=== PATIENT | female | born 1950 | race Caucasian/White ===

== ENCOUNTER → 2017-03-30 | Outpatient (CLI) | payer MEDICARE, BC ==
--- NOTE | 2017-03-31 12:47 | MM ---
Reason for exam: screening (asymptomatic). Last mammogram was performed 1 year and 5 months ago. History: Patient is postmenopausal. Benign excisional biopsy of the right breast. Took estrogen for 25 years 1 month. Physical Findings: A clinical breast exam by your physician is recommended on an annual basis and results should be correlated with mammographic findings. MG 3D Screening Mammo W/Cad Bilateral CC and MLO view(s) were taken. Prior study comparison: October 20, 2015, bilateral MG 3d screening mammo w/cad. August 05, 2014, bilateral MG diagnostic mammo w CAD PATRICIA. There are scattered fibroglandular densities. Finding: There are typically benign vascular, round calcifications in both breasts. There is no discrete abnormality. ASSESSMENT: Benign, BI-RAD 2 RECOMMENDATION: Routine screening mammogram of both breasts in 1 year.
== END | disposition home or self-care (01) ==
LOC: RADMAMWWP 13:16
PROVIDERS: ATTEND Internal Medicine Hematology & Oncology
DX: Z12.31 Encounter for screening mammogram for malignant neoplasm of breast (principal)
CPT/HCPCS: 77063; G0202

== ENCOUNTER 2017-08-16 13:48 | Emergency (ER) | payer MEDICARE, BC ==
[2017-08-16 14:03] VITALS: PULSE 91
--- NOTE | 2017-08-16 14:13 | ED ---
Chest Pain HPI - General Chief Complaint: Chest Pain Stated Complaint: poss broken ribs Time Seen by Provider: 08/16/17 13:57 Source: patient, RN notes reviewed, old records reviewed Mode of arrival: ambulatory Limitations: no limitations - History of Present Illness Initial Comments: This patient is a 66-year-old female presents emergency Department chief complaint of one week of right-sided rib pain. Patient reports that she has a history of a sternum fracture and May 2017. She reports that she seemed to be healing somewhat well from this injury. 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 She reports that she's been having pain with deep breath since that time. She states is also worse with movement and coughing. Patient reports that she has followed up with industrial specialist about her previous sternum fracture she reports that they have told her just to rest and take it easy. She reports that she does Tretter member to take deep breaths to swell. She denies any other significant injury or pain. She also questions if she could possibly have a kidney stone. She denies any left-sided chest pain. Denies any headache or chest pressure. Patient reports she has no dysuria or hematuria. Patient denies any recent fever, chills, s back pain, abdominal pain , nausea vomiting, numbness or tingling, dysuria or hematuria, constipation or diarrhea, headaches or visual changes, or any other current symptoms - Related Data Home Medications Medication Instructions Recorded Confirmed Estrogens, Conjugated [Premarin] 0.3 mg PO DAILY 06/23/16 08/16/17 Fluticasone/Vilanterol [Breo 1 puff INHALATION RT-DAILY 06/23/16 08/16/17 Ellipta 200-25 Mcg INH] Lansoprazole [Prevacid] 30 mg PO DAILY 06/23/16 08/16/17 Levothyroxine Sodium [Synthroid] 75 mcg PO DAILY 06/23/16 08/16/17 Lisinopril [Zestril] 10 mg PO DAILY 06/23/16 08/16/17 Montelukast Sodium [Singulair] 10 mg PO HS 06/23/16 08/16/17 Potassium Chloride ER [K-Dur 20] 20 meq PO BID 06/23/16 08/16/17 Ezetimibe [Zetia] 10 mg PO DAILY 05/24/17 08/16/17 Hydrocodone/Acetaminophen [[place] 1 tab PO Q4HR PRN 05/24/17 08/16/17 5-325] Previous Rx's Medication Instructions Recorded Ibuprofen [Motrin] 600 mg PO Q6HR PRN #20 tab 05/24/17 Levofloxacin [Levaquin] 500 mg PO DAILY 7 Days tab 05/24/17 Allergies Allergy/AdvReac Type Severity Reaction Status Date / Time cefuroxime [From Ceftin] Allergy Unknown Verified 08/16/17 14:03 Penicillins Allergy Unknown Verified 08/16/17 14:03 Review of Systems ROS Statement: Those systems with pertinent positive or pertinent negative responses have been documented in the HPI. ROS Other: All systems not noted in ROS Statement are negative. Past Medical History Past Medical History: Asthma, Hypertension History of Any Multi-Drug Resistant Organisms: None Reported Past Surgical History: Adenoidectomy, Appendectomy, Breast Surgery, Hysterectomy , Joint Replacement, Orthopedic Surgery, Tonsillectomy Additional Past Surgical History / Comment(s): ear shoulder wrist. right rotator cuff repair. Past Psychological History: No Psychological Hx Reported Smoking Status: Never smoker Past Alcohol Use History: None Reported Past Drug Use History: None Reported General Exam - General Exam Comments Initial Comments: This patient is a 66-year-old female. Patient does not appear to be in any acute distress. Limitations: no limitations General appearance: alert, in no apparent distress Head exam: Present: atraumatic, normocephalic, normal inspection Eye exam: Present: normal appearance, PERRL, EOMI. Absent: scleral icterus, conjunctival injection, periorbital swelling ENT exam: Present: normal exam, mucous membranes moist Neck exam: Present: normal inspection. Absent: tenderness, meningismus, lymphadenopathy Respiratory exam: Present: normal lung sounds bilaterally, chest wall tenderness (Patient has chest wall tenderness over right lower ribs ). Absent: respiratory distress, wheezes, rales, rhonchi, stridor Cardiovascular Exam: Present: regular rate, normal rhythm, normal heart sounds. Absent: systolic murmur, diastolic murmur, rubs, gallop, clicks GI/Abdominal exam: Present: soft, normal bowel sounds. Absent: distended, tenderness, guarding, rebound, rigid Extremities exam: Present: normal inspection, full ROM, normal capillary refill. Absent: tenderness, pedal edema, joint swelling, calf tenderness Back exam: Present: normal inspection Neurological exam: Present: alert, oriented X3, CN II-XII intact Psychiatric exam: Present: normal affect, normal mood Skin exam: Present: warm Course Vital Signs 08/16/17 14:00 Temperature 98.7 F Pulse Rate 91 Respiratory 16 Rate Blood Pressure 161/83 O2 Sat by Pulse 96 Oximetry Chest Pain MDM - MDM 66-year-old female presents today chief complaint of one week of right-sided rib pain. She reports that she fell over a freezer chest one week ago. She also has a history of his sternum fracture in May. At this time patient is tender over the right lower ribs. Specifically ribs 9 and 10. No significant bruising is noted. Patient's pain is reproducible. She has no significant coughing and lung sounds are clear bilaterally. Patient's rib x- ray was reviewed and negative for any acute process. She was also concern for possible kidney stone. She has no abdominal tenderness and denies urinary symptoms. Patient's urinalysis shows no signs of infection or blood. KUB is normal. At this time patient will be discharged with follow-up with primary care provider. She'll take her at home pain medicine. Discussed the importance of taking deep breaths. Disposition Clinical Impression: Rib pain on right side Disposition: HOME SELF-CARE Condition: Good Instructions: Rib Contusion (ED) Additional Instructions: Patient advised to alternate Motrin and Tylenol as well as take at home pain medicine. Take deep breaths frequently to prevent pneumonia. Return to the emergency department if any alarming signs or symptoms occur. Referrals: Hung Monroe DO [Doctor of Osteopathic Medicine] - 1-2 days Time of Disposition: 15:04
[2017-08-16 14:30] LABS: Appearance,Urine Clear (Clear); Bilirubin,Urine Negative (Negative); Blood,Urine Negative (Negative); Color,Urine Yellow; Glucose,Urine (UA) Negative (Negative); Ketones,Urine Negative (Negative); Leukocyte Esterase,Urine Negative (Negative); Nitrite,Urine Negative (Negative); PH, Urine 7.5 (5.0-8.0); Protein,Urine Negative (Negative); Specific Gravity,Urine 1.009 (1.001-1.035); Urobilinogen,Urine <2.0 mg/dL (<2.0)
--- NOTE | 2017-08-16 14:36 | XR ---
EXAMINATION TYPE: XR ribs RT w pa chest x-ray DATE OF EXAM: 08/16/2017 CLINICAL HISTORY: Chest and right-sided rib pain after bending injury today. TECHNIQUE: Single frontal view of the chest is obtained. A frontal and oblique images of the right-si ded ribs are acquired. COMPARISON: Two-view chest x-ray May 24, 2017. FINDINGS: There is no focal air space opacity, pleural effusion, or pneumothorax seen. The cardiac silhouette size remains enlarged with ectatic descending aorta. Multilevel spurring in thoracic spine is present. Dedicated images of right-sided ribs show demineralization which is noted to lower radiographic sensi tivity. There is no acute displaced right-sided rib fractures seen. Overlying soft tissue is unremark able. IMPRESSION: 1. Cardiomegaly without acute pulmonary process. 2. No acute displaced right-sided rib fractures are seen.
--- NOTE | 2017-08-16 14:37 | XR ---
EXAMINATION TYPE: XR KUB DATE OF EXAM: 08/16/2017 2:30 PM CLINICAL HISTORY: Right-sided chest and abdominal pain. TECHNIQUE: Two Upright KUB images of the abdomen are obtained. COMPARISON: CT abdomen and pelvis March 28, 2016 FINDINGS: Scattered gas is seen in non-distended small bowel loops. Gas and fecal material is seen in non-distended colon. S-shaped scoliosis is redemonstrated. No pneumoperitoneum is identified. No suspicious calcifications are seen. IMPRESSION: Overall nonobstructive bowel gas pattern.
[2017-08-16 15:41] VITALS: BP 145/87; RESP 18; TEMP 98
== END 2017-08-16 15:25 | disposition home or self-care (01) ==
LOC: EC 13:48
DX: R07.81 Pleurodynia (principal); J45.909 Unspecified asthma, uncomplicated; I10 Essential (primary) hypertension; Z79.52 Long term (current) use of systemic steroids; Z79.899 Other long term (current) drug therapy; Z88.1 Allergy status to other antibiotic agents; Z88.0 Allergy status to penicillin; X50.9XXA Other and unspecified overexertion or strenuous movements or postures, initial encounter
CPT/HCPCS: 74018; 81003; 99284

== ENCOUNTER → 2017-09-01 | Outpatient (CLI) | payer MEDICARE, BC ==
--- NOTE | 2017-09-01 15:35 | BD ---
EXAMINATION TYPE: MG DEXA axial skeleton. DATE OF EXAM: 09/01/2017 COMPARISON: NONE CLINICAL HISTORY: Z78.0 POST MENOPAUSAL WITHOUT HRT Height: 5 FT 1 1/2 IN Weight: 189 FRAX RISK QUESTIONS: Alcohol (3 or more units per day): NO Family History (Parent hip fracture): YES Glucocorticoids (More than 3mos): YES (Ex: prednisone, prednisolone, methylprednisolone, dexamethasone, and hydrocortisone). History of Fracture in Adulthood: YES Secondary Osteoporosis: 1. Type 1 Diabetes: NO 2. Hyperthyroidism: NO 3. Menopause before 45: YES 4. Malnutrition: NO 5. Chronic liver disease: NO Rheumatoid Arthritis: NO Current Tobacco Use: NO RISK FACTORS HISTORY OF: History of Wrist Fracture: RT WRIST When: 15 YEARS AGO Surgery to Spine/Hip(right/left)/Wrist (right/left): RT WRIST When: 15 YEARS AGO Family History of Osteoporosis: YES Active: NO Postmenopausal woman: TOTAL HYST AGE 32 If Premenopausal, do you have irregular periods: Take estrogen and/or progesterone medications: YES How lon YEARS Lost more than 2 inches in height since high school: YES MEDICATIONS: Prednisone or other steroids: YES How Long: OVER 10 YEARS Thyroid Medications: YES Which medication: LEVOTHYROXINE How Lon-20 YEARS Additional Medications: POTASSIUM CLER,SINGULAIR, LISINOPRIL, PREVACID, LEVOTHYROXINE, PREMARIN, BREO INHALER, CRESTOR Additional History: EXAM MEASUREMENTS: Bone mineral densitometry was performed using the [employer]imib[employer] System. Bone mineral density as measured about the Lumbar spine is: ----- L1-L4(G/cm2): 1.134 T Score Values are as follows: ----- L2: 0.0 ----- L3: 0.0 ----- L4: -0.6 ----- L1-L4: -0.4 Bone mineral density has: INCREASED 6.7 % since study of: 2010 Bone mineral density about the R hip (g/cm2): 0.808 Bone mineral density about the L hip (g/cm2): 0.802 T Score values are as follows: -----R Neck: -1.7 -----L Neck: -1.7 -----R Total: -0.6 -----L Total: -0.5 Bone mineral density has: DECREASED -2.2 % since study of: 2010 IMPRESSION: No evidence for osteoporosis or osteopenia. NOTE: T-SCORE=SD OF THE YOUNG ADULT MEAN.
== END | disposition home or self-care (01) ==
LOC: RADBDWWP 14:45
PROVIDERS: ATTEND Internal Medicine Hematology & Oncology
DX: N95.1 Menopausal and female climacteric states (principal)
CPT/HCPCS: 77080

== ENCOUNTER → 2018-05-25 | Outpatient (CLI) | payer MEDICARE, BC ==
--- NOTE | 2018-05-29 10:03 | MM ---
Reason for exam: screening (asymptomatic). Last mammogram was performed 1 year and 2 months ago. History: Patient is postmenopausal. Benign excisional biopsy of the right breast. Took estrogen for 25 years 1 month. Physical Findings: A clinical breast exam by your physician is recommended on an annual basis and results should be correlated with mammographic findings. MG 3D Screening Mammo W/Cad Bilateral CC and MLO view(s) were taken. Prior study comparison: March 30, 2017, bilateral MG 3d screening mammo w/cad. October 20, 2015, bilateral MG 3d screening mammo w/cad. The breast tissue is heterogeneously dense. This may lower the sensitivity of mammography. No significant changes when compared with prior studies. ASSESSMENT: Benign, BI-RAD 2 RECOMMENDATION: Routine screening mammogram of both breasts in 1 year.
== END | disposition home or self-care (01) ==
LOC: RADMAMWWP 14:03
PROVIDERS: ATTEND Internal Medicine Hematology & Oncology
DX: Z12.31 Encounter for screening mammogram for malignant neoplasm of breast (principal)
CPT/HCPCS: 77063; 77067

== ENCOUNTER → 2019-08-27 | Outpatient (CLI) | payer MEDICARE, BC ==
--- NOTE | 2019-08-27 14:45 | NM ---
EXAMINATION TYPE: NM hepatobiliary w CCK DATE OF EXAM: 08/27/2019 COMPARISON: NONE HISTORY: Abdominal pain TECHNIQUE: After the intravenous administration of 4.7 mCi Tc 99m Mebrofenin hepatobiliary scintigrap hy is performed. Immediate images post injection. FINDINGS: There is satisfactory initial accumulation of tracer by the liver. The gallbladder is visualized wit hin 8 minutes. At one hour CCK was administered, patient was injected with 1.5 mcg of Kinevac, and g allbladder ejection fraction is calculated at 88 %, abnormally elevated. Therefore there is no scint igraphic evidence of cystic or common bile duct obstruction to suggest acute cholecystitis or gallbla dder dyskinesia. IMPRESSION: Biliary hyperkinesia with abnormally elevated ejection fraction of 88%. No scintigraphic evidence of acute or chronic cholecystitis.
== END ==
LOC: RADNMMAIN 12:14
PROVIDERS: ATTEND Surgery
DX: K83.8 Other specified diseases of biliary tract (principal)
CPT/HCPCS: 78227; A9537; J2805

== ENCOUNTER → 2019-09-06 | Outpatient (CLI) | payer MEDICARE, BC ==
--- NOTE | 2019-09-10 10:40 | MM ---
Reason for exam: screening (asymptomatic). Last mammogram was performed 1 year and 3 months ago. History: Patient is postmenopausal. Benign excisional biopsy of the right breast. Took estrogen for 25 years 1 month. Physical Findings: A clinical breast exam by your physician is recommended on an annual basis and results should be correlated with mammographic findings. MG 3D Screening Mammo W/Cad Bilateral CC, MLO, and XCCL view(s) were taken. Prior study comparison: May 25, 2018, bilateral MG 3d screening mammo w/cad. March 30, 2017, bilateral MG 3d screening mammo w/cad. There are scattered fibroglandular densities. No significant changes when compared with prior studies. ASSESSMENT: Benign, BI-RAD 2 RECOMMENDATION: Routine screening mammogram of both breasts in 1 year.
== END | disposition home or self-care (01) ==
LOC: RADMAMWWP 14:40
PROVIDERS: ATTEND Obstetrics & Gynecology
DX: Z12.31 Encounter for screening mammogram for malignant neoplasm of breast (principal)
CPT/HCPCS: 77063; 77067

== ENCOUNTER 2020-11-24 16:45 | Emergency (ER) | payer MEDICARE, BC ==
[2020-11-24 16:51] VITALS: BP 125/80; PULSE 95; RESP 18; TEMP 97.9
--- NOTE | 2020-11-24 17:46 | US ---
EXAMINATION TYPE: US venous doppler duplex LE LT DATE OF EXAM: 11/24/2020 5:38 PM COMPARISON: NONE CLINICAL HISTORY: Left lower extremity pain and tenderness. Left lower extremity pain and tenderness. No hx of DVT. Patient does not take a blood thinner. SIDE PERFORMED: Left TECHNIQUE: The lower extremity deep venous system is examined utilizing real time linear array sonog carlos with graded compression, doppler sonography and color-flow sonography. VESSELS IMAGED: Common Femoral Vein Deep Femoral Vein Greater Saphenous Vein * Femoral Vein Popliteal Vein Small Saphenous Vein * Proximal Calf Veins (* superficial vessels) Left Leg: No evidence of DVT in veins imaged at this time. Hypoechoic-anechoic area seen left medial popliteal area measuring 2.2 x 2.4 x 1.1 cm. IMPRESSION: Small popliteal cyst. No evidence of deep vein thrombosis in the left leg.
--- NOTE | 2020-11-24 17:53 | ED ---
Extremity Problem HPI - General Chief complaint: Extremity Problem,Nontraumatic Stated complaint: Possible Blood Clot Time Seen by Provider: 11/24/20 16:52 Source: patient, RN notes reviewed Mode of arrival: ambulatory Limitations: no limitations - History of Present Illness Initial comments: Patient is a 69-year-old female presented emergency department with left calf pain. She notes she was at physical therapy when they were pressing on her left calf and noted that it felt tight and that she should get evaluated for possible DVT. She notes that she recently got a knee injection for some [id number] arthritis. She notes that she got this last and has been painful since. She climbed any pain medication at this time due to not liking taking medication. She was in no apparent distress or pain while sitting in bed in exam interview. She denied any previous DVTs, chest pain short of breath headache nausea vomiting diarrhea constipation fever fatigue chills weakness numbness tingling in the left leg. - Related Data Home Medications Medication Instructions Recorded Confirmed Estrogens, Conjugated [Premarin] 0.3 mg PO DAILY 06/23/16 08/16/17 Fluticasone/Vilanterol [Breo 1 puff INHALATION RT-DAILY 06/23/16 08/16/17 Ellipta 200-25 Mcg INH] Lansoprazole [Prevacid] 30 mg PO DAILY 06/23/16 08/16/17 Levothyroxine Sodium [Synthroid] 75 mcg PO DAILY 06/23/16 08/16/17 Lisinopril [Zestril] 10 mg PO DAILY 06/23/16 08/16/17 Montelukast Sodium [Singulair] 10 mg PO HS 06/23/16 08/16/17 Potassium Chloride ER [K-Dur 20] 20 meq PO BID 06/23/16 08/16/17 Ezetimibe [Zetia] 10 mg PO DAILY 05/24/17 08/16/17 Hydrocodone/Acetaminophen [[place] 1 tab PO Q4HR PRN 05/24/17 08/16/17 5-325] Previous Rx's Medication Instructions Recorded Ibuprofen [Motrin] 600 mg PO Q6HR PRN #20 tab 05/24/17 Levofloxacin [Levaquin] 500 mg PO DAILY 7 Days tab 05/24/17 Allergies Allergy/AdvReac Type Severity Reaction Status Date / Time cefuroxime [From Ceftin] Allergy Unknown Verified 11/24/20 16:47 clindamycin Allergy Unknown Verified 11/24/20 16:48 Penicillins Allergy Unknown Verified 11/24/20 16:47 Review of Systems ROS Statement: Those systems with pertinent positive or pertinent negative responses have been documented in the HPI. ROS Other: All systems not noted in ROS Statement are negative. Past Medical History Past Medical History: Asthma, Hypertension History of Any Multi-Drug Resistant Organisms: None Reported Past Surgical History: Adenoidectomy, Appendectomy, Breast Surgery, Hysterectomy, Joint Replacement, Orthopedic Surgery, Tonsillectomy Additional Past Surgical History / Comment(s): ear shoulder wrist. right rotator cuff repair. Past Psychological History: No Psychological Hx Reported Smoking Status: Never smoker Past Alcohol Use History: None Reported Past Drug Use History: None Reported General Exam Limitations: no limitations General appearance: alert, in no apparent distress Head exam: Present: atraumatic, normocephalic, normal inspection Eye exam: Present: normal appearance, PERRL, EOMI. Absent: scleral icterus, conjunctival injection, periorbital swelling Neck exam: Present: normal inspection Respiratory exam: Present: normal lung sounds bilaterally. Absent: respiratory distress, wheezes, rales, rhonchi, stridor Cardiovascular Exam: Present: regular rate, normal rhythm, normal heart sounds. Absent: systolic murmur, diastolic murmur, rubs, gallop, clicks GI/Abdominal exam: Present: soft, normal bowel sounds. Absent: distended, tenderness, guarding, rebound, rigid Extremities exam: Present: normal inspection, full ROM, normal capillary refill, calf tenderness (Left). Absent: tenderness, pedal edema, joint swelling Neurological exam: Present: alert, oriented X3, CN II-XII intact Psychiatric exam: Present: normal affect, normal mood Skin exam: Present: warm, dry, intact, normal color. Absent: rash Course Vital Signs 11/24/20 16:48 Temperature 97.9 F Pulse Rate 95 Respiratory 18 Rate Blood Pressure 125/80 O2 Sat by Pulse 97 Oximetry Medical Decision Making - Medical Decision Making 69-year-old female sent by physical therapy to get evaluated for possible DVT of left calf. Ultrasound of the left lower extremity ordered. Ultrasound negative for any DVT and show a popliteal cyst. Case discussed with Dr. Almonte, patient can discharge home and follow-up with primary care. - Radiology Data Radiology results: report reviewed, image reviewed Ultrasound venous Doppler left lower extremity: No evidence of DVT and veins image at this time. Hypoechoic anechoic area seen left medial popliteal area measuring 2.22.41.1 cm. Disposition Clinical Impression: Pain of left calf, Popliteal cyst Disposition: HOME SELF-CARE Condition: Stable Instructions (If sedation given, give patient instructions): Leg Pain (ED) Additional Instructions: Please return to the Emergency Department if symptoms worsen or any other concerns. Follow-up with primary care in 3-5 days. Can take [id number] anti-inflammatories for pain control. Is patient prescribed a controlled substance at d/c from ED?: No Referrals: Nicholas Junior MD [Primary Care Provider] - 1-2 days Time of Disposition: 17:53
== END 2020-11-24 18:00 | disposition home or self-care (01) ==
LOC: EC 16:45
DX: M71.22 Synovial cyst of popliteal space [Baker], left knee (principal); M79.662 Pain in left lower leg; J45.909 Unspecified asthma, uncomplicated; I10 Essential (primary) hypertension; Z79.51 Long term (current) use of inhaled steroids; Z79.899 Other long term (current) drug therapy; Z88.0 Allergy status to penicillin
CPT/HCPCS: 99283

== ENCOUNTER → 2021-04-14 | Outpatient (CLI) | payer MEDICARE, BC ==
[2021-04-14 16:08] LABS: African American GFR (CKD) >90 (>60 ml/min/1.73 sqM); Blood Urea Nitrogen 21 mg/dL (7-17); Non-African American GFR(CKD) >90 (>60 ml/min/1.73 sqM)
--- NOTE | 2021-04-14 22:44 | CT ---
EXAMINATION TYPE: CT abdomen pelvis w con DATE OF EXAM: 04/14/2021 COMPARISON: 03/28/2016 INDICATION: RLQ pain DLP: 788.3 mGycm, Automated exposure control for dose reduction was used. CONTRAST: 100 mL of Isovue 300. Study performed with Oral Contrast TECHNIQUE: Axial images were obtained from above the diaphragm to the pubic rami in the axial plane a t 5 mm thick sections. Reconstructed images are reviewed on the computer in the coronal plane. FINDINGS: Limited CT sections are obtained the lung bases. The lung bases are clear. A small hiatal hernia ma y be present. CT ABDOMEN: Liver: Punctate hypodensity is within the right lobe liver could be a tiny cyst. This is too small to classify. Granuloma may be nearby within the lateral right lobe liver. Spleen: Normal Pancreas: Normal Adrenal glands: The adrenal glands are normal. Gallbladder: Gallstones are present. Kidneys: No masses are evident. No hydronephrosis is present. No cysts are present. Delayed images were obtained through the kidneys, which remain unremarkable. Aorta: Vascular calcification is within the aorta. Inferior vena cava: Normal. CT PELVIS: Loops of bowel within the abdomen and pelvis are normal. Few scattered diverticuli within the sigmoid colon There are loops of bowel which are incompletely distended or lack oral contrast limiting th eir evaluation. Appendix: Not identified. No dilated tubular structures or inflammatory changes are evident. Urinary bladder: Normal. Genitourinary structures: Uterus and ovaries not identified. Osseous structures: No suspicious lytic or sclerotic lesions. Facet degenerative changes within the l umbar spine. IMPRESSIONS: 1. Mild diverticulosis without acute diverticulitis. 2. Cholelithiasis.
== END | disposition home or self-care (01) ==
LOC: RADCTMAIN 15:23
PROVIDERS: ATTEND Internal Medicine Hematology & Oncology
DX: K80.20 Calculus of gallbladder without cholecystitis without obstruction (principal); K57.90 Diverticulosis of intestine, part unspecified, without perforation or abscess without bleeding
CPT/HCPCS: 82565; 84520; 74177; 36415; Q9967

== ENCOUNTER → 2021-04-17 | Outpatient (CLI) | payer MEDICARE, BC ==
--- NOTE | 2021-04-21 10:19 | MM ---
Reason for exam: screening (asymptomatic). Last mammogram was performed 1 year and 7 months ago. History: Patient is postmenopausal. Benign excisional biopsy of the right breast. Took hormonal contraceptives for 10 years. Took estrogen for 25 years 1 month. Physical Findings: A clinical breast exam by your physician is recommended on an annual basis and results should be correlated with mammographic findings. MG 3D Screening Mammo W/Cad Bilateral CC and MLO view(s) were taken. Prior study comparison: September 06, 2019, bilateral MG 3d screening mammo w/cad. May 25, 2018, bilateral MG 3d screening mammo w/cad. March 30, 2017, bilateral MG 3d screening mammo w/cad. October 20, 2015, bilateral MG 3d screening mammo w/cad. There are scattered fibroglandular densities. There is chronic nodularity in the left breast. Stable regional punctate calcifications on the right. No significant changes when compared with prior studies. ASSESSMENT: Benign, BI-RAD 2 RECOMMENDATION: Routine screening mammogram of both breasts in 1 year.
== END | disposition home or self-care (01) ==
LOC: RADMAMWWP 14:49
PROVIDERS: ATTEND Internal Medicine Hematology & Oncology
DX: Z12.31 Encounter for screening mammogram for malignant neoplasm of breast (principal)
CPT/HCPCS: 77063; 77067

== ENCOUNTER 2022-10-07 08:06 | Inpatient (IN) | payer MEDICARE, BC ==
--- NOTE | 2022-10-07 08:26 | ED ---
General Adult HPI - General Chief complaint: Chest Pain Stated complaint: Chest Pain Time Seen by Provider: 10/07/22 08:08 Source: patient, RN notes reviewed, old records reviewed Mode of arrival: wheelchair Limitations: no limitations - History of Present Illness Initial comments: 71-year-old female presenting for evaluation of chest pain and pressure. Symptoms began about 3 hours prior to arrival. They have been constant since that time. Associated with some diaphoresis. No vomiting. Patient also reports pain in the middle of her back. Denies injury. Denies fever. This was associated with some mild dyspnea. She has family history of aneurysm of the aorta. She is a nonsmoker. History of hypertension. No known history of coronary artery disease. - Related Data Home Medications Medication Instructions Recorded Confirmed Fluticasone/Vilanterol [Breo 1 puff INHALATION RT-DAILY 06/23/16 10/07/22 Ellipta 200-25 Mcg INH] Lansoprazole [Prevacid] 30 mg PO HS 06/23/16 10/07/22 Levothyroxine Sodium [Synthroid] 75 mcg PO DAILY 06/23/16 10/07/22 Montelukast Sodium [Singulair] 10 mg PO HS 06/23/16 10/07/22 Potassium Chloride ER [K-Dur 20] 20 meq PO BID 06/23/16 10/07/22 lisinopriL [Zestril] 10 mg PO HS 06/23/16 10/07/22 Celecoxib [CeleBREX] 200 mg PO HS 10/07/22 10/07/22 Rosuvastatin [Crestor] 20 mg PO HS 10/07/22 10/07/22 Allergies Allergy/AdvReac Type Severity Reaction Status Date / Time cefuroxime [From Ceftin] Allergy Unknown Verified 10/07/22 08:59 clindamycin Allergy swelling Verified 10/07/22 08:59 of mouth & eyes Fish Containing Products Allergy saltwater Verified 10/07/22 10:28 [Fish] fish only Milk Containing Products Allergy Unknown Verified 10/07/22 08:59 [Dairy] Penicillins Allergy Unknown Verified 10/07/22 08:59 shellfish derived [Shellfish] Allergy Unknown Verified 10/07/22 10:28 wheat Allergy Unknown Verified 10/07/22 08:59 Review of Systems ROS Statement: Those systems with pertinent positive or pertinent negative responses have been documented in the HPI. ROS Other: All systems not noted in ROS Statement are negative. Past Medical History Past Medical History: Asthma, Hypertension History of Any Multi-Drug Resistant Organisms: None Reported Past Surgical History: Adenoidectomy, Appendectomy, Breast Surgery, H ysterectomy, Joint Replacement, Orthopedic Surgery, Tonsillectomy Additional Past Surgical History / Comment(s): ear shoulder wrist. right rotator cuff repair. Past Psychological History: No Psychological Hx Reported Smoking Status: Never smoker Past Alcohol Use History: None Reported Past Drug Use History: None Reported General Exam Limitations: no limitations General appearance: alert, in no apparent distress Head exam: Present: atraumatic, normocephalic Eye exam: Present: normal appearance, PERRL Respiratory exam: Present: normal lung sounds bilaterally. Absent: respiratory distress Cardiovascular Exam: Present: regular rate, irregular rhythm GI/Abdominal exam: Present: soft. Absent: distended, tenderness, guarding, rebound Extremities exam: Present: normal inspection, normal capillary refill. Absent: pedal edema, calf tenderness Neurological exam: Present: alert, oriented X3, CN II-XII intact. Absent: motor sensory deficit Psychiatric exam: Present: anxious Skin exam: Present: normal color, diaphoretic Course Vital Signs 10/07/22 10/07/22 10/07/22 08:07 09:06 10:35 Temperature 98.4 F Pulse Rate 63 57 L 60 Respiratory 18 18 18 Rate Blood Pressure 130/85 120/57 132/64 O2 Sat by Pulse 99 94 L 98 Oximetry - Reevaluation(s) Reevaluation #1: 10/07/22 12:00 Patient reevaluated, resting comfortably, chest pain-free EKG Findings - EKG Comments: EKG Findings:: EKG: Sinus rhythm with frequent PVC low voltage T-wave inversion in lead 3 in the precordial leads. Compared to EKG from 2017 which showed T- wave inversion similar morphology. No ST segment elevation. Repeat EKG: Sinus bradycardia rate 58 persistent T-wave inversion no ST segment elevation UT interval 162, QRS duration 81, QTC 457 - EKG Results: EKG: interpreted by DAVE Medical Decision Making - Medical Decision Making Was pt. sent in by a medical professional or institution (, PA, ASSISTANT PROFESSOR OF ENGLISH, urgent care, hospital, or penitentiary...) When possible be specific @ -No Did you speak to anyone other than the patient for history (EMS, parent, family, police, friend...)? What history was obtained from this source @ -No Did you review nursing and triage notes (agree or disagree)? Why? @ -I reviewed and agree with nursing and triage notes Were old charts reviewed (outside hosp., previous admission, EMS record, old EKG, old radiological studies, urgent care reports/EKG's, penitentiary records)? Report findings @ -Reviewed previous EKGs Differential Diagnosis (chest pain, altered mental status, abdominal pain women, abdominal pain men, vaginal bleeding, weakness, fever, dyspnea, syncope, headache, dizziness, GI bleed, back pain, seizure, CVA, palpatations, mental health, musculoskeletal)? @ -Differential Chest Pain: Stable Angina, Unstable Angina, STEMI, NSTEMI Aortic Dissection, Pneumothorax, Musculoskeletal, Esophageal Spasm GERD, Cholecystitis, Pancreatitis, Zoster, this is not meant to be an all-inclusive list. EKG interpreted by me (3pts min.). @ -As above X-rays interpreted by me (1pt min.). @ -Chest x-ray negative for acute cardiopulmonary disease CT interpreted by me (1pt min.). @ -CT negative for aneurysm or dissection, shows cholelithiasis without acute findings. U/S interpreted by me (1pt. min.). @ -None done What testing was considered but not performed or refused? (CT, X-rays, U/S, labs)? Why? @ -None What meds were considered but not given or refused? Why? @ -None Did you discuss the management of the patient with other professionals (professionals i.e. , PA, ASSISTANT PROFESSOR OF ENGLISH, lab, RT, psych nurse, social media director, lawyers, teacher, commanding officer garage, lead case manager)? Give summary @ -No Was smoking cessation discussed for >3mins.? @ -No Was critical care preformed (if so, how long)? @ -No Were there social determinants of health that impacted care today? How? (Homelessness, low income, unemployed, alcoholism, drug addiction, trans portation, low edu. Level, literacy, decrease access to med. care, snf, rehab)? @ -No Was there de-escalation of care discussed even if they declined (Discuss DNR or withdrawal of care, Hospice)? DNR status @ -No What co-morbidities impacted this encounter? (DM, HTN, Smoking, COPD, CAD, Cancer, CVA, ARF, Chemo, Hep., AIDS, mental health diagnosis, sleep apnea, morbid obesity)? @ -None Was patient admitted / discharged? Hospital course, mention meds given and route, prescriptions, significant lab abnormalities, going to OR and other pertinent info. @ -71-year-old female presenting with chest pain radiating into her back. Family history of aneurysm. Workup is initiated for both MA and aortic pathology. EKG stable T-wave inversion compared to prior without ST segment elevation per chest x-ray clear. CT of the aorta performed which is negative for aneurysm or dissection. Laboratory testing is unremarkable. Given the onset of symptoms and the patient's risk factor she will be kept in observation for serial cardiac enzymes, telemetry and cardiology consultation. Undiagnosed new problem with uncertain prognosis? @ -No Drug Therapy requiring intensive monitoring for toxicity (Heparin, Nitro, Insulin, Cardizem)? @ -No Were any procedures done? @ -No Diagnosis/symptom? @ -Chest pain Acute, or Chronic, or Acute on Chronic? @ -Acute Uncomplicated (without systemic symptoms) or Complicated (systemic symptoms)? @ -Complicated Side effects of treatment? @ -No Exacerbation, Progression, or Severe Exacerbation? @ -No Poses a threat to life or bodily function? How? (Chest pain, USA, MA, pneumonia, PE, COPD, DKA, ARF, appy, cholecystitis, CVA, Diverticulitis, Homicidal, Suicidal, threat to staff... and all critical care pts) @ -yes - Lab Data Result diagrams: 10/07/22 08:43 10/07/22 08:43 Lab Results 10/07/22 10/07/22 10/07/22 Range/Units 08:43 08:43 08:43 WBC 11.3 H (3.8-10.6) k/uL RBC 4.52 (3.80-5.40) m/uL Hgb 14.1 (11.4-16.0) gm/dL Hct 41.5 (34.0-46.0) % MCV 92.0 (80.0-100.0) fL MCH 31.3 (25.0-35.0) pg MCHC 34.0 (31.0-37.0) g/dL RDW 13.0 (11.5-15.5) % Plt Count 242 (150-450) k/uL MPV 8.9 Neutrophils % 71 % Lymphocytes % 18 % Monocytes % 7 % Eosinophils % 1 % Basophils % 1 % Neutrophils # 8.0 H (1.3-7.7) k/uL Lymphocytes # 2.1 (1.0-4.8) k/uL Monocytes # 0.8 (0-1.0) k/uL Eosinophils # 0.1 (0-0.7) k/uL Basophils # 0.1 (0-0.2) k/uL PT 9.8 (9.0-12.0) sec INR 0.9 (<1.2) APTT 26.5 (22.0-30.0) sec Sodium 140 (137-145) mmol/L Potassium 4.0 (3.5-5.1) mmol/L Chloride 106 (98-107) mmol/L Carbon Dioxide 24 (22-30) mmol/L Anion Gap 10 mmol/L BUN 14 (7-17) mg/dL Creatinine 0.57 (0.52-1.04) mg/dL Est GFR (CKD-EPI)AfAm >90 (>60 ml/min/1.73 sqM) Est GFR (CKD-EPI)NonAf >90 (>60 ml/min/1.73 sqM) Glucose 152 H (74-99) mg/dL Calcium 9.2 (8.4-10.2) mg/dL Magnesium 1.7 (1.6-2.3) mg/dL Total Bilirubin 0.4 (0.2-1.3) mg/dL AST 32 (14-36) U/L ALT 22 (4-34) U/L Alkaline Phosphatase 123 (38-126) U/L Troponin I (0.000-0.034) ng/mL Total Protein 6.8 (6.3-8.2) g/dL Albumin 4.1 (3.5-5.0) g/dL Lipase 150 (23-300) U/L 10/07/22 Range/Units 08:43 WBC (3.8-10.6) k/uL RBC (3.80-5.40) m/uL Hgb (11.4-16.0) gm/dL Hct (34.0-46.0) % MCV (80.0-100.0) fL MCH (25.0-35.0) pg MCHC (31.0-37.0) g/dL RDW (11.5-15.5) % Plt Count (150-450) k/uL MPV Neutrophils % % Lymphocytes % % Monocytes % % Eosinophils % % Basophils % % Neutrophils # (1.3-7.7) k/uL Lymphocytes # (1.0-4.8) k/uL Monocytes # (0-1.0) k/uL Eosinophils # (0-0.7) k/uL Basophils # (0-0.2) k/uL PT (9.0-12.0) sec INR (<1.2) APTT (22.0-30.0) sec Sodium (137-145) mmol/L Potassium (3.5-5.1) mmol/L Chloride (98-107) mmol/L Carbon Dioxide (22-30) mmol/L Anion Gap mmol/L BUN (7-17) mg/dL Creatinine (0.52-1.04) mg/dL Est GFR (CKD-EPI)AfAm (>60 ml/min/1.73 sqM) Est GFR (CKD-EPI)NonAf (>60 ml/min/1.73 sqM) Glucose (74-99) mg/dL Calcium (8.4-10.2) mg/dL Magnesium (1.6-2.3) mg/dL Total Bilirubin (0.2-1.3) mg/dL AST (14-36) U/L ALT (4-34) U/L Alkaline Phosphatase (38-126) U/L Troponin I <0.012 (0.000-0.034) ng/mL Total Protein (6.3-8.2) g/dL Albumin (3.5-5.0) g/dL Lipase (23-300) U/L Disposition Clinical Impression: Chest pain Disposition: ADMITTED IP TO THIS HOSP Condition: Stable Is patient prescribed a controlled substance at d/c from ED?: No Referrals: Nicholas Junior MD [Primary Care Provider] - 1-2 days Time of Disposition: 12:00
[2022-10-07] MEDS ORDERED: ONDANSETRON 4 MG/2 ML VIAL IVP STA (09:02)
--- NOTE | 2022-10-07 09:08 | XR ---
EXAMINATION TYPE: XR chest 1V portable DATE OF EXAM: 10/07/2022 Comparison: 08/16/2017 Clinical History: 71-year-old female Pain Findings: Low lung volumes. This accentuates heart size which is likely borderline enlarged. Suspect some stran dy left basilar atelectasis. Otherwise, no consolidation or pleural effusion is seen. Impression: Hypoventilatory changes. Borderline heart size. Suspect some strandy left basilar atelectasis.
[2022-10-07 09:09] LABS: Basophils # (A) 0.1 k/uL (0-0.2); Basophils % (A) 1 %; Eosinophils # (A) 0.1 k/uL (0-0.7); Eosinophils % (A) 1 %; HCT 41.5 % (34.0-46.0); HGB 14.1 gm/dL (11.4-16.0); Lymphocytes # (A) 2.1 k/uL (1.0-4.8); Lymphocytes % (A) 18 %; MCH 31.3 pg (25.0-35.0); Mean Platelet Volume 8.9; Monocytes # (A) 0.8 k/uL (0-1.0); Monocytes % (A) 7 %; Neutrophils % (A) 71 %; Platelet Count 242 k/uL (150-450); RBC 4.52 m/uL (3.80-5.40); WBC 11.3 k/uL (3.8-10.6)
[2022-10-07 09:16] LABS: INR 0.9 (<1.2); Partial Thromboplastin Time 26.5 sec (22.0-30.0); Prothrombin Time 9.8 sec (9.0-12.0)
[2022-10-07 09:19] LABS: ALT 22 U/L (4-34); AST 32 U/L (14-36); African American GFR (CKD) >90 (>60 ml/min/1.73 sqM); Albumin 4.1 g/dL (3.5-5.0); Alkaline Phosphatase 123 U/L (38-126); Anion Gap 10 mmol/L; Blood Urea Nitrogen 14 mg/dL (7-17); Calcium 9.2 mg/dL (8.4-10.2); Carbon Dioxide 24 mmol/L (22-30); Chloride 106 mmol/L (98-107); Glucose 152 mg/dL (74-99); Lipase 150 U/L (23-300); Magnesium 1.7 mg/dL (1.6-2.3); Non-African American GFR(CKD) >90 (>60 ml/min/1.73 sqM); Sodium 140 mmol/L (137-145); Total Bilirubin 0.4 mg/dL (0.2-1.3); Total Protein 6.8 g/dL (6.3-8.2)
[2022-10-07] MEDS ORDERED: methylPREDNISolone SOD SUCCI 125 MG/2 ML VIAL IV STA (10:13)
[2022-10-07] MEDS ORDERED: diphenhydrAMINE 50 MG/ML 1 ML VIAL IVP STA (10:13)
[2022-10-07] MEDS ORDERED: SODIUM CHLORIDE 0.9% 500 ML 500 ML IV ONE (10:13)
[2022-10-07] MEDS ORDERED: FAMOTIDINE 20 MG/2 ML VIAL IV STA (10:13)
[2022-10-07] MEDS: SODIUM CHLORIDE 0.9% 1,000 ML IV SCH (10:35)
--- NOTE | 2022-10-07 11:43 | CT ---
EXAMINATION TYPE: CT angio thor/abd pel aorta CT DLP: 1742 mGycm, Automated exposure control for dose reduction was used. DATE OF EXAM: 10/07/2022 11:32 AM COMPARISON: CT abdomen pelvis 04/14/2021. CLINICAL INDICATION:Female, 71 years old with history of cp/back pain; PHH, Chest and Back pain since 0630 this am TECHNIQUE: Dissection protocol: Multiple axial CT images of the chest, abdomen, and pelvis were obtai torey prior and to the administration of IV contrast. 3-D reformats and maximum intensity projection fo rmat were performed on a separate workstation. Contrast used:100 ml mL of Isovue 370 without and with IV Contrast, Oral contrast used: without Oral Contrast FINDINGS: ARTERIAL VASCULATURE: The thoracic aorta is normal in course and caliber. There is no evidence of aor tic dissection, aneurysm or acute aortic injury. Great arch vessels patent and normal in course and c aliber. PULMONARY ARTERIAL VASCULATURE: Prominent measuring 3.2 cm in diameter which can be seen setting of p ulmonary arterial hypertension. No evidence of filling defect to suggest pulmonary embolus. VENOUS SYSTEM: Unremarkable. Lungs/pleura: No focal consolidation, pleural effusion, pneumothorax. Bibasilar subsegmental atelecta sis and groundglass changes likely related to atelectasis. Heart: Mild cardiomegaly. No pericardial effusion. Mediastinum: No gross evidence of adenopathy. Lower Neck: Macrocalcification within the left thyroid lobe. Hyperdense 9 mm nodule within the right thyroid lobe.. Abdomen: Liver: Punctate calcification within the lateral right hepatic lobe. Gallbladder and Bile ducts: Cholelithiasis without surrounding inflammatory changes.. Pancreas: Unremarkable. Spleen: Unremarkable. Adrenal glands: Unremarkable. Kidneys and Ureters: No hydronephrosis. Nonobstructive left mid kidney 6 mm calculus. Kidneys enhance symmetrically. Stomach and Bowel: Distal colonic diverticulosis without evidence for acute diverticulitis.. No evid ence of bowel obstruction. Peritoneum: No evidence of pneumoperitoneum, free fluid, or adenopathy. Bladder: Under distended but grossly unremarkable. Reproductive: Post hysterectomy. No suspicious adnexal mass. Abdominal wall/soft tissues: Small fat filled umbilical hernia.. Musculoskeletal: The osseous structures appear intact. Mild multilevel degenerative disc disease. IMPRESSION: 1. No evidence for thoracic aortic dissection. 2. Cholelithiasis. 3. Colonic diverticulosis without evidence for acute diverticulitis.
[2022-10-07] MEDS ORDERED: ASPIRIN 325 MG TAB PO STA (11:51)
[2022-10-07] MEDS ORDERED: MORPHINE SULFATE 4 MG/ML SYRINGE IV PRN (11:54)
[2022-10-07] MEDS ORDERED: ACETAMINOPHEN TAB 325 MG TAB PO PRN (11:54)
[2022-10-07] MEDS ORDERED: ONDANSETRON 4 MG/2 ML VIAL IVP PRN (11:54)
[2022-10-07] MEDS ORDERED: NALOXONE 0.4 MG/ML 1 ML VIAL IV PRN (11:54)
--- NOTE | 2022-10-07 13:33 | P.HPIM ---
History of Present Illness H&P Date: 10/07/22 History of Presenting Illness: Patient is a very pleasant 71-year-old female with a past medical history of hypertension, hyperlipidemia, hypothyroidism, and COPD. She presented to the emergency department secondary to a chief complaint of chest pressure. Patient reports shortly after awakening this morning she began feeling a pressure-like sensation in the midsternal chest that radiated directly into her back accompanied by nausea, diaphoresis, and shortness of breath. Patient states she became very concerned as she has a history of a renal cyst near her aorta as well as a family history of aortic aneurysm. Patient states she did use an home rescue inhaler which provided no relief. Patient denies having any fever, chills, headache, lightheadedness, dizziness, palpitations, nausea, vomiting, or experiencing any numbness/tingling/weakness/swelling in her extremities. Patient denies history of cardiac disease. Patient underwent full evaluation in the emergency department. Labs completed and reviewed. CBC revealing mild leukocytosis with WBC count of 11.3, coagulation profile unremarkable, and CMP also unremarkable. Troponin was negative at less than 0.012. EKG was completed showing sinus bradycardia at 58 bpm with T-wave inversion in leads 3, aVF, and V2 through V4 and slight ST elevation in aVL this is unchanged with the exception of right when compared to EKG completed 05/24/17 revealing normal sinus rhythm at 64 bpm with T-wave inversion in leads 3, aVF, and V2 through V4 as well as mild ST elevation in aVL upon personal review and interpretation. Chest x-ray completed in radiology report reviewed revealing low lung volumes and hypoventilatory changes with strandy left basilar atelectasis. CT angio aorta thoracic/abdomen/pelvis was completed. Radiology report reviewed showing no evidence for thoracic aortic dissection, cholelithiasis, nonobstructive 6 mm left mid kidney calculus, and colonic diverticulosis without evidence of acute diverticulitis. Discussed patient, laboratory results and imaging findings with the ED physician in detail. Patient being admitted to observation unit with telemetry for cardiac workup. Review of systems: Pertinent positives and negatives as discussed in HPI, a complete review of systems was performed and all other systems are negative. Physical exam: Vital signs reviewed and stable. General: Nontoxic, no distress and appears stated age. Derm: Skin warm and dry, normal coloration for ethnicity. Head: Atraumatic, normocephalic and symmetric. Eyes: EOMs intact, no lid lag, and anicteric sclera Mouth: no lip lesions, mucus membranes moist Cardiovascular: regular rate and rhythm with normal S1S2, no murmur, positive posterior tibial pulses bilaterally, and cap refill < 2 seconds. Lungs: Respirations even, regular, and unlabored on room air. Lungs CTA bilaterally, no rhonchi, no rales, no wheezing, and no accessory muscle usage. Abdominal: soft, nontender to palpation, no guarding, no appreciable organomegaly Ext: ROM intact. No gross muscle atrophy, no edema, no contractures Neuro: Speech clear, face symmetrical and CN II-XII grossly intact with no noted focal neuro deficits Psych: Alert and oriented to person, place, time, and situation. Appropriate and pleasant affect. Assessment and Plan of Care: Chest pain, rule out acute coronary event. Hypertension Hyperlipidemia COPD Hypothyroidism GERD -Labs completed and reviewed. CBC revealing mild leukocytosis with WBC count of 11.3, coagulation profile unremarkable, and CMP also unremarkable. Troponin was negative at less than 0.012. -EKG was completed showing sinus bradycardia at 58 bpm with T-wave inversion in leads 3, aVF, and V2 through V4 and slight ST elevation in aVL this is unchanged with the exception of right when compared to EKG completed 05/24/17 revealing normal sinus rhythm at 64 bpm with T-wave inversion in leads 3, aVF, and V2 through V4 as well as mild ST elevation in aVL upon personal review and interpretation. -Chest x-ray completed in radiology report reviewed revealing low lung volumes and hypoventilatory changes with strandy left basilar atelectasis. -CT angio aorta thoracic/abdomen/pelvis was completed. Radiology report reviewed showing no evidence for thoracic aortic dissection, cholelithiasis, nonobstructive 6 mm left mid kidney calculus, and colonic diverticulosis without evidence of acute diverticulitis. -Discussed patient, laboratory results and imaging findings with the ED physician in detail. Patient being admitted to observation unit with telemetry for cardiac workup. -Consult placed to cardiology. -Order placed to trend troponins every 3 hours 2. -Patient to remain on telemetry monitoring. -Order placed for echocardiogram. -Home medications reviewed. Patient to continue with Synthroid 75 g daily, lisinopril 10 mg nightly, Singulair 10 mg nightly, and rosuvastatin 20 mg nightly. The patient is admitted with an anticipated less than 2 midnight stay for evaluation of chest pain CODE STATUS: Full code DVT prophylaxis: Heparin Discussed with: Patient, patient's brother at bedside, RN, and ED physician Anticipated discharge date: 24-[address]: Home Patient was seen independently by Nurse Practitioner. This document was prepared using [employer] dictation software. Please allow for errors in fire prevention bureau captain while rare they do occur. Past Medical History Past Medical History: Asthma, Hypertension History of Any Multi-Drug Resistant Organisms: None Reported Past Surgical History: Adenoidectomy, Appendectomy, Breast Surgery, Hysterectomy, Joint Replacement, Orthopedic Surgery, Tonsillectomy Additional Past Surgical History / Comment(s): ear shoulder wrist. right rotator cuff repair. Past Psychological History: No Psychological Hx Reported Smoking Status: Never smoker Past Alcohol Use History: None Reported Past Drug Use History: None Reported Medications and Allergies Home Medications Medication Instructions Recorded Confirmed Type Fluticasone/Vilanterol [Breo 1 puff INHALATION RT-DAILY 06/23/16 10/07/22 History Ellipta 200-25 Mcg INH] Lansoprazole [Prevacid] 30 mg PO HS 06/23/16 10/07/22 History Levothyroxine Sodium [Synthroid] 75 mcg PO DAILY 06/23/16 10/07/22 History Montelukast Sodium [Singulair] 10 mg PO HS 06/23/16 10/07/22 History Potassium Chloride ER [K-Dur 20] 20 meq PO BID 06/23/16 10/07/22 History lisinopriL [Zestril] 10 mg PO HS 06/23/16 10/07/22 History Celecoxib [CeleBREX] 200 mg PO HS 10/07/22 10/07/22 History Rosuvastatin [Crestor] 20 mg PO HS 10/07/22 10/07/22 History Allergies Allergy/AdvReac Type Severity Reaction Status Date / Time cefuroxime [From Ceftin] Allergy Unknown Verified 10/07/22 08:59 clindamycin Allergy swelling Verified 10/07/22 08:59 of mouth & eyes Fish Containing Products Allergy saltwater Verified 10/07/22 10:28 [Fish] fish only Milk Containing Products Allergy Unknown Verified 10/07/22 08:59 [Dairy] Penicillins Allergy Unknown Verified 10/07/22 08:59 shellfish derived [Shellfish] Allergy Unknown Verified 10/07/22 10:28 wheat Allergy Unknown Verified 10/07/22 08:59 Physical Exam Vitals: Vital Signs Temp Pulse Resp BP Pulse Ox 10/07/22 11:00 66 18 132/64 98 10/07/22 10:35 60 18 132/64 98 10/07/22 09:06 57 L 18 120/57 94 L 10/07/22 08:07 98.4 F 63 18 130/85 99 Intake and Output 10/06/22 10/07/22 10/07/22 22:59 06:59 14:59 Other: Weight 80.286 kg Results CBC & Chem 7: 10/07/22 08:43 10/07/22 08:43 Labs: Abnormal Lab Results - Last 24 Hours (Table) 10/07/22 10/07/22 Range/Units 08:43 08:43 WBC 11.3 H (3.8-10.6) k/uL Neutrophils # 8.0 H (1.3-7.7) k/uL Glucose 152 H (74-99) mg/dL
[2022-10-07] MEDS: MONTELUKAST 10 MG TAB PO SCH (20:35)
[2022-10-07] MEDS: ATORVASTATIN 40 MG TAB PO SCH (20:35)
[2022-10-07] MEDS: PANTOPRAZOLE 40 MG TABLET PO SCH (20:35)
[2022-10-07] MEDS: lisinopriL 10 MG TAB PO SCH (20:35)
[2022-10-08] MEDS: SODIUM CHLORIDE 0.9% 1,000 ML IV SCH ×2 (03:24→15:07)
[2022-10-08] MEDS: LEVOTHYROXINE 75 MCG TAB PO SCH (05:52)
[2022-10-08] MEDS ORDERED: CAFFEINE CITRATE 60 MG/3 ML VIAL IV PRN (07:42)
[2022-10-08] MEDS ORDERED: AMINOPHYLLINE 500 MG/20 ML VIAL IV PRN (07:42)
[2022-10-08] MEDS ORDERED: REGADENOSON 0.4 MG/5 ML SYRINGE IV PRN (07:42)
--- NOTE | 2022-10-08 07:44 | P.CRDCN ---
History of Present Illness Consult date: 10/08/22 Chief complaint: chest pain History of present illness: The patient is a very pleasant 71-year-old female patient with a past medical history significant for hypertension and dyslipidemia as well as history of lower extremity is arthritis and family history of thoracic aortic aneurysm presented to the hospital complaining of chest discomfort which she was in her usual state of health yesterday when she woke up from sleep to go to the [facility] and started experiencing discomfort in the chest. The discomfort was a pressure on the chest was no radiation to the arms or neck or shoulders or back and no specific symptoms of shortness of breath or sweating or dizziness or lightheaded or any feeling of heart racing or fluttering or presyncope or syncope. He goes that she was concerned about the chest discomfort she decided to come to the hospital where she underwent further workup including EKG showing T-wave inversion inferiorly and anteriorly but finding appeared to be unchanged compared to prior EKG in 2017. Cardiac enzymes are unremarkable. Chest x-ray is unremarkable. CT of the chest showed no aneurysm noted and no acute abno rmalities noted as well. Currently the patient is chest pain-free. She does have hypertension and dyslipidemia as risk factors, she does not smoke and no family history of CAD but is AORTIC aneurysm. The examination is remarkable for margin the low blood pressure with regular rhythm with soft systolic murmur right upper sternal border was clear breathing sounds bilaterally and no lower extremities edema noted on examination. Assessment Chest discomfort which has resolved Multiple risk factors for CAD including hypertension and dyslipidemia Abnormal EKG with T-wave inversion inferiorly and laterally Plan Acute coronary syndrome was ruled out Obtain a stress test to rule out severe CAD including the risk factors and abnormal EKG Further recommendation to follow Past Medical History Past Medical History: Asthma, Hypertension History of Any Multi-Drug Resistant Organisms: None Reported Past Surgical History: Adenoidectomy, Appendectomy, Breast Surgery, Hysterectomy, Joint Replacement, Orthopedic Surgery, Tonsillectomy Additional Past Surgical History / Comment(s): ear shoulder wrist. right rotator cuff repair. Past Psychological History: No Psychological Hx Reported Smoking Status: Never smoker Past Alcohol Use History: None Reported Past Drug Use History: None Reported Medications and Allergies Home Medications Medication Instructions Recorded Confirmed Type Fluticasone/Vilanterol [Breo 1 puff INHALATION RT-DAILY 06/23/16 10/07/22 History Ellipta 200-25 Mcg INH] Lansoprazole [Prevacid] 30 mg PO HS 06/23/16 10/07/22 History Levothyroxine Sodium [Synthroid] 75 mcg PO DAILY 06/23/16 10/07/22 History Montelukast Sodium [Singulair] 10 mg PO HS 06/23/16 10/07/22 History Potassium Chloride ER [K-Dur 20] 20 meq PO BID 06/23/16 10/07/22 History lisinopriL [Zestril] 10 mg PO HS 06/23/16 10/07/22 History Celecoxib [CeleBREX] 200 mg PO HS 10/07/22 10/07/22 History Rosuvastatin [Crestor] 20 mg PO HS 10/07/22 10/07/22 History Allergies Allergy/AdvReac Type Severity Reaction Status Date / Time cefuroxime [From Ceftin] Allergy Unknown Verified 10/07/22 08:59 clindamycin Allergy swelling Verified 10/07/22 08:59 of mouth & eyes Fish Containing Products Allergy saltwater Verified 10/07/22 10:28 [Fish] fish only Milk Containing Products Allergy Unknown Verified 10/07/22 08:59 [Dairy] Penicillins Allergy Unknown Verified 10/07/22 08:59 shellfish derived [Shellfish] Allergy Unknown Verified 10/07/22 10:28 wheat Allergy Unknown Verified 10/07/22 08:59 Physical Exam Vitals: Vital Signs Temp Pulse Pulse Pulse Resp BP BP 10/08/22 03:12 98.2 F 88 17 97/48 10/08/22 01:16 86 76 18 10/07/22 20:35 76 18 10/07/22 19:45 98.0 F 86 17 110/66 10/07/22 16:01 72 18 131/89 10/07/22 15:00 98.1 F 76 18 134/84 10/07/22 14:43 68 18 120/72 10/07/22 13:32 74 18 134/75 10/07/22 11:00 66 18 132/64 10/07/22 10:35 60 18 132/64 10/07/22 09:06 57 L 18 120/57 10/07/22 08:07 98.4 F 63 18 130/85 Pulse Ox 10/08/22 03:12 94 L 10/08/22 01:16 10/07/22 20:35 10/07/22 19:45 94 L 10/07/22 16:01 96 10/07/22 15:00 98 10/07/22 14:43 95 10/07/22 13:32 94 L 10/07/22 11:00 98 10/07/22 10:35 98 10/07/22 09:06 94 L 10/07/22 08:07 99 Intake and Output 10/07/22 10/08/22 10/08/22 22:59 06:59 14:59 Intake Total 120 Balance 120 Intake: Oral 120 Other: # Voids 2 2 Weight 80.286 kg Results 10/07/22 08:43 10/07/22 08:43 Cardiac Enzymes 10/07/22 10/07/22 10/07/22 Range/Units 08:43 08:43 12:23 AST 32 (14-36) U/L Troponin I <0.012 <0.012 (0.000-0.034) ng/mL 10/07/22 Range/Units 15:08 AST (14-36) U/L Troponin I <0.012 (0.000-0.034) ng/mL Coagulation 10/07/22 Range/Units 08:43 PT 9.8 (9.0-12.0) sec APTT 26.5 (22.0-30.0) sec CBC 10/07/22 Range/Units 08:43 WBC 11.3 H (3.8-10.6) k/uL RBC 4.52 (3.80-5.40) m/uL Hgb 14.1 (11.4-16.0) gm/dL Hct 41.5 (34.0-46.0) % Plt Count 242 (150-450) k/uL Comprehensive Metabolic Panel 10/07/22 Range/Units 08:43 Sodium 140 (137-145) mmol/L Potassium 4.0 (3.5-5.1) mmol/L Chloride 106 (98-107) mmol/L Carbon Dioxide 24 (22-30) mmol/L BUN 14 (7-17) mg/dL Creatinine 0.57 (0.52-1.04) mg/dL Glucose 152 H (74-99) mg/dL Calcium 9.2 (8.4-10.2) mg/dL AST 32 (14-36) U/L ALT 22 (4-34) U/L Alkaline Phosphatase 123 (38-126) U/L Total Protein 6.8 (6.3-8.2) g/dL Albumin 4.1 (3.5-5.0) g/dL Current Medications Generic Name Dose Route Start Last Admin Trade Name Freq PRN Reason Stop Dose Admin Acetaminophen 650 mg 10/07/22 11:54 Acetaminophen Tab 325 Mg Tab PO Q6HR PRN Mild Pain or Fever > 100.5 Atorvastatin Calcium 40 mg 10/07/22 21:00 10/07/22 20:35 Atorvastatin 40 Mg Tab PO 40 mg HS CHELSEA Administration Budesonide/Formoterol Fumarate 2 puff 10/08/22 08:00 Symbicort 160-4.5 Mcg Inhaler INHALATION RT-BID CHELSEA Heparin Sodium (Porcine) 5,000 unit 10/08/22 00:00 10/08/22 00:00 Heparin Sodium,Porcine/Pf 5,000 Unit/0.5 Ml Syringe SQ 5,000 unit Q8HR CHELSEA Administration Sodium Chloride 1,000 mls @ 75 mls/hr 10/07/22 10:15 10/08/22 03:24 Saline 0.9% IV Not Given .[id number] CHELSEA Levothyroxine Sodium 75 mcg 10/08/22 06:30 10/08/22 05:52 Levothyroxine 75 Mcg Tab PO 75 mcg 0630 CHELSEA Administration Lisinopril 10 mg 10/07/22 21:00 10/07/22 20:35 Lisinopril 10 Mg Tab PO 10 mg HS CHELSEA Administration Montelukast Sodium 10 mg 10/07/22 21:00 10/07/22 20:35 Montelukast 10 Mg Tab PO 10 mg HS CHELSEA Administration Morphine Sulfate 4 mg 10/07/22 11:54 Morphine Sulfate 4 Mg/Ml Syringe IV Q4HR PRN Severe Pain (Scale 7 to 10) Naloxone HCl 0.2 mg 10/07/22 11:54 Naloxone 0.4 Mg/Ml 1 Ml Vial IV Q2M PRN Opioid Reversal Ondansetron HCl 4 mg 10/07/22 11:54 Ondansetron 4 Mg/2 Ml Vial IVP Q8HR PRN Nausea And Vomiting Pantoprazole Sodium 40 mg 10/07/22 21:00 10/07/22 20:35 Pantoprazole 40 Mg Tablet PO 40 mg HS CHELSEA Administration Intake and Output 10/07/22 10/08/22 10/08/22 22:59 06:59 14:59 Intake Total 120 Balance 120 Intake: Oral 120 Other: # Voids 2 2 Weight 80.286 kg 10/07/22 08:43 10/07/22 08:43
[2022-10-08] MEDS: HEPARIN SODIUM,PORCINE/PF 5,000 UNIT/0.5 ML SYRINGE SQ SCH ×3 (08:06→17:28)
[2022-10-08] MEDS: SYMBICORT 160-4.5 MCG INHALER INHALATION SCH ×2 (09:49→21:59)
--- NOTE | 2022-10-08 11:49 | CA ---
Transthoracic Echo Report Name: Dariana Hernandez Age: 71 Gender: F : 1950 Exam Date: 10/07/2022 14:08 Exam Location: [facility] Ht (in): 63 Wt (lb): 177 Ordering Physician: Greg Mayer Attending/Referring Phys: Data Analyst Report Writer Mercy Garcia RDCS Procedure CPT: Indications: Evaluate structure and function Cardiac Hx: Technical Quality: Fair Contrast 1: Total Dose (mL): Contrast 2: Total Dose (mL): MEASUREMENTS (Male / Female) Normal Values 2D ECHO LV Diastolic Diameter PLAX 5.0 cm 4.2 - 5.9 / 3.9 - 5.3 cm LV Systolic Diameter PLAX 3.3 cm IVS Diastolic Thickness 1.2 cm 0.6 - 1.0 / 0.6 - 0.9 cm LVPW Diastolic Thickness 1.1 cm 0.6 - 1.0 / 0.6 - 0.9 cm LV Relative Wall Thickness 0.5 RV Internal Dim ED PLAX 3.3 cm LA Volume 59.9 cm??? 18 - 58 / 22 - 52 cm??? Ascending Aorta Diameter 3.2 cm M-MODE Aortic Root Diameter MM 2.6 cm AV Cusp Separation MM 1.6 cm DOPPLER LVOT Peak Velocity 91.5 cm/s LVOT Peak Gradient 3.4 mmHg MV Area PHT 3.5 cm??? Mitral E Point Velocity 85.8 cm/s Mitral A Point Velocity 84.2 cm/s Mitral E to A Ratio 1.0 MV Deceleration Time 215.7 ms TR Peak Velocity 189.7 cm/s TR Peak Gradient 14.4 mmHg FINDINGS Left Ventricle Mildly increased septal wall thickness. Mildly increased posterior wall thickness. Left ventricular ejection fraction is estimated at 55-60 %. Right Ventricle Normal right ventricular size. Normal right ventricular global systolic function. Right ventricular systolic pressure within normal limits. Right Atrium Normal right atrial size. Left Atrium Mildly increased left atrial volume. Mitral Valve Trace mitral regurgitation. Aortic Valve Trileaflet aortic valve. No aortic regurgitation. No aortic stenosis. Tricuspid Valve Structurally normal tricuspid valve. Pulmonic Valve Structurally normal pulmonic valve. No pulmonic regurgitation. Pericardium No pericardial or pleural effusion. Aorta Normal size aortic root and proximal ascending aorta. CONCLUSIONS Normal LV systolic function. Mild concentric LVH Previewed by: Dr. Kieran Miller MD (Electronically Signed) Final Date: 08 October 2022 11:48
--- NOTE | 2022-10-08 12:44 | CA ---
Lexiscan Nuclear Stress Test Report Name: Dariana Hernandez Exam Date: 10/08/2022 09:41 Exam Location: [facility] Ht (in): 63 Wt (lb): 177 BSA: 1.84 Ordering Phys: Kieran Miller MD Referring Phys: SHANKAR,, Technologist: Pan Richards Age: 71 Gender: F : 1950 Procedure CPT: Indications: Reflex order-Stress test ICD-10 Codes: Patient History: Medications: SEE CHART Meds past 24 hrs: Pretest Chest Pain: STRESS TEST Lexiscan Protocol Exercise Duration (min:sec): 01:[address] Depressions (mm): Angina Score: Castillo Score: Resting HR (bpm): 69 Peak HR (bpm): 106 Resting BP (mmHg): 130 / 70 Peak BP (mmHg): 129 / 69 MPHR: 149 Target HR: 127 % MPHR: 71 METS: 1.0 Total Dose: Peak Dose: Atropine: Double Product: 65818 BP Response: Stress Termination: INFUSION COMPLETE Stress Symptoms: CHEST TIGHTNESS Stress Summary: ECG ANALYSIS Resting ECG: Stress ECG: CONCLUSIONS Nonspecific EKG changes in response to Lexiscan Dr. Kieran Miller MD (Electronically Signed) Final Date: 08 October 2022 12:43
--- NOTE | 2022-10-08 13:47 | NM ---
EXAMINATION TYPE: NM stress lexiscan cardiolite DATE OF EXAM: 10/08/2022 COMPARISON: NONE HISTORY: Chest Pain TECHNIQUE: After the intravenous administration of 9.73 mCi Tc 99m Sestamibi - Cardiolite resting SP ECT images acquired 45 minutes post injection. The patient received 0.4mg Lexiscan, 25.9 mCi Tc 99m Sestamibi - Stress images obtained [address] injection FINDINGS: Review of stress and rest SPECT images demonstrates small area of reversibility inferolateral wall. G ated analysis shows normal wall motion with an estimated left ventricular ejection fraction of 82 %. IMPRESSION: Suggestion of reversible ischemia with a small area of reversibility inferolateral wall.
--- NOTE | 2022-10-08 15:53 | P.PN ---
Subjective Progress Note Date: 10/08/22 Hospital course: Patient is a very pleasant 71-year-old female with a past medical history of hypertension, hyperlipidemia, hypothyroidism, and COPD. She presented to the emergency department secondary to a chief complaint of chest pressure. Patient reports shortly after awakening this morning she began feeling a pressure-like sensation in the midsternal chest that radiated directly into her back accompanied by nausea, diaphoresis, and shortness of breath. Patient states she became very concerned as she has a history of a renal cyst near her aorta as well as a family history of aortic aneurysm. Patient states she did use an home rescue inhaler which provided no relief. Patient denies having any fever, chills, headache, lightheadedness, dizziness, palpitations, nausea, vomiting, or experiencing any numbness/tingling/weakness/swelling in her extremities. Patient denies history of cardiac disease. Patient underwent full evaluation in the emergency department. Labs completed and reviewed. CBC revealing mild leukocytosis with WBC count of 11.3, coagulation profile unremarkable, and CMP also unremarkable. Troponin was negative at less than 0.012. EKG was completed showing sinus bradycardia at 58 bpm with T-wave inversion in leads 3, aVF, and V2 through V4 and slight ST elevation in aVL this is unchanged with the exception of rate when compared to EKG completed 05/24/17 revealing normal sinus rhythm at 64 bpm with T-wave inversion in leads 3, aVF, and V2 through V4 as well as mild ST elevation in aVL upon personal review and interpretation. Chest x-ray completed in radiology report reviewed revealing low lung volumes and hypoventilatory changes with strandy left basilar atelectasis. CT angio aorta thoracic/abdomen/pelvis was completed. Radiology report reviewed showing no evidence for thoracic aortic dissection, cholelithiasis, nonobstructive 6 mm left mid kidney calculus, and colonic diverticulosis without evidence of acute diverticulitis. Discussed patient, laboratory results and imaging findings with the ED physician in detail. Kady ient being admitted to observation unit with telemetry for cardiac workup. Troponins trended overnight all negative at less than 0.0123 draws. She was evaluated by cardiology and taken for a cardiac stress test. Stress test revealing nonspecific EKG changes in response to Lexiscan. Lexiscan stress test revealed suggestion of reversible ischemia with a small area of reversibility inferiolateral wall. Patient updated on these findings. Physical exam: Patient seen and fully evaluated at bedside after return from cardiac stress test. Patient and family member at bedside were updated on Lexiscan stress results. Patient currently free from any chest pain or discomfort, shortness of breath, or any other complaints at this current time. Vital signs stable. General: Nontoxic, no distress and appears stated age. Derm: Skin warm and dry, normal coloration for ethnicity. Head: Atraumatic, normocephalic and symmetric. Eyes: EOMs intact, no lid lag, and anicteric sclera Mouth: no lip lesions, mucus membranes moist Cardiovascular: regular rate and rhythm with normal S1S2, no murmur, positive posterior tibial pulses bilaterally, and cap refill < 2 seconds. Lungs: Respirations even, regular, and unlabored on room air. Lungs CTA bilaterally, no rhonchi, no rales, no wheezing, and no accessory muscle usage. Abdominal: soft, nontender to palpation, no guarding, no appreciable organomegaly Ext: ROM intact. No gross muscle atrophy, no edema, no contractures Neuro: Speech clear, face symmetrical and CN II-XII grossly intact with no noted focal neuro deficits Psych: Alert and oriented to person, place, time, and situation. Appropriate and pleasant affect. Assessment and Plan of Care: Chest pain, rule out acute coronary event. Hypertension Hyperlipidemia COPD Hypothyroidism GERD -Troponins trended overnight and results reviewed showing negative troponins at less than 0.0123 draws. -Stress test revealing nonspecific EKG changes in response to Lexiscan. -Lexiscan stress test revealed suggestion of reversible ischemia with a small area of reversibility inferiolateral wall. Patient updated on these findings. -Echocardiogram completed and report reviewed revealing preserved EF of 55-60% with mild concentric left ventricular hypertrophy. -Cardiology following, discussed plan of care and Lexiscan results with leather shaver, Dr. Miller. -Patient to remain on telemetry monitoring. -Plan for likely cardiac catheterization. -Patient to continue with Synthroid 75 g daily, lisinopril 10 mg nightly, Singulair 10 mg nightly, and rosuvastatin 20 mg nightly. The patient is admitted with an anticipated less than 2 midnight stay for evaluation of chest pain CODE STATUS: Full code DVT prophylaxis: Heparin Discussed with: Patient, patient's family at bedside, RN, and leather shaver. Anticipated discharge date: Pending clinical course. Anticipated discharge place: Home Patient was seen independently by Nurse Practitioner. This document was prepared using Verican dictation software. Please allow for errors in shear operator helper while rare they do occur. Objective - Vital Signs Vital signs: Vital Signs Temp 98.0 F 10/08/22 07:00 Pulse 73 10/08/22 07:00 Resp 18 10/08/22 07:00 BP 109/67 10/08/22 07:00 Pulse Ox 94 L 10/08/22 07:00 FiO2 Intake & Output 10/07/22 10/08/22 10/08/22 18:59 06:59 18:59 Intake Total 120 Balance 120 Weight 80.286 kg Intake: Oral 120 Other: # Voids 1 2 - Labs CBC & Chem 7: 10/07/22 08:43 10/07/22 08:43
[2022-10-08] MEDS ORDERED: NITROGLYCERIN SL TABS 0.4 MG TAB SUBLINGUAL PRN (18:35)
[2022-10-08] MEDS ORDERED: ALPRAZolam 0.5 MG TAB PO PRN (18:35)
[2022-10-08] MEDS ORDERED: ALPRAZolam 0.25 MG TAB PO PRN (18:35)
[2022-10-08] MEDS ORDERED: ATORVASTATIN 80 MG TAB PO STA (18:35)
[2022-10-08] MEDS ORDERED: ASPIRIN 325 MG TAB PO STA (18:35)
[2022-10-08 19:13] LABS: Basophils % (A) 0 %; Eosinophils # (A) 0.1 k/uL (0-0.7); Eosinophils % (A) 1 %; HCT 39.3 % (34.0-46.0); HGB 12.9 gm/dL (11.4-16.0); Lymphocytes # (A) 2.3 k/uL (1.0-4.8); Lymphocytes % (A) 18 %; MCH 30.4 pg (25.0-35.0); MCHC 32.8 g/dL (31.0-37.0); MCV 92.5 fL (80.0-100.0); Mean Platelet Volume 8.1; Monocytes # (A) 1.1 k/uL (0-1.0); Monocytes % (A) 9 %; Neutrophils # (A) 8.9 k/uL (1.3-7.7); Neutrophils % (A) 71 %; Platelet Count 255 k/uL (150-450); RBC 4.25 m/uL (3.80-5.40); RDW 12.9 % (11.5-15.5); WBC 12.6 k/uL (3.8-10.6)
[2022-10-08] MEDS ORDERED: MAG HYDROX/AL HYDROX/SIMETH 30 ML CUP PO STA (19:27)
[2022-10-08 19:36] LABS: Prothrombin Time 10.3 sec (9.0-12.0)
[2022-10-08] MEDS: ATORVASTATIN 40 MG TAB PO SCH (21:07)
[2022-10-08] MEDS: PANTOPRAZOLE 40 MG TABLET PO SCH (21:07)
[2022-10-08] MEDS: MONTELUKAST 10 MG TAB PO SCH (21:07)
[2022-10-08] MEDS: lisinopriL 10 MG TAB PO SCH (21:07)
[2022-10-09] MEDS ORDERED: SODIUM CHLORIDE 0.9% 1,000 ML in EMPTY BAG 1 BAG IV ONE
[2022-10-09] MEDS: HEPARIN SODIUM,PORCINE/PF 5,000 UNIT/0.5 ML SYRINGE SQ SCH (03:44)
[2022-10-09] MEDS: LEVOTHYROXINE 75 MCG TAB PO SCH (05:23)
[2022-10-09 05:29] LABS: Glucose,Whole Blood 101 mg/dL (70-110)
[2022-10-09] MEDS ORDERED: HEPARIN SODIUM,PORCINE 2,500 UNIT in SODIUM CHLORIDE 0.9% 250 ML IRRIGATION PRN (07:00)
[2022-10-09] MEDS ORDERED: HEPARIN SODIUM,PORCINE 10,000 UNIT in SODIUM CHLORIDE 0.9% 1,000 ML IRRIGATION PRN (07:00)
[2022-10-09] MEDS: SYMBICORT 160-4.5 MCG INHALER INHALATION SCH (07:36)
[2022-10-09 08:52] VITALS: RESP 18; TEMP 97.9
[2022-10-09 09:21] LABS: HCT 36.4 % (37.2-46.3); HGB 11.6 g/dL (12.0-15.0); MCHC 31.9 g/dL (32.0-37.0); MCV 94.1 fL (80.0-97.0); NRBC Per 100 WBC 0 /100 WBCS (0.0-0.0); Platelet Count 244 X 10*3/uL (140-440); RBC 3.87 X 10*6/uL (4.10-5.20); RDW 13.2 % (11.5-14.5); WBC 8.37 X 10*3/uL (4.50-10.00)
[2022-10-09 09:56] LABS: Anion Gap 7.2 mmol/L (10.00-18.00); Blood Urea Nitrogen 11.9 mg/dL (9.0-27.0); Carbon Dioxide 26.8 mmol/L (20.0-27.5); Non-African American GFR(CKD) 87.2 (60.0-200.0); Potassium 3.7 mmol/L (3.5-5.5)
--- NOTE | 2022-10-09 10:52 | P.PN ---
Subjective Progress Note Date: 10/09/22 Principal diagnosis: The patient is a very pleasant 71-year-old female patient with a past medical history significant for hypertension and dyslipidemia as well as history of lower extremity is arthritis and family history of thoracic aortic aneurysm presented to the hospital complaining of chest discomfort which she was in her usual state of health yesterday when she woke up from sleep to go to the bathroom and started experiencing discomfort in the chest. The discomfort was a pressure on the chest was no radiation to the arms or neck or shoulders or back and no specific symptoms of shortness of breath or sweating or dizziness or lightheaded or any feeling of heart racing or fluttering or presyncope or syncope. He goes that she was concerned about the chest discomfort she decided to come to the hospital where she underwent further workup including EKG showing T-wave inversion inferiorly and anteriorly but finding appeared to be unchanged compared to prior EKG in 2017. Cardiac enzymes are unremarkable. Chest x-ray is unremarkable. CT of the chest showed no aneurysm noted and no acute abnormalities noted as well. Currently the patient is chest pain-free. She does have hypertension and dyslipidemia as risk factors, she does not smoke and no family history of CAD but is AORTIC aneurysm. The examination is remarkable for margin the low blood pressure with regular rhythm with soft systolic murmur right upper sternal border was clear breathing sounds bilaterally and no lower extremities edema noted on examination. October [id number] The patient was seen this morning. She is chest pain-free. She underwent myocardial perfusion imaging stress test and that came in to be abnormal. She is in agreement in pursuing a heart catheterization. Assessment Chest discomfort which has resolved Multiple risk factors for CAD including hypertension and dyslipidemia Abnormal EKG with T-wave inversion inferiorly and laterally Abnormal stress test Plan Continue current medical regimen Proceed with coronary angiogram Objective - Vital Signs Vital signs: Vital Signs Temp 97.9 F 10/09/22 07:00 Pulse 63 10/09/22 07:00 Resp 18 10/09/22 07:00 BP 133/75 10/09/22 07:00 Pulse Ox 95 10/09/22 07:36 FiO2 Intake & Output 10/08/22 10/09/22 10/09/22 18:59 06:59 18:59 Intake Total 591 Balance 591 Intake: Oral 591 Other: Voiding Method Toilet # Voids 4 1 - Labs CBC & Chem 7: 03/25/23 05:23 10/09/22 05:23 Labs: Abnormal Lab Results - Last 24 Hours (Table) 10/08/22 10/09/22 10/09/22 Range/Units 18:54 05:23 05:23 WBC 12.6 H (3.8-10.6) k/uL RBC 3.87 L (4.10-5.20) X 10*6/uL Hgb 11.6 L (12.0-15.0) g/dL Hct 36.4 L (37.2-46.3) % MCHC 31.9 L (32.0-37.0) g/dL Neutrophils # 8.9 H (1.3-7.7) k/uL Monocytes # 1.1 H (0-1.0) k/uL Anion Gap 7.20 L (10.00-18.00) mmol/L
[2022-10-09] MEDS ORDERED: IV FLUID CONTINUATION 600 ML IV ONE (11:45)
[2022-10-09] MEDS ORDERED: HEPARIN SODIUM 1,000 UN/ML (10ML VL) ONE (11:50)
[2022-10-09] MEDS ORDERED: diphenhydrAMINE 50 MG/ML 1 ML VIAL IVP ONE (12:00)
[2022-10-09] MEDS ORDERED: diphenhydrAMINE 50 MG/ML 1 ML VIAL ONE (12:00)
[2022-10-09] MEDS ORDERED: LIDOCAINE 1% INJ 10MG/ML (5 ML VIAL-PF) SQ ONE (12:01)
[2022-10-09] MEDS ORDERED: VERAPAMIL SYRINGE (5 MG/10 ML) INTRAARTER ONE (12:02)
[2022-10-09] MEDS ORDERED: MIDAZOLAM 2 MG/2 ML VIAL IV ONE (12:04)
[2022-10-09] MEDS ORDERED: HEPARIN SODIUM 1,000 UN/ML (10ML VL) IV ONE (12:05)
[2022-10-09] MEDS ORDERED: IOPAMIDOL-370 125ML BTL INJ ONE (12:09)
[2022-10-09] MEDS ORDERED: SODIUM CHLORIDE 0.9% 1,000 ML IV SCH (12:15)
[2022-10-09] MEDS ORDERED: RX INFO: IV CONTRAST WAS GIVEN 1 EACH MISC MISCELLANE PRN (12:15)
--- NOTE | 2022-10-09 12:23 | P.PCN ---
Date of Procedure: 10/09/22 Operative Findings: CARDIAC CATHETERIZATION PERFORMING PHYSICIAN: Kieran Miller MD, RPVI PROCEDURE PERFORMED: 1. Selective right and left coronary angiogram INDICATION: Chest discomfort in this 71-year-old female patient was underwent myocardial perfusion imaging stress test came in to be abnormal COMPLICATION: None APPROACH: Right radial artery LEVEL OF SEDATION: Moderate with a sedation length of then minutes PROCEDURE DESCRIPTION: After obtaining an informed consent, the patient was brought to cardiac hospital laboratory technician. Local anesthesia was performed using lidocaine subcutaneously. The right radial artery was cannulated using Seldinger technique, the guidewire passed easily, following that we advanced a 5-Indonesian sheath dilator assembly, the wire and dilator were removed and sheath was flushed. Following that, 2 mg of verapamil along with 4000 unit heparin were given. Selective right and left coronary angiogram using a 6-Indonesian JR4 and JL 3.5 catheters. The procedure was completed there was no complication. SELECTIVE CORONARY ANGIOGRAM: The right coronary artery: Large-caliber vessel and a dominant vessel. It has mild disease only. Bifurcates into PDA and PLV branches both appeared to be angiographically normal Left main: Is angiographically normal. Bifurcates into the LCx and LAD The left circumflex: The LCx is large caliber vessel nondominant vessel. It has mild disease only. It gives rises into an OM branch which appeared to be angiographically normal The left anterior descending artery: The proximal LAD has a lesion appeared to be in the range of 40-50%. The mid and distal LAD appears to be angiographically normal. The LAD gives rises into the first diagonal branch which is small caliber vessel was ostial lesion about 50% and second diagonal branch which is a small caliber vessel appears to be angiographically normal. CONCLUSION: 1. The proximal LAD has a lesion appeared to be in the range of 40-50% 2. Normal left-sided filling pressure POSTPROCEDURE MANAGEMENT: Medical treatment and follow-up with the patient Consider FFR of the LAD if the patient remains symptomatic
--- NOTE | 2022-10-09 14:19 | P.DS ---
Providers Date of admission: 10/08/22 15:42 Expected date of discharge: 10/09/22 Attending physician: Gerri West DO Consults: 10/07/22 11:54 Consult Physician Routine Consulting Provider: Ivonne Najera Consult Reason/Comments: CP Do you want consulting provider notified?: Yes Primary care physician: [facility] Course: Discharge Diagnosis: Chest pain, acute coronary event ruled out. Patient found to have 40-50% stenosis of LAD. Installations Inspector recommending medical treatment at this time and follow-up and stated if patient symptoms recur they may consider FFR of the LAD. Hypertension Hyperlipidemia COPD Hypothyroidism GERD Hospital Course: Patient is a very pleasant 71-year-old female with a past medical history of hypertension, hyperlipidemia, hypothyroidism, and COPD. She presented to the emergency department secondary to a chief complaint of chest pressure. Patient reports shortly after awakening this morning she began feeling a pressure-like sensation in the midsternal chest that radiated directly into her back accompanied by nausea, diaphoresis, and shortness of breath. Patient states she became very concerned as she has a history of a renal cyst near her aorta as well as a family history of aortic aneurysm. Patient states she did use an exp ired home rescue inhaler which provided no relief. Patient denies having any fever, chills, headache, lightheadedness, dizziness, palpitations, nausea, vomiting, or experiencing any numbness/tingling/weakness/swelling in her extremities. Patient denies history of cardiac disease. Patient underwent full evaluation in the emergency department. Labs completed and reviewed. CBC revealing mild leukocytosis with WBC count of 11.3, coagulation profile unremarkable, and CMP also unremarkable. Troponin was negative at less than 0.012. EKG was completed showing sinus bradycardia at 58 bpm with T-wave inversion in leads 3, aVF, and V2 through V4 and slight ST elevation in aVL this is unchanged with the exception of rate when compared to EKG completed 05/24/17 revealing normal sinus rhythm at 64 bpm with T-wave inversion in leads 3, aVF, and V2 through V4 as well as mild ST elevation in aVL upon personal review and interpretation. Chest x-ray completed in radiology report reviewed revealing low lung volumes and hypoventilatory changes with strandy left basilar atelectasis. CT angio aorta thoracic/abdomen/pelvis was completed. Radiology report reviewed showing no evidence for thoracic aortic dissection, cholelithiasis, nonobstructive 6 mm left mid kidney calculus, and colonic diverticulosis without evidence of acute diverticulitis. Discussed patient, laboratory results and imaging findings with the ED physician in detail. Patient being admitted to observation unit with telemetry for cardiac workup. Troponins trended overnight all negative at less than 0.0123 draws. She was evaluated by cardiology and taken for a cardiac stress test. Stress test revealing nonspecific EKG changes in response to Lexiscan. Lexiscan stress test revealed suggestion of reversible ischemia with a small area of reversibility inferiolateral wall. Patient updated on these findings. Installations Inspector to patient for cardiac cath. Cardiac cath showing proximal LAD with a lesion which appeared to be in the range of 40-50% with normal left-sided filling pressures. Patient is currently free from any chest pain or discomfort and import coordination and production head recommending medical treatment and follow-up and may consider FFR of the LAD if patient's symptoms return. Medically, patient is stable at this time in stable for discharge home. Discussed discharge plans with patient and her daughter at bedside. All questions answered at this time. Patient remains free from chest pain or discomfort and is medically stable for discharge. Patient to follow-up with PCP in 1-2 days and cardiology in 1 week. Patient was instructed to return to the emergency department immediately if chest pain returns. Physical exam: General: Nontoxic, no distress and appears stated age. Derm: Skin warm and dry, normal coloration for ethnicity. Head: Atraumatic, normocephalic and symmetric. Eyes: EOMs intact, no lid lag, and anicteric sclera Mouth: no lip lesions, mucus membranes moist Cardiovascular: regular rate and rhythm with normal S1S2, no murmur, positive posterior tibial pulses bilaterally, and cap refill < 2 seconds. Lungs: Respirations even, regular, and unlabored on room air. Lungs CTA bilaterally, no rhonchi, no rales, no wheezing, and no accessory muscle usage. Abdominal: soft, nontender to palpation, no guarding, no appreciable organomegaly Ext: ROM intact. No gross muscle atrophy, no edema, no contractures Neuro: Speech clear, face symmetrical and CN II-XII grossly intact with no noted focal neuro deficits Psych: Alert and oriented to person, place, time, and situation. Appropriate and pleasant affect. A total of 32 minutes of time were spent preparing this complex discharge summary. Pt was discharged on 10/09/22 at 4:52 PM. Patient was seen independently by Nurse Practitioner. This document was prepared using Compuf[employer] dictation software. Please allow for errors in supervisor cartography while rare they do occur. I reviewed the documentation as provided by the JENNIFER above, who is the original author of this note. I agree with the documented assessment and plan, with the following changes: none Patient Condition at Discharge: Stable Plan - Discharge Summary Discharge Rx Participant: Yes New Discharge Prescriptions: Continue Montelukast Sodium [Singulair] 10 mg PO HS lisinopriL [Zestril] 10 mg PO HS Lansoprazole [Prevacid] 30 mg PO HS Levothyroxine Sodium [Synthroid] 75 mcg PO DAILY Fluticasone/Vilanterol [Breo Ellipta 200-25 Mcg Inhaler] 1 puff INHALATION RT-DAILY Potassium Chloride ER [K-Dur 20] 20 meq PO BID Celecoxib [CeleBREX] 200 mg PO HS Rosuvastatin [Crestor] 20 mg PO HS Discharge Medication List Fluticasone/Vilanterol [Breo Ellipta 200-25 Mcg Inhaler] 1 puff INHALATION RT- DAILY 06/23/16 [History] Lansoprazole [Prevacid] 30 mg PO HS 06/23/16 [History] Levothyroxine Sodium [Synthroid] 75 mcg PO DAILY 06/23/16 [History] Montelukast Sodium [Singulair] 10 mg PO HS 06/23/16 [History] Potassium Chloride ER [K-Dur 20] 20 meq PO BID 06/23/16 [History] lisinopriL [Zestril] 10 mg PO HS 06/23/16 [History] Celecoxib [CeleBREX] 200 mg PO HS 10/07/22 [History] Rosuvastatin [Crestor] 20 mg PO HS 10/07/22 [History] Follow up Appointment(s)/Referral(s): Kieran Miller MD [STAFF PHYSICIAN] - 1 Week (Call office Tuesday to schedule a follow up for a Site Check with Dr. Miller) Nicholas Junior MD [Primary Care Provider] - 1-2 days Patient Instructions/Handouts: Chest Pain (DC), After Radial Heart Catheterization (GEN) Activity/Diet/Wound Care/Special Instructions: Activity: As tolerated. Take breaks as needed. Diet: Heart healthy and carb consistent diet. Avoid salts, or foods with hidden salts such as canned or boxed foods and frozen dinners. Extra salt makes your heart work harder and traps the fluid in your body for longer. Special Instructions: Take all of your medications as directed and remember to keep all of your doctor's appointments and follow-up as needed. Thank you for allowing us to participate in your care, it was truly a pleasure having you for our patient!!! Discharge Disposition: HOME SELF-CARE
[2022-10-09 15:17] VITALS: BP 98/54; PULSE 83
== END 2022-10-09 17:40 | disposition home or self-care (01) | DRG 287 ==
LOC: EC 08:06 → 6NMEDSUR 11:56 → OBSVTOIN 10-08 15:42
PROVIDERS: ADMIT Internal Medicine; ATTEND Internal Medicine
PROC: B246ZZ4 Ultrasonography of Right and Left Heart, Transesophageal (ICD-10-PCS; 2022-10-07)
PROC: 4A02XM4 Measurement of Cardiac Total Activity, External Approach (ICD-10-PCS; 2022-10-08)
PROC: B246ZZ4 Ultrasonography of Right and Left Heart, Transesophageal (ICD-10-PCS; 2022-10-08)
PROC: B2111ZZ Fluoroscopy of Multiple Coronary Arteries using Low Osmolar Contrast (ICD-10-PCS; principal; 2022-10-09 10:17)
DX: R07.89 Other chest pain (principal); J98.11 Atelectasis; E03.9 Hypothyroidism, unspecified; K21.9 Gastro-esophageal reflux disease without esophagitis; R00.1 Bradycardia, unspecified; I08.1 Rheumatic disorders of both mitral and tricuspid valves; R01.1 Cardiac murmur, unspecified; I25.10 Atherosclerotic heart disease of native coronary artery without angina pectoris; J44.9 Chronic obstructive pulmonary disease, unspecified; Z79.890 Hormone replacement therapy; E78.5 Hyperlipidemia, unspecified; I10 Essential (primary) hypertension; Z79.899 Other long term (current) drug therapy; Z90.710 Acquired absence of both cervix and uterus; Z98.49 Cataract extraction status, unspecified eye
CPT/HCPCS: 36415; 71045; 71275; 74174; 78452; 80048; 80053; 83690; 83735; 84484; 85025; 85027; 85610; 85730; 93005; 93017; 93306; 93454; 94640; 94760; 96361; 96374; 96375; 99285

== ENCOUNTER → 2022-11-08 | Outpatient (CLI) | payer MEDICARE, BC ==
--- NOTE | 2022-11-09 17:46 | MM ---
Reason for Exam: Screening (asymptomatic). Last mammogram was performed 1 year(s) and 6 month(s) ago. Patient History: Menarche at age 10. First Full-Term at age 19. Left ovary removed at age 28. Right ovary removed at age 28. Hysterectomy at age 28. Postmenopausal. Estrogen for 25 years, 1 month. Patient used Hormonal Contraceptives for 10 years. Benign Excisional Biopsy on the right side. Risk Values: Justina 5 year model risk: 1.6%. NCI Lifetime model risk: 4.5%. Prior Study Comparison: 05/25/2018 Bilateral Screening Mammogram, [facility]. 09/06/2019 Bilateral Screening Mammogram, [facility]. 04/17/2021 Bilateral Screening Mammogram, [facility]. Tissue Density: There are scattered fibroglandular densities. Findings: Analyzed By CAD. There is no suspicious group of microcalcifications or new suspicious mass in either breast. Overall Assessment: Negative, BI-RAD 1 Management: Screening Mammogram of both breasts in 1 year. 1. Patient should continue monthly self breast exams. 2. A clinical breast exam by your physician is recommended on an annual basis. 3. This exam should not preclude additional follow-up of suspicious palpable abnormalities. Electronically signed and approved by: Mirza Cote M.D. Radiologist
== END | disposition home or self-care (01) ==
LOC: RADMAMWWP 13:20
PROVIDERS: ATTEND Internal Medicine Hematology & Oncology
DX: Z12.31 Encounter for screening mammogram for malignant neoplasm of breast (principal); Z78.0 Asymptomatic menopausal state
CPT/HCPCS: 77063; 77067

== ENCOUNTER → 2023-04-08 | Outpatient (CLI) | payer MEDICARE, BC ==
--- NOTE | 2023-04-08 15:30 | BD ---
EXAMINATION TYPE: Axial Bone Density DATE OF EXAM: 04/08/2023 CLINICAL HISTORY: 72 years old Female. ICD-10 CODE: Z78.0 ASYMPTOMATIC MENOPAUSAL STATE Height: 50.5 Weight: 171 FRAX RISK QUESTIONS: Family History (Parent hip fracture): yes, both History of Fracture in Adulthood: yes, femur, rt wrist Secondary Osteoporosis: no 3. Menopause before 45: yes, total hyst 32 Rheumatoid Arthritis: no RISK FACTORS HISTORY OF: History of Wrist Fracture: yes,rt When: 2002 Surgery to Wrist (right): yes When: 2002 Family History of Osteoporosis: yes, mother Active: yes Diet low in dairy products/other sources of calcium: no Postmenopausal woman: yes Lost more than 2 inches in height since high school: yes Frequent falls: no MEDICATIONS: Thyroid Medications: yes Which medication: Levothyroxine How Lon+ years Additional Medications: yes potassium, asthma, cholesterol, heart meds EXAM MEASUREMENTS: Bone mineral densitometry was performed using the geolad System. Bone mineral density as measured about the Lumbar spine is: ----- L1-L4(G/cm2): 1.075 T Score Values are as follows: ----- L1: -1.5 ----- L2: -0.8 ----- L3: -0.4 ----- L4: -0.9 ----- L1-L4: -0.9 Z Score Values are as follows: ----- L1: -0.2 ----- L2: 0.5 ----- L3: 0.9 ----- L4: 0.4 ----- L1-L4: 0.4 Bone mineral density has: Decreased -5.2% since study of: 09/01/2017 Bone mineral density about the R hip (g/cm2): 0.820 Bone mineral density about the L hip (g/cm2): 0.815 T Score values are as follows: -----R Neck: -3.1 -----L Neck: -3.0 -----R Total: -1.5 -----L Total: -1.5 Z Score values are as follows: -----R Neck: -1.6 -----L Neck: -1.5 -----R Total: -0.2 -----L Total: -0.2 Bone mineral density has: Decreased -12.7% since study of: 09/01/2017 FRAX%s: The graph provided illustrates a 29.4% chance for a major osteoporotic fx and a 10.4% chance for the hips probability for fx in 10 years time. IMPRESSION: Osteopenia (T Score between -2.5 and -1). There is slightly increased risk of fracture and the patient may be considered for treatment. Re-Screen 2-5 years. NOTE: T-SCORE=SD OF THE YOUNG ADULT MEAN.
== END | disposition home or self-care (01) ==
LOC: RADBDWWP 12:23
PROVIDERS: ATTEND Family Medicine
DX: M81.0 Age-related osteoporosis without current pathological fracture (principal); M85.89 Other specified disorders of bone density and structure, multiple sites; Z78.0 Asymptomatic menopausal state
CPT/HCPCS: 77080

== ENCOUNTER 2023-07-01 20:23 | Observation (INO) | payer MEDICARE, BC ==
[2023-07-01 21:18] LABS: Basophils % (A) 0 %; Eosinophils % (A) 0 %; HCT 41.7 % (34.0-46.0); HGB 13.7 gm/dL (11.4-16.0); Lymphocytes # (A) 0.5 k/uL (1.0-4.8); Lymphocytes % (A) 6 %; MCH 31.5 pg (25.0-35.0); MCHC 32.8 g/dL (31.0-37.0); MCV 95.9 fL (80.0-100.0); Mean Platelet Volume 9.6; Monocytes # (A) 0.2 k/uL (0-1.0); Monocytes % (A) 2 %; Neutrophils # (A) 8.6 k/uL (1.3-7.7); Neutrophils % (A) 92 %; Platelet Count 209 k/uL (150-450); RBC 4.35 m/uL (3.80-5.40); RDW 12.4 % (11.5-15.5); WBC 9.4 k/uL (3.8-10.6)
--- NOTE | 2023-07-01 21:18 | XR ---
EXAMINATION TYPE: XR chest 2V DATE OF EXAM: 07/01/2023 9:06 PM CLINICAL INDICATION:Female, 72 years old with history of Chest Pain; [facility] COMPARISON: 10/07/2022 TECHNIQUE: XR chest 2V Frontal and lateral views of the chest. FINDINGS: Lungs/Pleura: There is no evidence of pleural effusion, focal consolidation, or pneumothorax. Pulmonary vascularity: Unremarkable. Heart/mediastinum: Cardiomediastinal silhouette is unremarkable. Musculoskeletal: No acute osseous pathology. IMPRESSION: No acute cardiopulmonary disease/process.
[2023-07-01 21:28] LABS: ALT 24 U/L (4-34); AST 52 U/L (14-36); African American GFR (CKD) 80 (>60 ml/min/1.73 sqM); Albumin 4.1 g/dL (3.5-5.0); Alkaline Phosphatase 97 U/L (38-126); Anion Gap 12 mmol/L; Blood Urea Nitrogen 19 mg/dL (7-17); Calcium 9.6 mg/dL (8.4-10.2); Carbon Dioxide 23 mmol/L (22-30); Chloride 104 mmol/L (98-107); Glucose 273 mg/dL (74-99); Magnesium 1.9 mg/dL (1.6-2.3); Non-African American GFR(CKD) 69 (>60 ml/min/1.73 sqM); Potassium 3.9 mmol/L (3.5-5.1); Sodium 139 mmol/L (137-145); Total Bilirubin 0.7 mg/dL (0.2-1.3); Total Protein 6.9 g/dL (6.3-8.2)
[2023-07-01 21:30] LABS: Partial Thromboplastin Time 26.2 sec (22.0-30.0); Prothrombin Time 10.6 sec (10.0-12.5)
[2023-07-01 21:37] LABS: NT-Pro-B-Type Natriuretic Pept 137 pg/mL
--- NOTE | 2023-07-01 22:10 | ED ---
Chest Pain HPI - General Chief Complaint: Chest Pain Stated Complaint: Chest Pain Time Seen by Provider: 07/01/23 20:42 Source: EMS Mode of arrival: EMS - History of Present Illness Initial Comments: Dariana is a pleasant 72-year-old female who presents to the ER today via ambulance for evaluation of chest pain. Patient reports that she was at home she began to feel some nausea chest pain she got lightheaded and diaphoretic. She states this is similar to her previous heart attack. Patient thought maybe it was just indigestion she tried walking off by going outside getting some fresh air and checking the mail however her symptoms persisted she called her daughter and by she thought she was having a heart attack, daughter called a ambulance against the patient's wishes over once EMS arrived patient was agreeable. - Related Data Home Medications Medication Instructions Recorded Confirmed Fluticasone/Vilanterol [Breo 1 puff INHALATION RT-DAILY 06/23/16 07/01/23 Ellipta 200-25 Mcg Inhaler] Lansoprazole [Prevacid] 30 mg PO HS 06/23/16 07/01/23 Levothyroxine Sodium [Synthroid] 75 mcg PO DAILY 06/23/16 07/01/23 Montelukast Sodium [Singulair] 10 mg PO HS 06/23/16 07/01/23 Potassium Chloride ER [K-Dur 20] 20 meq PO BID 06/23/16 07/01/23 lisinopriL [Zestril] 10 mg PO HS 06/23/16 07/01/23 Rosuvastatin [Crestor] 20 mg PO HS 10/07/22 07/01/23 Aspirin EC [Ecotrin Low Dose] 81 mg PO ONCE PRN 07/01/23 07/01/23 Clopidogrel [Plavix] 75 mg PO DAILY 07/01/23 07/01/23 Allergies Allergy/AdvReac Type Severity Reaction Status Date / Time cefuroxime [From Ceftin] Allergy Unknown Verified 07/01/23 22:55 clindamycin Allergy swelling Verified 07/01/23 22:55 of mouth & eyes Fish Containing Products Allergy saltwater Verified 07/01/23 22:55 [Fish] fish only Milk Containing Products Allergy Unknown Verified 07/01/23 22:55 (Dairy) [Dairy] Penicillins Allergy Lips/Face Verified 07/01/23 22:55 Swelling shellfish derived [Shellfish] Allergy Unknown Verified 07/01/23 22:55 wheat Allergy Unknown Verified 07/01/23 22:55 Review of Systems ROS Statement: Those systems with pertinent positive or pertinent negative responses have been documented in the HPI. ROS Other: All systems not noted in ROS Statement are negative. EKG Findings - EKG Comments: EKG Findings:: EKG interpreted by me, EKG obtained due to chest pain EKG obtained at 2030 rate is 104, rhythm is sinus tach no acute ST elevations, Q waves are noted in the anterior leads. No evidence of acute ischemia or infarction. Past Medical History Past Medical History: Asthma, Hypertension History of Any Multi-Drug Resistant Organisms: None Reported Past Surgical History: Adenoidectomy, Appendectomy, Breast Surgery, Hysterectomy, Joint Replacement, Orthopedic Surgery, Tonsillectomy Additional Past Surgical History / Comment(s): ear shoulder wrist. right rotator cuff repair. Past Psychological History: No Psychological Hx Reported Smoking Status: Never smoker Past Alcohol Use History: None Reported Past Drug Use History: None Reported General Exam - General Exam Comments Initial Comments: Physical Exam GENERAL: Patient is well-developed and well-nourished. Patient is nontoxic and well- hydrated and is in no distress. HENT: Normocephalic, Atraumatic. EYES: PERRL, EOMI PULMONARY: Unlabored respirations. No audible rales rhonchi or wheezing was noted. CARDIOVASCULAR: There is a regular rate and rhythm without any murmurs gallops or rubs. ABDOMEN: Soft and nontender with normal bowel sounds. SKIN: Skin is clear with no lesions or rashes and otherwise unremarkable. : Deferred NEUROLOGIC: Patient is alert and oriented x3. Moving all extremities spontaneously MUSCULOSKELETAL: Normal extremities with adequate strength and full range of motion. No lower extremity swelling or edema. No calf tenderness. PSYCHIATRIC: Normal psychiatric evaluation. Course Vital Signs 07/01/23 07/01/23 07/01/23 20:24 21:29 22:29 Temperature 98.7 F Pulse Rate 99 80 84 Respiratory 18 18 18 Rate Blood Pressure 133/78 132/77 122/67 O2 Sat by Pulse 96 98 98 Oximetry Chest Pain MDM - MDM Was pt. sent in by a medical professional or institution (, PA, [employer], urgent care, hospital, or skilled nursing...) When possible be specific @ -No Did you speak to anyone other than the patient for history (EMS, parent, family, police, friend...)? What history was obtained from this source @ -, daughter Did you review nursing and triage notes (agree or disagree)? Why? @ -I reviewed and agree with nursing and triage notes Were old charts reviewed (outside hosp., previous admission, EMS record, old EK G, old radiological studies, urgent care reports/EKG's, skilled nursing records)? Report findings @ -Review of admission and cardiac workup were reviewed Differential Diagnosis (chest pain, altered mental status, abdominal pain women, abdominal pain men, vaginal bleeding, weakness, fever, dyspnea, syncope, headache, dizziness, GI bleed, back pain, seizure, CVA, palpatations, mental health)? @ -Differential Chest Pain: Stable Angina, Unstable Angina, STEMI, NSTEMI Aortic Dissection, Pneumothorax, Musculoskeletal, Esophageal Spasm GERD, Cholecystitis, Pancreatitis, Zoster, this is not meant to be an all-inclusive list. EKG interpreted by me (3pts min.). @ -As above X-rays interpreted by me (1pt min.). @ -No acute process CT interpreted by me (1pt min.). @ -None done U/S interpreted by me (1pt. min.). @ -None done What testing was considered but not performed or refused? (CT, X-rays, U/S, labs)? Why? @ -None What meds were considered but not given or refused? Why? @ -Heparin was considered but held his patient had epidural injections earlier in the day Did you discuss the management of the patient with other professionals (professionals i.e. , PA, [employer], lab, RT, psych nurse, protective services social worker, supervisor picking crew, teacher, executive officer, window caser)? Give summary @ -No Was smoking cessation discussed for >3mins.? @ -No Was critical care preformed (if so, how long)? @ -No Were there social determinants of health that impacted care today? How? (Homelessness, low income, unemployed, alcoholism, drug addiction, transportation, low edu. Level, literacy, decrease access to med. care, long term, rehab)? @ -No Was there de-escalation of care discussed even if they declined (Discuss DNR or withdrawal of care, Hospice)? DNR status @ -No What co-morbidities impacted this encounter? (DM, HTN, Smoking, COPD, CAD, Cancer, CVA, ARF, Chemo, Hep., AIDS, mental health diagnosis, sleep apnea, mo rbid obesity)? @ -CAD Was patient admitted / discharged? Hospital course, mention meds given and route, prescriptions, significant lab abnormalities, going to OR and other pertinent info. @ Admit The patient was seen and evaluated, history is obtained from the patient and review of medical record. She with a history of CAD presenting with chest pain diaphoresis lightheadedness and nausea. The patient received aspirin and nitro prior to arrival. Nitro helped the chest pain patient is asymptomatic upon arrival. Social EKG is nonischemic chest x-ray is unremarkable and labs are unremarkable however patient is very high risk for this being a cardiac event. Heparin was held due to the patient's recent epidural injections however patient will be admitted for further monitoring, trending troponins possible echo and evaluation by cardiology. Patient was agreeable with this plan. Undiagnosed new problem with uncertain prognosis? @ -No Drug Therapy requiring intensive monitoring for toxicity (Heparin, Nitro, Insulin, Cardizem)? @ -No Were any procedures done? @ -No Diagnosis/symptom? @ -Unstable angina Acute, or Chronic, or Acute on Chronic? @ -default Uncomplicated (without systemic symptoms) or Complicated (systemic symptoms)? @ -default Side effects of treatment? @ -No Exacerbation, Progression, or Severe Exacerbation? @ -No Poses a threat to life or bodily function? How? (Chest pain, [place], [place], pneumonia, PE, COPD, DKA, ARF, appy, cholecystitis, CVA, Diverticulitis, Homicidal, Suicidal, threat to staff... and all critical care pts) @ -[Yes, can result in [place], cardiac arrest Disposition Clinical Impression: Chest pain, Unstable angina Disposition: ADMITTED IP TO THIS HOSP Condition: Stable Is patient prescribed a controlled substance at d/c from ED?: No
[2023-07-01] MEDS ORDERED: NALOXONE 0.4 MG/ML 1 ML VIAL IVP PRN (22:24)
[2023-07-02] MEDS ORDERED: MONTELUKAST 10 MG TAB PO SCH (01:19)
[2023-07-02] MEDS ORDERED: ASPIRIN 81 MG PO PRN (01:19)
[2023-07-02] MEDS ORDERED: lisinopriL 10 MG TAB PO SCH (01:19)
[2023-07-02] MEDS ORDERED: ALPRAZolam 0.5 MG TAB PO PRN (01:20)
[2023-07-02] MEDS ORDERED: SODIUM CHLORIDE 0.9% 1,000 ML IV SCH (01:30)
--- NOTE | 2023-07-02 02:13 | P.HPIM ---
History of Present Illness H&P Date: 07/01/23 Chief Complaint: Chest pain 70-year-old female with coronary artery disease Patient had a doctor appointment today for epidural nerve block she's not sure what it was nerve block or steroid shot. She had her Plavix stopped for a few days. Patient coming in complaining of sudden onset chest pain started after lunch described as epigastric pain nonradiating initially was 3-4 out of 10 in severity she was able to go about her day #fluid drink distract herself but then suddenly became worse 10 out of 10 in severity associated with cold sweating and feeling nauseous and short of breath with palpitations still pain nonradiating more epigastric in nature for which she decided to come in for evaluation as the pain felt similar to what she experienced back in September when she had her first heart attack She denies any recent hospital stay denies any history of blood clots. She claims that she's been in good health overall denies any upper respiratory infection symptoms denies any history of peptic ulcer disease denies any GI bleeding. 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 All other systems were reviewed and are negative on exam Constitutional: No acute distress, conversant, pleasant Eyes: Anicteric sclerae, moist conjunctiva, Pupils equal round reactive to light ENMT: NC/AT Oropharynx clear, no erythema, or exudates Neck: Supple, no masses, or JVD No carotid bruits No thyromegaly Lungs: Clear to auscultation Clear to percussion Normal respiratory effort, no accessory muscle use Cardiovascular: Heart regular in rate and rhythm, No murmurs, gallops, or rubs No peripheral edema Abdominal: Soft Nontender, no guarding, rebound or rigidity Abdomen moving with respiration Normoactive bowel sounds No hepatomegaly, No splenomegaly No palpable mass No abdominal wall hernia noted Extremities: No digital cyanosis No clubbing Pedal pulses intact and symmetrical Radial pulses intact and symmetrical No calf tenderness Psychiatric: Alert and oriented to person, place and time Appropriate affect fair judgement Neuro Muscles Strength 5/5 in all 4 extremities Sensation to light touch grossly present throughout Cranial nerves II-XII grossly intact Lymphatics: no palpable cervical or supraclavicular lymph nodes Past Medical History Past Medical History: Asthma, Hypertension History of Any Multi-Drug Resistant Organisms: None Reported Past Surgical History: Adenoidectomy, Appendectomy, Breast Surgery, Hysterectomy, Joint Replacement, Orthopedic Surgery, Tonsillectomy Additional Past Surgical History / Comment(s): ear shoulder wrist. right rotator cuff repair. Past Anesthesia/Blood Transfusion Reactions: No Reported Reaction Past Psychological History: No Psychological Hx Reported Smoking Status: Never smoker Past Alcohol Use History: None Reported Past Drug Use History: None Reported Medications and Allergies Home Medications Medication Instructions Recorded Confirmed Type Fluticasone/Vilanterol [Breo 1 puff INHALATION RT-DAILY 06/23/16 07/01/23 History Ellipta 200-25 Mcg Inhaler] Lansoprazole [Prevacid] 30 mg PO HS 06/23/16 07/01/23 History Levothyroxine Sodium [Synthroid] 75 mcg PO DAILY 06/23/16 07/01/23 History Montelukast Sodium [Singulair] 10 mg PO HS 06/23/16 07/01/23 History Potassium Chloride ER [K-Dur 20] 20 meq PO BID 06/23/16 07/01/23 History lisinopriL [Zestril] 10 mg PO HS 06/23/16 07/01/23 History Rosuvastatin [Crestor] 20 mg PO HS 10/07/22 07/01/23 History Aspirin EC [Ecotrin Low Dose] 81 mg PO ONCE PRN 07/01/23 07/01/23 History Clopidogrel [Plavix] 75 mg PO DAILY 07/01/23 07/01/23 History Allergies Allergy/AdvReac Type Severity Reaction Status Date / Time cefuroxime [From Ceftin] Allergy Unknown Verified 07/01/23 22:55 clindamycin Allergy swelling Verified 07/01/23 22:55 of mouth & eyes Fish Containing Products Allergy saltwater Verified 07/01/23 22:55 [Fish] fish only Milk Containing Products Allergy Unknown Verified 07/01/23 22:55 (Dairy) [Dairy] Penicillins Allergy Lips/Face Verified 07/01/23 22:55 Swelling shellfish derived [Shellfish] Allergy Unknown Verified 07/01/23 22:55 wheat Allergy Unknown Verified 07/01/23 22:55 Physical Exam Vitals: Vital Signs Temp Pulse Resp BP Pulse Ox 07/01/23 22:29 84 18 122/67 98 07/01/23 21:29 80 18 132/77 98 07/01/23 20:24 98.7 F 99 18 133/78 96 Intake and Output 07/01/23 07/01/23 07/02/23 14:59 22:59 06:59 Other: Weight 79.379 kg 79.379 kg Results CBC & Chem 7: 07/01/23 21:04 07/01/23 21:04 Labs: Abnormal Lab Results - Last 24 Hours (Table) 07/01/23 07/01/23 Range/Units 21:04 21:04 Neutrophils # 8.6 H (1.3-7.7) k/uL Lymphocytes # 0.5 L (1.0-4.8) k/uL BUN 19 H (7-17) mg/dL Glucose 273 H (74-99) mg/dL AST 52 H (14-36) U/L Thrombosis Risk Factor Assmnt - Choose All That Apply Any of the Below Risk Factors Present?: Yes Each Factor Represents 1 point: Acute [place], Obesity (BMI >25) Other Risk Factors: Yes Each Risk Factor Represents 2 Points: Age 61-74 years Other congenital or acquired thrombophilia - If yes, enter type in comment: No Thrombosis Risk Factor Assessment Total Risk Factor Score: 4 Thrombosis Risk Factor Assessment Level: Moderate Risk Assessment and Plan Assessment: 72-year-old female with CAD coming in complaining of sudden onset chest pain I discussed the case with ED doctor and I accepted accepted the admission for chest pain rule out with anticipated length of stay less than 2 midnights Chest pain Rule out acute coronary syndrome Troponins negative [address] changes Continue Aspirin, Plavix Continue Crestor 20 mg daily at bedtime Trend troponins 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
[2023-07-02] MEDS ORDERED: IPRATROPIUM-ALBUTEROL 3 ML NEB INHALATION PRN (02:29)
[2023-07-02] MEDS ORDERED: LEVOTHYROXINE 75 MCG TAB PO SCH (06:30)
[2023-07-02] MEDS ORDERED: HEPARIN SODIUM,PORCINE 5,000 UNIT/ML 1 ML VIAL SQ SCH (08:00)
[2023-07-02] MEDS ORDERED: SYMBICORT 160-4.5 MCG INHALER INHALATION SCH (08:00)
[2023-07-02 08:33] VITALS: BP 110/66; PULSE 65; RESP 16; TEMP 97.7
[2023-07-02] MEDS ORDERED: CLOPIDOGREL 75 MG TAB PO SCH (09:00)
[2023-07-02 09:39] LABS: Chol/HDL Ratio 2.38 Ratio
--- NOTE | 2023-07-02 11:47 | P.CRDCN ---
History of Present Illness Consult date: 07/02/23 Consult reason: chest pain History of present illness: History of Present Illness: Patient is a pleasant 72 year old female with significant past medical history of hypertension, asthma, back pain who presented to the ER with complaints of chest pain and feeling sick yesterday. She follows with Dr. Miller in the office. She reports that she did have a back injection yesterday morning, she felt okay came home and took a nap and then when she woke up she felt sick to her stomach. She tried to walk this off and her symptoms got worse and she had chest pain and broke out in a cold sweats. She was concerned that this felt similar to when she had chest pain back in September 2022. She did have one nitro with the EMS and this did help the pain some. She also does report that she gets sick with anesthesia. Prior to yesterday she had been doing okay other than dealing with her back pain. She had a prior heart catheterization 09/2022 which revealed LAD 4050%, she was started on aspirin and Plavix for 12 months. Echocardiogram 10/07/22 with EF 5560%, mild LVH. Labs revealed troponin negative 3, BNP 137, LDL 44. EKG was sinus tachycardia with PVCs. Chest x-ray with no acute findings. She did report that she held her Plavix for 8 days prior to her back injection. She does feel much better this morning with no further chest pain or shortness of breath. She does feel somewhat tired today. REVIEW OF SYSTEMS: No fever or chills. No cough or expectoration. No diaphoresis. Patient denies headache, dizziness, blurred vision, double vision. Patient denies any stomach discomfort. No nausea, vomiting. No hematochezia. No hematemesis. Denies any black stools or blood in stools. Denies dysuria or hematuria. No muscle weakness or numbness. No chest pain or pressure. PHYSICAL EXAMINATION: This is a 72-year-old female in no apparent distress at the time of my examination. HEENT: Head is atraumatic, normocephalic. Pupils are equal, round. Sclerae anicteric. Conjunctivae are clear. Mucous membranes of the mouth are moist. Neck is supple. There is no jugular venous distention. No carotid bruit is heard. CHEST EXAMINATION: Lungs are clear to auscultation. No chest wall tenderness is noted on palpation or with deep breathing. HEART EXAMINATION: Heart regular rate and rhythm. S1, S2 heard. No murmurs, gallops or rub. ABDOMEN: Soft, nontender. Bowel sounds are heard. No organomegaly noted. EXTREMITIES: 2+ peripheral pulses with no evidence of peripheral edema and no calf tenderness noted. NEUROLOGIC EXAMINATION: Patient is awake, alert and oriented x3. IMPRESSION AND PLAN: 1. Mild CAD, LAD 40-50% 2. Chest pain, ACS ruled out 3. Hypertension 4. Asthma PLAN: Symptoms were likely related to anesthesia reaction. Recommend continuing aspirin and Plavix. If she is ambulatory and continues to be chest pain free this afternoon okay to discharge home from cardiology standpoint. Follow-up in the office with Dr. Miller in 1-2 weeks. I am dictating on behalf of Dr. Juan Antonio Uriarte's history/physical and assessm ent/plan. Past Medical History Past Medical History: Asthma, Hypertension History of Any Multi-Drug Resistant Organisms: None Reported Past Surgical History: Adenoidectomy, Appendectomy, Breast Surgery, Hyster ectomy, Joint Replacement, Orthopedic Surgery, Tonsillectomy Additional Past Surgical History / Comment(s): ear shoulder wrist. right rotator cuff repair. Past Anesthesia/Blood Transfusion Reactions: No Reported Reaction Past Psychological History: No Psychological Hx Reported Smoking Status: Never smoker Past Alcohol Use History: None Reported Past Drug Use History: None Reported Medications and Allergies Home Medications Medication Instructions Recorded Confirmed Type Fluticasone/Vilanterol [Breo 1 puff INHALATION RT-DAILY 06/23/16 07/01/23 History Ellipta 200-25 Mcg Inhaler] Lansoprazole [Prevacid] 30 mg PO HS 06/23/16 07/01/23 History Levothyroxine Sodium [Synthroid] 75 mcg PO DAILY 06/23/16 07/01/23 History Montelukast Sodium [Singulair] 10 mg PO HS 06/23/16 07/01/23 History Potassium Chloride ER [K-Dur 20] 20 meq PO BID 06/23/16 07/01/23 History lisinopriL [Zestril] 10 mg PO HS 06/23/16 07/01/23 History Rosuvastatin [Crestor] 20 mg PO HS 10/07/22 07/01/23 History Aspirin EC [Ecotrin Low Dose] 81 mg PO ONCE PRN 07/01/23 07/01/23 History Clopidogrel [Plavix] 75 mg PO DAILY 07/01/23 07/01/23 History Allergies Allergy/AdvReac Type Severity Reaction Status Date / Time cefuroxime [From Ceftin] Allergy Unknown Verified 07/01/23 22:55 clindamycin Allergy swelling Verified 07/01/23 22:55 of mouth & eyes Fish Containing Products Allergy saltwater Verified 07/01/23 22:55 [Fish] fish only Milk Containing Products Allergy Unknown Verified 07/01/23 22:55 (Dairy) [Dairy] Penicillins Allergy Lips/Face Verified 07/01/23 22:55 Swelling shellfish derived [Shellfish] Allergy Unknown Verified 07/01/23 22:55 wheat Allergy Unknown Verified 07/01/23 22:55 Physical Exam Vitals: Vital Signs Temp Pulse Pulse Resp BP BP Pulse Ox 07/02/23 07:00 97.7 F 65 16 110/66 95 07/02/23 02:33 18 07/02/23 01:56 98.1 F 67 15 102/56 95 07/01/23 23:27 97.6 F 75 17 154/73 95 07/01/23 22:29 84 18 122/67 98 07/01/23 21:29 80 18 132/77 98 07/01/23 20:24 98.7 F 99 18 133/78 96 Intake and Output 07/01/23 07/02/23 07/02/23 22:59 06:59 14:59 Other: Voiding Method Toilet # Voids 2 Weight 79.379 kg 79.379 kg Results 07/01/23 21:04 07/01/23 21:04 Cardiac Enzymes 07/01/23 07/01/23 07/01/23 Range/Units 21:04 21:04 23:16 AST 52 H (14-36) U/L Troponin I <0.012 <0.012 (0.000-0.034) ng/mL 07/02/23 Range/Units 03:30 AST (14-36) U/L Troponin I <0.012 (0.000-0.034) ng/mL Coagulation 07/01/23 Range/Units 21:04 PT 10.6 (10.0-12.5) sec APTT 26.2 (22.0-30.0) sec CBC 07/01/23 Range/Units 21:04 WBC 9.4 (3.8-10.6) k/uL RBC 4.35 (3.80-5.40) m/uL Hgb 13.7 (11.4-16.0) gm/dL Hct 41.7 (34.0-46.0) % Plt Count 209 (150-450) k/uL Comprehensive Metabolic Panel 07/01/23 Range/Units 21:04 Sodium 139 (137-145) mmol/L Potassium 3.9 (3.5-5.1) mmol/L Chloride 104 (98-107) mmol/L Carbon Dioxide 23 (22-30) mmol/L BUN 19 H (7-17) mg/dL Creatinine 0.85 (0.52-1.04) mg/dL Glucose 273 H (74-99) mg/dL Calcium 9.6 (8.4-10.2) mg/dL AST 52 H (14-36) U/L ALT 24 (4-34) U/L Alkaline Phosphatase 97 (38-126) U/L Total Protein 6.9 (6.3-8.2) g/dL Albumin 4.1 (3.5-5.0) g/dL Current Medications Generic Name Dose Route Start Last Admin Trade Name Freq PRN Reason Stop Dose Admin Albuterol/Ipratropium 3 ml 07/02/23 02:29 Ipratropium-Albuterol 3 Ml Neb INHALATION RT-QID PRN Shortness Of Breath Or Wheezing Alprazolam 0.5 mg 07/02/23 01:20 Alprazolam 0.5 Mg Tab PO TID PRN Anxiety Aspirin 81 mg 07/02/23 01:19 Aspirin 81 Mg PO ONCE PRN CHEST PAIN Atorvastatin Calcium 40 mg 07/02/23 21:00 Atorvastatin 40 Mg Tab PO HS CHELSEA Budesonide/Formoterol Fumarate 2 puff 07/02/23 08:00 07/02/23 08:00 Symbicort 160-4.5 Mcg Inhaler INHALATION 2 puff RT-BID CHELSEA Administration Clopidogrel Bisulfate 75 mg 07/02/23 09:00 Clopidogrel 75 Mg Tab PO DAILY CHELSEA Heparin Sodium (Porcine) 5,000 unit 07/02/23 08:00 Heparin Sodium,Porcine 5,000 Unit/Ml 1 Ml Vial SQ Q8HR CHELSEA Sodium Chloride 1,000 mls @ 75 mls/hr 07/02/23 01:30 07/02/23 02:24 Saline 0.9% IV Not Given .[id number] CHELSEA Levothyroxine Sodium 75 mcg 07/02/23 06:30 07/02/23 05:36 Levothyroxine 75 Mcg Tab PO 75 mcg DAILY@0630 CHELSEA Administration Lisinopril 10 mg 07/02/23 01:19 07/02/23 02:22 Lisinopril 10 Mg Tab PO 10 mg HS CHELSEA Administration Montelukast Sodium 10 mg 07/02/23 01:19 07/02/23 02:22 Montelukast 10 Mg Tab PO 10 mg HS CHELSEA Administration Naloxone HCl 0.2 mg 07/01/23 22:24 Naloxone 0.4 Mg/Ml 1 Ml Vial IVP Q2M PRN Opioid Reversal Pantoprazole Sodium 40 mg 07/02/23 21:00 Pantoprazole 40 Mg Tablet PO HS CHELSEA Intake and Output 07/01/23 07/02/23 07/02/23 22:59 06:59 14:59 Other: Voiding Method Toilet # Voids 2 Weight 79.379 kg 79.379 kg 07/01/23 21:04 07/01/23 21:04
[2023-07-02 11:50] LABS: LDL Cholesterol,Calculated 52.4 mg/dL (0.0-131.0); VLDL Calculation 10.76 mg/dL (5.00-40.00)
--- NOTE | 2023-07-02 12:01 | P.DS ---
Providers Date of admission: 07/01/23 22:24 Expected date of discharge: 07/02/23 Attending physician: Lina Arias MD Consults: 07/01/23 22:24 Consult Physician Routine Consulting Provider: [facility] Consult Reason/Comments: Chest Pain Do you want consulting provider notified?: Yes, Notify in am Primary care physician: Issa Gibson MD Hospital Course: Discharge Diagnosis: CAD Hypertension Dyslipidemia Hospital Course: 72-year-old female with history of coronary artery disease, hypertension, dyslipidemia presenting with chest pain after a nerve block procedure. Currently chest pain-free. Vital signs within normal limits. Troponin negative 3. ACS ruled out. Cardiology was consulted. Patient to continue aspirin, Plavix, statin, follow-up with cardiology outpatient. Patient seen and examined at bedside. Vital signs reviewed and stable. General: nontoxic, no distress, appears at stated age Derm: warm, dry Head: atraumatic, normocephalic, symmetric Eyes: EOMI, no lid lag, anicteric sclera Mouth: no lip lesion, mucus membranes moist Cardiovascular: S1S2 reg, no murmur Lungs: CTA bilateral, no rhonchi, no rales , no accessory muscle use Abdominal: soft, nontender to palpation, no guarding, no appreciable organomegaly Ext: no gross muscle atrophy, no edema, no contractures Neuro: CN II-XI grossly intact, no focal neuro deficits Psych: Alert, oriented, appropriate affect A total of 33 minutes of time were spent preparing this complex discharge summary. Patient was discharged on 07/02/23 at 1200. Patient Condition at Discharge: Stable Plan - Discharge Summary Discharge Rx Participant: No New Discharge Prescriptions: Continue Montelukast Sodium [Singulair] 10 mg PO HS lisinopriL [Zestril] 10 mg PO HS Lansoprazole [Prevacid] 30 mg PO HS Levothyroxine Sodium [Synthroid] 75 mcg PO DAILY Fluticasone/Vilanterol [Breo Ellipta 200-25 Mcg Inhaler] 1 puff INHALATION RT-DAILY Potassium Chloride ER [K-Dur 20] 20 meq PO BID Clopidogrel [Plavix] 75 mg PO DAILY Rosuvastatin [Crestor] 20 mg PO HS Aspirin EC [Ecotrin Low Dose] 81 mg PO ONCE PRN PRN Reason: Chest Pain Discharge Medication List Fluticasone/Vilanterol [Breo Ellipta 200-25 Mcg Inhaler] 1 puff INHALATION RT-DAILY 06/23/16 [History] Lansoprazole [Prevacid] 30 mg PO HS 06/23/16 [History] Levothyroxine Sodium [Synthroid] 75 mcg PO DAILY 06/23/16 [History] Montelukast Sodium [Singulair] 10 mg PO HS 06/23/16 [History] Potassium Chloride ER [K-Dur 20] 20 meq PO BID 06/23/16 [History] lisinopriL [Zestril] 10 mg PO HS 06/23/16 [History] Rosuvastatin [Crestor] 20 mg PO HS 10/07/22 [History] Aspirin EC [Ecotrin Low Dose] 81 mg PO ONCE PRN 07/01/23 [History] Clopidogrel [Plavix] 75 mg PO DAILY 07/01/23 [History] Follow up Appointment(s)/Referral(s): Issa Gibson MD [Primary Care Provider] - 1-2 days Kieran Miller MD [STAFF PHYSICIAN] - 1 Week Patient Instructions/Handouts: Noncardiac Chest Pain (DC) Activity/Diet/Wound Care/Special Instructions: Please see your PCP and radiologic technology instructor. Discharge Disposition: HOME SELF-CARE
[2023-07-02] MEDS ORDERED: PANTOPRAZOLE 40 MG TABLET PO SCH (21:00)
[2023-07-02] MEDS ORDERED: ATORVASTATIN 40 MG TAB PO SCH (21:00)
== END 2023-07-02 13:08 | disposition home or self-care (01) ==
LOC: EC 20:23 → 6NMEDSUR 22:24
PROVIDERS: ADMIT Internal Medicine; ATTEND Internal Medicine
DX: R07.89 Other chest pain (principal); I25.10 Atherosclerotic heart disease of native coronary artery without angina pectoris; J45.40 Moderate persistent asthma, uncomplicated; I10 Essential (primary) hypertension; I49.3 Ventricular premature depolarization; E03.9 Hypothyroidism, unspecified; R11.0 Nausea; R61 Generalized hyperhidrosis; R00.0 Tachycardia, unspecified; R00.2 Palpitations; R10.13 Epigastric pain; E66.9 Obesity, unspecified; Z68.29 Body mass index [BMI] 29.0-29.9, adult; M54.9 Dorsalgia, unspecified; I25.2 Old myocardial infarction; Z79.51 Long term (current) use of inhaled steroids; Z79.02 Long term (current) use of antithrombotics/antiplatelets; Z79.82 Long term (current) use of aspirin; Z79.890 Hormone replacement therapy; Z79.899 Other long term (current) drug therapy; Z88.1 Allergy status to other antibiotic agents; Z91.011 Allergy to milk products; Z88.0 Allergy status to penicillin; Z91.013 Allergy to seafood; Z91.018 Allergy to other foods; Z90.49 Acquired absence of other specified parts of digestive tract; Z90.710 Acquired absence of both cervix and uterus; Z96.60 Presence of unspecified orthopedic joint implant; Z98.890 Other specified postprocedural states
CPT/HCPCS: 96372; 99285; 36415; 94640; 93005; 83880; 80061; 80053; 83735; 84484 ×2; 85025; 85610; 85730; 87635; 71046; G0378 ×2; J1644

== ENCOUNTER 2023-12-27 02:30 | Inpatient (IN) | payer MEDICARE, BC ==
--- NOTE | 2023-12-27 02:50 | ED ---
Chest Pain HPI <Estevan Cheney - Last Filed: 12/27/23 08:56> - General Source: patient Mode of arrival: wheelchair Limitations: no limitations <Melanie Almonte - Last Filed: 01/02/24 14:06> - General Chief Complaint: Chest Pain Stated Complaint: Chest Pain Time Seen by Provider: 12/27/23 02:35 - History of Present Illness Initial Comments: 73-year-old female who presents emergency department reporting chest pain that radiates to her back and shoulders. States it started this morning however it got worse this evening. She has associated vomiting. Patient does have a history of coronary artery disease, hypertension and dyslipidemia. Was hospitalized back in June and evaluated by cardiology. Patient denies fevers, chills or cough. No other alleviating, precipitating modifying factors (Melanie Almonte) - Related Data Home Medications Medication Instructions Recorded Confirmed Fluticasone/Vilanterol [Breo 1 puff INHALATION RT-DAILY 06/23/16 12/27/23 Ellipta 200-25 Mcg Inhaler] Lansoprazole [Prevacid] 30 mg PO HS 06/23/16 12/27/23 Levothyroxine Sodium [Synthroid] 75 mcg PO DAILY 06/23/16 12/27/23 Montelukast Sodium [Singulair] 10 mg PO HS 06/23/16 12/27/23 Potassium Chloride ER [K-Dur 20] 20 meq PO BID 06/23/16 12/27/23 lisinopriL [Zestril] 10 mg PO HS 06/23/16 12/27/23 Rosuvastatin [Crestor] 20 mg PO HS 10/07/22 12/27/23 Clopidogrel [Plavix] 75 mg PO HS 07/01/23 12/27/23 Apixaban [Eliquis] 5 mg PO BID 12/27/23 12/27/23 Loratadine [Claritin] 10 mg PO HS 12/27/23 12/27/23 Previous Rx's Medication Instructions Recorded HYDROcodone/APAP 5-325MG [[place] 1 tab PO Q6HR PRN 3 Days #12 tab 12/30/23 5-325] Amoxic-Pot Clav 875-125Mg 1 tab PO BID 8 Days #16 tab 01/02/24 [Augmentin 875-125] Allergies Allergy/AdvReac Type Severity Reaction Status Date / Time cefuroxime [From Ceftin] Allergy Unknown Verified 12/27/23 08:52 clindamycin Allergy swelling Verified 12/27/23 08:52 of mouth & eyes Fish Containing Products Allergy saltwater Verified 12/27/23 08:52 [Fish] fish only Milk Containing Products Allergy Unknown Verified 12/27/23 08:52 (Dairy) [Dairy] Penicillins Allergy Lips/Face Verified 12/27/23 08:52 Swelling shellfish derived [Shellfish] Allergy Unknown Verified 12/27/23 08:52 wheat Allergy Unknown Verified 12/27/23 08:52 Review of Systems ROS Other: All systems not noted in ROS Statement are negative. <Estevan Cheney - Last Filed: 12/27/23 08:56> ROS Other: All systems not noted in ROS Statement are negative. <Melanie Almonte - Last Filed: 01/02/24 14:06> ROS Statement: Those systems with pertinent positive or pertinent negative responses have been documented in the HPI. Past Medical History Past Medical History: Asthma, Hypertension History of Any Multi-Drug Resistant Organisms: None Reported Past Surgical History: Adenoidectomy, Appendectomy, Breast Surgery, Hysterectomy, Joint Replacement, Orthopedic Surgery, Tonsillectomy Additional Past Surgical History / Comment(s): ear shoulder wrist. right rotator cuff repair. Past Anesthesia/Blood Transfusion Reactions: No Reported Reaction Past Psychological History: No Psychological Hx Reported Smoking Status: Never smoker Past Alcohol Use History: None Reported Past Drug Use History: None Reported <Melanie Almonte - Last Filed: 01/02/24 14:06> General Exam Limitations: no limitations General appearance: alert, in no apparent distress Head exam: Present: atraumatic, normocephalic, normal inspection Eye exam: Present: normal appearance, PERRL, EOMI. Absent: scleral icterus, conjunctival injection, periorbital swelling ENT exam: Present: normal exam, mucous membranes moist Neck exam: Present: normal inspection. Absent: tenderness, meningismus, lymphadenopathy Respiratory exam: Present: normal lung sounds bilaterally. Absent: respiratory distress, wheezes, rales, rhonchi, stridor Cardiovascular Exam: Present: regular rate, normal rhythm, normal heart sounds. Absent: systolic murmur, diastolic murmur, rubs, gallop, clicks GI/Abdominal exam: Present: soft, normal bowel sounds. Absent: distended, tenderness, guarding, rebound, rigid Extremities exam: Present: normal inspection, full ROM, normal capillary refill. Absent: tenderness, pedal edema, joint swelling, calf tenderness Back exam: Present: normal inspection Neurological exam: Present: alert, oriented X3, CN II-XII intact Psychiatric exam: Present: normal affect, normal mood Skin exam: Present: warm, dry, intact, normal color. Absent: rash <Melanie Almonte - Last Filed: 01/02/24 14:06> Course Vital Signs 12/27/23 12/27/23 12/27/23 02:32 04:00 04:40 Temperature 98.3 F Pulse Rate 80 68 81 Respiratory 18 18 18 Rate Blood Pressure 139/77 141/80 144/78 O2 Sat by Pulse 98 97 95 Oximetry 12/27/23 12/27/23 12/27/23 09:00 11:00 14:00 Temperature Pulse Rate 82 87 93 Respiratory 17 17 18 Rate Blood Pressure 114/72 110/69 93/50 O2 Sat by Pulse 95 95 97 Oximetry 12/27/23 12/27/23 12/27/23 14:38 17:22 20:05 Temperature Pulse Rate 86 66 Respiratory 18 18 Rate Blood Pressure 99/53 80/36 102/51 O2 Sat by Pulse 93 L 95 Oximetry 12/27/23 12/27/23 21:10 22:43 Temperature Pulse Rate 88 64 Respiratory 18 18 Rate Blood Pressure 88/60 107/54 O2 Sat by Pulse 96 97 Oximetry Chest Pain [facility] <Estevan Cheney - Last Filed: 12/27/23 08:56> <Melanie Almonte - Last Filed: 01/02/24 14:06> - [facility] CT scan of abdomen pelvis shows gallstones, interpreted by myself Chest x-ray interpreted by myself shows borderline cardiomegaly. Ultrasound interpreted by myself shows gallstones with borderline wall thickening. Case discussed with Dr. Richardson, who will admit covering Dr. Velazquez. Patient reevaluated by myself. Patient is feeling better. Patient does have some mild tenderness right upper quadrant and epigastric on exam. Patient and family are updated on results and plan. Patient does present with chest discomfort however etiology appears to be more likely gallbladder related. Patient will be admitted to medicine with surgical consult. Cardiac enzymes will be rechecked. Admission orders written. There is concern for cholecystitis diagnosed at 8:50 AM. Blood culture and lactic acid and IV antibiotics have been ordered. (Estevan Cheney) Was pt. sent in by a medical professional or institution (PATRIA Mclean, COLLECTIONS ATTORNEY, urgent care, hospital, or half-way...) When possible be specific @ -No Did you speak to anyone other than the patient for history (EMS, parent, family, police, friend...)? What history was obtained from this source @ -No Did you review nursing and triage notes (agree or disagree)? Why? @ -I reviewed and agree with nursing and triage notes Were old charts reviewed (outside hosp., previous admission, EMS record, old EKG, old radiological studies, urgent care reports/EKG's, half-way records)? Report findings @ -I reviewed the discharge summary from June 2023 Differential Diagnosis (chest pain, altered mental status, abdominal pain women, abdominal pain men, vaginal bleeding, weakness, fever, dyspnea, syncope, headache, dizziness, GI bleed, back pain, seizure, CVA, palpatations, mental health, musculoskeletal)? @ -Differential Chest Pain: Stable Angina, Unstable Angina, STEMI, NSTEMI Aortic Dissection, Pneumothorax, Musculoskeletal, Esophageal Spasm GERD, Cholecystitis, Pancreatitis, Zoster, this is not meant to be an all-inclusive list. EKG interpreted by me (3pts min.). @ -Yes and demonstrates sinus rhythm with a rate of 66. KS interval 164. QRS 91. QTc of 426. No acute ST segment elevations. Inverted T wave lead III, V1V2. This was seen on previous EKG X-rays interpreted by me (1pt min.). @ -Yes and demonstrates no acute process CT interpreted by me (1pt min.). @ -Yes and demonstrates gallstones U/S interpreted by me (1pt. min.). @ -None done What testing was considered but not performed or refused? (CT, X-rays, U/S, labs)? Why? @ -None What meds were considered but not given or refused? Why? @ -None Did you discuss the management of the patient with other professionals (professionals i.e. PATRIA Mclean, COLLECTIONS ATTORNEY, lab, RT, psych nurse, social services manager, manufacturers representative, teacher, security control room officer, showcase trimmer)? Give summary @ -With Dr. Cheney will take over care of the patient Was smoking cessation discussed for >3mins.? @ -No Was critical care preformed (if so, how long)? @ -No Were there social determinants of health that impacted care today? How? (Homelessness, low income, unemployed, alcoholism, drug addiction, transportation, low edu. Level, literacy, decrease access to med. care, group home, rehab)? @ -No Was there de-escalation of care discussed even if they declined (Discuss DNR or withdrawal of care, Hospice)? DNR status @ -No What co-morbidities impacted this encounter? (DM, HTN, Smoking, COPD, CAD, Cancer, CVA, ARF, Chemo, Hep., AIDS, mental health diagnosis, sleep apnea, morbid obesity)? @ -Coronary artery disease Was patient admitted / discharged? Hospital course, mention meds given and route, prescriptions, significant lab abnormalities, going to OR and other pertinent info. @ -Arrival patient seen and evaluated in room 6. Thorough history and physical exam was performed. IV access was established. Nausea medications were provided. Laboratory studies are conducted. CT was performed. Results are discussed with the patient. Gallbladder ultrasound is pending at this time. Case signed out to Dr. Cheney Undiagnosed new problem with uncertain prognosis? @ -yes Drug Therapy requiring intensive monitoring for toxicity (Heparin, Nitro, Insulin, Cardizem)? @ -No Were any procedures done? @ -No Diagnosis/symptom? @ -Chest pain, transaminitis Acute, or Chronic, or Acute on Chronic? @ -Acute Uncomplicated (without systemic symptoms) or Complicated (systemic symptoms)? @ -complicated Side effects of treatment? @ -No Exacerbation, Progression, or Severe Exacerbation? @ -No Poses a threat to life or bodily function? How? (Chest pain, [place], [place], pneumonia, PE, COPD, DKA, ARF, appy, cholecystitis, CVA, Diverticulitis, Homicidal, Suicidal, threat to staff... and all critical care pts) @ -No (Melanie Almonte) Disposition Is patient prescribed a controlled substance at d/c from ED?: No Time of Disposition: 08:52 <Estevan Cheney - Last Filed: 12/27/23 08:56> <Melanie Almonte - Last Filed: 01/02/24 14:06> Clinical Impression: Chest pain, Cholelithiasis Disposition: ADMITTED IP TO THIS HOSP Condition: Stable
[2023-12-27] MEDS: ONDANSETRON 4 MG/2 ML VIAL IVP STA (03:03)
[2023-12-27] MEDS: FAMOTIDINE 20 MG/2 ML VIAL IV STA (03:05)
[2023-12-27 03:31] LABS: ALT 140 U/L (4-34); AST 397 U/L (14-36); African American GFR (CKD) >90 (>60 ml/min/1.73 sqM); Albumin 4.5 g/dL (3.5-5.0); Alkaline Phosphatase 129 U/L (38-126); Anion Gap 8 mmol/L; Blood Urea Nitrogen 14 mg/dL (7-17); Calcium 9.5 mg/dL (8.4-10.2); Carbon Dioxide 26 mmol/L (22-30); Chloride 105 mmol/L (98-107); Glucose 145 mg/dL (74-99); Lipase 134 U/L (23-300); Magnesium 1.8 mg/dL (1.6-2.3); Non-African American GFR(CKD) >90 (>60 ml/min/1.73 sqM); Potassium 3.6 mmol/L (3.5-5.1); Sodium 139 mmol/L (137-145); Total Bilirubin 1.2 mg/dL (0.2-1.3); Total Protein 7.2 g/dL (6.3-8.2)
[2023-12-27 03:41] LABS: Basophils # (A) 0.1 k/uL (0-0.2); Basophils % (A) 1 %; Eosinophils % (A) 0 %; HCT 43.1 % (34.0-46.0); HGB 13.5 gm/dL (11.4-16.0); Lymphocytes # (A) 0.8 k/uL (1.0-4.8); Lymphocytes % (A) 8 %; MCH 30.1 pg (25.0-35.0); MCHC 31.2 g/dL (31.0-37.0); MCV 96.3 fL (80.0-100.0); Mean Platelet Volume 8.1; Monocytes # (A) 0.6 k/uL (0-1.0); Monocytes % (A) 6 %; Neutrophils # (A) 8.9 k/uL (1.3-7.7); Neutrophils % (A) 85 %; Platelet Count 231 k/uL (150-450); RBC 4.48 m/uL (3.80-5.40); RDW 12.7 % (11.5-15.5); WBC 10.6 k/uL (3.8-10.6)
[2023-12-27 03:49] LABS: Partial Thromboplastin Time 30.9 sec (22.0-30.0); Prothrombin Time 10.8 sec (10.0-12.5)
--- NOTE | 2023-12-27 03:52 | XR ---
EXAM: XR Chest, 2 Views CLINICAL HISTORY: ITS.REASON XR Reason: Chest Pain TECHNIQUE: Frontal and lateral views of the chest. COMPARISON: No relevant prior studies available. FINDINGS: Lungs: Unremarkable. No consolidation. Pleural space: Unremarkable. No pneumothorax. Heart: Cardiomegaly. Mediastinum: Unremarkable. Normal mediastinal contour. Bones/joints: Unremarkable. No acute fracture. IMPRESSION: No acute findings in the chest.
[2023-12-27] MEDS: METOCLOPRAMIDE 5 MG/ML 2 ML VIAL IVP STA (04:43)
[2023-12-27] MEDS: diphenhydrAMINE 50 MG/ML 1 ML VIAL IVP STA (04:46)
[2023-12-27] MEDS: MORPHINE SULFATE 4 MG/ML SYRINGE IVP STA (04:48)
--- NOTE | 2023-12-27 04:52 | CT ---
EXAMINATION TYPE: CT abdomen pelvis wo con DATE OF EXAM: 12/27/2023 HISTORY: Patient comes in with chest pain that radiates to her back and shoulders. Started earlier to day but worsen this morning. epigastric pain, elevated LFTs CT DLP: 613.6 mGycm. Automated Exposure Control for Dose Reduction was Utilized. TECHNIQUE: CT scan of the abdomen and pelvis is performed without oral or IV contrast. COMPARISON: Prior CTA October 07, 2022 FINDINGS: Within the limitations of a non-contrast study, the following observations are made. LUNG BASES: No significant abnormality is appreciated. LIVER/GB: Dependent calcified gallstones redemonstrated. Gallbladder has distended margins. Gallbladd er has no surrounding inflammatory change to suggest acute cholecystitis. No new biliary dilatation. PANCREAS: No significant abnormality is seen. SPLEEN: No significant abnormality is seen. ADRENALS: No significant abnormality is seen. KIDNEYS: Stable 6 mm obstructing calculus left kidney axial image 71. No right-sided renal calculi. N o hydronephrosis seen bilaterally. BOWEL: Small-size hiatal hernia on the current study. There are diverticula in the left and sigmoid c olon. No CT evidence for acute diverticulitis. GENITAL ORGANS: Uterus is surgically absent. LYMPH NODES: No greater than 1cm abdominal or pelvic lymph nodes are appreciated. OSSEOUS STRUCTURES: Scoliosis is redemonstrated. Multilevel spurring in the thoracolumbar spine is re demonstrated. Grade 1 retrolisthesis of L1 on L2. OTHER: Mild to moderate calcified plaque of the infrarenal abdominal aorta. IMPRESSION: Gallstones without CT evidence for acute cholecystitis redemonstrated. No suspicious new or acute finding present to account for patient's symptoms
--- NOTE | 2023-12-27 08:07 | US ---
EXAMINATION TYPE: US gallbladder DATE OF EXAM: 12/27/2023 COMPARISON: CT 2023, US 2014 CLINICAL INDICATION: Female, 73 years old with history of ruq pain, elevated liver enzymes; TECHNIQUE: Multiple sonographic images of the right upper quadrant are obtained. FINDINGS: EXAM MEASUREMENTS: Liver Length: 16.4 cm Gallbladder Wall: 0.3 cm CBD: 0.5 cm Right Kidney: 8.1 x 4.4 x 4.6 cm Pancreas: obscured by overlying midline bowel gas Liver: scanned intercostally, limited visualization Gallbladder: mildly hydropic, non mobile stones in neck, wall measures in upper limits of normal Evidence for sonographic Rendon's sign: no CBD: visualized portions wnl, limited by overlying bowel gas Right Kidney: measures small in size IMPRESSION: Nonmobile gallstone within the neck of the gallbladder with the borderline gallbladder hydrops and wa ll thickening. Correlate for acute cholecystitis.
[2023-12-27] MEDS ORDERED: NALOXONE 0.4 MG/ML 1 ML VIAL IV PRN (08:56)
[2023-12-27] MEDS: PANTOPRAZOLE 40 MG/10 ML VIAL IV SCH (09:39)
[2023-12-27] MEDS: SODIUM CHLORIDE 0.9% 1,000 ML IV SCH (09:39)
[2023-12-27] MEDS: HYDROmorphone 0.5 MG/0.5 ML SYRINGE IVP PRN (09:39)
[2023-12-27] MEDS: LEVOTHYROXINE 75 MCG TAB PO SCH (10:00)
--- NOTE | 2023-12-27 10:07 | P.HPIM ---
History of Present Illness H&P Date: 12/27/23 Chief Complaint: epigastric pain 73-year-old woman with medical history of DVT following femur fracture currently on Eliquis, hypertension, hyperlipidemia, GERD, CAD presented for evaluation of epigastric pain. Patient says that her pain presented as a burning type pain in the middle of her chest. She said that this pain got slightly worse with eating and sometimes was also related to exertion. Patient does not note any positional relationship. She does report some nausea and loss of appetite, but denies diaphoresis, fevers, chills, diarrhea. In the emergency room, patient was afebrile, 139/77, heart rate 80, 98% on room air. CBC is unremarkable. Basic metabolic panel is unremarkable. Liver function test show elevation of AST at 397, ALT to 140, alkaline phosphatase of 129. Troponin was less than 0.012. Lipase was 134. Coags show elevation of PTT to 30.9. 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 Chest x-ray shows no acute findings, does show cardiomegaly. Abdomen/pelvis CT shows gallstones without CT evidence for acute cholecystitis. Gallbladder ultrasound shows a nonmobile gallstone within the neck of the gallbladder with borderline wall thickening. Case was discussed with the emergency provider and decision was made admit the patient to the hospital for further management. All Systems reviewed and pertinent positives and negatives noted in HPI, all other symptoms are negative Gen: in no apparent distress, resting comfortably in bed Eyes: PERRL, no scleral injection or icterus HENT: normocephalic, atraumatic, good hearing acuity, moist mucous membranes Neck: no tracheal deviation, full range of motion Resp: good air exchange, breathing comfortably with no accessory muscle use, no tactile fremitus, clear to auscultation bilaterally CVS: good distal perfusion x 4, no pitting edema, regular rate and rhythm without murmurs GI: soft, tenderness to palpation in the epigastrium and right upper quadrant, worse with inspiration, ND, no hepatosplenomegaly : no suprapubic tenderness, no CVAT, maguire catheter not present MSK: no clubbing, no cyanosis, no noted contractures of extremities Skin: no noted rashes, petechiae; temperature of skin is appropriate Neuro: moving all extremities without signs of weakness, CN II-XII intact Psych: cooperative, euthymic mood, insight and judgment intact Labs and imaging as above Assessment/plan: Epigastric pain Elevated liver enzymes Cholelithiasis -Admit to inpatient -General surgery consult for likely cholecystitis, which is the most strongly suspected diagnosis -Discontinue Eliquis, transition to heparin drip low intensity, follow PTT -N.p.o. -IVF: NS 130cc/hr -Abx: flagyl, levofloxacin -Pain and nausea control: Morphine as needed, Zofran as needed -Trend troponins -Echocardiogram DVT Recent femur fracture status post ORIF -Blood thinner strategy as above Hypertension Hyperlipidemia GERD without esophagitis -Home medications reviewed and reconciled Patient is full code Past Medical History Past Medical History: Asthma, Hypertension History of Any Multi-Drug Resistant Organisms: None Reported Past Surgical History: Adenoidectomy, Appendectomy, Breast Surgery, Hysterectomy, Joint Replacement, Orthopedic Surgery, Tonsillectomy Additional Past Surgical History / Comment(s): ear shoulder wrist. right rotator cuff repair. Past Anesthesia/Blood Transfusion Reactions: No Reported Reaction Past Psychological History: No Psychological Hx Reported Smoking Status: Never smoker Past Alcohol Use History: None Reported Past Drug Use History: None Reported Medications and Allergies Home Medications Medication Instructions Recorded Confirmed Type Fluticasone/Vilanterol [Breo 1 puff INHALATION RT-DAILY 06/23/16 12/27/23 Histor y Ellipta 200-25 Mcg Inhaler] Lansoprazole [Prevacid] 30 mg PO HS 06/23/16 12/27/23 History Levothyroxine Sodium [Synthroid] 75 mcg PO DAILY 06/23/16 12/27/23 History Montelukast Sodium [Singulair] 10 mg PO HS 06/23/16 12/27/23 History Potassium Chloride ER [K-Dur 20] 20 meq PO BID 06/23/16 12/27/23 History lisinopriL [Zestril] 10 mg PO HS 06/23/16 12/27/23 History Rosuvastatin [Crestor] 20 mg PO HS 10/07/22 12/27/23 History Clopidogrel [Plavix] 75 mg PO HS 07/01/23 12/27/23 History Apixaban [Eliquis] 5 mg PO BID 12/27/23 12/27/23 History Loratadine [Claritin] 10 mg PO HS 12/27/23 12/27/23 History Allergies Allergy/AdvReac Type Severity Reaction Status Date / Time cefuroxime [From Ceftin] Allergy Unknown Verified 12/27/23 08:52 clindamycin Allergy swelling Verified 12/27/23 08:52 of mouth & eyes Fish Containing Products Allergy saltwater Verified 12/27/23 08:52 [Fish] fish only Milk Containing Products Allergy Unknown Verified 12/27/23 08:52 (Dairy) [Dairy] Penicillins Allergy Lips/Face Verified 12/27/23 08:52 Swelling shellfish derived [Shellfish] Allergy Unknown Verified 12/27/23 08:52 wheat Allergy Unknown Verified 12/27/23 08:52 Physical Exam Osteopathic Statement: *. No significant issues noted on an osteopathic structural exam other than those noted in the History and Physical/Consult. Vitals: Vital Signs Temp Pulse Resp BP Pulse Ox 12/27/23 04:40 81 18 144/78 95 12/27/23 04:00 68 18 141/80 97 12/27/23 02:32 98.3 F 80 18 139/77 98 Intake and Output 12/26/23 12/27/23 12/27/23 22:59 06:59 14:59 Other: Weight 74.843 kg Results CBC & Chem 7: 12/27/23 02:59 12/27/23 02:59 Labs: Abnormal Lab Results - Last 24 Hours (Table) 12/27/23 12/27/23 12/27/23 Range/Units 02:59 02:59 02:59 Neutrophils # 8.9 H (1.3-7.7) k/uL Lymphocytes # 0.8 L (1.0-4.8) k/uL APTT 30.9 H (22.0-30.0) sec Creatinine 0.51 L (0.52-1.04) mg/dL Glucose 145 H (74-99) mg/dL AST 397 H (14-36) U/L ALT 140 H (4-34) U/L Alkaline Phosphatase 129 H (38-126) U/L
--- NOTE | 2023-12-27 11:16 | P.GSCN ---
History of Present Illness Consult date: 12/27/23 History of present illness: CHIEF COMPLAINT: Chest pain Surgical consult for cholelithiasis HISTORY OF PRESENT ILLNESS: This is a 73-year-old female who presented the hospital with complaints of upper abdominal pain and chest pain that radiates to the back and shoulders. She also has been having nausea vomiting and significant heartburn. Patient reports symptoms started about 2 days ago. She does report they felt similar to when she was having her heart attack that she had 2 years ago. Patient denies any cardiac stents. She is on Eliquis for left leg DVT diagnosed this past August. Patient had a CT scan abdomen and pelvis that had related to gallstones. Gallbladder ultrasound had shown gallstone in the neck of the gallbladder with borderline hydrops gallbladder wall thickening and did correlate for acute cholecystitis. She did have elevated LFTs. Total bilirubin normal at 1.2. Past abdominal surgical history includes appendectomy and hysterectomy. PAST MEDICAL HISTORY: Asthma, hypertension, leg DVT PAST SURGICAL HISTORY: Adenoidectomy, Appendectomy, Breast Surgery, Hysterectomy, Joint Replacement, Orthopedic Surgery, Tonsillectomy MEDICATIONS: See below ALLERGIES: See below SOCIAL HISTORY: No illicit drug use. REVIEW OF SYSTEMS: CONSTITUTIONAL: Denies fever or chills. HEENT: Denies blurred vision, vision changes, or eye pain. Denies hemoptysis CARDIOVASCULAR: Denies chest pain or pressure. RESPIRATORY: No shortness of breath. GASTROINTESTINAL: See HPI for pertinent findings HEMATOLOGIC: Denies bleeding disorders. GENITOURINARY: Denies any blood in urine or increased urinary frequency. SKIN: Denies pruitis. Denies rash. PHYSICAL EXAM: VITAL SIGNS: Reviewed GENERAL: Well-developed in no acute distress. HEENT: No sclera icterus. Extraocular movements grossly intact. Moist buccal mucosa. Head is atraumatic, normocephalic. No nasal drainage. ABDOMEN: Soft. Nondistended. Tenderness with palpation right upper quadrant NEUROLOGIC: Alert and oriented. Cranial nerves II through XII grossly intact. LABORATORY DATA: WBC 10.6 Hgb 13.5 platelets 231 INR 1.0 Sodium is 139 potassium 3.6 creatinine 0.51 Total bilirubin 1.2 AST 397 ALT 140 alk phos 129 Troponin negative lipase 134 IMAGING: CT scan abdomen pelvis gallstones without CT evidence of acute cholecystitis Gallbladder ultrasound reported nonmobile gallstone within the neck of the gallbladder with the borderline gallbladder hydrops and wall thickening. Correlate for acute cholecystitis ASSESSMENT: 1. Acute cholecystitis with gallbladder ultrasound reporting a nonmobile gallstone within the neck of the gallbladder and borderline gallbladder hydrops with gallbladder wall thickening 2. Elevated LFTs 3. History of lower extremity DVT on Eliquis at home PLAN: -Patient scheduled for laparoscopic cholecystectomy tomorrow with Dr. Lomeli -Okay for low-fat diet today and then n.p.o. after midnight -Hold Eliquis -Continue antibiotics -Continue IV fluids -continue antiemetics -Continue pain management -Repeat CMP in a.m. Physician Commercial Driver note has been reviewed by physician. Signing provider agrees with the documented findings, assessment, and plan of care. Past Medical History Past Medical History: Asthma, Hypertension History of Any Multi-Drug Resistant Organisms: None Reported Past Surgical History: Adenoidectomy, Appendectomy, Breast Surgery, Hysterectomy, Joint Replacement, Orthopedic Surgery, Tonsillectomy Additional Past Surgical History / Comment(s): ear shoulder wrist. right rotator cuff repair. Past Anesthesia/Blood Transfusion Reactions: No Reported Reaction Past Psychological History: No Psychological Hx Reported Smoking Status: Never smoker Past Alcohol Use History: None Reported Past Drug Use History: None Reported Medications and Allergies Home Medications Medication Instructions Recorded Confirmed Type Fluticasone/Vilanterol [Breo 1 puff INHALATION RT-DAILY 06/23/16 12/27/23 History Ellipta 200-25 Mcg Inhaler] Lansoprazole [Prevacid] 30 mg PO HS 06/23/16 12/27/23 History Levothyroxine Sodium [Synthroid] 75 mcg PO DAILY 06/23/16 12/27/23 History Montelukast Sodium [Singulair] 10 mg PO HS 06/23/16 12/27/23 History Potassium Chloride ER [K-Dur 20] 20 meq PO BID 06/23/16 12/27/23 History lisinopriL [Zestril] 10 mg PO HS 06/23/16 12/27/23 History Rosuvastatin [Crestor] 20 mg PO HS 10/07/22 12/27/23 History Clopidogrel [Plavix] 75 mg PO HS 07/01/23 12/27/23 History Apixaban [Eliquis] 5 mg PO BID 12/27/23 12/27/23 History Loratadine [Claritin] 10 mg PO HS 12/27/23 12/27/23 History Allergies Allergy/AdvReac Type Severity Reaction Status Date / Time cefuroxime [From Ceftin] Allergy Unknown Verified 12/27/23 08:52 clindamycin Allergy swelling Verified 12/27/23 08:52 of mouth & eyes Fish Containing Products Allergy saltwater Verified 12/27/23 08:52 [Fish] fish only Milk Containing Products Allergy Unknown Verified 12/27/23 08:52 (Dairy) [Dairy] Penicillins Allergy Lips/Face Verified 12/27/23 08:52 Swelling shellfish derived [Shellfish] Allergy Unknown Verified 12/27/23 08:52 wheat Allergy Unknown Verified 12/27/23 08:52 Surgical - Exam Vital Signs Temp Pulse Resp BP Pulse Ox 98.3 F 80 18 139/77 98 12/27/23 02:32 12/27/23 02:32 12/27/23 02:32 12/27/23 02:32 12/27/23 02:32 Results - Labs 12/27/23 02:59 12/27/23 02:59 Abnormal Lab Results - Last 24 Hours (Table) 12/27/23 12/27/23 12/27/23 Range/Units 02:59 02:59 02:59 Neutrophils # 8.9 H (1.3-7.7) k/uL Lymphocytes # 0.8 L (1.0-4.8) k/uL APTT 30.9 H (22.0-30.0) sec Creatinine 0.51 L (0.52-1.04) mg/dL Glucose 145 H (74-99) mg/dL AST 397 H (14-36) U/L ALT 140 H (4-34) U/L Alkaline Phosphatase 129 H (38-126) U/L Diabetes panel 12/27/23 Range/Units 02:59 Sodium 139 (137-145) mmol/L Potassium 3.6 (3.5-5.1) mmol/L Chloride 105 (98-107) mmol/L Carbon Dioxide 26 (22-30) mmol/L BUN 14 (7-17) mg/dL Creatinine 0.51 L (0.52-1.04) mg/dL Glucose 145 H (74-99) mg/dL Calcium 9.5 (8.4-10.2) mg/dL AST 397 H (14-36) U/L ALT 140 H (4-34) U/L Alkaline Phosphatase 129 H (38-126) U/L Total Protein 7.2 (6.3-8.2) g/dL Albumin 4.5 (3.5-5.0) g/dL Calcium panel 12/27/23 Range/Units 02:59 Calcium 9.5 (8.4-10.2) mg/dL Albumin 4.5 (3.5-5.0) g/dL Pituitary panel 12/27/23 Range/Units 02:59 Sodium 139 (137-145) mmol/L Potassium 3.6 (3.5-5.1) mmol/L Chloride 105 (98-107) mmol/L Carbon Dioxide 26 (22-30) mmol/L BUN 14 (7-17) mg/dL Creatinine 0.51 L (0.52-1.04) mg/dL Glucose 145 H (74-99) mg/dL Calcium 9.5 (8.4-10.2) mg/dL Adrenal panel 12/27/23 Range/Units 02:59 Sodium 139 (137-145) mmol/L Potassium 3.6 (3.5-5.1) mmol/L Chloride 105 (98-107) mmol/L Carbon Dioxide 26 (22-30) mmol/L BUN 14 (7-17) mg/dL Creatinine 0.51 L (0.52-1.04) mg/dL Glucose 145 H (74-99) mg/dL Calcium 9.5 (8.4-10.2) mg/dL Total Bilirubin 1.2 (0.2-1.3) mg/dL AST 397 H (14-36) U/L ALT 140 H (4-34) U/L Alkaline Phosphatase 129 H (38-126) U/L Total Protein 7.2 (6.3-8.2) g/dL Albumin 4.5 (3.5-5.0) g/dL
[2023-12-27] MEDS: metroNIDAZOLE-NS PMX 500 MG in SALINE 1 100ML.BAG IVPB SCH (11:22)
[2023-12-27] MEDS: SYMBICORT 160-4.5 MCG INHALER INHALATION SCH (11:22)
[2023-12-27] MEDS: LEVOFLOXACIN 500MG-D5W PMX 500 MG in DEXTROSE/WATER 1 100ML.BAG IVPB SCH (11:22)
[2023-12-27] MEDS ORDERED: HEPARIN SODIUM 1,000 UN/ML (10ML VL) IV PRN (13:33)
[2023-12-27] MEDS: HEPARIN SOD,PORK IN 0.45% NACL 25,000 UNIT in 0.45% NACL 1 250ML.BAG IV SCH (14:35)
[2023-12-27 14:56] LABS: Basophils % (A) 0 %; Eosinophils # (A) 0.1 k/uL (0-0.7); Eosinophils % (A) 1 %; HCT 39.1 % (34.0-46.0); HGB 12.3 gm/dL (11.4-16.0); Lymphocytes # (A) 0.7 k/uL (1.0-4.8); Lymphocytes % (A) 7 %; MCH 30.2 pg (25.0-35.0); MCHC 31.5 g/dL (31.0-37.0); MCV 95.8 fL (80.0-100.0); Mean Platelet Volume 8.2; Monocytes # (A) 0.7 k/uL (0-1.0); Monocytes % (A) 8 %; Neutrophils # (A) 7.8 k/uL (1.3-7.7); Neutrophils % (A) 83 %; Platelet Count 189 k/uL (150-450); RBC 4.09 m/uL (3.80-5.40); RDW 12.8 % (11.5-15.5); WBC 9.4 k/uL (3.8-10.6)
[2023-12-27 15:11] LABS: INR 1.1 (<1.2); Partial Thromboplastin Time 28.4 sec (22.0-30.0); Prothrombin Time 11.7 sec (10.0-12.5)
[2023-12-27] MEDS: lisinopriL 10 MG TAB PO SCH (21:01)
[2023-12-28] MEDS: LEVOFLOXACIN 750MG-D5W PMX 750 MG in DEXTROSE/WATER 1 150ML.BAG IVPB SCH (06:09)
[2023-12-28 06:24] LABS: Basophils % (A) 0 %; Eosinophils % (A) 1 %; HCT 36.2 % (34.0-46.0); HGB 11.7 gm/dL (11.4-16.0); Lymphocytes # (A) 1.1 k/uL (1.0-4.8); Lymphocytes % (A) 14 %; MCH 30.5 pg (25.0-35.0); MCHC 32.5 g/dL (31.0-37.0); Mean Platelet Volume 8.4; Monocytes # (A) 1.1 k/uL (0-1.0); Monocytes % (A) 14 %; Neutrophils # (A) 5.3 k/uL (1.3-7.7); Neutrophils % (A) 70 %; Platelet Count 188 k/uL (150-450); RBC 3.85 m/uL (3.80-5.40); RDW 13.2 % (11.5-15.5); WBC 7.6 k/uL (3.8-10.6)
[2023-12-28 06:29] LABS: INR 1.4 (<1.2); Prothrombin Time 14.2 sec (10.0-12.5)
[2023-12-28 06:39] LABS: ALT 315 U/L (4-34); AST 282 U/L (14-36); African American GFR (CKD) >90 (>60 ml/min/1.73 sqM); Albumin 3.1 g/dL (3.5-5.0); Albumin/Globulin Ratio 1.3; Alkaline Phosphatase 117 U/L (38-126); Anion Gap 4 mmol/L; Blood Urea Nitrogen 10 mg/dL (7-17); Calcium 8.5 mg/dL (8.4-10.2); Carbon Dioxide 25 mmol/L (22-30); Chloride 107 mmol/L (98-107); Globulin 2.3 g/dL; Glucose 95 mg/dL (74-99); Non-African American GFR(CKD) >90 (>60 ml/min/1.73 sqM); Potassium 3.6 mmol/L (3.5-5.1); Sodium 136 mmol/L (137-145); Total Bilirubin 2.8 mg/dL (0.2-1.3); Total Protein 5.4 g/dL (6.3-8.2)
[2023-12-28] MEDS: IV FLUID CONTINUATION 1,000 ML IV ONE (09:50)
[2023-12-28] MEDS: LIDOCAINE 1%-EPI 1:100,000 20 ML VIAL SQ ONE ×2 (10:47→11:06)
[2023-12-28] MEDS ORDERED: fentaNYL (PF) 50 MCG/ML 2 ML AMP ONE (10:48)
[2023-12-28] MEDS ORDERED: GLYCOPYRROLATE 0.2 MG/ML 2 ML VIAL ONE (10:48)
[2023-12-28] MEDS ORDERED: PROTAMINE SULFATE 10 MG/ML 5 ML VIAL ONE (10:48)
[2023-12-28] MEDS ORDERED: SUCCINYLCHOLINE CHLORIDE 200 MG/10 ML VIAL IV ONE (10:48)
[2023-12-28] MEDS ORDERED: PROPOFOL 10 MG/ML 20 ML VIAL IV ONE (10:48)
[2023-12-28] MEDS ORDERED: HYDROmorphone (PF) 1 MG/ML ONE (10:48)
[2023-12-28] MEDS ORDERED: ROCURONIUM 10 MG/ML (5 ML VIAL) IV ONE (10:48)
[2023-12-28] MEDS ORDERED: NEOSTIGMINE 1 MG/ML 10 ML VIAL ONE (10:48)
[2023-12-28] MEDS ORDERED: MIDAZOLAM 2 MG/2 ML VIAL ONE (10:48)
--- NOTE | 2023-12-28 11:10 | P.PN ---
Subjective Progress Note Date: 12/28/23 Pts blood cx returning positive for klebsiella. Plan is for cholecystectomy today. Gen: in no apparent distress, resting comfortably in bed Eyes: PERRL, no scleral injection or icterus HENT: normocephalic, atraumatic, good hearing acuity, moist mucous membranes Neck: no tracheal deviation, full range of motion Resp: good air exchange, breathing comfortably with no accessory muscle use, no tactile fremitus, clear to auscultation bilaterally CVS: good distal perfusion x 4, no pitting edema, regular rate and rhythm without murmurs GI: soft, tenderness to palpation in the epigastrium and right upper quadrant, worse with inspiration, ND, no hepatosplenomegaly : no suprapubic tenderness, no CVAT, maguire catheter not present MSK: no clubbing, no cyanosis, no noted contractures of extremities Skin: no noted rashes, petechiae; temperature of skin is appropriate Neuro: moving all extremities without signs of weakness, CN II-XII intact Psych: cooperative, euthymic mood, insight and judgment intact Hospital Course: 73-year-old woman with medical history of DVT following femur fracture currently on Eliquis, hypertension, hyperlipidemia, GERD, CAD presented for evaluation of epigastric pain. In the emergency room, patient was afebrile, 139/77, heart rate 80, 98% on room air. CBC is unremarkable. Basic metabolic panel is unremarkable. Liver function test show elevation of AST at 397, ALT to 140, alkaline phosphatase of 129. Troponin was less than 0.012. Lipase was 134. Coags show elevation of PTT to 30.9. 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 Chest x-ray shows no acute findings, does show cardiomegaly. Abdomen/pelvis CT shows gallstones without CT evidence for acute cholecystitis. Gallbladder ultrasound shows a nonmobile gallstone within the neck of the gallbladder with borderline wall thickening. Case was discussed with the emergency provider and decision was made admit the patient to the hospital for further management. Assessment/plan: Ascending Cholangitis Klebsiella (Gram Negative) Bacteremia -Admit to inpatient -General surgery consult appreciated -Resume Eliquis following surgery -NPO with plan to proceed to surgery today -IVF: NS 130cc/hr -Abx: flagyl, levofloxacin (increased to 750mg) -Pain and nausea control: Morphine as needed, Zofran as needed -Trend troponins DVT Recent femur fracture status post ORIF -Blood thinner strategy as above Hypertension Hyperlipidemia GERD without esophagitis -Home medications reviewed and reconciled Patient is full code Objective - Vital Signs Vital signs: Vital Signs Temp 99.3 F 12/28/23 09:51 Pulse 70 12/28/23 09:51 Resp 16 12/28/23 09:51 BP 123/60 12/28/23 09:51 Pulse Ox 94 L 12/28/23 09:51 FiO2 Intake & Output 12/27/23 12/28/23 12/28/23 18:59 06:59 18:59 Intake Total 123.339 100 Balance 123.339 100 Weight 74.843 kg Intake: IV 100 Intake, IV Titration 123.339 Amount Heparin Sod,Pork in 0.45% 123.339 NaCl 25,000 unit In 0.45 % NaCl 1 250ml.bag @ 12 UNITS/KG/HR 8.981 mls/hr IV .Q24H [facility] Rx#: [id number] Other: Voiding Method Toilet # Voids 1 - Labs CBC & Chem 7: 12/28/23 05:36 12/28/23 05:36 Labs: Abnormal Lab Results - Last 24 Hours (Table) 12/27/23 12/27/23 12/27/23 Range/Units 08:54 14:34 19:42 Neutrophils # 7.8 H (1.3-7.7) k/uL Lymphocytes # 0.7 L (1.0-4.8) k/uL Monocytes # (0-1.0) k/uL PT (10.0-12.5) sec INR (<1.2) APTT 51.3 H (22.0-30.0) sec Sodium (137-145) mmol/L Plasma Lactic Acid Darrell 2.1 H* (0.7-2.0) mmol/L Total Bilirubin (0.2-1.3) mg/dL AST (14-36) U/L ALT (4-34) U/L Total Protein (6.3-8.2) g/dL Albumin (3.5-5.0) g/dL 0612/28/23 12/28/23 Range/Units 05:36 05:36 05:36 Neutrophils # (1.3-7.7) k/uL Lymphocytes # (1.0-4.8) k/uL Monocytes # 1.1 H (0-1.0) k/uL PT 14.2 H (10.0-12.5) sec INR 1.4 H (<1.2) APTT (22.0-30.0) sec Sodium 136 L (137-145) mmol/L Plasma Lactic Acid Darrell (0.7-2.0) mmol/L Total Bilirubin 2.8 H (0.2-1.3) mg/dL AST 282 H (14-36) U/L ALT 315 H (4-34) U/L Total Protein 5.4 L (6.3-8.2) g/dL Albumin 3.1 L (3.5-5.0) g/dL Microbiology - Last 24 Hours (Table) 12/27/23 09:09 Blood Culture Gram Stain - Preliminary Blood Blood Culture - Preliminary Gram Neg Bacilli 12/27/23 08:54 Blood Culture Gram Stain - Preliminary Blood Blood Culture - Preliminary Gram Neg Bacilli Molecular ID
[2023-12-28] MEDS: LACTATED RINGERS 1,000 ML IV ONE (11:30)
--- NOTE | 2023-12-28 12:02 | P.OP ---
Date of Procedure: 12/28/23 Preoperative Diagnosis: cholecystitis Postoperative Diagnosis: cholecystitis Procedure(s) Performed: laparoscopic cholecystectomy Anesthesia: CORAZON Surgeon: Joby Lomeli Estimated Blood Loss (ml): 50 Pathology: other (gallbladder) Condition: stable Disposition: PACU Description of Procedure: The patient was placed on the operating table. The patient received a general endotracheal tube anesthesia. The patients abdomen was prepped and draped in the usual sterile fashion. Through an infraumbilical stab incision, the fascia of the anterior abdominal wall was grasped with a pair of Kochers and then the Veress needle was placed in the peritoneal cavity. Position of the Veress needle was confirmed with positive drop test. The abdomen was then insufflated. After adequate insufflation, the 10 mm trocar was placed in the peritoneal cavity. Following this the laparoscope was placed in the peritoneal cavity. The patient was placed in the head-up, right side up position and then a 5 mm trocar was placed in the right lateral and right subcostal position under direct visualization. A 8 mm trocar was placed in the epigastric position. The gallbladder was grasped in the fundus and infundibulum. Traction on the gallbladder was placed in the lateral and the cephalad positions. The triangle of Calot was visualized.. The cystic duct was bluntly dissected until the union of the cystic duct and common bile duct was seen. A critical view of safety was achieved. The cystic duct was then divided and sealed with the Harmonic scissors. A PDS Endoloop was then placed throughout the cystic duct stump. The cystic artery divided and sealed with the Harmonic scissors. The gallbladder was then removed from the liver bed using Harmonic scissors. The gallbladder was then extracted through the epigastric port site. the patient had been on blood thinners prior to surgery. The liver bed was quite oozy. Liver bed was coagulated with left cautery. Surgicel was placed on the liver bed. A drain was placed in the liver bed and brought out through the right lateral trocar site. . The abdomen was irrigated. The trocars were removed. The skin was closed using interrupted 3-0 Vicryl suture. Dermabond dressing were applied. The patient tolerated the procedure well.
[2023-12-28] MEDS: HYDROmorphone 0.5 MG/0.5 ML SYRINGE IVP STA (13:16)
[2023-12-28] MEDS: HYDROmorphone 1 MG/ML 1 ML SYRINGE IVP PRN (14:44)
[2023-12-29] MEDS: ONDANSETRON 4 MG/2 ML VIAL IVP PRN (01:13)
[2023-12-29 08:41] LABS: HCT 34.8 % (37.2-46.3); HGB 10.9 g/dL (12.0-15.0); MCH 30.8 pg (27.0-32.0); MCHC 31.3 g/dL (32.0-37.0); MCV 98.3 FL (80.0-97.0); Mean Platelet Volume 11.2 FL (9.5-12.2); NRBC Per 100 WBC 0 X 10*3/uL (0.00-0.01); Platelet Count 184 X 10*3/uL (140-440); RBC 3.54 X 10*6/uL (4.10-5.20); RDW 13.5 % (11.5-14.5); WBC 10.31 X 10*3/uL (4.50-10.00)
[2023-12-29 09:05] LABS: ALT 185 U/L (8-44); AST 81 U/L (13-35); Albumin 3.2 g/dL (3.8-4.9); Albumin/Globulin Ratio 1.68 Ratio (1.60-3.17); Alkaline Phosphatase 110 U/L (41-126); Blood Urea Nitrogen 9.6 mg/dL (9.0-27.0); Calcium 8.2 mg/dL (8.7-10.3); Carbon Dioxide 22.8 mmol/L (21.6-31.8); Chloride 106 mmol/L (96-109); Globulin 1.9 g/dL (1.6-3.3); Glucose 105 mg/dL (70-110); Potassium 3.8 mmol/L (3.5-5.5); Sodium 139 mmol/L (135-145); Total Bilirubin 1.2 mg/dL (0.3-1.2); Total Protein 5.1 g/dL (6.2-8.2)
[2023-12-29] MEDS: HYDROcodone/APAP 5-325MG 1 EACH TAB PO PRN (12:52)
--- NOTE | 2023-12-29 13:17 | P.PN ---
Subjective Progress Note Date: 12/29/23 CHIEF COMPLAINT: Cholecystitis HISTORY OF PRESENT ILLNESS: Postop day 1 status post laparoscopic cholecys tectomy. Patient complaining of pain. She did pass small amount of flatus. Denies any bowel movement. Denies any nausea or vomiting. Reports decreased appetite does report her urine is dark. Afebrile. BP 85/54 WBC 10.31 Hgb 11.7 to 10.9 platelets 184 total bilirubin is down from 2.8-1.2 LFTs have trended down. PHYSICAL EXAM: VITAL SIGNS: Reviewed. GENERAL: Well-developed in no acute distress. HEENT: No sclera icterus. Extraocular movements grossly intact. Moist buccal mucosa. Head is atraumatic, normocephalic. ABDOMEN: Soft. Nondistended. Tender at incision sites. Incision sites clean dry and intact. MATHEUS drain 40 mL sanguinous output NEUROLOGIC: Alert and oriented. Cranial nerves II through XII grossly intact. ASSESSMENT: 1. Acute cholecystitis with cholelithiasis 2. Elevated LFTs trending downwards. Total bilirubin normalized. PLAN: -Continue regular diet -Continue pain management -continue antibiotics -Continue IV fluids until oral intake increases. Nurse is repeating BP. -Continue to hold Eliquis and Plavix -Consult physical therapy to ambulate patient -Incentive spirometer ordered -DVT prophylaxis SCDs and GI prophylaxis Protonix Physician Senior Sales Associate note has been reviewed by physician. Signing provider agrees with the documented findings, assessment, and plan of care. Objective - Vital Signs Vital signs: Vital Signs Temp 98.6 F 12/29/23 07:00 Pulse 64 12/29/23 07:00 Resp 15 12/29/23 01:16 BP 85/54 12/29/23 07:00 Pulse Ox 98 12/29/23 01:16 FiO2 Intake & Output 12/28/23 12/29/23 12/29/23 18:59 06:59 18:59 Intake Total 1800 240 Output Total 120 40 Balance 1680 -40 240 Weight 74.843 kg Intake: IV 1800 Oral 240 Output: Drainage 20 40 Right Lower Abdomen 20 40 Estimated Blood Loss 100 Other: Voiding Method Toilet # Voids 1 4 1 - Labs CBC & Chem 7: 12/29/23 05:44 12/29/23 05:44 Labs: Abnormal Lab Results - Last 24 Hours (Table) 12/29/23 12/29/23 Range/Units 05:44 05:44 WBC 10.31 H (4.50-10.00) X 10*3/uL RBC 3.54 L (4.10-5.20) X 10*6/uL Hgb 10.9 L (12.0-15.0) g/dL Hct 34.8 L (37.2-46.3) % MCV 98.3 H (80.0-97.0) FL MCHC 31.3 L (32.0-37.0) g/dL Calcium 8.2 L (8.7-10.3) mg/dL AST 81 H (13-35) U/L ALT 185 H (8-44) U/L Total Protein 5.1 L (6.2-8.2) g/dL Albumin 3.2 L (3.8-4.9) g/dL Microbiology - Last 24 Hours (Table) 12/27/23 09:09 Blood Culture Gram Stain - Final Blood Blood Culture - Final Klebsiella pneumoniae 12/27/23 08:54 Blood Culture Gram Stain - Final Blood Blood Culture - Final Klebsiella pneumoniae Molecular ID
--- NOTE | 2023-12-29 13:20 | P.PN ---
Subjective Progress Note Date: 12/29/23 Pts blood cx returning positive for klebsiella. Ongoing abd pain. S/p cholecystectomy Gen: in no apparent distress, resting comfortably in bed Eyes: PERRL, no scleral injection or icterus HENT: normocephalic, atraumatic, good hearing acuity, moist mucous membranes Neck: no tracheal deviation, full range of motion Resp: good air exchange, breathing comfortably with no accessory muscle use, no tactile fremitus, clear to auscultation bilaterally CVS: good distal perfusion x 4, no pitting edema, regular rate and rhythm without murmurs GI: soft, tenderness to palpation in the epigastrium and right upper quadrant, worse with inspiration, ND, no hepatosplenomegaly : no suprapubic tenderness, no CVAT, maguire catheter not present MSK: no clubbing, no cyanosis, no noted contractures of extremities Skin: no noted rashes, petechiae; temperature of skin is appropriate Neuro: moving all extremities without signs of weakness, CN II-XII intact Psych: cooperative, euthymic mood, insight and judgment intact Hospital Course: 73-year-old woman with medical history of DVT following femur fracture currently on Eliquis, hypertension, hyperlipidemia, GERD, CAD presented for evaluation of epigastric pain. In the emergency room, patient was afebrile, 139/77, heart rate 80, 98% on room air. CBC is unremarkable. Basic metabolic panel is unremarkable. Liver function test show elevation of AST at 397, ALT to 140, alkaline phosphatase of 129. Troponin was less than 0.012. Lipase was 134. Coags show elevation of PTT to 30.9. 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 Chest x-ray shows no acute findings, does show cardiomegaly. Abdomen/pelvis CT shows gallstones without CT evidence for acute cholecystitis. Gallbladder ultrasound shows a nonmobile gallstone within the neck of the gallbladder with borderline wall thickening. Case was discussed with the emergency provider and decision was made admit the patient to the hospital for further management. Assessment/plan: Ascending Cholangitis Klebsiella (Gram Negative) Bacteremia -Admit to inpatient -General surgery consult appreciated -Resume Eliquis following surgery once approved by surgery, discussed with them today, not yet ready to resume -IVF: NS 130cc/hr -Abx: flagyl, levofloxacin (increased to 750mg) -Pain and nausea control: Morphine as needed, Zofran as needed DVT Recent femur fracture status post ORIF -Blood thinner strategy as above Hypertension Hyperlipidemia GERD without esophagitis -Home medications reviewed and reconciled Patient is full code Objective - Vital Signs Vital signs: Vital Signs Temp 98.6 F 12/29/23 07:00 Pulse 64 12/29/23 07:00 Resp 15 12/29/23 01:16 BP 85/54 12/29/23 07:00 Pulse Ox 98 12/29/23 01:16 FiO2 Intake & Output 12/28/23 12/29/23 12/29/23 18:59 06:59 18:59 Intake Total 1800 240 Output Total 120 40 Balance 1680 -40 240 Weight 74.843 kg Intake: IV 1800 Oral 240 Output: Drainage 20 40 Right Lower Abdomen 20 40 Estimated Blood Loss 100 Other: Voiding Method Toilet # Voids 1 4 1 - Labs CBC & Chem 7: 12/29/23 05:44 12/29/23 05:44 Labs: Abnormal Lab Results - Last 24 Hours (Table) 12/29/23 12/29/23 Range/Units 05:44 05:44 WBC 10.31 H (4.50-10.00) X 10*3/uL RBC 3.54 L (4.10-5.20) X 10*6/uL Hgb 10.9 L (12.0-15.0) g/dL Hct 34.8 L (37.2-46.3) % MCV 98.3 H (80.0-97.0) FL MCHC 31.3 L (32.0-37.0) g/dL Calcium 8.2 L (8.7-10.3) mg/dL AST 81 H (13-35) U/L ALT 185 H (8-44) U/L Total Protein 5.1 L (6.2-8.2) g/dL Albumin 3.2 L (3.8-4.9) g/dL Microbiology - Last 24 Hours (Table) 12/27/23 09:09 Blood Culture Gram Stain - Final Blood Blood Culture - Final Klebsiella pneumoniae 12/27/23 08:54 Blood Culture Gram Stain - Final Blood Blood Culture - Final Klebsiella pneumoniae Molecular ID
[2023-12-30 08:39] LABS: Basophils # (A) 0.04 X 10*3/uL (0.00-0.10); Basophils % (A) 0.5 %; Eosinophils # (A) 0.13 X 10*3/uL (0.04-0.35); Eosinophils % (A) 1.6 %; HCT 29.8 % (37.2-46.3); HGB 9.2 g/dL (12.0-15.0); Lymphocytes # (A) 0.94 X 10*3/uL (0.90-5.00); Lymphocytes % (A) 11.4 %; MCH 29.9 pg (27.0-32.0); MCHC 30.9 g/dL (32.0-37.0); MCV 96.8 FL (80.0-97.0); Monocytes # (A) 1.21 X 10*3/uL (0.20-1.00); Monocytes % (A) 14.6 %; NRBC Per 100 WBC 0 X 10*3/uL (0.00-0.01); Neutrophils # (A) 5.92 X 10*3/uL (1.80-7.70); Neutrophils % (A) 71.7 %; Platelet Count 154 X 10*3/uL (140-440); RBC 3.08 X 10*6/uL (4.10-5.20); RDW 13.3 % (11.5-14.5); WBC 8.26 X 10*3/uL (4.50-10.00)
[2023-12-30 09:28] LABS: ALT 114 U/L (8-44); AST 31 U/L (13-35); Albumin 2.8 g/dL (3.8-4.9); Albumin/Globulin Ratio 1.56 Ratio (1.60-3.17); Alkaline Phosphatase 119 U/L (41-126); Blood Urea Nitrogen 6.7 mg/dL (9.0-27.0); Carbon Dioxide 22.6 mmol/L (21.6-31.8); Chloride 108 mmol/L (96-109); Globulin 1.8 g/dL (1.6-3.3); Glucose 94 mg/dL (70-110); Potassium 3.4 mmol/L (3.5-5.5); Sodium 140 mmol/L (135-145); Total Bilirubin 0.7 mg/dL (0.3-1.2); Total Protein 4.6 g/dL (6.2-8.2)
--- NOTE | 2023-12-30 10:41 | P.PN ---
Subjective Progress Note Date: 12/30/23 CHIEF COMPLAINT: Cholecystitis HISTORY OF PRESENT ILLNESS: Postop day #2 status post laparoscopic cholecy stectomy. Patient complaining of pain. She is having flatus. Denies any nausea or vomiting. Afebrile. WBC normal at 8.26 Hgb down from 10.9 to 9.2 platelets 154 sodium is 140 potassium 3.4 creatinine 0.5 total bilirubin 0.7 AST normal at 31 ALT trending down at 114 alk phos 119 MATHEUS drain 60 mL sanguinous output Patient seen and examined with Dr. Lomeli PHYSICAL EXAM: VITAL SIGNS: Reviewed. GENERAL: Well-developed in no acute distress. HEENT: No sclera icterus. Extraocular movements grossly intact. Moist buccal mucosa. Head is atraumatic, normocephalic. ABDOMEN: Soft. Nondistended. Tender at incision sites. Incision sites clean dry and intact. MATHEUS drain sanguinous output NEUROLOGIC: Alert and oriented. Cranial nerves II through XII grossly intact. ASSESSMENT: 1. Acute cholecystitis with cholelithiasis 2. Elevated LFTs trending downwards. Total bilirubin normalized. 3. Bacteremia PLAN: -Remove MATHEUS drain tomorrow -Okay to resume the Plavix and Eliquis on 01/01/2024 -Continue regular diet -Continue pain management -Antibiotics per medicine service -Increase activity level -Continue to use incentive spirometer -DVT prophylaxis SCDs and GI prophylaxis Protonix Physician Rod Puller And Coiler note has been reviewed by physician. Signing provider agrees with the documented findings, assessment, and plan of care. Objective - Vital Signs Vital signs: Vital Signs Temp 98.6 F 12/30/23 07:00 Pulse 91 12/30/23 07:00 Resp 15 12/30/23 02:00 BP 109/71 12/30/23 07:00 Pulse Ox 94 L 12/30/23 07:00 FiO2 Intake & Output 12/29/23 12/30/23 12/30/23 18:59 06:59 18:59 Intake Total 480 Output Total 30 80 Balance 450 -80 Intake: Oral 480 Output: Drainage 30 80 Right Lower Abdomen 30 80 Other: # Voids 1 2 - Labs CBC & Chem 7: 12/30/23 06:02 12/30/23 06:02 Labs: Abnormal Lab Results - Last 24 Hours (Table) 12/30/23 12/30/23 Range/Units 06:02 06:02 RBC 3.08 L (4.10-5.20) X 10*6/uL Hgb 9.2 L (12.0-15.0) g/dL Hct 29.8 L (37.2-46.3) % MCHC 30.9 L (32.0-37.0) g/dL Monocytes # 1.21 H (0.20-1.00) X 10*3/uL Potassium 3.4 L (3.5-5.5) mmol/L BUN 6.7 L (9.0-27.0) mg/dL Creatinine 0.5 L (0.6-1.5) mg/dL Calcium 8.0 L (8.7-10.3) mg/dL ALT 114 H (8-44) U/L Total Protein 4.6 L (6.2-8.2) g/dL Albumin 2.8 L (3.8-4.9) g/dL Albumin/Globulin Ratio 1.56 L (1.60-3.17) Ratio Microbiology - Last 24 Hours (Table) 12/27/23 09:09 Blood Culture Gram Stain - Final Blood Blood Culture - Final Klebsiella pneumoniae 12/27/23 08:54 Blood Culture Gram Stain - Final Blood Blood Culture - Final Klebsiella pneumoniae Molecular ID
--- NOTE | 2023-12-30 11:16 | P.PN ---
Subjective Progress Note Date: 12/30/23 Ongoing abd pain, but overall improved. LFTs improving. S/p cholecystectomy Gen: in no apparent distress, resting comfortably in bed Eyes: PERRL, no scleral injection or icterus HENT: normocephalic, atraumatic, good hearing acuity, moist mucous membranes Neck: no tracheal deviation, full range of motion Resp: good air exchange, breathing comfortably with no accessory muscle use, no tactile fremitus, clear to auscultation bilaterally CVS: good distal perfusion x 4, no pitting edema, regular rate and rhythm without murmurs GI: soft, tenderness to palpation in the epigastrium and right upper quadrant, worse with inspiration, ND, no hepatosplenomegaly : no suprapubic tenderness, no CVAT, maguire catheter not present MSK: no clubbing, no cyanosis, no noted contractures of extremities Skin: no noted rashes, petechiae; temperature of skin is appropriate Neuro: moving all extremities without signs of weakness, CN II-XII intact Psych: cooperative, euthymic mood, insight and judgment intact Hospital Course: 73-year-old woman with medical history of DVT following femur fracture currently on Eliquis, hypertension, hyperlipidemia, GERD, CAD presented for evaluation of epigastric pain. In the emergency room, patient was afebrile, 139/77, heart rate 80, 98% on room air. CBC is unremarkable. Basic metabolic panel is unremarkable. Liver function test show elevation of AST at 397, ALT to 140, alkaline phosphatase of 129. Troponin was less than 0.012. Lipase was 134. Coags show elevation of PTT to 30.9. 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 Chest x-ray shows no acute findings, does show cardiomegaly. Abdomen/pelvis CT shows gallstones without CT evidence for acute cholecystitis. Gallbladder ultrasound shows a nonmobile gallstone within the neck of the gallbladder with borderline wall thickening. Case was discussed with the emergency provider and decision was made admit the patient to the hospital for further management. Assessment/plan: Ascending Cholangitis Klebsiella (Gram Negative) Bacteremia -Admit to inpatient -General surgery consult appreciated -Resume Eliquis following surgery once approved by surgery, discussed with them today, not yet ready to resume -IVF: NS 130cc/hr -Abx: flagyl, levofloxacin (increased to 750mg) -Pain and nausea control: Morphine as needed, Zofran as needed DVT Recent femur fracture status post ORIF -Blood thinner strategy as above Hypertension Hyperlipidemia GERD without esophagitis -Home medications reviewed and reconciled Patient is full code Objective - Vital Signs Vital signs: Vital Signs Temp 98.6 F 12/30/23 07:00 Pulse 91 12/30/23 07:00 Resp 15 12/30/23 02:00 BP 109/71 12/30/23 07:00 Pulse Ox 94 L 12/30/23 07:00 FiO2 Intake & Output 12/29/23 12/30/23 12/30/23 18:59 06:59 18:59 Intake Total 480 Output Total 30 80 Balance 450 -80 Intake: Oral 480 Output: Drainage 30 80 Right Lower Abdomen 30 80 Other: Voiding Method Toilet # Voids 1 2 - Labs CBC & Chem 7: 12/30/23 06:02 12/30/23 06:02 Labs: Abnormal Lab Results - Last 24 Hours (Table) 12/30/23 12/30/23 Range/Units 06:02 06:02 RBC 3.08 L (4.10-5.20) X 10*6/uL Hgb 9.2 L (12.0-15.0) g/dL Hct 29.8 L (37.2-46.3) % MCHC 30.9 L (32.0-37.0) g/dL Monocytes # 1.21 H (0.20-1.00) X 10*3/uL Potassium 3.4 L (3.5-5.5) mmol/L BUN 6.7 L (9.0-27.0) mg/dL Creatinine 0.5 L (0.6-1.5) mg/dL Calcium 8.0 L (8.7-10.3) mg/dL ALT 114 H (8-44) U/L Total Protein 4.6 L (6.2-8.2) g/dL Albumin 2.8 L (3.8-4.9) g/dL Albumin/Globulin Ratio 1.56 L (1.60-3.17) Ratio Microbiology - Last 24 Hours (Table) 12/27/23 09:09 Blood Culture Gram Stain - Final Blood Blood Culture - Final Klebsiella pneumoniae 12/27/23 08:54 Blood Culture Gram Stain - Final Blood Blood Culture - Final Klebsiella pneumoniae Molecular ID
[2023-12-30] MEDS: POTASSIUM CHLORIDE ER 20 MEQ TAB.ER PO STA (11:42)
[2023-12-30] MEDS: MORPHINE SULFATE 4 MG/ML SYRINGE IVP PRN (11:57)
--- NOTE | 2023-12-30 15:39 | CDI ---
Documentation Clarification Form Date: 12/30/2023 03:02:16 PM From: Candice Dunn RN CCDS Phone: [phone] Admit Date: 12/28/2023 09:33:00 AM Patient Name: Dariana Hernandez Visit Number: [id number] Discharge Date: ATTENTION: The Clinical Documentation Specialists (CDI) and [facility] Coding Staff appreciate your assistance in clarifying documentation. Please respond to the clarification below the line at the bottom and electronically sign. The CDI & [facility] Coding staff will review the response and follow-up if needed. Please note: Queries are made part of the Legal Health Record. If you have any questions, please contact the author of this message via ITS. Dr. Matheus Mercer There is documentation of bacteremia Klebsiella (Gram Negative) Bacteremia, 12/27, Medicine note. Bacteremia is considered a lab finding. Additional clarification regarding bacteremia is requested. Patient history/risk factors: 73-year old female presents to the ED with burning type pain in the middle of her chest, the pain increased with eating and sometimes exertion. Medical History: DVT, femur fracture, HTN, HLD, GERD and CAD. 12/26, HP. Clinical Indicators: VVS, 12/27: B/P 107/65; HR 64; Temp 98.1F Oral; RR 15; SpO2 98% 2L nasal cannula WBC, 12/27: 7.6 Neutrophils, 12/27: 5.92 Blood Culture, 12/26: Klebsiella pneumoniae molecular ID Gallbladder US, 12/26: Nonmobile gallstone within the neck of the gallbladder with the borderline gallbladder hydrops and wall thickening. Correlate for acute cholecystitis. Medicine note, 12/27: Patients blood culture returning positive for klebsiella. Plan is for cholecystectomy today. Treatment: 12/26 0.09 NS IV 130cc/hr; 12/27 Laparoscopic cholecystectomy Antibiotics: 12/26 12/27 Levofloxacin 500mg IVPB Q24H; 12/27 Levofloxacin 750mg IVPB Q24H Please provide additional clarification regarding the etiology/cause and/or clinical significance of the bacteremia: See existing documentation. (Template Last Revised: September 2020) MTDD
--- NOTE | 2023-12-31 06:55 | P.PN ---
Progress Note - Text Progress Note Date: 12/31/23 CHIEF COMPLAINT: Cholecystitis HISTORY OF PRESENT ILLNESS: Postop day #3 status post laparoscopic cholecystectomy. Patient complaining of pain. She is having flatus. Denies any nausea or vomiting. Afebrile. PHYSICAL EXAM: VITAL SIGNS: Reviewed. GENERAL: Well-developed in no acute distress. HEENT: No sclera icterus. Extraocular movements grossly intact. Moist buccal mucosa. Head is atraumatic, normocephalic. ABDOMEN: Soft. Nondistended. Tender at incision sites. Incision sites clean dry and intact. MATHEUS drain sanguinous output NEUROLOGIC: Alert and oriented. Cranial nerves II through XII grossly intact. ASSESSMENT: 1. Acute cholecystitis with cholelithiasis 2. Elevated LFTs trending downwards. Total bilirubin normalized. 3. Bacteremia PLAN: -Follow up H/H - pending today -Okay to resume the Plavix and Eliquis on 01/01/2024 -Continue regular diet -Continue pain management -Antibiotics per medicine service -Increase activity level -Continue to use incentive spirometer -DVT prophylaxis SCDs and GI prophylaxis Protonix
[2023-12-31 07:52] LABS: ALT 88 U/L (4-34); AST 22 U/L (14-36); African American GFR (CKD) >90 (>60 ml/min/1.73 sqM); Albumin 2.7 g/dL (3.5-5.0); Albumin/Globulin Ratio 1.2; Alkaline Phosphatase 205 U/L (38-126); Anion Gap 6 mmol/L; Blood Urea Nitrogen 5 mg/dL (7-17); Calcium 8.3 mg/dL (8.4-10.2); Carbon Dioxide 24 mmol/L (22-30); Chloride 109 mmol/L (98-107); Globulin 2.3 g/dL; Glucose 88 mg/dL (74-99); Non-African American GFR(CKD) >90 (>60 ml/min/1.73 sqM); Potassium 3.2 mmol/L (3.5-5.1); Sodium 139 mmol/L (137-145); Total Bilirubin 0.7 mg/dL (0.2-1.3)
[2023-12-31 09:46] LABS: HCT 32.4 % (37.2-46.3); HGB 9.9 g/dL (12.0-15.0); MCH 29.9 pg (27.0-32.0); MCHC 30.6 g/dL (32.0-37.0); MCV 97.9 FL (80.0-97.0); NRBC Per 100 WBC 0 X 10*3/uL (0.00-0.01); Platelet Count 189 X 10*3/uL (140-440); RBC 3.31 X 10*6/uL (4.10-5.20); RDW 13.2 % (11.5-14.5); WBC 8.02 X 10*3/uL (4.50-10.00)
--- NOTE | 2023-12-31 11:47 | P.PN ---
Subjective Progress Note Date: 12/31/23 Ongoing abd pain, but overall improved. LFTs improving. S/p cholecystectomy Gen: in no apparent distress, resting comfortably in bed Eyes: PERRL, no scleral injection or icterus HENT: normocephalic, atraumatic, good hearing acuity, moist mucous membranes Neck: no tracheal deviation, full range of motion Resp: good air exchange, breathing comfortably with no accessory muscle use, no tactile fremitus, clear to auscultation bilaterally CVS: good distal perfusion x 4, no pitting edema, regular rate and rhythm without murmurs GI: soft, tenderness to palpation in the epigastrium and right upper quadrant, worse with inspiration, ND, no hepatosplenomegaly : no suprapubic tenderness, no CVAT, maguire catheter not present MSK: no clubbing, no cyanosis, no noted contractures of extremities Skin: no noted rashes, petechiae; temperature of skin is appropriate Neuro: moving all extremities without signs of weakness, CN II-XII intact Psych: cooperative, euthymic mood, insight and judgment intact Hospital Course: 73-year-old woman with medical history of DVT following femur fracture currently on Eliquis, hypertension, hyperlipidemia, GERD, CAD presented for evaluation of epigastric pain. In the emergency room, patient was afebrile, 139/77, heart rate 80, 98% on room air. CBC is unremarkable. Basic metabolic panel is unremarkable. Liver function test show elevation of AST at 397, ALT to 140, alkaline phosphatase of 129. Troponin was less than 0.012. Lipase was 134. Coags show elevation of PTT to 30.9. 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 Chest x-ray shows no acute findings, does show cardiomegaly. Abdomen/pelvis CT shows gallstones without CT evidence for acute cholecystitis. Gallbladder ultrasound shows a nonmobile gallstone within the neck of the gallbladder with borderline wall thickening. Case was discussed with the emergency provider and decision was made admit the patient to the hospital for further management. Assessment/plan: Ascending Cholangitis Klebsiella (Gram Negative) Bacteremia -Admit to inpatient -General surgery consult appreciated -Resume Eliquis following surgery once approved by surgery, discussed with them today, not yet ready to resume -IVF: NS 130cc/hr -Abx: flagyl, levofloxacin (increased to 750mg) -Pain and nausea control: Morphine as needed, Zofran as needed DVT Recent femur fracture status post ORIF -Blood thinner strategy as above Hypertension Hyperlipidemia GERD without esophagitis -Home medications reviewed and reconciled Patient is full code Objective - Vital Signs Vital signs: Vital Signs Temp 98.3 F 12/31/23 07:19 Pulse 80 12/31/23 07:19 Resp 18 12/31/23 08:57 BP 117/78 12/31/23 07:19 Pulse Ox 98 12/31/23 07:19 FiO2 Intake & Output 12/30/23 12/31/23 12/31/23 18:59 06:59 18:59 Intake Total 0 Output Total 60 200 Balance -60 -200 Intake: Oral 0 Output: Drainage 60 Right Lower Abdomen 60 Emesis 200 Other: Voiding Method Toilet Toilet Toilet # Voids 1 1 - Labs CBC & Chem 7: 12/31/23 06:12 12/31/23 06:12 Labs: Abnormal Lab Results - Last 24 Hours (Table) 12/31/23 12/31/23 Range/Units 06:12 06:12 RBC 3.31 L (4.10-5.20) X 10*6/uL Hgb 9.9 L (12.0-15.0) g/dL Hct 32.4 L (37.2-46.3) % MCV 97.9 H (80.0-97.0) FL MCHC 30.6 L (32.0-37.0) g/dL Potassium 3.2 L (3.5-5.1) mmol/L Chloride 109 H (98-107) mmol/L BUN 5 L (7-17) mg/dL Creatinine 0.47 L (0.52-1.04) mg/dL Calcium 8.3 L (8.4-10.2) mg/dL ALT 88 H (4-34) U/L Alkaline Phosphatase 205 H (38-126) U/L Total Protein 5.0 L (6.3-8.2) g/dL Albumin 2.7 L (3.5-5.0) g/dL
[2023-12-31] MEDS: POTASSIUM CHLORIDE ER 20 MEQ TAB.ER PO STA (13:47)
--- NOTE | 2024-01-01 11:39 | P.PN ---
Subjective Progress Note Date: 01/01/24 Abd pain has improved. Pt has tolerated a diet, passing flatus. No BM yet, however, pt has been belching a lot. Gen: in no apparent distress, resting comfortably in bed Eyes: PERRL, no scleral injection or icterus HENT: normocephalic, atraumatic, good hearing acuity, moist mucous membranes Neck: no tracheal deviation, full range of motion Resp: good air exchange, breathing comfortably with no accessory muscle use, no tactile fremitus, clear to auscultation bilaterally CVS: good distal perfusion x 4, no pitting edema, regular rate and rhythm without murmurs GI: soft, tenderness to palpation in the epigastrium and right upper quadrant, worse with inspiration, ND, no hepatosplenomegaly : no suprapubic tenderness, no CVAT, maguire catheter not present MSK: no clubbing, no cyanosis, no noted contractures of extremities Skin: no noted rashes, petechiae; temperature of skin is appropriate Neuro: moving all extremities without signs of weakness, CN II-XII intact Psych: cooperative, euthymic mood, insight and judgment intact Hospital Course: 73-year-old woman with medical history of DVT following femur fracture currently on Eliquis, hypertension, hyperlipidemia, GERD, CAD presented for evaluation of epigastric pain. In the emergency room, patient was afebrile, 139/77, heart rate 80, 98% on room air. CBC is unremarkable. Basic metabolic panel is unremarkable. Liver function test show elevation of AST at 397, ALT to 140, alkaline phosphatase of 129. Troponin was less than 0.012. Lipase was 134. Coags show elevation of PTT to 30.9. 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 Chest x-ray shows no acute findings, does show cardiomegaly. Abdomen/pelvis CT shows gallstones without CT evidence for acute cholecystitis. Gallbladder ultrasound shows a nonmobile gallstone within the neck of the gallbladder with borderline wall thickening. Case was discussed with the emergency provider and decision was made admit the patient to the hospital for further management. Assessment/plan: Acute Cholecystitis Klebsiella (Gram Negative) Bacteremia -Admit to inpatient -General surgery consult appreciated -Resume Eliquis today -IVF: NS 130cc/hr, decreased to 50cc/hr -Abx: flagyl discontinued levofloxacin (increased to 750mg) -Pain and nausea control: Morphine as needed, Zofran as needed DVT Recent femur fracture status post ORIF -Blood thinner strategy as above -PT/OT Hypertension Hyperlipidemia GERD without esophagitis -Home medications reviewed and reconciled Patient is full code Objective - Vital Signs Vital signs: Vital Signs Temp 98 F 01/01/24 07:05 Pulse 81 01/01/24 07:05 Resp 17 01/01/24 08:02 BP 129/78 01/01/24 07:05 Pulse Ox 98 01/01/24 07:05 FiO2 Intake & Output 12/31/23 01/01/24 01/01/24 18:59 06:59 18:59 Intake Total 0 Output Total 250 70 Balance -250 -70 Intake: Oral 0 Output: Drainage 50 70 Right Lower Abdomen 50 70 Emesis 200 Other: Voiding Method Toilet Toilet Toilet # Voids 1 2 - Labs CBC & Chem 7: 12/31/23 06:12 12/31/23 06:12
--- NOTE | 2024-01-01 16:01 | P.PN ---
Subjective Progress Note Date: 01/01/24 CHIEF COMPLAINT: Acute cholecystitis HISTORY OF PRESENT ILLNESS: The patient is a 73-year-old female status post cholecystectomy for acute cholecystitis. Family at bedside including and daughter. She tolerated diet. She is on blood thinners. ROS: No reports of nausea and vomiting. No fevers or chills. No new chest pain. PHYSICAL EXAM: VITAL SIGNS: Reviewed CONSTITUTIONAL: Well developed and in no acute distress. EYES: Conjuctivae without sclera icterus. Extraocular movements grossly intact. Wears glasses. HEAD, EARS, NOSE, THROAT: Moist buccal mucosa. Head is atraumatic, n ormocephalic. Hears conversational speech. No nasal drainage. RESPIRATORY: Non-labored respirations and equal bilateral excursions. CARDIOVASCULAR: Palpable 2+ radial pulses. ABDOMEN: MATHEUS drain serosanguineous. Incision intact. MUSCULOSKELETAL: No gross deformity of the lower extremities noted. No clubbing. No cyanosis. SKIN: Good skin turgor. Well perfused. NEUROLOGIC: Cranial nerves II through XII grossly intact. No focal or lateralizing signs. PSYCH: Appropriate affect. Alert and oriented to person, place and time. CLINICAL LABS: Reviewed. WBC normal. LFTs trending downward. Potassium low less than 4.0, hypokalemia. ASSESSMENT: 1. Acute cholecystitis 2. Hypokalemia 3. Chronic anticoagulation. PLAN: 1. Monitor hemoglobin once blood thinners are resumed. 2. MATHEUS drain to be discontinued after start of anticoagulation with stable hemoglobin 3. Low-fat diet in the interim. 4. Antibiotics are being continued. Objective - Vital Signs Vital signs: Vital Signs Temp 98.3 F 01/01/24 14:00 Pulse 92 01/01/24 14:00 Resp 17 01/01/24 14:00 BP 96/61 01/01/24 14:00 Pulse Ox 94 L 01/01/24 14:00 FiO2 Intake & Output 12/31/23 01/01/24 01/01/24 18:59 06:59 18:59 Intake Total 0 Output Total 250 70 Balance -250 -70 Intake: Oral 0 Output: Drainage 50 70 Right Lower Abdomen 50 70 Emesis 200 Other: Voiding Method Toilet Toilet Toilet # Voids 1 2 1 - Labs CBC & Chem 7: 12/31/23 06:12 12/31/23 06:12
[2024-01-01 20:08] VITALS: RESP 16
[2024-01-01] MEDS: APIXABAN 5 MG TAB PO SCH (20:20)
[2024-01-02 10:16] LABS: Basophils # (A) 0.06 X 10*3/uL (0.00-0.10); Basophils % (A) 0.9 %; Eosinophils # (A) 0.09 X 10*3/uL (0.04-0.35); Eosinophils % (A) 1.3 %; HCT 30.1 % (37.2-46.3); HGB 9.5 g/dL (12.0-15.0); Lymphocytes # (A) 1.17 X 10*3/uL (0.90-5.00); Lymphocytes % (A) 17.4 %; MCH 30.4 pg (27.0-32.0); MCHC 31.6 g/dL (32.0-37.0); MCV 96.2 FL (80.0-97.0); Mean Platelet Volume 10.8 FL (9.5-12.2); Monocytes # (A) 0.78 X 10*3/uL (0.20-1.00); Monocytes % (A) 11.6 %; NRBC Per 100 WBC 0 X 10*3/uL (0.00-0.01); Neutrophils # (A) 4.61 X 10*3/uL (1.80-7.70); Neutrophils % (A) 68.4 %; Platelet Count 229 X 10*3/uL (140-440); RBC 3.13 X 10*6/uL (4.10-5.20); RDW 13.4 % (11.5-14.5); WBC 6.74 X 10*3/uL (4.50-10.00)
[2024-01-02 10:32] LABS: BUN/Creat Ratio <8.75 Ratio (12.00-20.00); Blood Urea Nitrogen <3.5 mg/dL (9.0-27.0); Calcium 8.3 mg/dL (8.7-10.3); Carbon Dioxide 26.5 mmol/L (21.6-31.8); Chloride 106 mmol/L (96-109); Glucose 109 mg/dL (70-110); Magnesium 1.5 mg/dL (1.5-2.4); Potassium 3.3 mmol/L (3.5-5.5); Sodium 142 mmol/L (135-145)
--- NOTE | 2024-01-02 12:58 | P.PN ---
Subjective Progress Note Date: 01/02/24 CHIEF COMPLAINT: Cholecystitis HISTORY OF PRESENT ILLNESS: Postop day #4 status post laparoscopic cholecy stectomy. Patient reports her pain is controlled. Denies any nausea or vomiting. She is having flatus. She has been able to get up to sit in her wheelchair. She denies any difficulty urinating. Afebrile. Hemoglobin stable at 9.5 potassium 3.3 and being replaced. MATHEUS drain 60 mL serosanguineous output. PHYSICAL EXAM: VITAL SIGNS: Reviewed. GENERAL: Well-developed in no acute distress. ABDOMEN: Soft. Nondistended. Tender at incision sites. Incision sites clean dry and intact. NEUROLOGIC: Alert and oriented. Cranial nerves II through XII grossly intact. ASSESSMENT: 1. Acute cholecystitis with cholelithiasis 2. Elevated LFTs trending downwards. Total bilirubin normalized. 3. Bacteremia PLAN: -Patient can be discharge from surgical standpoint when medically cleared -Discontinue MATHEUS drain -Discharge antibiotics per medicine service -Increase activity level -Continue to use incentive spirometer -DVT prophylaxis SCDs and GI prophylaxis Protonix Physician Automation Test Developer note has been reviewed by physician. Signing provider agrees with the documented findings, assessment, and plan of care. Objective - Vital Signs Vital signs: Vital Signs Temp 98.3 F 01/02/24 07:21 Pulse 63 01/02/24 07:21 Resp 16 01/02/24 07:21 BP 123/73 01/02/24 07:21 Pulse Ox 93 L 01/02/24 07:21 FiO2 Intake & Output 01/01/24 01/02/24 01/02/24 18:59 06:59 18:59 Output Total 60 Balance -60 Output: Drainage 60 Right Lower Abdomen 60 Other: Voiding Method Toilet Toilet # Voids 2 2 - Labs CBC & Chem 7: 01/02/24 05:44 01/02/24 05:44 Labs: Abnormal Lab Results - Last 24 Hours (Table) 01/02/24 01/02/24 Range/Units 05:44 05:44 RBC 3.13 L (4.10-5.20) X 10*6/uL Hgb 9.5 L (12.0-15.0) g/dL Hct 30.1 L (37.2-46.3) % MCHC 31.6 L (32.0-37.0) g/dL Potassium 3.3 L (3.5-5.5) mmol/L BUN <3.5 L (9.0-27.0) mg/dL Creatinine 0.4 L (0.6-1.5) mg/dL BUN/Creatinine Ratio <8.75 L (12.00-20.00) Ratio Calcium 8.3 L (8.7-10.3) mg/dL
--- NOTE | 2024-01-02 13:11 | P.DS ---
Providers Date of admission: 12/28/23 09:33 Expected date of discharge: 01/02/24 Attending physician: Matheus Mercer MD Consults: 12/27/23 08:56 Consult Physician Urgent Consulting Provider: Joby Lomeli Consult Reason/Comments: Cholelithiasis Do you want consulting provider notified?: Yes Primary care physician: Issa Gibson MD Hospital Course: 73-year-old woman with medical history of DVT following femur fracture currently on Eliquis, hypertension, hyperlipidemia, GERD, CAD presented for evaluation of epigastric pain. In the emergency room, patient was afebrile, 139/77, heart rate 80, 98% on room air. CBC is unremarkable. Basic metabolic panel is unremarkable. Liver function test show elevation of AST at 397, ALT to 140, alkaline phosphatase of 129. Troponin was less than 0.012. Lipase was 134. Coags show elevation of PTT to 30.9. 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 Chest x- ray shows no acute findings, does show cardiomegaly. Abdomen/pelvis CT shows gallstones without CT evidence for acute cholecystitis. Gallbladder ultrasound shows a nonmobile gallstone within the neck of the gallbladder with borderline wall thickening. Case was discussed with the emergency provider and decision was made admit the patient to the hospital for further management. BCx came back positive for Klebsiella, started on Levaquin. She underwent cholecystectomy on 12/27. 01/01 Patient was seen and examined. Feeling well. No complaints. She has been on Levaquin for 6 days. Continue Augmentin for 8 days to complete a total of 14 days. [place] prescribed for pain management. Surgery cleared the patient for discharge. Follow up with Dr. Lomeli within 1 week of discharge. General: non toxic, no distress, appears at stated age Derm: warm, dry Head: atraumatic, normocephalic, symmetric Eyes: EOMI, no lid lag, anicteric sclera Mouth: no lip lesion, mucus membranes moist Cardiovascular: Good distal perfusion in all 4 extremities Lungs: Breathing comfortably , no accessory muscle use Ext: no gross muscle atrophy, no edema, no contractures Neuro: no focal neuro deficits Psych: Alert, oriented, appropriate affect Discharge Diagnosis: Acute Cholecystitis Klebsiella (Gram Negative) Bacteremia Hypokalemia DVT Recent femur fracture status post ORIF Hypertension Hyperlipidemia GERD without esophagitis Patient Condition at Discharge: Stable Plan - Discharge Summary Discharge Rx Participant: No New Discharge Prescriptions: New Amoxic-Pot Clav 875-125Mg [Augmentin 875-125] 1 tab PO BID 8 Days #16 tab HYDROcodone/APAP 5-325MG [[place] 5-325] 1 tab PO Q6HR PRN 3 Days #12 tab PRN Reason: Pain Continue Montelukast Sodium [Singulair] 10 mg PO HS lisinopriL [Zestril] 10 mg PO HS Lansoprazole [Prevacid] 30 mg PO HS Levothyroxine Sodium [Synthroid] 75 mcg PO DAILY Fluticasone/Vilanterol [Breo Ellipta 200-25 Mcg Inhaler] 1 puff INHALATION RT-DAILY Potassium Chloride ER [K-Dur 20] 20 meq PO BID Clopidogrel [Plavix] 75 mg PO HS Rosuvastatin [Crestor] 20 mg PO HS Apixaban [Eliquis] 5 mg PO BID Loratadine [Claritin] 10 mg PO HS Discharge Medication List Fluticasone/Vilanterol [Breo Ellipta 200-25 Mcg Inhaler] 1 puff INHALATION RT- DAILY 06/23/16 [History] Lansoprazole [Prevacid] 30 mg PO HS 06/23/16 [History] Levothyroxine Sodium [Synthroid] 75 mcg PO DAILY 06/23/16 [History] Montelukast Sodium [Singulair] 10 mg PO HS 06/23/16 [History] Potassium Chloride ER [K-Dur 20] 20 meq PO BID 06/23/16 [History] lisinopriL [Zestril] 10 mg PO HS 06/23/16 [History] Rosuvastatin [Crestor] 20 mg PO HS 10/07/22 [History] Clopidogrel [Plavix] 75 mg PO HS 07/01/23 [History] Apixaban [Eliquis] 5 mg PO BID 12/27/23 [History] Loratadine [Claritin] 10 mg PO HS 12/27/23 [History] HYDROcodone/APAP 5-325MG [[place] 5-325] 1 tab PO Q6HR PRN 3 Days #12 tab 12/30/23 [Rx] Amoxic-Pot Clav 875-125Mg [Augmentin 875-125] 1 tab PO BID 8 Days #16 tab 01/02/24 [Rx] Follow up Appointment(s)/Referral(s): Issa Gibson MD [Primary Care Provider] - 1-2 days Joby Lomeli MD [STAFF PHYSICIAN] - 01/10/24 1:10 pm Discharge Disposition: HOME SELF-CARE
[2024-01-02] MEDS: POTASSIUM CHLORIDE ER 20 MEQ TAB.ER PO STA (13:17)
[2024-01-02 14:51] VITALS: BP 110/72; PULSE 79; TEMP 98.4
--- NOTE | 2024-01-03 13:42 | CDI ---
Documentation Clarification Form Date: 01/03/2024 13:37 From: Candice Dunn Phone: [phone] Admit Date: 12/28/2023 09:33:00 AM Patient Name: Dariana Hernandez Visit Number: [id number] Discharge Date: 01/02/2024 04:13:00 PM ATTENTION: The Clinical Documentation Specialists (CDI) and [facility] Coding Staff appreciate your assistance in clarifying documentation. Please respond to the clarification below the line at the bottom and electronically sign. The CDI & [facility] Coding staff will review the response and follow-up if needed. Please note: Queries are made part of the Legal Health Record. If you have any questions, please contact the author of this message via ITS. Dr. John Colvin There is documentation of bacteremia Klebsiella (Gram Negative) Bacteremia, 12/27, Medicine note. Bacteremia is considered a lab finding. Additional clarification regarding bacteremia is requested. Patient history/risk factors: 73-year old female presents to the ED with burning type pain in the middle of her chest, the pain increased with eating and sometimes exertion. Medical History: DVT, femur fracture, HTN, HLD, GERD and CAD. 12/26, HP. Clinical Indicators: VVS, 12/27: B/P 107/65; HR 64; Temp 98.1F Oral; RR 15; SpO2 98% 2L nasal cannula WBC, 12/27: 7.6 Neutrophils, 12/27: 5.92 Blood Culture, 12/26: Klebsiella pneumoniae molecular ID Gallbladder US, 12/26: Nonmobile gallstone within the neck of the gallbladder with the borderline gallbladder hydrops and wall thickening. Correlate for acute cholecystitis. Medicine note, 12/27: Patients blood culture returning positive for klebsiella. Plan is for cholecystectomy today. Treatment: 12/26 0.09 NS IV 130cc/hr; 12/27 Laparoscopic cholecystectomy Antibiotics: 12/26 12/27 Levofloxacin 500mg IVPB Q24H; 12/27 Levofloxacin 750mg IVPB Q24H Please provide additional clarification regarding the etiology/cause and/or clinical significance of the bacteremia: [ ] Bacteremia due to Cholecystitis [ x ] Bacteremia due to other infectious process, please specify: __uti___ [ ] Other, please specify [ ] Unable to determine (Template Last Revised: September 2020) MTDD
== END 2024-01-02 16:13 | disposition home or self-care (01) | DRG 418 ==
LOC: EC 02:30 → 6NMEDSUR 08:57 → OBSVTOIN 12-28 09:33 → 6NMEDSUR 01-02 00:16
PROVIDERS: ADMIT Internal Medicine; ATTEND Internal Medicine
PROC: 0FT44ZZ Resection of Gallbladder, Percutaneous Endoscopic Approach (ICD-10-PCS; principal; 2023-12-28 10:20)
DX: K80.00 Calculus of gallbladder with acute cholecystitis without obstruction (principal); K82.1 Hydrops of gallbladder; K83.09 Other cholangitis; R78.81 Bacteremia; N39.0 Urinary tract infection, site not specified; I10 Essential (primary) hypertension; E78.5 Hyperlipidemia, unspecified; K21.9 Gastro-esophageal reflux disease without esophagitis; E87.6 Hypokalemia; Z88.1 Allergy status to other antibiotic agents; Z91.013 Allergy to seafood; I25.10 Atherosclerotic heart disease of native coronary artery without angina pectoris; I25.2 Old myocardial infarction; Z79.01 Long term (current) use of anticoagulants; Z79.899 Other long term (current) drug therapy; Z86.718 Personal history of other venous thrombosis and embolism; Z90.710 Acquired absence of both cervix and uterus; Z79.890 Hormone replacement therapy; Z88.8 Allergy status to other drugs, medicaments and biological substances; Z91.011 Allergy to milk products; Z88.0 Allergy status to penicillin; Z91.018 Allergy to other foods
CPT/HCPCS: 36415; 71046; 74176; 76705; 80048; 80053; 83605; 83690; 83735; 84484; 85025; 85027; 85610; 85730; 87040; 87077; 87186; 88304; 93005; 94640; 96361; 96365; 96366; 96368; 96375; 99285

== ENCOUNTER → 2024-05-09 | Outpatient (CLI) | payer MEDICARE, BC ==
[2024-05-09 21:43] LABS: ALT 15 U/L (8-44); AST 20 U/L (13-35); LDL Cholesterol,Calculated 65.9 mg/dL (0.0-131.0)
== END | disposition home or self-care (01) ==
LOC: LABWHC1 14:30
PROVIDERS: ATTEND Family Medicine
CPT/HCPCS: 36415; 80061; 83036; 84439; 84443; 84450; 84460

== ENCOUNTER → 2024-05-30 | Outpatient (CLI) | payer MEDICARE, BC ==
--- NOTE | 2024-06-02 22:14 | MM ---
Reason for Exam: Screening (asymptomatic). Last mammogram was performed 1 year(s) and 7 month(s) ago. Patient History: Menarche at age 10. First Full-Term at age 19. Left ovary removed at age 28. Right ovary removed at age 28. Hysterectomy at age 28. Postmenopausal. Estrogen for 25 years, 1 month. Patient used Hormonal Contraceptives for 10 years. Benign Excisional Biopsy on the right side. Risk Values: Justina 5 year model risk: 1.7%. NCI Lifetime model risk: 4.1%. Prior Study Comparison: 09/06/2019 Bilateral Screening Mammogram, [facility]. 04/17/2021 Bilateral Screening Mammogram, [facility]. 11/08/2022 Bilateral MG 3D screening mammo w/cad, [facility]. Tissue Density: There are scattered areas of fibroglandular density. Findings: Analyzed By CAD. The pattern is symmetrical. Scattered benign and vascular calcifications are present bilaterally. Nodularity within the left breast. No suspicious groups of microcalcifications, spiculated or lobular masses, architectural distortion or other secondary signs of malignancy are mammographically apparent. Overall Assessment: Benign, BI-RAD 2 Management: Screening Mammogram of both breasts in 1 year. A negative mammogram report should not preclude additional follow up of suspicious palpable abnormalities. Patient should continue monthly self breast exam. A clinical breast exam by your physician is recommended on an annual basis and results should be correlated with mammographic findings. Note on Justina scores and lifetime risk: 1. A Justina score greater than 3% is considered moderate risk. If this is the case, consider specialist referral to assess eligibility for a risk reducing agent. 2. If overall lifetime risk for the development of breast cancer is 20% or higher, the patient may qualify for future screening with alternating mammogram and breast MRI. [facility], , 06/02/2024 10:11 PM. Electronically signed and approved by: Flaco Grace D.O. Radiologis
== END | disposition home or self-care (01) ==
LOC: RADMAMWWP 13:26
PROVIDERS: ATTEND Family Medicine
DX: Z12.31 Encounter for screening mammogram for malignant neoplasm of breast (principal); R92.323 Mammographic fibroglandular density, bilateral breasts; Z78.0 Asymptomatic menopausal state; Z80.3 Family history of malignant neoplasm of breast
CPT/HCPCS: 77063; 77067

== ENCOUNTER → 2024-06-25 | Outpatient (CLI) | payer MEDICARE, BC | END | disposition home or self-care (01) | LOC: LABWHC1 12:06 | PROVIDERS: ATTEND Family Medicine | DX: R73.01 Impaired fasting glucose (principal) | CPT/HCPCS: 36415; 84439; 84443 ==

== ENCOUNTER → 2024-08-08 | Outpatient (CLI) | payer MEDICARE, BC | END | disposition home or self-care (01) | LOC: LABWHC1 13:08 | PROVIDERS: ATTEND Family Medicine | DX: E03.9 Hypothyroidism, unspecified (principal) | CPT/HCPCS: 36415; 84439; 84443 ==

== ENCOUNTER → 2024-09-18 | Outpatient (CLI) | payer MEDICARE, BC | END | disposition home or self-care (01) | LOC: LABWHC1 13:06 | PROVIDERS: ATTEND Family Medicine | DX: E03.9 Hypothyroidism, unspecified (principal) | CPT/HCPCS: 36415; 84443 ==

== ENCOUNTER → 2024-12-25 | Outpatient (CLI) | payer MEDICARE, BC ==
[2024-12-25 14:32] LABS: Partial Thromboplastin Time 28.8 sec (22.0-30.0)
[2024-12-25 19:33] LABS: Blood Urea Nitrogen 12.3 mg/dL (9.0-27.0); Glucose 100 mg/dL (70-110)
[2024-12-25 19:34] LABS: ALT 16 U/L (8-44); AST 19 U/L (13-35); Albumin 4.1 g/dL (3.8-4.9); Albumin/Globulin Ratio 1.78 Ratio (1.60-3.17); Alkaline Phosphatase 94 U/L (41-126); Calcium 9.4 mg/dL (8.7-10.3); Carbon Dioxide 25.8 mmol/L (21.6-31.8); Chloride 107 mmol/L (96-109); Globulin 2.3 g/dL (1.6-3.3); Potassium 4.3 mmol/L (3.5-5.5); Sodium 142 mmol/L (135-145); Total Bilirubin 0.5 mg/dL (0.3-1.2); Total Protein 6.4 g/dL (6.2-8.2)
[2024-12-25 20:11] LABS: HCT 40.3 % (37.2-46.3); HGB 12.5 g/dL (12.0-15.0); MCH 30.1 pg (27.0-32.0); MCV 97.1 FL (80.0-97.0); Mean Platelet Volume 11.5 FL (9.5-12.2); NRBC Per 100 WBC 0 X 10*3/uL (0.00-0.01); Platelet Count 236 X 10*3/uL (140-440); RBC 4.15 X 10*6/uL (4.10-5.20); RDW 12.9 % (11.5-14.5); WBC 6.46 X 10*3/uL (4.50-10.00)
== END | disposition home or self-care (01) ==
LOC: LABPAT 12:54
PROVIDERS: ATTEND Orthopaedic Surgery
DX: Z01.818 Encounter for other preprocedural examination (principal); I49.3 Ventricular premature depolarization; I51.89 Other ill-defined heart diseases; M17.12 Unilateral primary osteoarthritis, left knee; R94.31 Abnormal electrocardiogram [ECG] [EKG]; Z22.322 Carrier or suspected carrier of Methicillin resistant Staphylococcus aureus
CPT/HCPCS: 80053; 85027; 85610; 85730; 93005

== ENCOUNTER 2025-01-08 07:00 | Inpatient (IN) | payer MEDICARE, BC ==
[2025-01-08 09:36] VITALS: BMI 29.9
[2025-01-14] MEDS ORDERED: TRANEXAMIC 1,000 MG/100ML-NACL 1,000 MG in SALINE 1 100ML.BAG IVPB PRN (05:00)
[2025-01-14] MEDS ORDERED: LIDOCAINE 1% (10MG/ML) FOR IV START INTRADERMA PRN (06:39)
[2025-01-14] MEDS: ACETAMINOPHEN TAB 500 MG TAB PO PRN (08:25)
[2025-01-14] MEDS: GABAPENTIN 300 MG CAP PO PRN (08:25)
[2025-01-14] MEDS: MELOXICAM 7.5 MG TAB PO PRN (08:25)
[2025-01-14] MEDS: LACTATED RINGERS 1,000 ML IV SCH (08:26)
[2025-01-14] MEDS: ONDANSETRON 4 MG/2 ML VIAL IVP ONE (08:35)
[2025-01-14] MEDS: DEXAMETHASONE SOD PHOSPHATE 4 MG/ML 1 ML VIAL IVP STA (08:36)
[2025-01-14] MEDS: IV FLUID CONTINUATION 1,000 ML IV ONE ×2 (08:47→12:38)
[2025-01-14] MEDS ORDERED: HYDROmorphone 0.5 MG/0.5 ML SYRINGE IVP PRN ×2 (08:53)
[2025-01-14] MEDS ORDERED: MAGNESIUM HYDROXIDE 2,400 MG/30 ML CUP PO PRN (08:53)
[2025-01-14] MEDS ORDERED: NALOXONE 0.4 MG/ML 1 ML VIAL IV PRN (08:53)
[2025-01-14] MEDS ORDERED: NA PHOS,M-B/NA PHOS,DI-BA 133 ML ENEMA RECTAL PRN (08:53)
[2025-01-14] MEDS: MIDAZOLAM 2 MG/2 ML VIAL IV ONE (09:07)
[2025-01-14 09:08] LABS: INR 1.0 (<1.2); Prothrombin Time 11.0 sec (10.0-12.5)
[2025-01-14] MEDS ORDERED: PROPOFOL 10 MG/ML 20 ML VIAL IV ONE (09:20)
[2025-01-14] MEDS ORDERED: DEXAMETHASONE SOD PHOSPHATE 4 MG/ML 1 ML VIAL ONE (09:20)
[2025-01-14] MEDS ORDERED: MIDAZOLAM 2 MG/2 ML VIAL ONE (09:20)
[2025-01-14] MEDS ORDERED: KETAMINE HCL IN 0.9 % NACL 50 MG/5 ML SYRINGE ONE (09:20)
[2025-01-14] MEDS ORDERED: fentaNYL (PF) 50 MCG/ML 2 ML AMP ONE (09:20)
[2025-01-14] MEDS ORDERED: GLYCOPYRROLATE 0.2 MG/ML 2 ML VIAL ONE (09:20)
[2025-01-14] MEDS ORDERED: TRANEXAMIC 1,000 MG/100ML-NACL PREMIX BAG ONE (09:20)
[2025-01-14] MEDS ORDERED: PHENYLEPHRINE-0.9% NACL SYG 1,000 MCG/10 ML SYRINGE ONE (09:20)
[2025-01-14] MEDS ORDERED: ROPIVACAINE 5 MG/ML 30 ML VIAL ONE (09:20)
[2025-01-14] MEDS: ceFAZolin 1,000 MG in SODIUM CHLORIDE 0.9% 1,000 ML IRRIGATION ONE (09:23)
--- NOTE | 2025-01-14 11:14 | P.OP ---
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 Diagnosis: Failed right total knee arthroplasty Procedure(s) Performed: Revision right total knee arthroplasty Implants: Simons and Nephew Legion Oxinium constrained femoral component size 4, right Simons [employer] Nephew Legion press-fit stem, straight 15 mm x 160 mm Simons & Nephew legion revision tibial baseplate size 3, right Simons and Nephew femoral L wedge 10 mm distal by 5 mm posterior x 2 Simons [employer] Nephew Legion press-fit stem, straight 14 mm x 160 mm Simons & Nephew Deidra II constrained articular insert size 3-4, 15 mm All components were cemented usingAntibiotic Simplex P bone cement x 2 The articulation is Oxinium on polyethylene. Anesthesia: spinal Surgeon: Jd [employer] Stewardess #1: Xiomara Grajeda Estimated Blood Loss (ml): 50 Pathology: none sent Condition: stable Disposition: PACU Indications for Procedure: This is a 74-year-old female that had a right total knee arthroplasty performed in [facility] in 1995. She had a fall in 2023 and sustained a fracture of her distal femur in the periprosthetic region of the right total knee. She is treated conservatively, but continues to have pain and instability of her right knee. The operation of revision knee replacement has been discussed at length in the office, as well as potential risks and complications. These are inclusive of, but not limited to: Infection, bleeding, scarring, discomfort, stiffness, blood vessel and nerve damage, need for further surgery, failure to relieve symptoms, persistence, recurrence, or worsening of problems, loosening, dislocation, wear, blood clot, pulmonary embolism, , gait dysfunction, stiffness, and other risks as discussed in the office. Patient elects to proceed and the consent form has been signed. Operative Findings: The operative findings are consistent with significant polyethylene wear and ligamentous instability of the right total knee Description of Procedure: Patient was seen in the preoperative area consent was reviewed and operative site was marked with a skin marker. An adductor canal pain catheter was placed by anesthesia in the preoperative area. Patient was then brought to the operating room and given preoperative antibiotics intravenously. A spinal anesthetic was administered by the anesthesia department. A tourniquet was placed on the upper thigh and the lower extremity was prepped and draped in usual sterile fashion. A gram of transexamic acid was given. A universal timeout was then performed which confirmed the patient's name, surgical site, ALLERGIES, and consent. The lower extremity was then exsanguinated and tourniquet was inflated to 250 mmHg. A standard and anterior midline approach to the knee was performed. The skin and subcutaneous tissue was dissected down to the patellar tendon, with the prior scar being excised. A medial parapatellar arthrotomy was then performed. A moderate amount of clear fluid was encountered. The knee was then extended, the patellar was everted, and the knee was again flexed. The components were then inspected and grossly were found to be well fixed. The tibial poly-was then removed without incident. The polyethylene was inspected and found to have significant wear mainly on the medial side. Attention was directed to the femur. Using a small oscillating saw, the implant cement interface was disrupted, and the femoral component was easily removed with an osteotome and a mallet. There was minimal bone loss encountered. Attention was then directed to the tibia. Again using a small oscillating saw, the implant bone interface was disrupted. The tibial component had significant bone loss. The main bone loss was in the medullary canal secondary to the large amount of cement that was used in order to fixate the prior tibial component. Attention was redirected to the femur. Sequential reaming of the femoral canal was performed until good cortical fit at 12 mm. The distal cutting guide was then placed over the reamer the distal femur cut was performed. Next the 4-in-1 cutting block was placed over the reamer and the appropriate cuts were performed. The cutting block and reamer were then removed and the femoral trial was placed. The bone was then removed for the box. Femoral trial was then removed. Attention was then redirected to the tibia. Sequential reaming of the tibial canal was performed until good cortical fit at 11 mm. The intramedullary proximal tibial cutting guide was then placed over the reamer, the proximal tibia was cut. The tibia was sized and it was determined that an offset stem should be used. Proximal tibia was then prepared for the offset stem next the patella was then prepared as well. Trials were then placed with a 9 mm constrained liner. The knee was able to fully extend and flex to 115 and was stable throughout all range of motion. Trials were then removed. The cut surfaces of bone were then irrigated with pulsatile lavage. The knee was also irrigated with Irrisept solution. The components were then opened, the cement was mixed, and the components were then cemented in place. The cement was allowed to harden with the knee in full extension. After the cemented hardened. The tourniquet was released, and hemostasis was obtained. A second gram of transexamic acid was given. The knee was again irrigated. The knee was again taken through range of motion and found to be stable throughout all range of motion of 0-110, and the patella tracked normally. The fascia was then closed with #2 strata fix suture. The subcutaneous tissue was closed with 3-0 Vicryl and 3-0 strata fix. Exofin glue was used for the skin and placed with the knee in flexion. The patient was placed in a sterile silver dressing. Patient was then transferred to recovery room in stable condition. The assistant auto center manager PATRIA Robles was required due the complexity surgery and the need for a skilled cardiovascular surgical tech. She assisted in positioning, draping, retraction, and closure of the wound.
[2025-01-14] MEDS: ROPIVACAINE 1,100 MG, SODIUM CHLORIDE 0.9% 500 ML 330 ML, EMPTY PAIN BALL 1 EACH MISCELLANE PRN (12:23)
--- NOTE | 2025-01-14 12:34 | XR ---
EXAMINATION TYPE: XR knee limited RT DATE OF EXAM: 01/14/2025 CLINICAL HISTORY: Postoperative evaluation Two views of the right knee are submitted. Identified are changes of total knee arthroplasty with femoral and tibial components appearing well seated. Postsurgical soft tissue changes are noted. Alignment is anatomic. [facility], , 01/14/2025 12:32 PM
--- NOTE | 2025-01-14 12:46 | P.ANPRN ---
Procedure Note - Anesthesia - Nerve Block Performed Right Adductor Canal Infusion Time Out Performed: Yes Date of Procedure: 01/14/25 Procedure Start Time: 08:49 Procedure Stop Time: 08:58 Location of Patient: PreOp Indication: Acute Post-Operative Pain, Requested by Surgeon Sedation Type: Sedate with meaningful contact maintained Preparation: Sterile Prep, Sterile Dressing Position: Supine Catheter: Indwelling Needle Types: Pajunk Needle Gauge: 21 Ultrasound used to visualize needle placement: Yes Ultrasound used to observe medication spread: Yes Blood Aspirated: No Pain Paresthesia on Injection Noted: No Resistance on Injection: Normal Image Stored and Saved: Yes Events: Uneventful and Well Tolerated (Ropivacaine 0.5% 20 cc was dexamethasone 4 mg)
--- NOTE | 2025-01-14 12:47 | P.ANPRN ---
Procedure Note - Anesthesia - Nerve Block Performed Right iPack Single Time Out Performed: Yes Date of Procedure: 01/14/25 Procedure Start Time: 09:00 Procedure Stop Time: :01 Location of Patient: PreOp Indication: Acute Post-Operative Pain Sedation Type: Sedate with meaningful contact maintained Preparation: Sterile Prep Position: Left Lateral Needle Types: Pajunk Needle Gauge: 21 Ultrasound used to visualize needle placement: Yes Ultrasound used to observe medication spread: Yes Blood Aspirated: No Pain Paresthesia on Injection Noted: No Resistance on Injection: Normal Image Stored and Saved: Yes Events: Uneventful and Well Tolerated (Ropivacaine 0.5% 20 cc was dexamethasone 4 mg)
[2025-01-14] MEDS: HYDROmorphone 0.5 MG/0.5 ML SYRINGE IVP PRN ×2 (12:55→15:54)
[2025-01-14] MEDS: SODIUM CHLORIDE 0.9% 1,000 ML IV SCH (15:54)
[2025-01-14] MEDS ORDERED: ALBUTEROL NEBULIZED 2.5 MG/3 ML INHALATION PRN (17:15)
--- NOTE | 2025-01-14 17:44 | P.CONS ---
History of Present Illness - Reason for Consult Consult date: 01/14/25 - History of Present Illness Patient is a 74-year-old female with past medical history of DVT following femur fracture maintained on Eliquis, HTN, HLD, GERD, CAD, who presented to the ER for elective revision of the right total knee arthroplasty that was performed on 01/14/2025, EBL 50%, patient tolerated procedure well. Sound physicians consulted for medical management. Patient was seen and examined at bedside after surgery, complains of postop discomfort, no other complaints at this time. Reviewed vital signs, patient heart rate in 60s, blood pressure soft 102/58, SpO2 96% on 2 L. Preop blood work from 12/25/2024 reviewed and showed normal CBC, unremarkable CMP. Pertinent positives and negatives as discussed in HPI, a complete review of systems was performed and all other systems are negative. Patient seen and examined at bedside. Vital signs reviewed General: nontoxic, no distress, appears at stated age Derm: warm, dry Head: atraumatic, normocephalic, symmetric Eyes: EOMI, no lid lag, anicteric sclera, pupils equal round reactive to light ENT: Nose and ears atraumatic Neck: No thyromegaly, supple Mouth: no lip lesion, mucus membranes moist Cardiovascular: S1S2 reg, no murmur, no edema Lungs: clear to auscultation bilateral, no rhonchi, no rales, no wheeze, no accessory muscle use Abdominal: soft, nontender to palpation, no guarding, no appreciable organomegaly Ext: no gross muscle atrophy, muscle strength muscle strength 5 out of 5 in all 4 extremities, no contractures, postop dressing clean and dry Neuro: CN II-XII grossly intact Psych: Alert, oriented, appropriate affect Assessment/Plan: History of DVT: Continued on 5 mg of Eliquis twice daily by orthopedic surgery CAD, currently not on antiplatelets, recommend to follow-up with primary care physician Hyperlipidemia: Continue Crestor 20 mg nightly Hypothyroidism: Continue home levothyroxine 75 mcg Hypertension: Continue home lisinopril 10 mg nightly starting tomorrow with holding parameters Asthma not in acute exacerbation: Continue Ventolin as needed, fluticasone/vilanterol 200/25 mcg every morning, home montelukast 10 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 Hx ulcer due to taking Motrin. 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 Has kidney stone - no treatment required. Hx migraines - no longer gets them. Last Myocardial Infarction Date:: 2021 History of Any Multi-Drug Resistant Organisms: None Reported Past Surgical History: Adenoidectomy, Appendectomy, Breast Surgery, Hysterectomy, Joint Replacement, Orthopedic Surgery, Tonsillectomy Additional Past Surgical History / Comment(s): ear shoulder wrist. right rotator cuff repair. Past Anesthesia/Blood Transfusion Reactions: No Reported Reaction Additional Past Anesthesia/Blood Transfusion Reaction / Comm: Really cold after one procedure. States she's a shallow breather with Anesthesia. Smoking Status: Never smoker - Past Family History Mother Family Medical History: No Reported History Medications and Allergies Home Medications Medication Instructions Recorded Confirmed Type Fluticasone/Vilanterol [Breo 1 puff INHALATION QAM 06/23/16 01/08/25 History Ellipta 200-25 Mcg Inhaler] Lansoprazole [Prevacid] 30 mg PO HS 06/23/16 01/08/25 History Levothyroxine Sodium [Synthroid] 75 mcg PO QAM 06/23/16 01/08/25 History Montelukast Sodium [Singulair] 10 mg PO HS 06/23/16 01/08/25 History Potassium Chloride ER [K-Dur 20] 20 meq PO BID 06/23/16 01/08/25 History lisinopriL [Zestril] 10 mg PO HS 06/23/16 01/08/25 History Rosuvastatin [Crestor] 20 mg PO HS 10/07/22 01/08/25 History Apixaban [Eliquis] 5 mg PO BID 12/27/23 01/08/25 History Loratadine [Claritin] 10 mg PO HS 12/27/23 01/08/25 History Albuterol Sulfate [Ventolin HFA] 1 - 2 puff INHALATION Q6H PRN 01/08/25 01/08/25 History [facility] 1 tab PO DAILY 01/08/25 01/08/25 History Magnesium Glycinate 350 mg PO DAILY 01/08/25 01/08/25 History Multivit with Calcium,Iron,Min 1 each PO DAILY 01/08/25 01/08/25 History [Women's Multivitamin] Vitamin D3 + Vitamin K2 1 tab PO DAILY 01/08/25 01/08/25 History HYDROcodone/APAP 7.5-325MG [[place] 1 - 2 tab PO Q6H PRN #32 tab 01/14/25 Rx 7.5-325] Sennosides [Senokot] 2 tab PO DAILY PRN #60 tablet 01/14/25 Rx Allergies Allergy/AdvReac Type Severity Reaction Status Date / Time cefuroxime [From Ceftin] Allergy Unknown Verified 01/14/25 07:43 cinnamon Allergy Stuffed Up Verified 01/14/25 07:43 and Sleepy clindamycin Allergy swelling Verified 01/14/25 07:43 of mouth & eyes Fish Containing Products Allergy saltwater Verified 01/14/25 07:43 [Fish] fish only Milk Containing Products Allergy Unknown Verified 01/14/25 07:43 (Dairy) [Dairy] Penicillins Allergy Lips/Face Verified 01/14/25 07:43 Swelling shellfish derived [Shellfish] Allergy Unknown Verified 01/14/25 07:43 wheat Allergy Unknown Verified 01/14/25 07:43 bacitracin AdvReac Rash/Hives Verified 01/14/25 07:43 [From Neosporin ([id number])] polymyxin B AdvReac Rash/Hives Verified 01/14/25 07:43 [From Neosporin ([id number])] Metal Allergy Redness Uncoded 01/14/25 07:43 Physical Exam Vitals: Vital Signs Temp Pulse Pulse Resp BP Pulse Ox 01/14/25 14:40 65 14 102/58 96 01/14/25 14:10 67 14 101/54 95 01/14/25 13:55 58 L 14 98/57 96 01/14/25 13:40 61 14 101/55 94 L 01/14/25 13:26 63 13 100/53 93 L 01/14/25 13:11 69 13 105/54 94 L 01/14/25 12:56 71 16 105/60 93 L 01/14/25 12:39 68 16 111/53 94 L 01/14/25 12:24 64 16 88/48 92 L 01/14/25 12:09 73 16 95/58 92 L 01/14/25 11:54 96.8 F L 74 16 91 L 01/14/25 09:15 67 16 109/57 100 01/14/25 09:05 72 16 109/57 99 01/14/25 09:00 74 14 113/77 98 01/14/25 08:55 70 16 116/56 98 01/14/25 08:50 70 16 130/70 98 01/14/25 07:59 97.3 F L 97 18 114/80 97 Intake and Output 01/14/25 01/14/25 01/14/25 06:59 14:59 22:59 Intake Total 1801 Output Total 50 Balance 1751 Intake: IV 1801 Output: Estimated Blood Loss 50 Other: # Voids 1 Weight 77.6 kg 77.6 kg
[2025-01-14] MEDS: MONTELUKAST 10 MG TAB PO SCH (21:35)
[2025-01-14] MEDS: LORATADINE 10 MG TAB PO SCH (21:35)
[2025-01-14] MEDS: SENNOSIDES-DOCUSATE SODIUM 1 EACH TAB PO SCH (21:35)
[2025-01-14] MEDS: ATORVASTATIN 40 MG TAB PO SCH (21:35)
[2025-01-14] MEDS: HYDROcodone/APAP 7.5-325MG 1 EACH TAB PO PRN (21:35)
[2025-01-15] MEDS: HYDROcodone/APAP 7.5-325MG 1 EACH TAB PO PRN (00:59)
[2025-01-15] MEDS: LEVOTHYROXINE 75 MCG TAB PO SCH (06:41)
[2025-01-15 07:18] LABS: HCT 34.2 % (37.2-46.3); HGB 10.9 g/dL (12.0-15.0); MCH 30.9 pg (27.0-32.0); MCHC 31.9 g/dL (32.0-37.0); MCV 96.9 FL (80.0-97.0); NRBC Per 100 WBC 0 X 10*3/uL (0.00-0.01); Platelet Count 213 X 10*3/uL (140-440); RBC 3.53 X 10*6/uL (4.10-5.20); RDW 12.6 % (11.5-14.5); WBC 12.01 X 10*3/uL (4.50-10.00)
[2025-01-15] MEDS: ONDANSETRON 4 MG/2 ML VIAL IVP PRN (07:45)
[2025-01-15] MEDS: APIXABAN 5 MG TAB PO SCH (07:46)
[2025-01-15 08:09] LABS: Basophils # (A) 0.01 X 10*3/uL (0.00-0.10); Basophils % (A) 0.1 %; Eosinophils # (A) 0 X 10*3/uL (0.04-0.35); Eosinophils % (A) 0 %; Immature Grans, Automated 0.30 %; Lymphocytes # (A) 1.23 X 10*3/uL (0.90-5.00); Lymphocytes % (A) 10.2 %; Monocytes # (A) 1.71 X 10*3/uL (0.20-1.00); Monocytes % (A) 14.2 %; Neutrophils # (A) 9.02 X 10*3/uL (1.80-7.70); Neutrophils % (A) 75.2 %
[2025-01-15] MEDS: SYMBICORT 160-4.5 MCG INHALER INHALATION SCH (08:46)
--- NOTE | 2025-01-15 09:15 | P.PN ---
Subjective Progress Note Date: 01/15/25 This is a 74-year-old female who is status post revision right total knee arthroplasty. This is postoperative day #1 and patient is seen and evaluated at bedside today. Patient states that her pain is well-controlled, but she has been nauseous this morning. Patient denies any fever/chills, chest pain, shortness breath, abdominal pain, numbness, weakness or tingling. Objective - Vital Signs Vital signs: Vital Signs Temp 97.6 F 01/15/25 07:17 Pulse 75 01/15/25 07:17 Resp 16 01/15/25 07:17 BP 105/65 01/15/25 07:17 Pulse Ox 96 01/15/25 07:17 FiO2 Intake & Output 01/14/25 01/15/25 01/15/25 18:59 06:59 18:59 Intake Total 1801 Output Total 50 Balance 1751 Weight 77.6 kg Intake: IV 1801 Output: Estimated Blood Loss 50 Other: Voiding Method Toilet # Voids 1 3 - Exam Vital signs are stable. Patient is in no acute distress and is alert and oriented 3. Calf is soft and nontender to palpation. There is a moderate amount of bloody drainage on the dressing. Incision is clean, dry and intact. No active drainage this morning. Patient has full foot and ankle motion without pain or difficulty. Sensation intact. Neurovascular status and circulatory status are intact. - Labs CBC & Chem 7: 01/15/25 03:12 Labs: Abnormal Lab Results - Last 24 Hours (Table) 01/15/25 Range/Units 03:12 WBC 12.01 H (4.50-10.00) X 10*3/uL RBC 3.53 L (4.10-5.20) X 10*6/uL Hgb 10.9 L (12.0-15.0) g/dL Hct 34.2 L (37.2-46.3) % MCHC 31.9 L (32.0-37.0) g/dL Neutrophils # 9.02 H (1.80-7.70) X 10*3/uL Monocytes # 1.71 H (0.20-1.00) X 10*3/uL Eosinophils # 0 L (0.04-0.35) X 10*3/uL Assessment and Plan (1) Status post revision of total replacement of right knee Current Visit: Yes Status: Acute Code(s): Z96.651 - PRESENCE OF RIGHT ARTIFICIAL KNEE JOINT SNOMED Code(s): 593959794100278 Plan: #1 Continue with routine postoperative care and pain control. New optifoam dressing applied today. Leave dressing in place for 7 days. Reinforce if saturated. Compressive VESNA wrap applied today. #2 Anticoagulation with Eliquis. #3 Physical therapy today. #4 Appreciate input from internal medicine. #5 Anticipate discharge home with home care in the next 24-48 hours.
[2025-01-15] MEDS: PROCHLORPERAZINE INJ 10 MG/2 ML VIAL IVP PRN (10:36)
--- NOTE | 2025-01-15 15:40 | P.PN ---
Subjective Progress Note Date: 01/15/25 Hospital course: Patient is a very pleasant 74-year-old female with a past medical history of hypertension, hyperlipidemia, hypothyroidism, previous DVT on anticoagulation with Eliquis, and asthma. She is currently admitted under orthopedic surgery team status post right total knee arthroplasty revision. We were consulted for medical management throughout hospitalization. Physical exam: Patient seen and fully evaluated at bedside this morning. She reports moderate postoperative pain currently rated 9 out of 10 at this time. Patient reports she attempted to work with physical therapy this morning but did have moderate discomfort following. Patient reports she was able to ambulate in her room with help of physical therapist and use of walker. In addition to postoperative pain, patient also reports experiencing postoperative nausea. She denies having any headache, lightheadedness, dizziness, chest pain, palpitations, or shortness of breath. Patient reports she is urinating without any difficulties and is tolerating oral intake. Vital signs reviewed and stable. General: Nontoxic, no distress and appears stated age. Derm: Skin warm and dry, normal coloration for ethnicity. Head: Atraumatic, normocephalic and symmetric. Eyes: EOM's intact, no lid lag, and anicteric sclera Mouth: no lip lesions, mucus membranes moist Cardiovascular: regular rate and rhythm with normal S1S2, no murmur, positive posterior tibial pulses bilaterally, and cap refill < 2 seconds. Lungs: Respirations even, regular, and unlabored on room air. Lungs CTA bilaterally, no rhonchi, no rales, no wheezing, and no accessory muscle usage. Abdominal: soft, nontender to palpation, no guarding, no appreciable organomegaly Ext: ROM intact. No gross muscle atrophy, no edema, no contractures Neuro: Speech clear, face symmetrical and CN II-XII grossly intact with no noted focal neuro deficits Psych: Alert and oriented to person, place, time, and situation. Appropriate and pleasant affect. Assessment and Plan of Care: Status post right total knee arthroplasty revision Management per primary admitting orthopedic surgery team including DVT prophylaxis, wound/dressing management, pain management, weightbearing, and PT/OT. Currently DVT prophylaxis with 5 mg twice daily. Acute postoperative blood loss anemia Preoperative hemoglobin 12.5 with postoperative hemoglobin of 10.9. This is stable and expected finding. No active bleeding noted, no need for transfusion or further intervention at this time. Hypertension Monitor vital signs and continue daily medication regimen with lisinopril 10 mg nightly. Hypothyroidism Continue levothyroxine 75 mcg daily. Hyperlipidemia Continue rosuvastatin 20 mg nightly. History of DVT Continue Eliquis 5 mg twice daily. Data and imaging reviewed: Postoperative labs reviewed showing acute postoperative blood loss anemia with hemoglobin of 10.9 and preoperative hemoglobin of 12.5 along with mild leukocytosis with WBC count of 12.01. Coagulation profile normal findings. Vital signs reviewed. Blood pressure 105/65, heart rate 75, respiratory rate 16, temp 97.6 F, and SpO2 of 96% on 2 L. Thank you for allowing us to participate in the care of this pleasant patient. Do not hesitate to contact us with questions. Someone can be reached from the [facility] hospitalist group all hours of the day at [phone] or via [employer]. Patient was seen independently by Nurse Pracitioner. This document was prepared using [employer] dictation software. Please allow for errors in field talent qualification specialist, while rare they do occur. Greg Mayer NP rendered care for this patient independently, reviewed the findings and plan as documented in the note above and agree with plan. I did not physically speak with or examine the patient on this date. Objective - Vital Signs Vital signs: Vital Signs Temp 97.6 F 01/15/25 07:17 Pulse 75 01/15/25 07:17 Resp 16 01/15/25 07:17 BP 105/65 01/15/25 07:17 Pulse Ox 96 01/15/25 07:17 FiO2 Intake & Output 01/14/25 01/15/25 01/15/25 18:59 06:59 18:59 Intake Total 1801 Output Total 50 Balance 1751 Weight 77.6 kg Intake: IV 1801 Output: Estimated Blood Loss 50 Other: Voiding Method Toilet # Voids 1 3 - Labs CBC & Chem 7: 01/15/25 03:12 Labs: Abnormal Lab Results - Last 24 Hours (Table) 01/15/25 Range/Units 03:12 WBC 12.01 H (4.50-10.00) X 10*3/uL RBC 3.53 L (4.10-5.20) X 10*6/uL Hgb 10.9 L (12.0-15.0) g/dL Hct 34.2 L (37.2-46.3) % MCHC 31.9 L (32.0-37.0) g/dL Neutrophils # 9.02 H (1.80-7.70) X 10*3/uL Monocytes # 1.71 H (0.20-1.00) X 10*3/uL Eosinophils # 0 L (0.04-0.35) X 10*3/uL
[2025-01-15] MEDS: POTASSIUM CHLORIDE ER 20 MEQ TAB.ER PO SCH (20:47)
[2025-01-16 08:25] LABS: HCT 29.1 % (37.2-46.3); HGB 9.2 g/dL (12.0-15.0); MCH 30.9 pg (27.0-32.0); MCHC 31.6 g/dL (32.0-37.0); MCV 97.7 FL (80.0-97.0); NRBC Per 100 WBC 0 X 10*3/uL (0.00-0.01); Platelet Count 168 X 10*3/uL (140-440); RBC 2.98 X 10*6/uL (4.10-5.20); RDW 12.8 % (11.5-14.5); WBC 9.12 X 10*3/uL (4.50-10.00)
[2025-01-16 08:34] LABS: Anion Gap 7.00 mmol/L (4.00-12.00); BUN/Creat Ratio 18.40 Ratio (12.00-20.00); Blood Urea Nitrogen 9.2 mg/dL (9.0-27.0); Calcium 8.5 mg/dL (8.7-10.3); Carbon Dioxide 26.0 mmol/L (21.6-31.8); Chloride 105 mmol/L (96-109); Glucose 126 mg/dL (70-110); Magnesium 1.7 mg/dL (1.5-2.4); Potassium 4.3 mmol/L (3.5-5.5); Sodium 138 mmol/L (135-145)
--- NOTE | 2025-01-16 08:47 | P.PN ---
Subjective Progress Note Date: 01/16/25 This is a 74-year-old female who is status post revision right total knee arthroplasty. This is postoperative day #2 and patient is seen and evaluated at bedside today. Patient denies any new complaints today. Patient denies any fever/chills, chest pain, shortness breath, abdominal pain, numbness, weakness or tingling. Objective - Vital Signs Vital signs: Vital Signs Temp 98.3 F 01/16/25 07:47 Pulse 88 01/16/25 07:47 Resp 18 01/16/25 07:47 BP 124/79 01/16/25 07:47 Pulse Ox 90 L 01/16/25 07:47 FiO2 Intake & Output 01/15/25 01/16/25 01/16/25 18:59 06:59 18:59 Output Total 3 Balance -3 Output: Urine 3 Other: Voiding Method Toilet # Voids 1 - Exam Vital signs are stable. Patient is in no acute distress and is alert and oriented 3. Calf is soft and nontender to palpation. There is a mild amount o f bloody drainage on the dressing. Patient has full foot and ankle motion without pain or difficulty. Sensation intact. Neurovascular status and circulatory status are intact. - Labs CBC & Chem 7: 01/16/25 04:02 01/16/25 04:02 Labs: Abnormal Lab Results - Last 24 Hours (Table) 01/16/25 01/16/25 Range/Units 04:02 04:02 RBC 2.98 L (4.10-5.20) X 10*6/uL Hgb 9.2 L (12.0-15.0) g/dL Hct 29.1 L (37.2-46.3) % MCV 97.7 H (80.0-97.0) FL MCHC 31.6 L (32.0-37.0) g/dL Creatinine 0.5 L (0.6-1.5) mg/dL Glucose 126 H (70-110) mg/dL Calcium 8.5 L (8.7-10.3) mg/dL Assessment and Plan (1) Status post revision of total replacement of right knee Current Visit: Yes Status: Acute Code(s): Z96.651 - PRESENCE OF RIGHT ARTIFICIAL KNEE JOINT SNOMED Code(s): 479864307152425 Plan: #1 Continue with routine postoperative care and pain control. #2 Anticoagulation with Eliquis. #3 Physical therapy today. #4 Appreciate input from internal medicine. #5 Anticipate discharge home with home care or to ECF in the next 24-48 hours.
--- NOTE | 2025-01-16 15:10 | P.PN ---
Subjective Progress Note Date: 01/16/25 Hospital course: Patient is a very pleasant 74-year-old female with a past medical history of hypertension, hyperlipidemia, hypothyroidism, previous DVT on anticoagulation with Eliquis, and asthma. She is currently admitted under orthopedic surgery team status post right total knee arthroplasty revision. We were consulted for medical management throughout hospitalization. Physical exam: Patient seen and fully evaluated at bedside this morning. She is postoperative day 2. She reports still having a difficult time getting around. Patient has moderate postoperative swelling and bruising to right knee extending downward into her ankle. Discussed with patient and encouraged elevation and ice and placed to ice pack send patient's leg at this time. She denies having any nausea or vomiting, dizziness, lightheadedness, chest pain, palpitations, or shortness of breath. She reports having decent oral intake. She reports urinating without any difficulties and passing flatus. She denies bowel movement as of yet since completion of surgical procedure. Vital signs reviewed and stable. General: Nontoxic, no distress and appears stated age. Derm: Skin warm and dry, normal coloration for ethnicity. Head: Atraumatic, normocephalic and symmetric. Eyes: EOM's intact, no lid lag, and anicteric sclera Mouth: no lip lesions, mucus membranes moist Cardiovascular: regular rate and rhythm with normal S1S2, no murmur, positive posterior tibial pulses bilaterally, and cap refill < 2 seconds. Lungs: Respirations even, regular, and unlabored on room air. Lungs CTA bilaterally, no rhonchi, no rales, no wheezing, and no accessory muscle usage. Abdominal: soft, nontender to palpation, no guarding, no appreciable organomegaly Ext: ROM intact. No gross muscle atrophy, no edema, no contractures Neuro: Speech clear, face symmetrical and CN II-XII grossly intact with no noted focal neuro deficits Psych: Alert and oriented to person, place, time, and situation. Appropriate and pleasant affect. Assessment and Plan of Care: Status post right total knee arthroplasty revision Management per primary admitting orthopedic surgery team including DVT prophylaxis, wound/dressing management, pain management, weightbearing, and PT/OT. Currently DVT prophylaxis with 5 mg twice daily. Acute postoperative blood loss anemia Preoperative hemoglobin 12.5 with postoperative hemoglobin currently 9.2. This is stable and expected finding. No active bleeding noted, no need for transfusion or further intervention at this time. Hypomagnesemia Magnesium 1.7. Orders placed for Mag-Ox 400 mg p.o. x 1 dose. Hypertension Monitor vital signs and continue daily medication regimen with lisinopril 10 mg nightly. Hypothyroidism Continue levothyroxine 75 mcg daily. Hyperlipidemia Continue rosuvastatin 20 mg nightly. History of DVT Continue Eliquis 5 mg twice daily. Data and imaging reviewed: Postoperative labs reviewed showing acute postoperative blood loss anemia with hemoglobin of 9.2 and preoperative hemoglobin of 12.5. Leukocytosis resolved with WBC count of 9.12. BMP unremarkable. Blood glucose 126. Magnesium was slightly low at 1.7. Vital signs reviewed. Blood pressure 124/79, heart rate 88, respiratory rate 18, temp 98.3 F, and SpO2 of 90% on room air. Thank you for allowing us to participate in the care of this pleasant patient. Do not hesitate to contact us with questions. Someone can be reached from [facility] all hours of the day at [phone] or via [employer]. Patient was seen independently by Nurse Pracitioner. This document was prepared using [employer] dictation software. Please allow for errors in cream dumper, while rare they do occur. Greg Mayer NP rendered care for this patient independently, reviewed the findings and plan as documented in the note above and agree with plan. I did not physically speak with or examine the patient on this date. Objective - Vital Signs Vital signs: Vital Signs Temp 98.3 F 01/16/25 07:47 Pulse 88 01/16/25 07:47 Resp 18 01/16/25 07:47 BP 124/79 01/16/25 07:47 Pulse Ox 90 L 01/16/25 07:47 FiO2 Intake & Output 01/15/25 01/16/25 01/16/25 18:59 06:59 18:59 Output Total 3 Balance -3 Output: Urine 3 Other: Voiding Method Toilet # Voids 1 - Labs CBC & Chem 7: 01/16/25 04:02 01/16/25 04:02
[2025-01-16] MEDS: MAGNESIUM OXIDE 400 MG TAB PO STA (16:18)
[2025-01-16] MEDS: CALCIUM CARBONATE 500 MG CHEWABLE PO PRN (21:41)
[2025-01-17 07:49] LABS: Basophils # (A) 0.05 X 10*3/uL (0.00-0.10); Basophils % (A) 0.7 %; Eosinophils # (A) 0.12 X 10*3/uL (0.04-0.35); Eosinophils % (A) 1.6 %; HCT 29.3 % (37.2-46.3); HGB 9.1 g/dL (12.0-15.0); Immature Grans, Automated 0.30 %; Lymphocytes # (A) 1.60 X 10*3/uL (0.90-5.00); Lymphocytes % (A) 21.1 %; MCH 30.3 pg (27.0-32.0); MCHC 31.1 g/dL (32.0-37.0); MCV 97.7 FL (80.0-97.0); Monocytes # (A) 1.42 X 10*3/uL (0.20-1.00); Monocytes % (A) 18.7 %; NRBC Per 100 WBC 0 X 10*3/uL (0.00-0.01); Neutrophils # (A) 4.37 X 10*3/uL (1.80-7.70); Neutrophils % (A) 57.6 %; Platelet Count 179 X 10*3/uL (140-440); RBC 3.00 X 10*6/uL (4.10-5.20); RDW 12.8 % (11.5-14.5); WBC 7.58 X 10*3/uL (4.50-10.00)
[2025-01-17 08:04] LABS: Anion Gap 8.40 mmol/L (4.00-12.00); BUN/Creat Ratio 16.60 Ratio (12.00-20.00); Blood Urea Nitrogen 8.3 mg/dL (9.0-27.0); Calcium 8.8 mg/dL (8.7-10.3); Carbon Dioxide 26.6 mmol/L (21.6-31.8); Chloride 103 mmol/L (96-109); Glucose 117 mg/dL (70-110); Magnesium 1.8 mg/dL (1.5-2.4); Potassium 4.3 mmol/L (3.5-5.5); Sodium 138 mmol/L (135-145)
[2025-01-17 08:41] VITALS: BP 114/74; PULSE 85; RESP 18; TEMP 98.4
--- NOTE | 2025-01-17 10:22 | P.DS ---
Providers Date of admission: 01/14/25 07:21 Expected date of discharge: 01/17/25 Attending physician: Jd Modi Consults: 01/14/25 08:53 Consult Physician Routine Consulting Provider: Matheus Mercer Consult Reason/Comments: medical management Do you want consulting provider notified?: Yes Primary care physician: Issa Gibson MD - Discharge Diagnosis(es) (1) Status post revision of total replacement of right knee Current Visit: Yes Status: Acute Hospital Course: This is a 74-year-old female who underwent a previous right total knee arthroplasty at an outside facility in 1995. Patient also sustained a periprosthetic right distal femur fracture in 2023. The patient presented for evaluation as an outpatient due to pain and instability of the right knee. After discussion and consideration patient elects to proceed with revision right total knee arthroplasty. The patient is seen preoperatively by Dr. Modi and medically cleared for surgery by their primary care physician. Patient is admitted to [facility] on 01/14/2025 for total knee arthroplasty. The procedure is performed without complication or sequelae. The patient is doing well postoperatively. Labs and vital signs are stable on day of discharge. On day of discharge patient's knee incision is healing well. There is minimal erythema. There is no drainage noted at this time. There is minimal soft tissue swelling to the knee. Patient has full foot and ankle motion without difficulty or pain. Calf is soft and nontender to palpation. Neurovascular status to the right lower extremity is intact. Patient is discharged home in good condition. Please see med rec for accurate list of home medications. Plan - Discharge Summary Discharge Rx Participant: Yes New Discharge Prescriptions: New HYDROcodone/APAP 7.5-325MG [[place] 7.5-325] 1 - 2 tab PO Q6H PRN #32 tab PRN Reason: Pain Sennosides [Senokot] 2 tab PO DAILY PRN #60 tablet PRN Reason: Constipation Ondansetron Odt [Zofran Odt] 1 tab PO Q8HR PRN #10 tab PRN Reason: Nausea Continue Montelukast Sodium [Singulair] 10 mg PO HS lisinopriL [Zestril] 10 mg PO HS Lansoprazole [Prevacid] 30 mg PO HS Levothyroxine Sodium [Synthroid] 75 mcg PO QAM Fluticasone/Vilanterol [Breo Ellipta 200-25 Mcg Inhaler] 1 puff INHALATION QAM Potassium Chloride ER [K-Dur 20] 20 meq PO BID Multivit with Calcium,Iron,Min [Women's Multivitamin] 1 each PO DAILY Vitamin D3 + Vitamin K2 1 tab PO DAILY Rosuvastatin [Crestor] 20 mg PO HS Apixaban [Eliquis] 5 mg PO BID Loratadine [Claritin] 10 mg PO HS Albuterol Sulfate [Ventolin HFA] 1 - 2 puff INHALATION Q6H PRN PRN Reason: Shortness Of Breath Magnesium Glycinate 350 mg PO DAILY [facility] 1 tab PO DAILY Discharge Medication List Fluticasone/Vilanterol [Breo Ellipta 200-25 Mcg Inhaler] 1 puff INHALATION QAM 06/23/16 [History] Lansoprazole [Prevacid] 30 mg PO HS 06/23/16 [History] Levothyroxine Sodium [Synthroid] 75 mcg PO QAM 06/23/16 [History] Montelukast Sodium [Singulair] 10 mg PO HS 06/23/16 [History] Potassium Chloride ER [K-Dur 20] 20 meq PO BID 06/23/16 [History] lisinopriL [Zestril] 10 mg PO HS 06/23/16 [History] Rosuvastatin [Crestor] 20 mg PO HS 10/07/22 [History] Apixaban [Eliquis] 5 mg PO BID 12/27/23 [History] Loratadine [Claritin] 10 mg PO HS 12/27/23 [History] Albuterol Sulfate [Ventolin HFA] 1 - 2 puff INHALATION Q6H PRN 01/08/25 [History] [facility] 1 tab PO DAILY 01/08/25 [History] Magnesium Glycinate 350 mg PO DAILY 01/08/25 [History] Multivit with Calcium,Iron,Min [Women's Multivitamin] 1 each PO DAILY 01/08/25 [History] Vitamin D3 + Vitamin K2 1 tab PO DAILY 01/08/25 [History] HYDROcodone/APAP 7.5-325MG [[place] 7.5-325] 1 - 2 tab PO Q6H PRN #32 tab 01/14/25 [Rx] Sennosides [Senokot] 2 tab PO DAILY PRN #60 tablet 01/14/25 [Rx] Ondansetron Odt [Zofran Odt] 1 tab PO Q8HR PRN #10 tab 01/17/25 [Rx] Follow up Appointment(s)/Referral(s): Jd Modi DO [Doctor of Osteopathic Medicine] - 01/23/25 1:45 pm (With Xiomara) Activity/Diet/Wound Care/Special Instructions: Weightbearing as tolerated with a walker. Leave dressing intact. Dressing may be removed by home care nurse or by patient in 7 days. Then change dressing twice daily until follow up. May shower with initial dressing intact and after removal. If dressing become saturated, please remove. Recommend use of compression stockings daily until follow up to help prevent swelling and blood clots. May remove at night before sleeping. Please resume Eliquis. Please follow up with [facility] and call with any questions or concerns, . Discharge Disposition: HOME WITH HOME HEALTH SERVICES
--- NOTE | 2025-01-17 14:06 | P.PN ---
Subjective Progress Note Date: 01/17/25 Hospital course: Patient is a very pleasant 74-year-old female with a past medical history of hypertension, hyperlipidemia, hypothyroidism, previous DVT on anticoagulation with Eliquis, and asthma. She is currently admitted under orthopedic surgery team status post right total knee arthroplasty revision. We were consulted for medical management throughout hospitalization. Physical exam: Patient seen and fully evaluated at bedside this morning. She is postoperative day 2. She reports still having a difficult time getting around. Patient has moderate postoperative swelling and bruising to right knee extending downward into her ankle. Discussed with patient and encouraged elevation and ice and placed to ice pack send patient's leg at this time. She denies having any nausea or vomiting, dizziness, lightheadedness, chest pain, palpitations, or shortness of breath. She reports having decent oral intake. She reports urinating without any difficulties and passing flatus. She denies bowel movement as of yet since completion of surgical procedure. Vital signs reviewed and stable. General: Nontoxic, no distress and appears stated age. Derm: Skin warm and dry, normal coloration for ethnicity. Head: Atraumatic, normocephalic and symmetric. Eyes: EOM's intact, no lid lag, and anicteric sclera Mouth: no lip lesions, mucus membranes moist Cardiovascular: regular rate and rhythm with normal S1S2, no murmur, positive posterior tibial pulses bilaterally, and cap refill < 2 seconds. Lungs: Respirations even, regular, and unlabored on room air. Lungs CTA bilaterally, no rhonchi, no rales, no wheezing, and no accessory muscle usage. Abdominal: soft, nontender to palpation, no guarding, no appreciable organomegaly Ext: ROM intact. No gross muscle atrophy, no edema, no contractures Neuro: Speech clear, face symmetrical and CN II-XII grossly intact with no noted focal neuro deficits Psych: Alert and oriented to person, place, time, and situation. Appropriate and pleasant affect. Assessment and Plan of Care: Status post right total knee arthroplasty revision Management per primary admitting orthopedic surgery team including DVT prophylaxis, wound/dressing management, pain management, weightbearing, and PT/OT. Currently DVT prophylaxis with Eliquis 5 mg twice daily. Acute postoperative blood loss anemia Preoperative hemoglobin 12.5 with postoperative hemoglobin currently 9.2. This is stable and expected finding. No active bleeding noted, no need for transfusion or further intervention at this time. Hypomagnesemia Resolved. Repeat morning magnesium 1.8. Hypertension Monitor vital signs and continue daily medication regimen with lisinopril 10 mg nightly. Hypothyroidism Continue levothyroxine 75 mcg daily. Hyperlipidemia Continue rosuvastatin 20 mg nightly. History of DVT Continue Eliquis 5 mg twice daily. Data and imaging reviewed: Morning labs reviewed. CBC showing stable hemoglobin of 9.1. BMP unremarkable. Blood glucose 117. Magnesium 1.8. Vital signs reviewed. Blood pressure 114/74, heart rate 85, respiratory rate 18, temp 98.4 F, and SpO2 of 90% on room air. Thank you for allowing us to participate in the care of this pleasant patient. Do not hesitate to contact us with questions. Someone can be reached from the [facility] hospitalist group all hours of the day at [phone] or via [employer]. Patient was seen independently by Nurse Pracitioner. This document was prepared using [employer] dictation software. Please allow for errors in cray fishing hand, while rare they do occur. Greg Mayer NP rendered care for this patient independently, reviewed the findings and plan as documented in the note above and agree with plan. I did not physically speak with or examine the patient on this date. Objective - Vital Signs Vital signs: Vital Signs Temp 98.4 F 01/17/25 07:15 Pulse 85 01/17/25 07:15 Resp 18 01/17/25 07:15 BP 114/74 01/17/25 07:15 Pulse Ox 90 L 01/17/25 07:15 FiO2 Intake & Output 01/16/25 01/17/25 01/17/25 18:59 06:59 18:59 Intake Total 1620 Balance 1620 Intake: Oral 1620 Other: # Voids 2 3 # Bowel Movements 0 - Labs CBC & Chem 7: 01/17/25 02:55 01/17/25 02:55 Labs: Abnormal Lab Results - Last 24 Hours (Table) 01/17/25 01/17/25 Range/Units 02:55 02:55 RBC 3.00 L (4.10-5.20) X 10*6/uL Hgb 9.1 L (12.0-15.0) g/dL Hct 29.3 L (37.2-46.3) % MCV 97.7 H (80.0-97.0) FL MCHC 31.1 L (32.0-37.0) g/dL Monocytes # 1.42 H (0.20-1.00) X 10*3/uL BUN 8.3 L (9.0-27.0) mg/dL Creatinine 0.5 L (0.6-1.5) mg/dL Glucose 117 H (70-110) mg/dL
== END 2025-01-17 16:17 | disposition home health service (06) | DRG 467 ==
LOC: 2ORMAIN 01-14 07:21 → 4SSUR 01-14 14:39
PROVIDERS: ADMIT Orthopaedic Surgery; ATTEND Orthopaedic Surgery
PROC: 0SPC0JZ Removal of Synthetic Substitute from Right Knee Joint, Open Approach (ICD-10-PCS; principal; 2025-01-14 09:10)
PROC: 0SRC069 Replacement of Right Knee Joint with Oxidized Zirconium on Polyethylene Synthetic Substitute, Cemented, Open Approach (ICD-10-PCS; principal; 2025-01-14 09:10)
DX: T84.092A Other mechanical complication of internal right knee prosthesis, initial encounter (principal); D62 Acute posthemorrhagic anemia; E03.9 Hypothyroidism, unspecified; I10 Essential (primary) hypertension; J45.909 Unspecified asthma, uncomplicated; E66.9 Obesity, unspecified; T84.062A Wear of articular bearing surface of internal prosthetic right knee joint, initial encounter; E78.5 Hyperlipidemia, unspecified; K21.9 Gastro-esophageal reflux disease without esophagitis; G43.909 Migraine, unspecified, not intractable, without status migrainosus; I25.10 Atherosclerotic heart disease of native coronary artery without angina pectoris; H91.91 Unspecified hearing loss, right ear; G89.29 Other chronic pain; I25.2 Old myocardial infarction; K57.30 Diverticulosis of large intestine without perforation or abscess without bleeding; M25.361 Other instability, right knee; Y79.2 Prosthetic and other implants, materials and accessory orthopedic devices associated with adverse incidents; Z68.31 Body mass index [BMI] 31.0-31.9, adult; Z91.81 History of falling; Z79.01 Long term (current) use of anticoagulants; Z79.890 Hormone replacement therapy; Z79.899 Other long term (current) drug therapy; Z86.718 Personal history of other venous thrombosis and embolism; Z87.442 Personal history of urinary calculi; Z87.81 Personal history of (healed) traumatic fracture; Z60.2 Problems related to living alone; Z79.3 Long term (current) use of hormonal contraceptives; Z88.0 Allergy status to penicillin; Z88.8 Allergy status to other drugs, medicaments and biological substances; Z88.1 Allergy status to other antibiotic agents; Z91.011 Allergy to milk products; Z96.651 Presence of right artificial knee joint
CPT/HCPCS: 64448; 64473; 80048; 83735; 85025; 85027; 85610; 94640

== ENCOUNTER → 2025-01-09 | Outpatient (CLI) | payer MEDICARE, BC | END | disposition home or self-care (01) | LOC: LABWHC1 16:05 | PROVIDERS: ATTEND Orthopaedic Surgery | DX: Z01.812 Encounter for preprocedural laboratory examination (principal); Z22.322 Carrier or suspected carrier of Methicillin resistant Staphylococcus aureus | CPT/HCPCS: 87070 ==

== ENCOUNTER 2025-01-19 00:42 | Emergency (ER) | payer MEDICARE, BC ==
[2025-01-19 01:37] LABS: Basophils # (A) 0.05 10*3/uL (0.00-0.10); Basophils % (A) 0.7 %; Eosinophils # (A) 0.17 10*3/uL (0.04-0.35); Eosinophils % (A) 2.4 %; HCT 32.7 % (37.2-46.3); HGB 10.7 g/dL (12.0-15.0); Lymphocytes # (A) 1.12 10*3/uL (0.90-5.00); Lymphocytes % (A) 15.8 %; MCH 31.1 pg (27.0-32.0); MCHC 32.7 g/dL (32.0-37.0); MCV 95.1 fL (80.0-97.0); Monocytes # (A) 1.13 10*3/uL (0.20-1.00); Monocytes % (A) 15.9 %; Neutrophils # (A) 4.61 10*3/uL (1.80-7.70); Neutrophils % (A) 65.1 %; Platelet Count 248 10*3/uL (140-440); RBC 3.44 10*6/uL (4.10-5.20); RDW 12.4 % (11.5-14.5); WBC 7.09 10*3/uL (4.50-10.00)
[2025-01-19 02:30] LABS: ALT 16 U/L (4-34); AST 22 U/L (14-36); African American GFR (CKD) >90 (>60 ml/min/1.73 sqM); Albumin 3.7 g/dL (3.5-5.0); Alkaline Phosphatase 95 U/L (38-126); Anion Gap 8 mmol/L; Blood Urea Nitrogen 13 mg/dL (7-17); Calcium 9.7 mg/dL (8.4-10.2); Carbon Dioxide 29 mmol/L (22-30); Chloride 100 mmol/L (98-107); Glucose 124 mg/dL (74-99); Non-African American GFR(CKD) 89 (>60 ml/min/1.73 sqM); Potassium 4.3 mmol/L (3.5-5.1); Sodium 137 mmol/L (137-145); Total Protein 6.4 g/dL (6.3-8.2)
--- NOTE | 2025-01-19 03:08 | ED ---
Extremity Problem HPI - General Source: patient, RN notes reviewed Mode of arrival: wheelchair Limitations: no limitations <Aurelia Mckeon - Last Filed: 01/19/25 03:47> <Terence Curry - Last Filed: 01/19/25 05:31> - General Chief complaint: Extremity Problem,Nontraumatic Stated complaint: right ankle swelling;post op Time Seen by Provider: 01/19/25 03:04 - History of Present Illness Initial comments: 74-year-old female presenting for right lower leg swelling/pain x 1 day. States she underwent knee replacement with Dr. Modi 5 days ago and was discharged yesterday. States over the course of the day she has had increasing in pain and swelling in the right lower leg. Denies purulence or drainage from incision site. Denies fevers, nausea, vomiting. She is on Eliquis as she had a blood clot status post surgery last year. (Aurelia Mckeon) - Related Data Home Medications Medication Instructions Recorded Confirmed Fluticasone/Vilanterol [Breo 1 puff INHALATION QAM 06/23/16 01/08/25 Ellipta 200-25 Mcg Inhaler] Lansoprazole [Prevacid] 30 mg PO HS 06/23/16 01/08/25 Levothyroxine Sodium [Synthroid] 75 mcg PO QAM 06/23/16 01/08/25 Montelukast Sodium [Singulair] 10 mg PO HS 06/23/16 01/08/25 Potassium Chloride ER [K-Dur 20] 20 meq PO BID 06/23/16 01/08/25 lisinopriL [Zestril] 10 mg PO HS 06/23/16 01/08/25 Rosuvastatin [Crestor] 20 mg PO HS 10/07/22 01/08/25 Apixaban [Eliquis] 5 mg PO BID 12/27/23 01/08/25 Loratadine [Claritin] 10 mg PO HS 12/27/23 01/08/25 Albuterol Sulfate [Ventolin HFA] 1 - 2 puff INHALATION Q6H PRN 01/08/25 01/08/25 [facility] 1 tab PO DAILY 01/08/25 01/08/25 Magnesium Glycinate 350 mg PO DAILY 01/08/25 01/08/25 Multivit with Calcium,Iron,Min 1 each PO DAILY 01/08/25 01/08/25 [Women's Multivitamin] Vitamin D3 + Vitamin K2 1 tab PO DAILY 01/08/25 01/08/25 Previous Rx's Medication Instructions Recorded HYDROcodone/APAP 7.5-325MG [[place] 1 - 2 tab PO Q6H PRN #32 tab 01/14/25 7.5-325] Sennosides [Senokot] 2 tab PO DAILY PRN #60 tablet 01/14/25 Ondansetron Odt [Zofran Odt] 1 tab PO Q8HR PRN #10 tab 01/17/25 Allergies Allergy/AdvReac Type Severity Reaction Status Date / Time cefuroxime [From Ceftin] Allergy Unknown Verified 01/19/25 00:46 cinnamon Allergy Stuffed Up Verified 01/19/25 00:46 and Sleepy clindamycin Allergy swelling Verified 01/19/25 00:46 of mouth & eyes Fish Containing Products Allergy saltwater Verified 01/19/25 00:46 [Fish] fish only Milk Containing Products Allergy Unknown Verified 01/19/25 00:46 (Dairy) [Dairy] Penicillins Allergy Lips/Face Verified 01/19/25 00:46 Swelling shellfish derived [Shellfish] Allergy Unknown Verified 01/19/25 00:46 wheat Allergy Unknown Verified 01/19/25 00:46 bacitracin AdvReac Rash/Hives Verified 01/19/25 00:46 [From Neosporin ([id number])] polymyxin B AdvReac Rash/Hives Verified 01/19/25 00:46 [From Neosporin ([id number])] Metal Allergy Redness Uncoded 01/19/25 00:46 Review of Systems ROS Other: All systems not noted in ROS Statement are negative. <Aurelia Mckeon - Last Filed: 01/19/25 03:47> ROS Other: All systems not noted in ROS Statement are negative. <Terence Curry - Last Filed: 01/19/25 05:31> ROS Statement: Those systems with pertinent positive or pertinent negative responses have been documented in the HPI. Past Medical History Past Medical History: Asthma, Hypertension Additional Past Medical History / Comment(s): Hx fall Jul 2023 - fractured right femur, resulted in right DVT. Hx ulcer due to taking Motrin. 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 Has kidney stone - no treatment required. Hx migraines - no longer gets them. Last Myocardial Infarction Date:: 2021 History of Any Multi-Drug Resistant Organisms: None Reported Past Surgical History: Adenoidectomy, Appendectomy, Breast Surgery, Hysterectomy, Joint Replacement, Orthopedic Surgery, Tonsillectomy Additional Past Surgical History / Comment(s): ear shoulder wrist. right rotator cuff repair. Past Anesthesia/Blood Transfusion Reactions: No Reported Reaction Additional Past Anesthesia/Blood Transfusion Reaction / Comment(s): Really cold after one procedure. States she's a shallow breather with Anesthesia. Past Psychological History: No Psychological Hx Reported Smoking Status: Never smoker Past Alcohol Use History: None Reported Past Drug Use History: None Reported - Past Family History Mother Family Medical History: No Reported History <Aurelia Mckeon - Last Filed: 01/19/25 03:47> General Exam Limitations: no limitations General appearance: alert, in no apparent distress Head exam: Present: atraumatic, normocephalic, normal inspection Right Upper Leg exam: Present: normal inspection, full ROM. Absent: tenderness, s welling Knee exam: Present: full ROM, tenderness, swelling. Absent: normal inspection (There is a well-healing vertical incision present on anterior knee with no surrounding erythema or drainage) Lower Leg exam: Present: full ROM, tenderness, swelling, erythema. Absent: normal inspection (Diffuse edema, contusions, and tenderness throughout right lower leg) Ankle exam: Present: full ROM, swelling. Absent: normal inspection, tenderness Foot/Toe exam: Present: full ROM, swelling. Absent: normal inspection, tenderness Neurovascular tendon exam: Present: no vascular compromise. Absent: pulse deficit, abnormal cap refill, sensory deficit Neurological exam: Present: alert, oriented X3 Psychiatric exam: Present: normal affect, normal mood Skin exam: Present: warm, dry, intact, normal color. Absent: rash <Aurelia Mckeon - Last Filed: 01/19/25 03:47> Course Vital Signs 01/19/25 00:43 Temperature 98.1 F Pulse Rate 93 Respiratory 18 Rate Blood Pressure 137/84 O2 Sat by Pulse 96 Oximetry Medical Decision Making - Lab Data Result diagrams: 01/19/25 01:34 01/19/25 01:34 <Aurelia Mckeon - Last Filed: 01/19/25 03:47> - Lab Data Result diagrams: 01/19/25 01:34 01/19/25 01:34 <Terence Curry - Last Filed: 01/19/25 05:31> - Medical Decision Making Was pt. sent in by a medical professional or institution (, PA, MACHINE PACKAGE SEALER, urgent care, hospital, or alf...) When possible be specific @ -No Did you speak to anyone other than the patient for history (EMS, parent, family, police, friend...)? What history was obtained from this source @ -No Did you review nursing and triage notes (agree or disagree)? Why? @ -I reviewed and agree with nursing and triage notes Were old charts reviewed (outside hosp., previous admission, EMS record, old EKG, old radiological studies, urgent care reports/EKG's, alf records)? Report findings @ -No old charts were reviewed Differential Diagnosis (chest pain, altered mental status, abdominal pain women, abdominal pain men, vaginal bleeding, weakness, fever, dyspnea, syncope, headache, dizziness, GI bleed, back pain, seizure, CVA, palpatations, mental health, musculoskeletal)? @ -Differential Musculoskeletal Muscular strain, contusion, ligament sprain, fracture, arthritis, septic arthritis, bursitis, cellulitis, muscle spasm, nerve compression, DVT, arterial occlusion, herpes zoster, electrolyte abnormality, tumor.... This is not meant to be in all inclusive list EKG interpreted by me (3pts min.). @ -None X-rays interpreted by me (1pt min.). @ -None done CT interpreted by me (1pt min.). @ -None done U/S interpreted by me (1pt. min.). @ -Ultrasound right lower extremity pending What testing was considered but not performed or refused? (CT, X-rays, U/S, labs)? Why? @ -None What meds were considered but not given or refused? Why? @ -None Did you discuss the management of the patient with other professionals (professionals i.e. , PATRIA, MACHINE PACKAGE SEALER, lab, RT, psych nurse, social media assistant, master data analyst, teacher, correctional officer chief, case finishing machine adjuster)? Give summary @ -No Was smoking cessation discussed for >3mins.? @ -No Was critical care preformed (if so, how long)? @ -No Were there social determinants of health that impacted care today? How? (Homelessness, low income, unemployed, alcoholism, drug addiction, transportation, low edu. Level, literacy, decrease access to med. care, prison, rehab)? @ -No Was there de-escalation of care discussed even if they declined (Discuss DNR or withdrawal of care, Hospice)? DNR status @ -No What co-morbidities impacted this encounter? (DM, HTN, Smoking, COPD, CAD, Cancer, CVA, ARF, Chemo, Hep., AIDS, mental health diagnosis, sleep apnea, morbid obesity)? @ -None Was patient admitted / discharged? Hospital course, mention meds given and route, prescriptions, significant lab abnormalities, going to OR and other perti nent info. @ -74-year-old female presenting for right lower leg pain/swelling status post knee replacement surgery 5 days ago. Patient is on Eliquis. Neurovascularly intact. Incision is clean dry and intact. Provided with appropriate analgesics. Lab work unremarkable. Case signed out to my ED attending Dr. Curry pending ultrasound results and disposition (Aurelia Mckeon) - Lab Data Lab Results 01/19/25 01/19/25 Range/Units 01:34 01:34 WBC 7.09 (4.50-10.00) 10*3/uL RBC 3.44 L (4.10-5.20) 10*6/uL Hgb 10.7 L (12.0-15.0) g/dL Hct 32.7 L (37.2-46.3) % MCV 95.1 (80.0-97.0) fL MCH 31.1 (27.0-32.0) pg MCHC 32.7 (32.0-37.0) g/dL Plt Count 248 (140-440) 10*3/uL MPV 10.0 (9.5-12.2) fL Immature Gran % (Auto) 0.1 % Neutrophils % 65.1 % Lymphocytes % 15.8 % Monocytes % 15.9 % Eosinophils % 2.4 % Basophils % 0.7 % Immature Gran # 0.01 (0.00-0.04) 10*3/uL Neutrophils # 4.61 (1.80-7.70) 10*3/uL Lymphocytes # 1.12 (0.90-5.00) 10*3/uL Monocytes # 1.13 H (0.20-1.00) 10*3/uL Eosinophils # 0.17 (0.04-0.35) 10*3/uL Basophils # 0.05 (0.00-0.10) 10*3/uL Sodium 137 (137-145) mmol/L Potassium 4.3 (3.5-5.1) mmol/L Chloride 100 (98-107) mmol/L Carbon Dioxide 29 (22-30) mmol/L Anion Gap 8 mmol/L BUN 13 (7-17) mg/dL Creatinine 0.63 (0.52-1.04) mg/dL Est GFR (CKD-EPI)AfAm >90 (>60 ml/min/1.73 sqM) Est GFR (CKD-EPI)NonAf 89 (>60 ml/min/1.73 sqM) Glucose 124 H (74-99) mg/dL Calcium 9.7 (8.4-10.2) mg/dL Total Bilirubin 1.1 (0.2-1.3) mg/dL AST 22 (14-36) U/L ALT 16 (4-34) U/L Alkaline Phosphatase 95 (38-126) U/L Total Protein 6.4 (6.3-8.2) g/dL Albumin 3.7 (3.5-5.0) g/dL Disposition <Aurelia Mckeon - Last Filed: 01/19/25 03:47> Is patient prescribed a controlled substance at d/c from ED?: No <Terence Curry - Last Filed: 01/19/25 05:31> Clinical Impression: Leg edema Disposition: HOME SELF-CARE Condition: Good Instructions (If sedation given, give patient instructions): Leg Edema (ED) Referrals: Vlad Gibson MD [Primary Care Provider] - 1-2 days
[2025-01-19] MEDS: MORPHINE SULFATE 4 MG/ML SYRINGE IVP STA (03:09)
--- NOTE | 2025-01-19 04:19 | US ---
EXAM: US Duplex Right Lower Extremity Veins CLINICAL HISTORY: Pain TECHNIQUE: Real-time duplex ultrasound scan of the right lower extremity veins integrating B-mode two-dimensional vascular structure, Doppler spectral analysis, color flow Doppler imaging and compression. COMPARISON: 09/13/2023. FINDINGS: Deep veins: Unremarkable. No DVT in the visualized common femoral, femoral, proximal deep femoral or popliteal veins. The veins demonstrate normal color flow, are normally compressible, with normal phasic flow and/or augmentation response. Previously demonstrated thrombus in the posterior tibial vein is not identified. Superficial veins: Unremarkable. No thrombus in the visualized great saphenous vein. Soft tissues: No acute abnormality. No popliteal cyst. IMPRESSION: No evidence of deep venous thrombosis. Previously demonstrated thrombus in the posterior tibial vein is not identified.
[2025-01-19] MEDS: HYDROmorphone 0.5 MG/0.5 ML SYRINGE IVP STA (05:43)
[2025-01-19 10:14] VITALS: BP 128/75; PULSE 92; RESP 16; TEMP 98.3
== END 2025-01-19 05:51 | disposition home or self-care (01) ==
LOC: EC 00:42
DX: R60.0 Localized edema (principal); Z88.1 Allergy status to other antibiotic agents; Z88.0 Allergy status to penicillin; Z91.018 Allergy to other foods; Z91.013 Allergy to seafood; Z91.011 Allergy to milk products; Z88.8 Allergy status to other drugs, medicaments and biological substances
CPT/HCPCS: 36415; 80053; 85025; 93971; 99284; 96374; 96375; J2270; J1171

== ENCOUNTER 2025-01-20 17:46 | Inpatient (IN) | payer MEDICARE, BC ==
[2025-01-20] MEDS ORDERED: VANCOMYCIN IV PER PHARMACY 1 EACH MISC MISCELLANE PRN (18:22)
[2025-01-20] MEDS ORDERED: IPRATROPIUM-ALBUTEROL 3 ML NEB INHALATION PRN (18:25)
--- NOTE | 2025-01-20 18:25 | ED ---
Extremity Problem HPI - General Chief complaint: Skin/Abscess/Foreign Body Stated complaint: Post op right leg swelling/infection Time Seen by Provider: 01/20/25 18:00 Source: patient, RN notes reviewed, old records reviewed Mode of arrival: ambulatory Limitations: no limitations - History of Present Illness Initial comments: This is a 74-year-old female to the ER for evaluation of significant right leg pain, recent knee replacement right knee here at this hospital. Ultrasound 2 days ago for DVT negative patient is on Eliquis. Pain is severe with severe not redness of the right lower extremity MD Complaint: extremity pain, extremity swelling -: days(s) Location: right, lower extremity -: Yes myalgia, Yes arthralgia Radiation: proximal, distal Severity scale (1-10): 10 Quality: aching, constant Consistency: constant Improves with: nothing Worsens with: nothing Associated Symptoms: denies other symptoms - Related Data Home Medications Medication Instructions Recorded Confirmed Fluticasone/Vilanterol [Breo 1 puff INHALATION RT-DAILY 06/23/16 01/20/25 Ellipta 200-25 Mcg Inhaler] Lansoprazole [Prevacid] 30 mg PO HS 06/23/16 01/20/25 Levothyroxine Sodium [Synthroid] 75 mcg PO DAILY 06/23/16 01/20/25 Montelukast Sodium [Singulair] 10 mg PO HS 06/23/16 01/20/25 Potassium Chloride ER [K-Dur 20] 20 meq PO BID 06/23/16 01/20/25 lisinopriL [Zestril] 10 mg PO HS 06/23/16 01/20/25 Rosuvastatin [Crestor] 20 mg PO HS 10/07/22 01/20/25 Apixaban [Eliquis] 5 mg PO BID 12/27/23 01/20/25 Loratadine [Claritin] 10 mg PO HS 12/27/23 01/20/25 Albuterol Sulfate [Ventolin HFA] 2 puff INHALATION RT-Q6H PRN 01/08/25 01/20/25 [facility] 1 tab PO HS 01/08/25 01/20/25 Multivit with Calcium,Iron,Min 1 tab PO HS 01/08/25 01/20/25 [Women's Multivitamin] Magnesium Oxide [Mag-Ox] 400 mg PO DAILY 01/20/25 01/20/25 Previous Rx's Medication Instructions Recorded HYDROcodone/APAP 7.5-325MG [[place] 1 - 2 tab PO Q6H PRN #32 tab 01/14/25 7.5-325] Sennosides [Senokot] 2 tab PO DAILY PRN #60 tablet 01/14/25 Ondansetron Odt [Zofran ODT] 1 tab PO Q8HR PRN #10 tab 01/17/25 Linezolid [Zyvox] 600 mg PO Q12HR 10 Days #20 tab 01/27/25 Allergies Allergy/AdvReac Type Severity Reaction Status Date / Time cefuroxime [From Ceftin] Allergy Unknown Verified 01/20/25 19:46 cinnamon Allergy Stuffed Up Verified 01/20/25 19:46 and Sleepy clindamycin Allergy swelling Verified 01/20/25 19:46 of mouth & eyes Fish Containing Products Allergy saltwater Verified 01/20/25 19:46 [Fish] fish only Milk Containing Products Allergy Unknown Verified 01/20/25 19:46 (Dairy) [Dairy] Penicillins Allergy Lips/Face Verified 01/20/25 19:46 Swelling shellfish derived [Shellfish] Allergy Unknown Verified 01/20/25 19:46 wheat Allergy Unknown Verified 01/20/25 19:46 bacitracin AdvReac Rash/Hives Verified 01/20/25 19:46 [From Neosporin ([id number])] polymyxin B AdvReac Rash/Hives Verified 01/20/25 19:46 [From Neosporin ([id number])] Metal Allergy Redness Uncoded 01/20/25 17:55 Review of Systems ROS Statement: Those systems with pertinent positive or pertinent negative responses have been documented in the HPI. ROS Other: All systems not noted in ROS Statement are negative. Past Medical History Past Medical History: Asthma, Hypertension Additional Past Medical History / Comment(s): Hx fall Jul 2023 - fractured right femur, resulted in right DVT. Hx ulcer due to taking Motrin. 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 Has kidney stone - no treatment required. Hx migraines - no longer gets them. Last Myocardial Infarction Date:: 2021 History of Any Multi-Drug Resistant Organisms: None Reported Past Surgical History: Adenoidectomy, Appendectomy, Breast Surgery, Hysterectomy, Joint Replacement, Orthopedic Surgery, Tonsillectomy Additional Past Surgical History / Comment(s): ear shoulder wrist. right rotator cuff repair. Past Anesthesia/Blood Transfusion Reactions: No Reported Reaction Additional Past Anesthesia/Blood Transfusion Reaction / Comment(s): Really cold after one procedure. States she's a shallow breather with Anesthesia. Past Psychological History: No Psychological Hx Reported Smoking Status: Never smoker Past Alcohol Use History: None Reported Past Drug Use History: None Reported - Past Family History Mother Family Medical History: No Reported History General Exam Limitations: no limitations General appearance: alert, in no apparent distress Head exam: Present: atraumatic, normocephalic, normal inspection Eye exam: Present: normal appearance, PERRL, EOMI. Absent: scleral icterus, co njunctival injection, periorbital swelling ENT exam: Present: normal exam, mucous membranes moist Neck exam: Present: normal inspection. Absent: tenderness, meningismus, lymphadenopathy Respiratory exam: Present: normal lung sounds bilaterally. Absent: respiratory distress, wheezes, rales, rhonchi, stridor Cardiovascular Exam: Present: regular rate, normal rhythm, normal heart sounds. Absent: systolic murmur, diastolic murmur, rubs, gallop, clicks GI/Abdominal exam: Present: soft, normal bowel sounds. Absent: distended, tenderness, guarding, rebound, rigid Extremities exam: Present: normal inspection, full ROM, normal capillary refill. Absent: tenderness, pedal edema, joint swelling, calf tenderness Back exam: Present: normal inspection Neurological exam: Present: alert, oriented X3, CN II-XII intact Psychiatric exam: Present: normal affect, normal mood Skin exam: Present: warm, dry, intact, normal color. Absent: rash Course Vital Signs 01/20/25 01/20/25 01/20/25 17:51 18:28 20:43 Temperature 98.2 F 98.2 F 99.1 F Pulse Rate 102 H 93 92 Respiratory 18 18 18 Rate Blood Pressure 111/72 121/63 112/62 O2 Sat by Pulse 91 L 94 L 92 L Oximetry - Reevaluation(s) Reevaluation #1: 01/20/25 18:24 Medical records reviewed Reevaluation #2: 01/20/25 18:44 Patient's symptoms are improved pain is improved Reevaluation #3: 01/20/25 18:44 Patient informed of results questions answered Reevaluation #4: Was pt. sent in by a medical professional or institution (PATRIA Mclean, RESTORATIVE AIDE, urgent care, hospital, or intermediate...) When possible be specific @ -no Did you speak to anyone other than the patient for history (EMS, parent, family, police, friend...)? What history was obtained from this source @ -no Did you review nursing and triage notes (agree or disagree)? Why? @ -agree Are old charts reviewed (outside hosp., previous admission, EMS record, old EKG, old radiological studies, urgent care reports/EKG's, intermediate records)? Report findings @ -yes Differential Diagnosis (chest pain, altered mental status, abdominal pain women, abdominal pain men, vaginal bleeding, weakness, fever, dyspnea, syncope, headache, dizziness, GI bleed, back pain, seizure, CVA, palpatations, mental health, musculoskeletal)? @ -prior EKG interpreted by me (3pts min.). @ -yes X-rays interpreted by me (1pt min.). @ -yes negative for acute disease CT interpreted by me (1pt min.). @ -no U/S interpreted by me (1pt. min.). @ -no What testing was considered but not performed or refused? (CT, X-rays, U/S, labs)? Why? @ -none What meds were considered but not given or refused? Why? @ -none Did you discuss the management of the patient with other professionals (professionals i.e. PATRIA Mclean, RESTORATIVE AIDE, lab, RT, psych nurse, social services specialist, fairground operator, teacher, security patrol officer, case specialist)? Give summary @ -no Was smoking cessation discussed for >3mins.? @ -no Was critical care preformed (if so, how long)? @ -no Were there social determinants of health that impacted care today? How? (Homelessness, low income, unemployed, alcoholism, drug addiction, trans portation, low edu. Level, literacy, decrease access to med. care, residential, rehab)? @ -none Was there de-escalation of care discussed even if they declined (Discuss DNR or withdrawal of care, Hospice)? DNR status @ -no What co-morbidities impacted this encounter? (DM, HTN, Smoking, COPD, CAD, Cancer, CVA, ARF, Chemo, Hep., AIDS, mental health diagnosis, sleep apnea, morbid obesity)? @ -none Was patient admitted / discharged? Hospital course, mention meds given and route, prescriptions, significant lab abnormalities, going to OR and other pertinent info. @ - 74 female to the ER for evaluation patient presents today for evaluation of lower extremity cellulitis right leg cellulitis severe status post knee replacement of the right leg severe cellulitis and pain of the right lower extremity recent ultrasound negative for DVT Admitted Undiagnosed new problem with uncertain prognosis? @ -no Drug Therapy requiring intensive monitoring for toxicity (Heparin, Nitro, Insulin, Cardizem)? @ -no Were any procedures done? @ -no Diagnosis/symptom? @ -Postoperative cellulitis Acute, or Chronic, or Acute on Chronic? @ -Acute Uncomplicated (without systemic symptoms) or Complicated (systemic symptoms)? @ -Complicated Side effects of treatment? @ -no Exacerbation, Progression, or Severe Exacerbation? @ -exacerbation Poses a threat to life or bodily function? How? (Chest pain, [place], [place], pneumonia, PE, COPD, DKA, ARF, appy, cholecystitis, CVA, Diverticulitis, Homicidal, Suicidal, threat to staff... and all critical care pts) @ -yes postoperative infection - Consultations Consultation #1: Spoke with sound who agrees to admit this patient Medical Decision Making - Medical Decision Making 74 female to the ER for evaluation patient presents today for evaluation of low er extremity cellulitis right leg cellulitis severe status post knee replacement of the right leg severe cellulitis and pain of the right lower extremity recent ultrasound negative for DVT - Lab Data Result diagrams: 01/25/25 05:47 01/27/25 02:57 - EKG Data -: EKG Interpreted by Me (EKG is sinus 87 WI 134 QRS 70 QTc 386) - Radiology Data Radiology results: report reviewed (Chest x-ray negative for acute disease x-ray tib-fib negative for acute disease), image reviewed Disposition Clinical Impression: Status post revision of total replacement of right knee, Leg edema, Cellulitis of right leg Disposition: ADMITTED IP TO THIS [facility] Condition: Fair Is patient prescribed a controlled substance at d/c from ED?: No Time of Disposition: 18:30
[2025-01-20] MEDS ORDERED: NALOXONE 0.4 MG/ML 1 ML VIAL IV PRN (18:34)
[2025-01-20] MEDS: LACTATED RINGERS 1,000 ML IV SCH (18:49)
[2025-01-20] MEDS: AMPICILLIN-SULBACTAM 3 GM in SODIUM CHLORIDE 0.9% 100 ML IVPB STA (19:02)
[2025-01-20 19:17] LABS: Basophils # (A) 0.06 10*3/uL (0.00-0.10); Basophils % (A) 0.7 %; Eosinophils # (A) 0.10 10*3/uL (0.04-0.35); Eosinophils % (A) 1.1 %; HCT 32.4 % (37.2-46.3); HGB 10.6 g/dL (12.0-15.0); Lymphocytes # (A) 1.38 10*3/uL (0.90-5.00); Lymphocytes % (A) 15.8 %; MCH 31.4 pg (27.0-32.0); MCHC 32.7 g/dL (32.0-37.0); MCV 95.9 fL (80.0-97.0); Monocytes # (A) 1.29 10*3/uL (0.20-1.00); Monocytes % (A) 14.8 %; Neutrophils # (A) 5.88 10*3/uL (1.80-7.70); Neutrophils % (A) 67.3 %; Platelet Count 297 10*3/uL (140-440); RBC 3.38 10*6/uL (4.10-5.20); RDW 12.5 % (11.5-14.5); WBC 8.74 10*3/uL (4.50-10.00)
[2025-01-20 19:30] LABS: INR 1.0 (<1.2); Partial Thromboplastin Time 31.3 sec (22.0-30.0); Prothrombin Time 11.2 sec (10.0-12.5)
[2025-01-20] MEDS ORDERED: VANCOMYCIN 1,500 MG in SODIUM CHLORIDE 0.9% 500 ML 500 ML IVPB ONE (19:30)
--- NOTE | 2025-01-20 19:33 | XR ---
EXAMINATION TYPE: XR chest 2V DATE OF EXAM: 01/20/2025 7:28 PM COMPARISON: 12/27/2023 CLINICAL INDICATION: Female, 74 years old with history of Weakness: Shortness of breath TECHNIQUE: XR chest 2V views of the chest are obtained. FINDINGS: Scattered senescent parenchymal changes noted. Hyperinflation compatible with COPD. No evidence for infiltrate. Discoid atelectasis right infrahilar region. Heart size is stable. Mediastinal structures are stable and grossly unremarkable. No evidence for hilar prominence. Degenerative changes dorsal spine. IMPRESSION: 1. No evidence for acute pulmonary disease. [facility], , 01/20/2025 7:31 PM
[2025-01-20 19:34] LABS: ALT 14 U/L (4-34); AST 21 U/L (14-36); African American GFR (CKD) >90 (>60 ml/min/1.73 sqM); Albumin 3.8 g/dL (3.5-5.0); Alkaline Phosphatase 99 U/L (38-126); Anion Gap 10 mmol/L; Blood Urea Nitrogen 15 mg/dL (7-17); Calcium 9.3 mg/dL (8.4-10.2); Carbon Dioxide 26 mmol/L (22-30); Chloride 102 mmol/L (98-107); Glucose 118 mg/dL (74-99); Magnesium 2.0 mg/dL (1.6-2.3); Non-African American GFR(CKD) >90 (>60 ml/min/1.73 sqM); Potassium 4.5 mmol/L (3.5-5.1); Sodium 138 mmol/L (137-145); Total Protein 6.5 g/dL (6.3-8.2)
--- NOTE | 2025-01-20 19:37 | XR ---
EXAMINATION TYPE: XR tibia fibula RT DATE OF EXAM: 01/20/2025 CLINICAL HISTORY: pain TECHNIQUE: AP and lateral images of the right tibia and fibula are obtained. COMPARISON: None. FINDINGS: There is no acute fracture/dislocation evident. No postoperative changes of total neoplast ic. The overlying soft tissue appears unremarkable. IMPRESSION: There is no acute fracture or dislocation seen. ICD 10 NO FRACTURE, INITIAL EVALUATION [facility], , 01/20/2025 7:35 PM
[2025-01-20 19:42] LABS: NT-Pro-B-Type Natriuretic Pept 152 pg/mL
[2025-01-20] MEDS: IPRATROPIUM-ALBUTEROL 3 ML NEB INHALATION STA (19:53)
[2025-01-20] MEDS: ONDANSETRON 4 MG/2 ML VIAL IVP PRN (20:36)
[2025-01-20] MEDS: HYDROmorphone 1 MG/ML 1 ML SYRINGE IVP PRN (20:38)
[2025-01-20] MEDS: LEVOFLOXACIN 750MG-D5W PMX 750 MG in DEXTROSE/WATER 1 150ML.BAG IVPB STA (20:41)
[2025-01-20 23:36] LABS: Bilirubin,Urine 1+ (Negative); Blood,Urine Negative (Negative); Color,Urine Dark Yellow; Glucose,Urine (UA) Negative (Negative); Ketones,Urine Trace (Negative); Leukocyte Esterase,Urine Negative (Negative); Nitrite,Urine Negative (Negative); PH, Urine 5.5 (5.0-8.0); Protein,Urine Trace (Negative); Specific Gravity,Urine 1.035 (1.001-1.035); Urobilinogen,Urine 12.0 mg/dL (<2.0)
[2025-01-21] MEDS ORDERED: ALBUTEROL NEBULIZED 2.5 MG/3 ML INHALATION PRN (03:17)
--- NOTE | 2025-01-21 03:21 | P.HPIM ---
History of Present Illness H&P Date: 01/20/25 Chief Complaint: Patient seeking help with medications due to losing insurance coverage 55-year-old male with a history of end-stage renal disease on dialysis, congestive heart failure, coronary artery disease, COPD, hypertension, diabetes mellitus, and lymphedema. Patient was recently discharged from a senior living facility but was sent home without medications due to loss of Medicaid coverage. Patient reports infected, swollen, and weepy legs. He denies feeling sick otherwise but is concerned about lack of access to medications. Patient has not had dialysis tuesday and reports poor nutrition, stating he has had little to eat in the past two days. Cardiac stent placement in 2016 following a massive heart attack Patient denies current smoking or use of street drugs. Living situation and level of independence not provided.. PMHx End-stage renal disease on dialysis Congestive heart failure Coronary artery disease with history of myocardial infarction in 2016 Chronic obstructive pulmonary disease (COPD) Hypertension Diabetes mellitus, insulin-dependent Lymphedema History of stroke Review of Systems review of systems Pertinent positives as noted in HPI. All other systems were reviewed and are negative Cardiovascular: Positive for history of congestive heart failure and coronary artery disease Respiratory: History of COPD, denies current shortness of breath Renal: End-stage renal disease on dialysis Endocrine: Diabetes mellitus Integumentary: Bilateral leg swelling, weeping ulcers Constitutional: Denies feeling sick, reports poor nutrition Neurological: History of stroke, denies seizures Past Medical History Past Medical History: Asthma, Hypertension Additional Past Medical History / Comment(s): Hx fall Jul 2023 - fractured right femur, resulted in right DVT. Hx ulcer due to taking Motrin. 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 Has kidney stone - no treatment required. Hx migraines - no longer gets them. Last Myocardial Infarction Date:: 2021 History of Any Multi-Drug Resistant Organisms: None Reported Past Surgical History: Adenoidectomy, Appendectomy, Breast Surgery, Hysterectomy, Joint Replacement, Orthopedic Surgery, Tonsillectomy Additional Past Surgical History / Comment(s): ear shoulder wrist. right rotator cuff repair. right knee replacement 01/14/25 Past Anesthesia/Blood Transfusion Reactions: No Reported Reaction Additional Past Anesthesia/Blood Transfusion Reaction / Comment(s): Really cold after one procedure. States she's a shallow breather with Anesthesia. Past Psychological History: No Psychological Hx Reported Smoking Status: Never smoker Past Alcohol Use History: None Reported Past Drug Use History: None Reported - Past Family History Mother Family Medical History: No Reported History Medications and Allergies Home Medications Medication Instructions Recorded Confirmed Type Fluticasone/Vilanterol [Breo 1 puff INHALATION RT-DAILY 06/23/16 01/20/25 History Ellipta 200-25 Mcg Inhaler] Lansoprazole [Prevacid] 30 mg PO HS 06/23/16 01/20/25 History Levothyroxine Sodium [Synthroid] 75 mcg PO DAILY 06/23/16 01/20/25 History Montelukast Sodium [Singulair] 10 mg PO HS 06/23/16 01/20/25 History Potassium Chloride ER [K-Dur 20] 20 meq PO BID 06/23/16 01/20/25 History lisinopriL [Zestril] 10 mg PO HS 06/23/16 01/20/25 History Rosuvastatin [Crestor] 20 mg PO HS 10/07/22 01/20/25 History Apixaban [Eliquis] 5 mg PO BID 12/27/23 01/20/25 History Loratadine [Claritin] 10 mg PO HS 12/27/23 01/20/25 History Albuterol Sulfate [Ventolin HFA] 2 puff INHALATION RT-Q6H PRN 01/08/25 01/20/25 History [facility] 1 tab PO HS 01/08/25 01/20/25 History Multivit with Calcium,Iron,Min 1 tab PO HS 01/08/25 01/20/25 History [Women's Multivitamin] HYDROcodone/APAP 7.5-325MG [[place] 1 - 2 tab PO Q6H PRN #32 tab 01/14/25 01/20/25 Rx 7.5-325] Sennosides [Senokot] 2 tab PO DAILY PRN #60 tablet 01/14/25 01/20/25 Rx Ondansetron Odt [Zofran Odt] 1 tab PO Q8HR PRN #10 tab 01/17/25 01/20/25 Rx Magnesium Oxide [Mag-Ox] 400 mg PO DAILY 01/20/25 01/20/25 History Allergies Allergy/AdvReac Type Severity Reaction Status Date / Time cefuroxime [From Ceftin] Allergy Unknown Verified 01/20/25 19:46 cinnamon Allergy Stuffed Up Verified 01/20/25 19:46 and Sleepy clindamycin Allergy swelling Verified 01/20/25 19:46 of mouth & eyes Fish Containing Products Allergy saltwater Verified 01/20/25 19:46 [Fish] fish only Milk Containing Products Allergy Unknown Verified 01/20/25 19:46 (Dairy) [Dairy] Penicillins Allergy Lips/Face Verified 01/20/25 19:46 Swelling shellfish derived [Shellfish] Allergy Unknown Verified 01/20/25 19:46 wheat Allergy Unknown Verified 01/20/25 19:46 bacitracin AdvReac Rash/Hives Verified 01/20/25 19:46 [From Neosporin ([id number])] polymyxin B AdvReac Rash/Hives Verified 01/20/25 19:46 [From Neosporin ([id number])] Metal Allergy Redness Uncoded 01/20/25 17:55 Physical Exam Vitals: Vital Signs Temp Pulse Pulse Resp BP BP Pulse Ox 01/21/25 01:31 98.0 F 85 17 103/67 98 01/20/25 21:07 98.3 F 95 18 139/73 94 L 01/20/25 20:43 99.1 F 92 18 112/62 92 L 01/20/25 18:28 98.2 F 93 18 121/63 94 L 01/20/25 17:51 98.2 F 102 H 18 111/72 91 L Intake and Output 01/20/25 01/20/25 01/21/25 14:59 22:59 06:59 Other: Voiding Method Toilet # Voids 1 Weight 78.018 kg Constitutional: No acute distress, conversant, pleasant Eyes: Anicteric sclerae, moist conjunctiva, Pupils equal round reactive to light ENMT: NC/AT Oropharynx clear, no erythema, or exudates Neck: Supple, no masses, or JVD No carotid bruits No thyromegaly Lungs: Clear to auscultation Clear to percussion Normal respiratory effort, no accessory muscle use Cardiovascular: Heart regular in rate and rhythm, No murmurs, gallops, or rubs No peripheral edema Abdominal: Soft Nontender, no guarding, rebound or rigidity Abdomen moving with respiration Normoactive bowel sounds Extremities - Bilateral legs and feet swollen - +3 edema in both legs, non-pitting - Chronic skin changes bilaterally with weeping ulcers - No pain or warmth to touch - No pain upon squeezing thighs - Right side more swollen than left - Bilateral dorsalis pedis arteries unable to assess - Capillary refill immediate Radial pulses intact and symmetrical No calf tenderness Psychiatric: Alert and oriented to person, place and time Appropriate affect Neuro Muscles Strength 5/5 in all 4 extremities Sensation to light touch grossly present throughout Cranial nerves II-XII grossly intact Results CBC & Chem 7: 01/20/25 19:06 01/20/25 19:06 Labs: Abnormal Lab Results - Last 24 Hours (Table) 01/20/25 01/20/25 01/20/25 Range/Units 19:06 19: 19:06 RBC 3.38 L (4.10-5.20) 10*6/uL Hgb 10.6 L (12.0-15.0) g/dL Hct 32.4 L (37.2-46.3) % Monocytes # 1.29 H (0.20-1.00) 10*3/uL APTT 31.3 H (22.0-30.0) sec Glucose 118 H (74-99) mg/dL Total Bilirubin 2.3 H (0.2-1.3) mg/dL Urine Protein (Negative) Urine Ketones (Negative) Urine Bilirubin (Negative) 01/20/25 Range/Units 23:20 RBC (4.10-5.20) 10*6/uL Hgb (12.0-15.0) g/dL Hct (37.2-46.3) % Monocytes # (0.20-1.00) 10*3/uL APTT (22.0-30.0) sec Glucose (74-99) mg/dL Total Bilirubin (0.2-1.3) mg/dL Urine Protein Trace H (Negative) Urine Ketones Trace H (Negative) Urine Bilirubin 1+ H (Negative) Thrombosis Risk Factor Assmnt - Choose All That Apply Any of the Below Risk Factors Present?: Yes Each Factor Represents 1 point: Obesity (BMI >25), Swollen legs (current) Other Risk Factors: Yes Each Risk Factor Represents 2 Points: Age 61-74 years Each Risk Factor Represents 3 Points: History of DVT/PE Other congenital or acquired thrombophilia - If yes, enter type in comment: No Thrombosis Risk Factor Assessment Total Risk Factor Score: 7 Thrombosis Risk Factor Assessment Level: High Risk Assessment and Plan Assessment: Assessment: 1. End-stage renal disease on dialysis with missed treatments 2. Chronic bilateral lower extremity lymphedema with superimposed infection 3. Congestive heart failure 4. Coronary artery disease, status post myocardial infarction with stent placement (2016) 5. Chronic obstructive pulmonary disease 6. Hypertension 7. Diabetes mellitus, insulin-dependent 8. Moderate hyponatremia 9. Malnutrition 10. Lack of access to medications due to insurance issues Plan: 1. Consult nephrology for urgent hemodialysis arrangement 2. Initiate broad-spectrum antibiotics for lower extremity infection 3. Consult wound care for management of bilateral leg ulcers 4. Consider brad wrapping of bilateral legs to help with wound healing 5. Continue home medications (to be clarified with patient and previous providers) 6. Monitor fluid status and electrolytes closely 7. Nutritional support and dietary consult 8. DVT prophylaxis with Lovenox dosed per body weight BID 9. Social work consult to address insurance and medication access issues 10. Arrange follow-up with primary care and specialists (cardiology, pulmonology, endocrinology) upon discharge 11. Patient education on medication adherence and importance of regular dialysis treatments 12. Consider home health services for wound care and medication management post- discharge Labs: - Sodium: 128 (moderate hyponatremia) - BUN: 35 - Creatinine: 2.69 - Potassium: 5.1 - White blood cell count: 11 - Hemoglobin: 11 Imaging: - Chest x-ray: No acute cardiopulmonary process - Bilateral leg x-rays: Negative for acute fractures EKG: Normal sinus rhythm, no acute ST changes Acute respiratory viral panel: Negative
[2025-01-21] MEDS: LEVOTHYROXINE 75 MCG TAB PO SCH (05:37)
[2025-01-21] MEDS ORDERED: VANCOMYCIN IV PER PHARMACY 1 EACH MISC MISCELLANE PRN (05:46)
--- NOTE | 2025-01-21 06:03 | P.HPIM ---
History of Present Illness H&P Date: 01/20/25 Patient is a 74-year-old female with a history of high blood pressure. h/o venous thrombo embolism a year ago Patient broke femur bone a year ago in July and is currently on blood thinners due to recent surgery. Patient previously saw Dr. lluvia joseph as primary care doctor and switched to Dr. mayers for more availability, but reports it hasn't worked out well. she is here as she had a revision surgery on her right knee last tuesday (1 week ago) then 3 days later came in for evaluation of swollen right leg distal to site of surgery , venous doppler US done and was negative for acute dvt . then she was discharged. however she is coming in today 2 days later due to increase swelling pain , and redness. concerning for infectious process. denies smoking or illicit drugs review of systems Pertinent positives as noted in HPI. All other systems were reviewed and are negative on exam Constitutional: No acute distress, conversant, pleasant Eyes: Anicteric sclerae, moist conjunctiva, Pupils equal round reactive to light ENMT: NC/AT Oropharynx clear, no erythema, or exudates Neck: Supple, no masses, or JVD No carotid bruits No thyromegaly Lungs: Clear to auscultation Clear to percussion Normal respiratory effort, no accessory muscle use Cardiovascular: Heart regular in rate and rhythm, No murmurs, gallops, or rubs No peripheral edema Abdominal: Soft Nontender, no guarding, rebound or rigidity Abdomen moving with respiration Normoactive bowel sounds No hepatomegaly, No splenomegaly No palpable mass No abdominal wall hernia noted Skin: erythem extending from below the right knee to the ankle . tender and warm to palpation no open wounds or weeping skin . surgical dressing in place and appear dry and intact Extremities: No digital cyanosis No clubbing Pedal pulses intact and symmetrical Radial pulses intact and symmetrical No calf tenderness Psychiatric: Alert and oriented to person, place and time Appropriate affect fair judgement Neuro Muscles Strength 5/5 in all 4 extremities Sensation to light touch grossly present throughout Cranial nerves II-XII grossly intact Past Medical History Past Medical History: Asthma, Hypertension Additional Past Medical History / Comment(s): Hx fall Jul 2023 - fractured right femur, resulted in right DVT. Hx ulcer due to taking Motrin. 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 Has kidney stone - no treatment required. Hx migraines - no longer gets them. Last Myocardial Infarction Date:: 2021 History of Any Multi-Drug Resistant Organisms: None Reported Past Surgical History: Adenoidectomy, Appendectomy, Breast Surgery, Hysterectomy, Joint Replacement, Orthopedic Surgery, Tonsillectomy Additional Past Surgical History / Comment(s): ear shoulder wrist. right rotator cuff repair. right knee replacement 01/14/25 Past Anesthesia/Blood Transfusion Reactions: No Reported Reaction Additional Past Anesthesia/Blood Transfusion Reaction / Comment(s): Really cold after one procedure. States she's a shallow breather with Anesthesia. Past Psychological History: No Psychological Hx Reported Smoking Status: Never smoker Past Alcohol Use History: None Reported Past Drug Use History: None Reported - Past Family History Mother Family Medical History: No Reported History Medications and Allergies Home Medications Medication Instructions Recorded Confirmed Type Fluticasone/Vilanterol [Breo 1 puff INHALATION RT-DAILY 06/23/16 01/20/25 History Ellipta 200-25 Mcg Inhaler] Lansoprazole [Prevacid] 30 mg PO HS 06/23/16 01/20/25 History Levothyroxine Sodium [Synthroid] 75 mcg PO DAILY 06/23/16 01/20/25 History Montelukast Sodium [Singulair] 10 mg PO HS 06/23/16 01/20/25 History Potassium Chloride ER [K-Dur 20] 20 meq PO BID 06/23/16 01/20/25 History lisinopriL [Zestril] 10 mg PO HS 06/23/16 01/20/25 History Rosuvastatin [Crestor] 20 mg PO HS 10/07/22 01/20/25 History Apixaban [Eliquis] 5 mg PO BID 12/27/23 01/20/25 History Loratadine [Claritin] 10 mg PO HS 12/27/23 01/20/25 History Albuterol Sulfate [Ventolin HFA] 2 puff INHALATION RT-Q6H PRN 01/08/25 01/20/25 History [facility] 1 tab PO HS 01/08/25 01/20/25 History Multivit with Calcium,Iron,Min 1 tab PO HS 01/08/25 01/20/25 History [Women's Multivitamin] HYDROcodone/APAP 7.5-325MG [[place] 1 - 2 tab PO Q6H PRN #32 tab 06/30/25 07/06/25 Rx 7.5-325] Sennosides [Senokot] 2 tab PO DAILY PRN #60 tablet 01/14/25 01/20/25 Rx Ondansetron Odt [Zofran Odt] 1 tab PO Q8HR PRN #10 tab 01/17/25 01/20/25 Rx Magnesium Oxide [Mag-Ox] 400 mg PO DAILY 01/20/25 01/20/25 History Allergies Allergy/AdvReac Type Severity Reaction Status Date / Time cefuroxime [From Ceftin] Allergy Unknown Verified 01/20/25 19:46 cinnamon Allergy Stuffed Up Verified 01/20/25 19:46 and Sleepy clindamycin Allergy swelling Verified 01/20/25 19:46 of mouth & eyes Fish Containing Products Allergy saltwater Verified 01/20/25 19:46 [Fish] fish only Milk Containing Products Allergy Unknown Verified 01/20/25 19:46 (Dairy) [Dairy] Penicillins Allergy Lips/Face Verified 01/20/25 19:46 Swelling shellfish derived [Shellfish] Allergy Unknown Verified 01/20/25 19:46 wheat Allergy Unknown Verified 01/20/25 19:46 bacitracin AdvReac Rash/Hives Verified 01/20/25 19:46 [From Neosporin ([id number])] polymyxin B AdvReac Rash/Hives Verified 01/20/25 19:46 [From Neosporin ([id number])] Metal Allergy Redness Uncoded 01/20/25 17:55 Physical Exam Vitals: Vital Signs Temp Pulse Pulse Resp BP BP Pulse Ox 01/21/25 01:31 98.0 F 85 17 103/67 98 01/20/25 21:07 98.3 F 95 18 139/73 94 L 01/20/25 20:43 99.1 F 92 18 112/62 92 L 01/20/25 18:28 98.2 F 93 18 121/63 94 L 01/20/25 17:51 98.2 F 102 H 18 111/72 91 L Intake and Output 01/20/25 01/20/25 01/21/25 14:59 22:59 06:59 Other: Voiding Method Toilet # Voids 1 Weight 78.018 kg Results CBC & Chem 7: 01/20/25 19:06 01/20/25 19:06 Labs: Abnormal Lab Results - Last 24 Hours (Table) 01/20/25 01/20/25 01/20/25 Range/Units 19:06 19:06 19:06 RBC 3.38 L (4.10-5.20) 10*6/uL Hgb 10.6 L (12.0-15.0) g/dL Hct 32.4 L (37.2-46.3) % Monocytes # 1.29 H (0.20-1.00) 10*3/uL APTT 31.3 H (22.0-30.0) sec Glucose 118 H (74-99) mg/dL Total Bilirubin 2.3 H (0.2-1.3) mg/dL Urine Protein (Negative) Urine Ketones (Negative) Urine Bilirubin (Negative) 01/20/25 Range/Units 23:20 RBC (4.10-5.20) 10*6/uL Hgb (12.0-15.0) g/dL Hct (37.2-46.3) % Monocytes # (0.20-1.00) 10*3/uL APTT (22.0-30.0) sec Glucose (74-99) mg/dL Total Bilirubin (0.2-1.3) mg/dL Urine Protein Trace H (Negative) Urine Ketones Trace H (Negative) Urine Bilirubin 1+ H (Negative) Thrombosis Risk Factor Assmnt - Choose All That Apply Any of the Below Risk Factors Present?: Yes Each Factor Represents 1 point: Obesity (BMI >25), Swollen legs (current) Other Risk Factors: Yes Each Risk Factor Represents 2 Points: Age 61-74 years Each Risk Factor Represents 3 Points: History of DVT/PE Other congenital or acquired thrombophilia - If yes, enter type in comment: No Thrombosis Risk Factor Assessment Total Risk Factor Score: 7 Thrombosis Risk Factor Assessment Level: High Risk Assessment and Plan Assessment: Cellulitis of the right lower extremity follow-up cultures Initiate vancomycin dosing by pharmacy Pain control with opiates Tylenol as needed for fever Chest x-ray performed no acute cardiopulmonary process X-ray of the right tibia-fibula no acute fractures Venous Doppler ultrasound of the right lower extremity done 2 days ago no acute DVT Blood work showing white count of 8 unremarkable Anemia hemoglobin 10.6 Denies any bleeding Total bilirubin slightly elevated at 2.3 otherwise liver enzymes unremarkable rule out hemolysis Renal function unremarkable with sodium 130 potassium 4.5 BUN 15 creatinine 0.5 Chronic condition history of venous thromboembolism continue with Eliquis COPD compensated resume inhalers Hypertension stable on lisinopril DVT prophylaxis on Eliquis for history of venous thromboembolism
[2025-01-21] MEDS: VANCOMYCIN 1,500 MG in SODIUM CHLORIDE 0.9% 500 ML 500 ML IVPB ONE (06:31)
[2025-01-21 08:20] LABS: Basophils # (A) 0.05 X 10*3/uL (0.00-0.10); Basophils % (A) 0.6 %; Eosinophils # (A) 0.07 X 10*3/uL (0.04-0.35); Eosinophils % (A) 0.9 %; HCT 31.1 % (37.2-46.3); HGB 9.6 g/dL (12.0-15.0); Immature Grans, Automated 0.40 %; Lymphocytes # (A) 1.44 X 10*3/uL (0.90-5.00); Lymphocytes % (A) 18.6 %; MCH 30.4 pg (27.0-32.0); MCHC 30.9 g/dL (32.0-37.0); MCV 98.4 FL (80.0-97.0); Monocytes # (A) 1.08 X 10*3/uL (0.20-1.00); Monocytes % (A) 14.0 %; NRBC Per 100 WBC 0 X 10*3/uL (0.00-0.01); Neutrophils # (A) 5.06 X 10*3/uL (1.80-7.70); Neutrophils % (A) 65.5 %; Platelet Count 298 X 10*3/uL (140-440); RBC 3.16 X 10*6/uL (4.10-5.20); RDW 12.7 % (11.5-14.5); WBC 7.73 X 10*3/uL (4.50-10.00)
[2025-01-21 08:32] LABS: Magnesium 1.9 mg/dL (1.5-2.4)
[2025-01-21 08:33] LABS: Anion Gap 10.70 mmol/L (4.00-12.00); BUN/Creat Ratio 22.67 Ratio (12.00-20.00); Blood Urea Nitrogen 13.6 mg/dL (9.0-27.0); Carbon Dioxide 25.3 mmol/L (21.6-31.8); Chloride 103 mmol/L (96-109); Glucose 112 mg/dL (70-110); Potassium 4.3 mmol/L (3.5-5.5); Sodium 139 mmol/L (135-145)
[2025-01-21 08:34] LABS: ALT 12 U/L (8-44); AST 14 U/L (13-35); Albumin 3.4 g/dL (3.8-4.9); Albumin/Globulin Ratio 1.55 Ratio (1.60-3.17); Alkaline Phosphatase 81 U/L (41-126); Calcium 8.9 mg/dL (8.7-10.3); Globulin 2.2 g/dL (1.6-3.3); Total Protein 5.6 g/dL (6.2-8.2)
--- NOTE | 2025-01-21 08:45 | P.CNOR ---
History of Present Illness - [facility] Consult date: 01/21/25 Requesting physician: Evans Luna Consult reason: other (Right lower extremity cellulitis) History of present illness: Patient is a very pleasant 74-year-old female who is status post right total knee arthroplasty performed by Dr. Jd Modi on 01/14/2025. She was discharged home on 01/17/2025. She was experiencing pain and swelling in her right lower extremity. She presented to [facility] for further evaluation. She states Doppler imaging was performed which was negative for DVT. She was discharged home. Her pain and swelling continued to worsen. She presented back to the emergency department for further evaluation. She was admitted yesterday for further treatment and evaluation. Multiple x-ray imagings were taken of the right lower extremity without significant findings following her total knee arthroplasty. Hardware is in good alignment position. She does have significant swelling, erythema, and warmth of her right lower ex tremity. She has right lower extremity cellulitis. She is currently on antibiotics with Unasyn and vancomycin. She feels her symptoms have already began to improve on antibiotic medication. Consultation has been placed with Dr. Mei and infectious disease. Patient was seen by Dr. Jd Modi this morning as well. Currently planning to continue conservative treatment with antibiotics. Currently no surgical intervention is planned at her right lower extremity. Past Medical History Past Medical History: Asthma, Hypertension Additional Past Medical History / Comment(s): Hx fall Jul 2023 - fractured right femur, resulted in right DVT. Hx ulcer due to taking Motrin. 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 Has kidney stone - no treatment required. Hx migraines - no longer gets them. Last Myocardial Infarction Date:: 2021 History of Any Multi-Drug Resistant Organisms: None Reported Past Surgical History: Adenoidectomy, Appendectomy, Breast Surgery, Hysterectomy, Joint Replacement, Orthopedic Surgery, Tonsillectomy Additional Past Surgical History / Comment(s): ear shoulder wrist. right rotator cuff repair. right knee replacement 01/14/25 Past Anesthesia/Blood Transfusion Reactions: No Reported Reaction Additional Past Anesthesia/Blood Transfusion Reaction / Comm: Really cold after one procedure. States she's a shallow breather with Anesthesia. Past Psychological History: No Psychological Hx Reported Smoking Status: Never smoker Past Alcohol Use History: None Reported Past Drug Use History: None Reported - Past Family History Mother Family Medical History: No Reported History Medications and Allergies Home Medications Medication Instructions Recorded Confirmed Type Fluticasone/Vilanterol [Breo 1 puff INHALATION RT-DAILY 06/23/16 01/20/25 History Ellipta 200-25 Mcg Inhaler] Lansoprazole [Prevacid] 30 mg PO HS 06/23/16 01/20/25 History Levothyroxine Sodium [Synthroid] 75 mcg PO DAILY 06/23/16 01/20/25 History Montelukast Sodium [Singulair] 10 mg PO HS 06/23/16 01/20/25 History Potassium Chloride ER [K-Dur 20] 20 meq PO BID 06/23/16 01/20/25 History lisinopriL [Zestril] 10 mg PO HS 06/23/16 01/20/25 History Rosuvastatin [Crestor] 20 mg PO HS 10/07/22 01/20/25 History Apixaban [Eliquis] 5 mg PO BID 12/27/23 01/20/25 History Loratadine [Claritin] 10 mg PO HS 12/27/23 01/20/25 History Albuterol Sulfate [Ventolin HFA] 2 puff INHALATION RT-Q6H PRN 01/08/25 01/20/25 History [facility] 1 tab PO HS 01/08/25 01/20/25 History Multivit with Calcium,Iron,Min 1 tab PO HS 01/08/25 01/20/25 History [Women's Multivitamin] HYDROcodone/APAP 7.5-325MG [Vian 1 - 2 tab PO Q6H PRN #32 tab 01/14/25 01/20/25 Rx 7.5-325] Sennosides [Senokot] 2 tab PO DAILY PRN #60 tablet 01/14/25 01/20/25 Rx Ondansetron Odt [Zofran Odt] 1 tab PO Q8HR PRN #10 tab 01/17/25 01/20/25 Rx Magnesium Oxide [Mag-Ox] 400 mg PO DAILY 01/20/25 01/20/25 History Allergies Allergy/AdvReac Type Severity Reaction Status Date / Time cefuroxime [From Ceftin] Allergy Unknown Verified 01/20/25 19:46 cinnamon Allergy Stuffed Up Verified 01/20/25 19:46 and Sleepy clindamycin Allergy swelling Verified 01/20/25 19:46 of mouth & eyes Fish Containing Products Allergy saltwater Verified 01/20/25 19:46 [Fish] fish only Milk Containing Products Allergy Unknown Verified 01/20/25 19:46 (Dairy) [Dairy] Penicillins Allergy Lips/Face Verified 01/20/25 19:46 Swelling shellfish derived [Shellfish] Allergy Unknown Verified 01/20/25 19:46 wheat Allergy Unknown Verified 01/20/25 19:46 bacitracin AdvReac Rash/Hives Verified 01/20/25 19:46 [From Neosporin ([id number])] polymyxin B AdvReac Rash/Hives Verified 01/20/25 19:46 [From Neosporin ([id number])] Metal Allergy Redness Uncoded 01/20/25 17:55 Physical Examination Physical Exam Total Knee Arthroplasty: Status post surgical day number 7 Patient is awake, alert, and oriented 3 Vital signs stable Good chest excursion with deep inspiration and expiration Significant swelling, erythema, and warmth of the right lower extremity from the knee extending through the foot 2+ pitting edema at the right foot Dressing at the right knee is clean, dry, and intact; no erythema, purulence, or signs of infection Patient has full foot and ankle motion without difficulty bilateral lower extremities Dorsiflexion, plantar flexion, and extensor hallucis longus positive sustained on the right Purple pen ju from the emergency department at the right lower extremity for indication lines of her cellulitis Results Pertinent studies: X-rays of the right lower extremity tibia/fibula x-rays taken on 01/20/2025: Evidence of total knee arthroplasty which appears to be in good alignment good position; no fracture or dislocation at the right knee or right ankle - Labs Labs: Abnormal Lab Results - Last 24 Hours (Table) 01/20/25 01/20/25 01/20/25 Range/Units 19:06 19: 19:06 RBC 3.38 L (4.10-5.20) 10*6/uL Hgb 10.6 L (12.0-15.0) g/dL Hct 32.4 L (37.2-46.3) % MCV (80.0-97.0) FL MCHC (32.0-37.0) g/dL Monocytes # 1.29 H (0.20-1.00) 10*3/uL APTT 31.3 H (22.0-30.0) sec BUN/Creatinine Ratio (12.00-20.00) Ratio Glucose 118 H (74-99) mg/dL Total Bilirubin 2.3 H (0.2-1.3) mg/dL Total Protein (6.2-8.2) g/dL Albumin (3.8-4.9) g/dL Albumin/Globulin Ratio (1.60-3.17) Ratio Urine Protein (Negative) Urine Ketones (Negative) Urine Bilirubin (Negative) 01/20/25 01/21/25 01/21/25 Range/Units 23:20 03:36 03:36 RBC 3.16 L (4.10-5.20) 10*6/uL Hgb 9.6 L (12.0-15.0) g/dL Hct 31.1 L (37.2-46.3) % MCV 98.4 H (80.0-97.0) FL MCHC 30.9 L (32.0-37.0) g/dL Monocytes # 1.08 H (0.20-1.00) 10*3/uL APTT (22.0-30.0) sec BUN/Creatinine Ratio 22.67 H (12.00-20.00) Ratio Glucose 112 H (74-99) mg/dL Total Bilirubin (0.2-1.3) mg/dL Total Protein 5.6 L (6.2-8.2) g/dL Albumin 3.4 L (3.8-4.9) g/dL Albumin/Globulin Ratio 1.55 L (1.60-3.17) Ratio Urine Protein Trace H (Negative) Urine Ketones Trace H (Negative) Urine Bilirubin 1+ H (Negative) H & H 01/20/25 01/21/25 Range/Units 19:06 03:36 Hgb 10.6 L 9.6 L (12.0-15.0) g/dL Hct 32.4 L 31.1 L (37.2-46.3) % Coagulation 01/20/25 Range/Units 19:06 INR 1.0 (<1.2) Result Diagrams: 01/21/25 03:36 01/21/25 03:36 Assessment and Plan Assessment: Assessment: Right knee pain Right lower extremity swelling and cellulitis History of right total knee arthroplasty 01/14/2025 Anticoagulation use with Eliquis Hypertension (1) Status post total right knee replacement Current Visit: Yes Status: Acute Code(s): Z96.651 - PRESENCE OF RIGHT ARTIFICIAL KNEE JOINT SNOMED Code(s): 2989678498215 (2) Right knee pain Current Visit: Yes Status: Acute Code(s): M25.561 - PAIN IN RIGHT KNEE SNOMED Code(s): 2580922251 (3) Hypertension Current Visit: Yes Status: Acute Code(s): I10 - ESSENTIAL (PRIMARY) HYPERTENSION SNOMED Code(s): 80532587 (4) Edema of right lower extremity Current Visit: Yes Status: Acute Code(s): R60.0 - LOCALIZED EDEMA SNOMED Code(s): 147261474 (5) Cellulitis of right leg Current Visit: Yes Status: Acute Code(s): L03.115 - CELLULITIS OF RIGHT LOWER LIMB SNOMED Code(s): 55378293725954890 Plan: Plan: 1. Patient is status post right total knee arthroplasty performed on 01/14/2025. Postoperatively she has developed pain and swelling with erythema in her right lower extremity. She presented to emergency department for further evaluation. Doppler imaging was negative for DVT. She was discharged home. Her symptoms continue to worsen. She presented back to the emergency department for further evaluation. She was admitted for right lower extremity cellulitis. She has been started on Unasyn. Currently, she feels her symptoms have been improving since starting antibiotic medication. Her hardware remains intact at her right knee. Her surgical incision site is clean, dry, and intact. Dressing is dry. We are not currently planning for further surgical intervention at this time in her right knee. Would recommend continued conservative treat with antibiotics with Unasyn and vancomycin per medicine. This may be adjusted by infectious disease. We we will continue to follow patient closely. 2. Patient will continue be seen exam by multiple medical providers including medicine and infectious disease Time with Patient: Greater than 30 (Including obtaining history, physical examination, reviewing of imaging, and dictation.)
[2025-01-21] MEDS: PANTOPRAZOLE 40 MG/10 ML VIAL IV SCH (09:20)
[2025-01-21] MEDS: SYMBICORT 160-4.5 MCG INHALER INHALATION SCH (09:20)
[2025-01-21] MEDS: APIXABAN 5 MG TAB PO SCH (09:21)
--- NOTE | 2025-01-21 14:39 | P.PN ---
Subjective Progress Note Date: 01/21/25 Hospital course: Patient is a very pleasant 74-year-old female with a past medical history of hypertension, hyperlipidemia, hypothyroidism, previous DVT on anticoagulation with Eliquis, and asthma. Patient is recently status post right total knee arthroplasty revision completed on 01/14/2025. She presented to the hospital on 01/20/2025 secondary to increased pain, swelling, and redness to her right lower extremity. Venous Doppler ultrasound was completed 01/19/2025 negative for DVT previously demonstrated thrombus in the posterior tibial vein no longer identified. Upon arrival to our facility, patient underwent evaluation in the emergency department. Vital signs upon arrival show blood pressure 111/72, heart rate 102, respiratory rate 18, temp 98.2 F, and SpO2 of 91% on room air. EKG completed showing normal sinus rhythm at 87 bpm with diffuse T wave inversion. X-ray right tib-fib negative for acute fracture or dislocation. Labs completed and reviewed. CBC showing normocytic anemia with hemoglobin of 10.6. Coagulation profile showing elevated PTT of 31.3. BMP unremarkable. Blood glucose 118. Lactic acid 1.2. Liver profile unremarkable. Troponin negative at less than 0.012. proBNP 152. On broad-spectrum antibiotics and admitted under our services with consultation to infectious disease and orthopedic surgery team. Physical exam: Patient seen and fully evaluated at bedside this morning. She was resting comfortably reports continued moderate pain in her right lower extremity but currently controlled with pain medication regimen. She denies having any other questions, needs, complaints, or concerns at this time. Vital signs reviewed and stable. General: Nontoxic, no distress and appears stated age. Derm: Skin warm and dry, normal coloration for ethnicity. Head: Atraumatic, normocephalic and symmetric. Eyes: EOM's intact, no lid lag, and anicteric sclera Mouth: no lip lesions, mucus membranes moist Cardiovascular: regular rate and rhythm with normal S1S2, no murmur, positive posterior tibial pulses bilaterally, and cap refill < 2 seconds. Lungs: Respirations even, regular, and unlabored on room air. Lungs CTA bilaterally, no rhonchi, no rales, no wheezing, and no accessory muscle usage. Abdominal: soft, nontender to palpation, no guarding, no appreciable organomegaly Ext: No gross muscle atrophy, no contractures in right lower extremity with moderate edema and erythema extending upwards from dorsal surface of right foot, into ankle and up to knee accompanied by moderate ecchymosis/bruising worse on posterior surface Neuro: Speech clear, face symmetrical and CN II-XII grossly intact with no noted focal neuro deficits Psych: Alert and oriented to person, place, time, and situation. Appropriate and pleasant affect. Assessment and Plan of Care: Cellulitis right lower extremity Status post right total knee arthroplasty revision on 01/14/2025 Continue IV antibiotics with vancomycin 1500 mg every 12 hours with close monitoring of renal function and vancomycin trough to watch for any signs of vancomycin associated renal toxicity. Consult placed to infectious disease. Consult placed to orthopedic surgery team. Symptomatic care and pain management with Tylenol 650 mg every 6 hours as needed for mild pain/fever, Paola 7.5/325 mg tablets every 6 hours as needed for moderate pain, and Dilaudid 1 mg IVP every 3 hours as needed for severe pain Macrocytic anemia Hemoglobin 9.6. No active bleeding noted. Will continue to monitor for improvement/resolution with repeat labs. Hypertension Monitor vital signs and continue daily medication regimen with lisinopril 10 mg nightly. Hypothyroidism Continue levothyroxine 75 mcg daily. Hyperlipidemia Continue rosuvastatin 20 mg nightly. History of DVT Continue Eliquis 5 mg twice daily. Data and imaging reviewed: Morning labs reviewed. CBC showing macrocytic anemia with hemoglobin of 9.6 and MCV of 98.4. BMP unremarkable. Blood glucose 112. Magnesium 1.9. Vital signs reviewed. Blood pressure 108/69, heart rate 79, respiratory rate 18, temp 97.9 F, and SpO2 of 95% on room air. CODE STATUS: Full code DVT prophylaxis: Eliquis Anticipated discharge date: Pending clinical course Anticipated discharge place: Pending clinical course Patient was seen independently by Nurse Pracitioner. This document was prepared using [employer] dictation software. Please allow for errors in technology specialist, while rare they do occur. Greg Mayer NP rendered care for this patient independently, reviewed the findings and plan as documented in the note above and agree with plan. I did not physically speak with or examine the patient on this date. Objective - Vital Signs Vital signs: Vital Signs Temp 97.9 F 01/21/25 07:08 Pulse 79 01/21/25 07:08 Resp 18 01/21/25 07:08 BP 108/69 01/21/25 07:08 Pulse Ox 95 07/07/25 07:08 FiO2 Intake & Output 01/20/25 01/21/25 01/21/25 18:59 06:59 18:59 Weight 78.018 kg 78.018 kg Other: Voiding Method Toilet # Voids 1 - Labs CBC & Chem 7: 01/21/25 03:36 01/21/25 03:36 Labs: Abnormal Lab Results - Last 24 Hours (Table) 01/20/25 01/20/25 01/20/25 Range/Units 19:06 19:06 19:06 RBC 3.38 L (4.10-5.20) 10*6/uL Hgb 10.6 L (12.0-15.0) g/dL Hct 32.4 L (37.2-46.3) % MCV (80.0-97.0) FL MCHC (32.0-37.0) g/dL Monocytes # 1.29 H (0.20-1.00) 10*3/uL APTT 31.3 H (22.0-30.0) sec BUN/Creatinine Ratio (12.00-20.00) Ratio Glucose 118 H (74-99) mg/dL Total Bilirubin 2.3 H (0.2-1.3) mg/dL Total Protein (6.2-8.2) g/dL Albumin (3.8-4.9) g/dL Albumin/Globulin Ratio (1.60-3.17) Ratio Urine Protein (Negative) Urine Ketones (Negative) Urine Bilirubin (Negative) 01/20/25 01/21/25 01/21/25 Range/Units 23:20 03:36 03:36 RBC 3.16 L (4.10-5.20) 10*6/uL Hgb 9.6 L (12.0-15.0) g/dL Hct 31.1 L (37.2-46.3) % MCV 98.4 H (80.0-97.0) FL MCHC 30.9 L (32.0-37.0) g/dL Monocytes # 1.08 H (0.20-1.00) 10*3/uL APTT (22.0-30.0) sec BUN/Creatinine Ratio 22.67 H (12.00-20.00) Ratio Glucose 112 H (74-99) mg/dL Total Bilirubin (0.2-1.3) mg/dL Total Protein 5.6 L (6.2-8.2) g/dL Albumin 3.4 L (3.8-4.9) g/dL Albumin/Globulin Ratio 1.55 L (1.60-3.17) Ratio Urine Protein Trace H (Negative) Urine Ketones Trace H (Negative) Urine Bilirubin 1+ H (Negative)
[2025-01-21] MEDS: HYDROcodone/APAP 7.5-325MG 1 EACH TAB PO PRN (16:52)
--- NOTE | 2025-01-21 17:43 | P.CONS ---
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 She states that she had a revision surgery on her right knee last 01/14/2025 1 week ago, and discharged on 01/17/25. She subsequently return to hospital 2 days later days later came in for evaluation of swollen right leg distal to site of surgery. Venous doppler US was completed and was negative for acute dvt, and she was discharged. Yesterday evening she presented for continuous pain and swelling in her lower extremity and concern for infection. She was given Unasyn and Levaquin in the ER and has since begun Vancomycin which she states have improved the erythema and pain. She denies fevers, shortness of breath nausea, vomiting, abdominal pain, or dysuria. Today she is afebrile, on room air. Her WBC 7.7, creatinine 0.6. Blood cultures obtained and pending. Review of Systems Positive point and negatives has been mentioned in the HPI, complete review of systems was performed and all other systems are negative Past Medical History Past Medical History: Asthma, Hypertension Additional Past Medical History / Comment(s): Hx fall Jul 2023 - fractured right femur, resulted in right DVT. Hx ulcer due to taking Motrin. 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 Has kidney stone - no treatment required. Hx migraines - no longer ge ts them. Last Myocardial Infarction Date:: 2021 History of Any Multi-Drug Resistant Organisms: None Reported Past Surgical History: Adenoidectomy, Appendectomy, Breast Surgery, Hysterectomy, Joint Replacement, Orthopedic Surgery, Tonsillectomy Additional Past Surgical History / Comment(s): ear shoulder wrist. right rotator cuff repair. right knee replacement 01/14/25 Past Anesthesia/Blood Transfusion Reactions: No Reported Reaction Additional Past Anesthesia/Blood Transfusion Reaction / Comm: Really cold after one procedure. States she's a shallow breather with Anesthesia. Past Psychological History: No Psychological Hx Reported Smoking Status: Never smoker Past Alcohol Use History: None Reported Past Drug Use History: None Reported - Past Family History Mother Family Medical History: No Reported History Medications and Allergies Home Medications Medication Instructions Recorded Confirmed Type Fluticasone/Vilanterol [Breo 1 puff INHALATION RT-DAILY 06/23/16 01/20/25 History Ellipta 200-25 Mcg Inhaler] Lansoprazole [Prevacid] 30 mg PO HS 06/23/16 01/20/25 History Levothyroxine Sodium [Synthroid] 75 mcg PO DAILY 06/23/16 01/20/25 History Montelukast Sodium [Singulair] 10 mg PO HS 06/23/16 01/20/25 History Potassium Chloride ER [K-Dur 20] 20 meq PO BID 06/23/16 01/20/25 History lisinopriL [Zestril] 10 mg PO HS 06/23/16 01/20/25 History Rosuvastatin [Crestor] 20 mg PO HS 10/07/22 01/20/25 History Apixaban [Eliquis] 5 mg PO BID 12/27/23 01/20/25 History Loratadine [Claritin] 10 mg PO HS 12/27/23 01/20/25 History Albuterol Sulfate [Ventolin HFA] 2 puff INHALATION RT-Q6H PRN 01/08/25 01/20/25 History [facility] 1 tab PO HS 01/08/25 01/20/25 History Multivit with Calcium,Iron,Min 1 tab PO HS 01/08/25 01/20/25 History [Women's Multivitamin] HYDROcodone/APAP 7.5-325MG [[place] 1 - 2 tab PO Q6H PRN #32 tab 01/14/25 01/20/25 Rx 7.5-325] Sennosides [Senokot] 2 tab PO DAILY PRN #60 tablet 01/14/25 01/20/25 Rx Ondansetron Odt [Zofran Odt] 1 tab PO Q8HR PRN #10 tab 01/17/25 01/20/25 Rx Magnesium Oxide [Mag-Ox] 400 mg PO DAILY 01/20/25 01/20/25 History Allergies Allergy/AdvReac Type Severity Reaction Status Date / Time cefuroxime [From Ceftin] Allergy Unknown Verified 01/20/25 19:46 cinnamon Allergy Stuffed Up Verified 01/20/25 19:46 and Sleepy clindamycin Allergy swelling Verified 01/20/25 19:46 of mouth & eyes Fish Containing Products Allergy saltwater Verified 01/20/25 19:46 [Fish] fish only Milk Containing Products Allergy Unknown Verified 01/20/25 19:46 (Dairy) [Dairy] Penicillins Allergy Lips/Face Verified 01/20/25 19:46 Swelling shellfish derived [Shellfish] Allergy Unknown Verified 01/20/25 19:46 wheat Allergy Unknown Verified 01/20/25 19:46 bacitracin AdvReac Rash/Hives Verified 01/20/25 19:46 [From Neosporin ([id number])] polymyxin B AdvReac Rash/Hives Verified 01/20/25 19:46 [From Neosporin ([id number])] Metal Allergy Redness Uncoded 01/20/25 17:55 Physical Exam Vitals: Vital Signs Temp Pulse Pulse Resp BP BP BP 01/21/25 07:08 97.9 F 79 18 108/69 01/21/25 01:31 98.0 F 85 17 103/67 01/20/25 21:07 98.3 F 95 18 139/73 01/20/25 20:43 99.1 F 92 18 112/62 01/20/25 18:28 98.2 F 93 18 121/63 01/20/25 17:51 98.2 F 102 H 18 111/72 Pulse Ox 01/21/25 07:08 95 01/21/25 01:31 98 01/20/25 21:07 94 L 01/20/25 20:43 92 L 01/20/25 18:28 94 L 01/20/25 17:51 91 L Intake and Output 01/20/25 01/21/25 01/21/25 22:59 06:59 14:59 Other: Voiding Method Toilet # Voids 1 Weight 78.018 kg GENERAL DESCRIPTION: Elderly female lying in bed, no distress. No tachypnea or accessory muscle of respiration use. HEENT: No Pallor , no scleral icterus. Oral mucous membrane is moist. No pharyngeal erythema or thrush NECK: Trachea central, no thyromegaly. LUNGS: Unlabored breathing. Clear to auscultation anteriorly. No wheeze, no crackling HEART: S1, S2, regular rate and rhythm. No loud murmur ABDOMEN: Soft, nondistended, nontender EXTREMITIES: Right leg edema of leg below knee SKIN: Right lower extremity tenderness, erythema, no drainage. NEUROLOGICAL: The patient is awake, alert, oriented x3, mood and affect normal. Results CBC & Chem 7: 01/21/25 03:36 01/21/25 03:36 Labs: Abnormal Lab Results - Last 24 Hours (Table) 01/20/25 01/20/25 01/20/25 Range/Units 19:06 19:06 19:06 RBC 3.38 L (4.10-5.20) 10*6/uL Hgb 10.6 L (12.0-15.0) g/dL Hct 32.4 L (37.2-46.3) % MCV (80.0-97.0) FL MCHC (32.0-37.0) g/dL Monocytes # 1.29 H (0.20-1.00) 10*3/uL APTT 31.3 H (22.0-30.0) sec BUN/Creatinine Ratio (12.00-20.00) Ratio Glucose 118 H (74-99) mg/dL Total Bilirubin 2.3 H (0.2-1.3) mg/dL Total Protein (6.2-8.2) g/dL Albumin (3.8-4.9) g/dL Albumin/Globulin Ratio (1.60-3.17) Ratio Urine Protein (Negative) Urine Ketones (Negative) Urine Bilirubin (Negative) 01/20/25 01/21/25 01/21/25 Range/Units 23:20 03:36 03:36 RBC 3.16 L (4.10-5.20) 10*6/uL Hgb 9.6 L (12.0-15.0) g/dL Hct 31.1 L (37.2-46.3) % MCV 98.4 H (80.0-97.0) FL MCHC 30.9 L (32.0-37.0) g/dL Monocytes # 1.08 H (0.20-1.00) 10*3/uL APTT (22.0-30.0) sec BUN/Creatinine Ratio 22.67 H (12.00-20.00) Ratio Glucose 112 H (74-99) mg/dL Total Bilirubin (0.2-1.3) mg/dL Total Protein 5.6 L (6.2-8.2) g/dL Albumin 3.4 L (3.8-4.9) g/dL Albumin/Globulin Ratio 1.55 L (1.60-3.17) Ratio Urine Protein Trace H (Negative) Urine Ketones Trace H (Negative) Urine Bilirubin 1+ H (Negative) Assessment and Plan (1) Cellulitis of right leg Current Visit: Yes Status: Acute Code(s): L03.115 - CELLULITIS OF RIGHT LOWER LIMB SNOMED Code(s): 09299872505051711 (2) Status post revision of total replacement of right knee Current Visit: Yes Status: Acute Code(s): Z96.651 - PRESENCE OF RIGHT ARTIFICIAL KNEE JOINT SNOMED Code(s): 575941575350718 (3) Edema of right lower extremity Current Visit: Yes Status: Acute Code(s): R60.0 - LOCALIZED EDEMA SNOMED Code(s): 664329544 Plan: 1. Patient presents status post right knee revision surgery 1 week ago. She was seen in the ER earlier this week with findings of no acute DVT. She presents for worsening tenderness and erythema at surgical site. She was given Unasyn and Levaquin in ER. She is afebrile, on room air, WBC 7.7, creatinine 0.6. Blood cultures are pending. 2. Findings most consistent with cellulitis, at postop surgical site. Patient has multiple drug allergies, continue vancomycin as dosed by pharmacy. Hung Anne MD Internal Medicine Resident, PGY2 Infectious disease service Patient has been personally seen and examined care has been discussed in detail with the resident physician documentation has been reviewed patient with right lower extremity cellulitis in this patient who recently did have a right knee arthroplasty with erythema extending to the knee area will need to cover for the gram-positive skin kendall to be the likely pathogen keeping in mind recent surgery we need to cover for more resistant gram positive such as MRSA patient also have multiple antibiotic allergies and related to number of antibiotic safety use we will treat the patient empirically with vancomycin and see c linical response. katrin lai MD Dictation was produced using [employer] dictation software. please excuse any grammatical, word or spelling errors. Time with Patient: Greater than 30
[2025-01-21] MEDS: VANCOMYCIN 1,500 MG in SODIUM CHLORIDE 0.9% 500 ML 500 ML IVPB SCH (18:14)
[2025-01-21] MEDS: MONTELUKAST 10 MG TAB PO SCH (20:56)
[2025-01-21] MEDS: LORATADINE 10 MG TAB PO SCH (20:56)
[2025-01-21] MEDS: MULTIVITAMINS, THERA 1 EACH TAB PO SCH (20:56)
[2025-01-21] MEDS: PANTOPRAZOLE 40 MG TABLET PO SCH (20:56)
[2025-01-21] MEDS: ATORVASTATIN 40 MG TAB PO SCH (20:56)
[2025-01-22 04:28] LABS: African American GFR (CKD) >90 (>60 ml/min/1.73 sqM); Non-African American GFR(CKD) >90 (>60 ml/min/1.73 sqM)
[2025-01-22] MEDS: MAGNESIUM OXIDE 400 MG TAB PO SCH (09:45)
[2025-01-22] MEDS: ACETAMINOPHEN TAB 325 MG TAB PO PRN (10:01)
--- NOTE | 2025-01-22 11:02 | P.PN ---
Subjective Progress Note Date: 01/22/25 This is a 74-year-old female who is admitted for right lower extremity cellulitis. Patient is status post right total knee arthroplasty on 01/14/[address] Jd Modi. Patient is seen and evaluated at bedside today and states that her pain and swelling continue to improve. Patient denies any new complaints today. Objective - Vital Signs Vital signs: Vital Signs Temp 97.7 F 01/22/25 01:35 Pulse 84 01/22/25 10:29 Resp 17 01/22/25 10:29 BP 108/69 01/22/25 01:35 Pulse Ox 96 01/22/25 07:55 FiO2 21 01/22/25 07:55 Intake & Output 01/21/25 01/22/25 01/22/25 18:59 06:59 18:59 Intake Total 500 Balance 500 Intake: Intake, IV Titration 500 Amount Vancomycin 1,500 mg In 500 Sodium Chloride 0.9% 500 ml 500 ml @ 167 mls/hr IVPB Q12H [facility] Rx#: [id number] Other: Voiding Method Toilet Toilet # Voids 1 4 - Exam Vital signs are stable. Patient is in no acute distress and is alert and oriented 3. Calf is soft and nontender to palpation. Dressing is clean, dry, and intact. Erythema to the right crawford with moderate lower leg swelling. Patient has full foot and ankle motion without pain or difficulty. Sensation intact. Neurovascular status and circulatory status are intact. - Labs CBC & Chem 7: 01/21/25 03:36 01/22/25 03:26 Labs: Abnormal Lab Results - Last 24 Hours (Table) 01/22/25 Range/Units 03:26 Creatinine 0.44 L (0.52-1.04) mg/dL Microbiology - Last 24 Hours (Table) 01/20/25 19:05 Blood Culture - Preliminary Blood Assessment and Plan (1) Cellulitis of right leg Current Visit: Yes Status: Acute Code(s): L03.115 - CELLULITIS OF RIGHT LOWER LIMB SNOMED Code(s): 16534356694085477 (2) Status post revision of total replacement of right knee Current Visit: Yes Status: Acute Code(s): Z96.651 - PRESENCE OF RIGHT ARTIFICIAL KNEE JOINT SNOMED Code(s): 450804215127386 Plan: 1. Continue routine postoperative care and pain control. Leave Optifoam dressing intact. 2. Continue IV antibiotics per internal medicine. 3. We will continue to follow closely.
--- NOTE | 2025-01-22 12:04 | P.PN ---
Subjective Progress Note Date: 01/22/25 Hospital course: Patient is a very pleasant 74-year-old female with a past medical history of hypertension, hyperlipidemia, hypothyroidism, previous DVT on anticoagulation with Eliquis, and asthma. Patient is recently status post right total knee arthroplasty revision completed on 01/14/2025. She presented to the hospital on 01/20/2025 secondary to increased pain, swelling, and redness to her right lower extremity. Venous Doppler ultrasound was completed 01/19/2025 negative for DVT previously demonstrated thrombus in the posterior tibial vein no longer identified. Upon arrival to our facility, patient underwent evaluation in the emergency department. Vital signs upon arrival show blood pressure 111/72, heart rate 102, respiratory rate 18, temp 98.2 F, and SpO2 of 91% on room air. EKG completed showing normal sinus rhythm at 87 bpm with diffuse T wave inversion. X-ray right tib-fib negative for acute fracture or dislocation. Labs completed and reviewed. CBC showing normocytic anemia with hemoglobin of 10.6. Coagulation profile showing elevated PTT of 31.3. BMP unremarkable. Blood glucose 118. Lactic acid 1.2. Liver profile unremarkable. Troponin negative at less than 0.012. proBNP 152. On broad-spectrum antibiotics and admitted under our services with consultation to infectious disease and orthopedic surgery team. Physical exam: Patient seen and fully evaluated at bedside this morning. She was resting comfortably reports improvement of pain, swelling, and redness in her right lower extremity. She reports constipation stating it has been 3 days since her last bowel movement. She reports passing flatus and denies nausea or vomiting and tolerating oral intake. Patient denies any other complaints at this time. Vital signs reviewed and stable. General: Nontoxic, no distress and appears stated age. Derm: Skin warm and dry, normal coloration for ethnicity. Head: Atraumatic, normocephalic and symmetric. Eyes: EOM's intact, no lid lag, and anicteric sclera Mouth: no lip lesions, mucus membranes moist Cardiovascular: regular rate and rhythm with normal S1S2, no murmur, positive posterior tibial pulses bilaterally, and cap refill < 2 seconds. Lungs: Respirations even, regular, and unlabored on room air. Lungs CTA bilaterally, no rhonchi, no rales, no wheezing, and no accessory muscle usage. Abdominal: soft, nontender to palpation, no guarding, no appreciable organomegaly Ext: No gross muscle atrophy, no contractures in right lower extremity with moderate edema and erythema extending upwards from dorsal surface of right foot, into ankle and up to knee accompanied by moderate ecchymosis/bruising worse on posterior surface Neuro: Speech clear, face symmetrical and CN II-XII grossly intact with no noted focal neuro deficits Psych: Alert and oriented to person, place, time, and situation. Appropriate and pleasant affect. Assessment and Plan of Care: Cellulitis right lower extremity Status post right total knee arthroplasty revision on 01/14/2025 Continue IV antibiotics with vancomycin 1500 mg every 12 hours with close monitoring of renal function and vancomycin trough to watch for any signs of vancomycin associated renal toxicity. Infectious disease following, discussed plan of care with Dr. Mei. Orthopedic surgery following, reviewed documentation in chart. Symptomatic care and pain management with Tylenol 650 mg every 6 hours as needed for mild pain/fever, [place] 7.5/325 mg tablets every 6 hours as needed for moderate pain, and Dilaudid 1 mg IVP every 3 hours as needed for severe pain Macrocytic anemia Hemoglobin 9.6. No active bleeding noted. Will continue to monitor for improvement/resolution with repeat labs. Hypertension Monitor vital signs and continue daily medication regimen with lisinopril 10 mg nightly. Hypothyroidism Continue levothyroxine 75 mcg daily. Hyperlipidemia Continue rosuvastatin 20 mg nightly. History of DVT Continue Eliquis 5 mg twice daily. Data and imaging reviewed: Labs reviewed. CBC showing macrocytic anemia with hemoglobin of 9.6 and MCV of 98.4. BMP unremarkable. Blood glucose 112. Magnesium 1.9. Vital signs reviewed. Blood pressure 108/69, heart rate 84, respiratory rate 17, temp 97.7 F, and SpO2 of 93% on room air. CODE STATUS: Full code DVT prophylaxis: Eliquis Anticipated discharge date: Pending clinical course Anticipated discharge place: Pending clinical course Patient was seen independently by Nurse Pracitioner. This document was prepared using [employer] dictation software. Please allow for errors in sql dba, while rare they do occur. Greg Mayer NP rendered care for this patient independently, reviewed the findings and plan as documented in the note above and agree with plan. I did not physically speak with or examine the patient on this date. Objective - Vital Signs Vital signs: Vital Signs Temp 97.7 F 01/22/25 01:35 Pulse 84 07/08/25 01:35 Resp 17 01/21/25 13:00 BP 108/69 01/22/25 01:35 Pulse Ox 96 01/22/25 07:55 FiO2 21 01/22/25 07:55 Intake & Output 01/21/25 01/22/25 01/22/25 18:59 06:59 18:59 Intake Total 500 Balance 500 Intake: Intake, IV Titration 500 Amount Vancomycin 1,500 mg In 500 Sodium Chloride 0.9% 500 ml 500 ml @ 167 mls/hr IVPB Q12H [facility] Rx#: [id number] Other: Voiding Method Toilet # Voids 1 4 - Labs CBC & Chem 7: 01/21/25 03:36 01/22/25 03:26 Labs: Abnormal Lab Results - Last 24 Hours (Table) 01/22/25 Range/Units 03:26 Creatinine 0.44 L (0.52-1.04) mg/dL Microbiology - Last 24 Hours (Table) 01/20/25 19:05 Blood Culture - Preliminary Blood
--- NOTE | 2025-01-22 15:11 | P.PN ---
Subjective Progress Note Date: 01/22/25 Patient is a 74-year-old female with high blood pressure and history of venous thrombo embolism a year ago who presented to hospital with swollen tender right leg. She states that she had a revision surgery on her right knee last 01/14/2025 1 week ago, and discharged on 01/17/25. She subsequently return to hospital 2 days later days later came in for evaluation of swollen right leg distal to site of surgery. Venous doppler US was completed and was negative for acute dvt, and she was discharged. Yesterday evening she presented for continuous pain and swelling in her lower extremity and concern for infection. She was given Unasyn and Levaquin in the ER and has since begun Vancomycin which she states have improved the erythema and pain. She denies fevers, shortness of breath nausea, vomiting, abdominal pain, or dysuria. Today she denies fevers, shortness of breath nausea, vomiting, abdominal pain, or dysuria. Her leg pain and errythema is improving. She is afebrile, on room air. Her creatinine is 0.44. Blood cultures pending. Objective - Vital Signs Vital signs: Vital Signs Temp 97.7 F 01/22/25 01:35 Pulse 84 01/22/25 01:35 Resp 17 01/21/25 13:00 BP 108/69 01/22/25 01:35 Pulse Ox 96 01/22/25 07:55 FiO2 21 01/22/25 07:55 Intake & Output 01/21/25 01/22/25 01/22/25 18:59 06:59 18:59 Intake Total 500 Balance 500 Intake: Intake, IV Titration 500 Amount Vancomycin 1,500 mg In 500 Sodium Chloride 0.9% 500 ml 500 ml @ 167 mls/hr IVPB Q12H [facility] Rx#: [id number] Other: Voiding Method Toilet # Voids 1 4 - Exam GENERAL DESCRIPTION: Elderly female lying in bed, no distress. No tachypnea or accessory muscle of respiration use. LUNGS: Unlabored breathing. Clear to auscultation anteriorly. No wheeze, no crackling HEART: S1, S2, regular rate and rhythm. No loud murmur ABDOMEN: Soft, nondistended, nontender EXTREMITIES: Right leg edema of leg below knee SKIN: Right lower extremity tenderness, erythema, no drainage. - Labs CBC & Chem 7: 01/21/25 03:36 01/22/25 03:26 Labs: Abnormal Lab Results - Last 24 Hours (Table) 01/22/25 Range/Units 03:26 Creatinine 0.44 L (0.52-1.04) mg/dL Microbiology - Last 24 Hours (Table) 01/20/25 19:05 Blood Culture - Preliminary Blood Assessment and Plan (1) Cellulitis of right leg Current Visit: Yes Status: Acute Code(s): L03.115 - CELLULITIS OF RIGHT LOWER LIMB SNOMED Code(s): 00924490482675300 (2) Status post revision of total replacement of right knee Current Visit: Yes Status: Acute Code(s): Z96.651 - PRESENCE OF RIGHT ARTIFICIAL KNEE JOINT SNOMED Code(s): 376850237154002 (3) Edema of right lower extremity Current Visit: Yes Status: Acute Code(s): R60.0 - LOCALIZED EDEMA SNOMED Code(s): 672259268 Plan: 1. Patient presents status post right knee revision surgery 1 week ago. She was seen in the ER earlier this week with findings of no acute DVT. She presents for worsening tenderness and erythema at surgical site. She was given Unasyn and Levaquin in ER. She is afebrile, on room air. Blood cultures are pending. 2. Right knee arthroplasty with erythema extending to the knee area will need to cover for the gram-positive skin kendall to be the likely pathogen keeping in mind recent surgery we need to cover for more resistant gram positive such as MRSA. Findings most consistent with cellulitis, at postop surgical site. Patient has multiple antibiotic allergies and related to number of antibiotic safety use, we will continue vancomycin as dosed by pharmacy, as she is having improved clinical response. Hung Anne MD Internal Medicine Resident, PGY2 Infectious disease service Patient was personally seen and examined, plan of care has been discussed in detail with the resident physician taking care of the patient discussed with the nursing staff to change her right knee surgical dressing and apply Gutierrez wrap to keep some of the swelling down we will go to the patient on vancomycin pharmacy to dose while waiting for the blood culture to finalize katrin lai MD Dictation was produced using [employer] dictation software. please excuse any grammatical, word or spelling errors. Time with Patient: Less than 30
[2025-01-22] MEDS: DOCUSATE 100 MG CAP PO SCH (23:37)
[2025-01-23 06:49] LABS: African American GFR (CKD) >90 (>60 ml/min/1.73 sqM); Anion Gap 4 mmol/L; Blood Urea Nitrogen 8 mg/dL (7-17); Calcium 8.4 mg/dL (8.4-10.2); Carbon Dioxide 27 mmol/L (22-30); Chloride 105 mmol/L (98-107); Glucose 109 mg/dL (74-99); Non-African American GFR(CKD) >90 (>60 ml/min/1.73 sqM); Potassium 3.7 mmol/L (3.5-5.1); Sodium 136 mmol/L (137-145)
[2025-01-23] MEDS: VANCOMYCIN TROUGH DUE 1 EACH MISC MISCELLANE ONE (06:53)
[2025-01-23 08:06] LABS: HCT 30.2 % (37.2-46.3); HGB 9.4 g/dL (12.0-15.0); MCH 30.6 pg (27.0-32.0); MCHC 31.1 g/dL (32.0-37.0); MCV 98.4 FL (80.0-97.0); NRBC Per 100 WBC 0 X 10*3/uL (0.00-0.01); Platelet Count 338 X 10*3/uL (140-440); RBC 3.07 X 10*6/uL (4.10-5.20); RDW 13.2 % (11.5-14.5); WBC 7.09 X 10*3/uL (4.50-10.00)
--- NOTE | 2025-01-23 11:00 | P.PN ---
Subjective Progress Note Date: 01/23/25 This is a 74-year-old female who is admitted for right lower extremity cellulitis. Patient is status post right total knee arthroplasty on 01/14/[address] Jd Modi. Patient is seen and evaluated at bedside today and states that her pain and swelling are improving. Patient denies any new complaints today. Objective - Vital Signs Vital signs: Vital Signs Temp 98.0 F 01/23/25 08:00 Pulse 79 01/23/25 08:00 Resp 16 01/23/25 10:28 BP 103/65 01/23/25 08:00 Pulse Ox 96 01/23/25 08:00 FiO2 21 01/22/25 07:55 Intake & Output 01/22/25 01/23/25 01/23/25 18:59 06:59 18:59 Intake Total 180 100 Balance 180 100 Intake: Oral 180 100 Other: Voiding Method Toilet Toilet # Voids 3 3 3 - Exam Vital signs are stable. Patient is in no acute distress and is alert and oriented 3. Calf is soft and nontender to palpation. Dressing is clean, dry, and intact. Erythema to the right crawford with moderate lower leg swelling. Patient has full foot and ankle motion without pain or difficulty. Sensation intact. Neurovascular status and circulatory status are intact. - Labs CBC & Chem 7: 01/23/25 06:03 01/23/25 06:03 Labs: Abnormal Lab Results - Last 24 Hours (Table) 01/23/25 01/23/25 Range/Units 06:03 06:03 RBC 3.07 L (4.10-5.20) X 10*6/uL Hgb 9.4 L (12.0-15.0) g/dL Hct 30.2 L (37.2-46.3) % MCV 98.4 H (80.0-97.0) FL MCHC 31.1 L (32.0-37.0) g/dL Sodium 136 L (137-145) mmol/L Glucose 109 H (74-99) mg/dL Microbiology - Last 24 Hours (Table) 01/20/25 19:05 Blood Culture - Preliminary Blood Assessment and Plan (1) Cellulitis of right leg Current Visit: Yes Status: Acute Code(s): L03.115 - CELLULITIS OF RIGHT LOWER LIMB SNOMED Code(s): 89444445892443722 (2) Status post revision of total replacement of right knee Current Visit: Yes Status: Acute Code(s): Z96.651 - PRESENCE OF RIGHT ARTIFICIAL KNEE JOINT SNOMED Code(s): 164478024275976 Plan: 1. Continue routine postoperative care and pain control. Leave Optifoam dressing intact. 2. Continue IV antibiotics per internal medicine. 3. We will continue to follow closely.
--- NOTE | 2025-01-23 13:24 | P.PN ---
Subjective Progress Note Date: 01/23/25 Hospital course: Patient is a very pleasant 74-year-old female with a past medical history of hypertension, hyperlipidemia, hypothyroidism, previous DVT on anticoagulation with Eliquis, and asthma. Patient is recently status post right total knee arthroplasty revision completed on 01/14/2025. She presented to the hospital on 01/20/2025 secondary to increased pain, swelling, and redness to her right lower extremity. Venous Doppler ultrasound was completed 01/19/2025 negative for DVT previously demonstrated thrombus in the posterior tibial vein no longer identified. Upon arrival to our facility, patient underwent evaluation in the emergency department. Vital signs upon arrival show blood pressure 111/72, heart rate 102, respiratory rate 18, temp 98.2 F, and SpO2 of 91% on room air. EKG completed showing normal sinus rhythm at 87 bpm with diffuse T wave inversion. X-ray right tib-fib negative for acute fracture or dislocation. Labs completed and reviewed. CBC showing normocytic anemia with hemoglobin of 10.6. Coagulation profile showing elevated PTT of 31.3. BMP unremarkable. Blood glucose 118. Lactic acid 1.2. Liver profile unremarkable. Troponin negative at less than 0.012. proBNP 152. On broad-spectrum antibiotics and admitted under our services with consultation to infectious disease and orthopedic surgery team. Physical exam: Patient seen and fully evaluated at bedside this morning. She reports swelling, redness, and pain continues to slightly improve each day and states pain today is more towards the medial portion of her lower crawford which also correlates with where the majority of the redness remains. She denies any nausea or vomiting, reports tolerating oral intake. Urinating without difficulties. She reports passing flatus but states no bowel movement in 3 days now. Patient did take stool softener in addition to scheduled MiraLAX this morning and was offered additional medications including suppository and/or mag citrate. Patient declined additional bowel stimulants at this time, stated she will wait until stool softener kicks in as she does not have any abdominal pain or cramping. Vital signs reviewed and stable. General: Nontoxic, no distress and appears stated age. Derm: Skin warm and dry, normal coloration for ethnicity. Head: Atraumatic, normocephalic and symmetric. Eyes: EOM's intact, no lid lag, and anicteric sclera Mouth: no lip lesions, mucus membranes moist Cardiovascular: regular rate and rhythm with normal S1S2, no murmur, positive posterior tibial pulses bilaterally, and cap refill < 2 seconds. Lungs: Respirations even, regular, and unlabored on room air. Lungs CTA bilaterally, no rhonchi, no rales, no wheezing, and no accessory muscle usage. Abdominal: soft, nontender to palpation, no guarding, no appreciable organomegaly Ext: No gross muscle atrophy, no contractures in right lower extremity with moderate edema and erythema extending upwards from dorsal surface of right foot, into ankle and up to knee accompanied by moderate ecchymosis/bruising worse on posterior surface Neuro: Speech clear, face symmetrical and CN II-XII grossly intact with no noted focal neuro deficits Psych: Alert and oriented to person, place, time, and situation. Appropriate and pleasant affect. Assessment and Plan of Care: Cellulitis right lower extremity Status post right total knee arthroplasty revision on 01/14/2025 Continue IV antibiotics with vancomycin 1500 mg every 12 hours with close monitoring of renal function and vancomycin trough to watch for any signs of vancomycin associated renal toxicity. Infectious disease following, discussed plan of care with Dr. Mei. Orthopedic surgery following, reviewed documentation in chart. Symptomatic care and pain management with Tylenol 650 mg every 6 hours as needed for mild pain/fever, [place] 7.5/325 mg tablets every 6 hours as needed for moderate pain, and Dilaudid 1 mg IVP every 3 hours as needed for severe pain Macrocytic anemia Hemoglobin 9.6. No active bleeding noted. Will continue to monitor for improvement/resolution with repeat labs. Hypertension Monitor vital signs and continue daily medication regimen with lisinopril 10 mg nightly. Hypothyroidism Continue levothyroxine 75 mcg daily. Hyperlipidemia Continue rosuvastatin 20 mg nightly. History of DVT Continue Eliquis 5 mg twice daily. Data and imaging reviewed: Labs reviewed. CBC showing macrocytic anemia with hemoglobin of 9.4 and MCV of 98.4. BMP unremarkable. Blood glucose 109. Calcium 8.4. Vancomycin trough therapeutic at 15.5. Vital signs reviewed. Blood pressure 103/65, heart rate 79, respiratory rate 16, temp 98.0 F, and SpO2 of 96% on room air CODE STATUS: Full code DVT prophylaxis: Eliquis Anticipated discharge date: Pending clinical course Anticipated discharge place: Pending clinical course Patient was seen independently by Nurse Pracitioner. This document was prepared using Dragon dictation software. Please allow for errors in rehab therapy manager, while rare they do occur. Greg Mayer GARBAGE COLLECTOR SUPERVISOR rendered care for this patient independently, reviewed the findings and plan as documented in the note above and agree with plan. I did not physically speak with or examine the patient on this date. Objective - Vital Signs Vital signs: Vital Signs Temp 97.4 F L 01/23/25 01:37 Pulse 73 01/23/25 01:37 Resp 16 01/23/25 01:37 BP 114/69 01/23/25 06:56 Pulse Ox 94 L 01/23/25 01:37 FiO2 21 01/22/25 07:55 Intake & Output 01/22/25 01/23/25 01/23/25 18:59 06:59 18:59 Intake Total 180 Balance 180 Intake: Oral 180 Other: Voiding Method Toilet # Voids 3 3 - Labs CBC & Chem 7: 01/23/25 06:03 01/23/25 06:03 Labs: Abnormal Lab Results - Last 24 Hours (Table) 01/23/25 01/23/25 Range/Units 06:03 06:03 RBC 3.07 L (4.10-5.20) X 10*6/uL Hgb 9.4 L (12.0-15.0) g/dL Hct 30.2 L (37.2-46.3) % MCV 98.4 H (80.0-97.0) FL MCHC 31.1 L (32.0-37.0) g/dL Sodium 136 L (137-145) mmol/L Glucose 109 H (74-99) mg/dL Microbiology - Last 24 Hours (Table) 01/20/25 19:05 Blood Culture - Preliminary Blood
--- NOTE | 2025-01-23 17:07 | P.PN ---
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 She states that she had a revision surgery on her right knee last 01/14/2025 1 week ago, and discharged on 01/17/25. She subsequently return to hospital 2 days later days later came in for evaluation of swollen right leg distal to site of surgery. Venous doppler US was completed and was negative for acute dvt, and she was discharged. Yesterday evening she presented for continuous pain and swelling in her lower extremity and concern for infection. She was given Unasyn and Levaquin in the ER and has since begun Vancomycin which she states have improved the erythema and pain. She denies fevers, shortness of breath nausea, vomiting, abdominal pain, or dysuria. Today 01/23/2025, she denies fevers, shortness of breath nausea, vomiting, abdom inal pain, or dysuria. Her leg pain and errythema is improving. She is afebrile, on room air. Her WBC 7.09, creatinine is 0.53. Blood cultures no growth thus far Objective - Vital Signs Vital signs: Vital Signs Temp 98.0 F 01/23/25 08:00 Pulse 79 01/23/25 08:00 Resp 16 01/23/25 08:00 BP 103/65 01/23/25 08:00 Pulse Ox 96 01/23/25 08:00 FiO2 21 01/22/25 07:55 Intake & Output 01/22/25 01/23/25 01/23/25 18:59 06:59 18:59 Intake Total 180 Balance 180 Intake: Oral 180 Other: Voiding Method Toilet # Voids 3 3 - Exam GENERAL DESCRIPTION: Elderly female lying in bed, no distress. No tachypnea or accessory muscle of respiration use. LUNGS: Unlabored breathing. Clear to auscultation anteriorly. No wheeze, no crackling HEART: S1, S2, regular rate and rhythm. No loud murmur ABDOMEN: Soft, nondistended, nontender EXTREMITIES: Right leg edema of leg below knee SKIN: Right lower extremity tenderness, erythema, no drainage. - Labs CBC & Chem 7: 01/23/25 06:03 01/23/25 06:03 Labs: Abnormal Lab Results - Last 24 Hours (Table) 01/23/25 01/23/25 Range/Units 06:03 06:03 RBC 3.07 L (4.10-5.20) X 10*6/uL Hgb 9.4 L (12.0-15.0) g/dL Hct 30.2 L (37.2-46.3) % MCV 98.4 H (80.0-97.0) FL MCHC 31.1 L (32.0-37.0) g/dL Sodium 136 L (137-145) mmol/L Glucose 109 H (74-99) mg/dL Microbiology - Last 24 Hours (Table) 01/20/25 19:05 Blood Culture - Preliminary Blood Assessment and Plan (1) Cellulitis of right leg Current Visit: Yes Status: Acute Code(s): L03.115 - CELLULITIS OF RIGHT LOWER LIMB SNOMED Code(s): 76610859141731194 (2) Status post revision of total replacement of right knee Current Visit: Yes Status: Acute Code(s): Z96.651 - PRESENCE OF RIGHT ARTIFICIAL KNEE JOINT SNOMED Code(s): 152245104246688 (3) Edema of right lower extremity Current Visit: Yes Status: Acute Code(s): R60.0 - LOCALIZED EDEMA SNOMED Code(s): 427614799 Plan: 1. Patient presents status post right knee revision surgery 1 week ago. She was seen in the ER earlier this week with findings of no acute DVT. She presents for worsening tenderness and erythema at surgical site. She was given Unasyn and Levaquin in ER. She is afebrile, on room air. Blood cultures no growth thus far, waiting to finalize. 2. Right knee arthroplasty with erythema extending to the knee area will need to cover for the gram-positive skin kendall to be the likely pathogen keeping in mind recent surgery we need to cover for more resistant gram positive such as MRSA. Findings most consistent with cellulitis, at postop surgical site. Patient has multiple antibiotic allergies and related to number of antibiotic safety use, we will continue vancomycin as dosed by pharmacy, as she is having improved clinical response. Recommending loose fitting Gutierrez wrap as tolerated by patient. Hung Anne MD Internal Medicine Resident, PGY2 Infectious disease service Patient was personally seen and examined care discussed in detail with the resident physician documentation reviewed and agree, discussed with the patient and the nursing staff to either apply Gutierrez wrap but not too tight versus job s tocking to get some of the swelling down and for now to continue the patient on IV vancomycin while waiting for the blood culture to finalize katrin lai MD Dictation was produced using [employer] dictation software. please excuse any grammatical, word or spelling errors. Time with Patient: Less than 30
[2025-01-24 08:12] LABS: HCT 32.0 % (37.2-46.3); HGB 9.7 g/dL (12.0-15.0); MCH 30.0 pg (27.0-32.0); MCHC 30.3 g/dL (32.0-37.0); MCV 99.1 FL (80.0-97.0); NRBC Per 100 WBC 0 X 10*3/uL (0.00-0.01); Platelet Count 399 X 10*3/uL (140-440); RBC 3.23 X 10*6/uL (4.10-5.20); RDW 13.4 % (11.5-14.5); WBC 9.51 X 10*3/uL (4.50-10.00)
[2025-01-24 08:18] LABS: Anion Gap 10.30 mmol/L (4.00-12.00); BUN/Creat Ratio 11.00 Ratio (12.00-20.00); Blood Urea Nitrogen 6.6 mg/dL (9.0-27.0); Calcium 8.4 mg/dL (8.7-10.3); Carbon Dioxide 25.7 mmol/L (21.6-31.8); Chloride 104 mmol/L (96-109); Glucose 100 mg/dL (70-110); Potassium 4.0 mmol/L (3.5-5.5); Sodium 140 mmol/L (135-145)
--- NOTE | 2025-01-24 12:28 | P.PN ---
Subjective Progress Note Date: 01/24/25 Hospital course: Patient is a very pleasant 74-year-old female with a past medical history of hypertension, hyperlipidemia, hypothyroidism, previous DVT on anticoagulation with Eliquis, and asthma. Patient is recently status post right total knee arthroplasty revision completed on 01/14/2025. She presented to the hospital on 01/20/2025 secondary to increased pain, swelling, and redness to her right lower extremity. Venous Doppler ultrasound was completed 01/19/2025 negative for DVT previously demonstrated thrombus in the posterior tibial vein no longer identified. Upon arrival to our facility, patient underwent evaluation in the emergency department. Vital signs upon arrival show blood pressure 111/72, heart rate 102, respiratory rate 18, temp 98.2 F, and SpO2 of 91% on room air. EKG completed showing normal sinus rhythm at 87 bpm with diffuse T wave inversion. X-ray right tib-fib negative for acute fracture or dislocation. Labs completed and reviewed. CBC showing normocytic anemia with hemoglobin of 10.6. Coagulation profile showing elevated PTT of 31.3. BMP unremarkable. Blood glucose 118. Lactic acid 1.2. Liver profile unremarkable. Troponin negative at less than 0.012. proBNP 152. On broad-spectrum antibiotics and admitted under our services with consultation to infectious disease and orthopedic surgery team. Subjective States that the erythema in her right lower extremity is improving. She states that orthopedic surgery had removed the bandage earlier in this admission and there was no drainage. Physical exam Vital signs reviewed and stable. General examination - Alert and Oriented 3 in NAD Heart - + S1S2 no murmurs Lungs - Clear to auscultation Abdomen soft NT ND +ve BS Extremities -right lower extremity swelling and erythema. Bandage on the right knee that is intact and dry STEAMFITTER APPRENTICE - Moving all 4 extremities spontaneously Psych - Calm and cooperative Assessment and Plan of Care: Cellulitis right lower extremity Status post right total knee arthroplasty revision on 01/14/2025 Continue IV antibiotics with vancomycin 1500 mg every 12 hours with close monitoring of renal function and vancomycin trough to watch for any signs of vancomycin associated renal toxicity. Infectious disease following Orthopedic surgery following Symptomatic care and pain management with Tylenol 650 mg every 6 hours as needed for mild pain/fever, [place] 7.5/325 mg tablets every 6 hours as needed for moderate pain, and Dilaudid 1 mg IVP every 3 hours as needed for severe pain -Patient reports cellulits is improivng. However to me still appears extremely erythematous with significant swelling - I reviewed LE US doppler done on 01/19/2025 that was negative for DVT. Macrocytic anemia Hemoglobin 9.6. No active bleeding noted. Will continue to monitor for improvement/resolution with repeat labs. Hypertension Monitor vital signs and continue daily medication regimen with lisinopril 10 mg nightly. Hypothyroidism Continue levothyroxine 75 mcg daily. Hyperlipidemia Continue rosuvastatin 20 mg nightly. History of DVT Continue Eliquis 5 mg twice daily. CODE STATUS: Full code DVT prophylaxis: Eliquis Anticipated discharge date: Pending clinical course Anticipated discharge place: Pending clinical course Objective - Vital Signs Vital signs: Vital Signs Temp 99.1 F 01/24/25 08:04 Pulse 85 01/24/25 08:04 Resp 18 01/24/25 08:04 BP 112/71 01/24/25 08:04 Pulse Ox 93 L 01/24/25 09:45 FiO2 21 01/22/25 07:55 Intake & Output 01/23/25 01/24/25 01/24/25 18:59 06:59 18:59 Intake Total 250 Balance 250 Intake: Oral 250 Other: Voiding Method Toilet Toilet Toilet # Voids 1 2 - Labs CBC & Chem 7: 01/24/25 03:57 01/24/25 03:57 Labs: Abnormal Lab Results - Last 24 Hours (Table) 01/24/25 01/24/25 Range/Units 03:57 03:57 RBC 3.23 L (4.10-5.20) X 10*6/uL Hgb 9.7 L (12.0-15.0) g/dL Hct 32.0 L (37.2-46.3) % MCV 99.1 H (80.0-97.0) FL MCHC 30.3 L (32.0-37.0) g/dL BUN 6.6 L (9.0-27.0) mg/dL BUN/Creatinine Ratio 11.00 L (12.00-20.00) Ratio Calcium 8.4 L (8.7-10.3) mg/dL Microbiology - Last 24 Hours (Table) 01/20/25 19:05 Blood Culture - Preliminary Blood
--- NOTE | 2025-01-24 13:10 | P.PN ---
Subjective Progress Note Date: 01/24/25 This is a 74-year-old female who is admitted for right lower extremity cellulitis. Patient is status post right total knee arthroplasty on 01/14/[address] Jd Modi. Patient is seen and evaluated at bedside today and states that her pain and swelling are improving. Patient states that she ambulates to the bathroom and back. Patient denies any new complaints today. Objective - Vital Signs Vital signs: Vital Signs Temp 99.1 F 01/24/25 08:04 Pulse 85 01/24/25 08:04 Resp 18 01/24/25 08:04 BP 112/71 01/24/25 08:04 Pulse Ox 93 L 01/24/25 09:45 FiO2 21 01/22/25 07:55 Intake & Output 01/23/25 01/24/25 01/24/25 18:59 06:59 18:59 Intake Total 250 Balance 250 Intake: Oral 250 Other: Voiding Method Toilet Toilet Toilet # Voids 1 2 - Exam Vital signs are stable. Patient is in no acute distress and is alert and oriented 3. Calf is soft and nontender to palpation. Dressing is clean, dry, and intact. Erythema to the right crawford with moderate lower leg swelling. Patient has full foot and ankle motion without pain or difficulty. Sensation intact. Neurovascular status and circulatory status are intact. - Labs CBC & Chem 7: 01/24/25 03:57 01/24/25 03:57 Labs: Abnormal Lab Results - Last 24 Hours (Table) 01/24/25 01/24/25 Range/Units 03:57 03:57 RBC 3.23 L (4.10-5.20) X 10*6/uL Hgb 9.7 L (12.0-15.0) g/dL Hct 32.0 L (37.2-46.3) % MCV 99.1 H (80.0-97.0) FL MCHC 30.3 L (32.0-37.0) g/dL BUN 6.6 L (9.0-27.0) mg/dL BUN/Creatinine Ratio 11.00 L (12.00-20.00) Ratio Calcium 8.4 L (8.7-10.3) mg/dL Microbiology - Last 24 Hours (Table) 01/20/25 19:05 Blood Culture - Preliminary Blood Assessment and Plan (1) Cellulitis of right leg Current Visit: Yes Status: Acute Code(s): L03.115 - CELLULITIS OF RIGHT LOWER LIMB SNOMED Code(s): 25429208090093266 (2) Status post revision of total replacement of right knee Current Visit: Yes Status: Acute Code(s): Z96.651 - PRESENCE OF RIGHT ARTIFICIAL KNEE JOINT SNOMED Code(s): 723727033985682 Plan: 1. Continue routine postoperative care and pain control. Leave Optifoam dressing intact. 2. Continue IV antibiotics per internal medicine. 3. We will continue to follow closely.
--- NOTE | 2025-01-24 18:08 | P.PN ---
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 She states that she had a revision surgery on her right knee last 01/14/2025 1 week ago, and discharged on 01/17/25. She subsequently return to hospital 2 days later days later came in for evaluation of swollen right leg distal to site of surgery. Venous doppler US was completed and was negative for acute dvt, and she was discharged. Yesterday evening she presented for continuous pain and swelling in her lower extremity and concern for infection. She was given Unasyn and Levaquin in the ER and has since begun Vancomycin which she states have improved the erythema and pain. She denies fevers, shortness of breath nausea, vomiting, abdominal pain, or dysuria. Today 01/24/2025, she denies fevers, shortness of breath nausea, vomiting, abdo rima pain, or dysuria. Her leg pain and errythema is gradually improving. She is afebrile, on room air. Her WBC 9.51, creatinine is 0.6. Blood cultures no growth thus far. Objective - Vital Signs Vital signs: Vital Signs Temp 99.1 F 01/24/25 08:04 Pulse 85 01/24/25 08:04 Resp 18 01/24/25 08:04 BP 112/71 01/24/25 08:04 Pulse Ox 93 L 01/24/25 09:45 FiO2 21 01/22/25 07:55 Intake & Output 01/23/25 01/24/25 01/24/25 18:59 06:59 18:59 Intake Total 250 Balance 250 Intake: Oral 250 Other: Voiding Method Toilet Toilet Toilet # Voids 1 2 - Exam GENERAL DESCRIPTION: Elderly female lying in bed, no distress. No tachypnea or accessory muscle of respiration use. LUNGS: Unlabored breathing. Clear to auscultation anteriorly. No wheeze, no crackling HEART: S1, S2, regular rate and rhythm. No loud murmur ABDOMEN: Soft, nondistended, nontender EXTREMITIES: Right leg edema of leg below knee SKIN: Right lower extremity tenderness, improving erythema, no drainage. - Labs CBC & Chem 7: 01/24/25 03:57 01/24/25 03:57 Labs: Abnormal Lab Results - Last 24 Hours (Table) 01/24/25 01/24/25 Range/Units 03:57 03:57 RBC 3.23 L (4.10-5.20) X 10*6/uL Hgb 9.7 L (12.0-15.0) g/dL Hct 32.0 L (37.2-46.3) % MCV 99.1 H (80.0-97.0) FL MCHC 30.3 L (32.0-37.0) g/dL BUN 6.6 L (9.0-27.0) mg/dL BUN/Creatinine Ratio 11.00 L (12.00-20.00) Ratio Calcium 8.4 L (8.7-10.3) mg/dL Microbiology - Last 24 Hours (Table) 01/20/25 19:05 Blood Culture - Preliminary Blood Assessment and Plan (1) Cellulitis of right leg Current Visit: Yes Status: Acute Code(s): L03.115 - CELLULITIS OF RIGHT LOWER LIMB SNOMED Code(s): 49135053340011210 (2) Status post revision of total replacement of right knee Current Visit: Yes Status: Acute Code(s): Z96.651 - PRESENCE OF RIGHT ARTIFICIAL KNEE JOINT SNOMED Code(s): 402404456849242 (3) Edema of right lower extremity Current Visit: Yes Status: Acute Code(s): R60.0 - LOCALIZED EDEMA SNOMED Code(s): 926506255 Plan: 1. Patient presents status post right knee revision surgery 1 week ago. She was seen in the ER earlier this week with findings of no acute DVT. She presents for worsening tenderness and erythema at surgical site. She was given Unasyn and Levaquin in ER. She is afebrile, on room air. Blood cultures no growth thus far, waiting to finalize. 2. Right knee arthroplasty with erythema extending to the knee area will need to cover for the gram-positive skin kendall to be the likely pathogen keeping in mind recent surgery we need to cover for more resistant gram positive such as MRSA. Findings most consistent with cellulitis, at postop surgical site. Patient has multiple antibiotic allergies and related to number of antibiotic safety use, we will continue vancomycin as dosed by pharmacy, as she is having improved clinical response. 3. Recommending loose fitting Gutierrez wrap or resume home lymphedema compression device as tolerated by patient. Hung Anne MD Internal Medicine Resident, PGY2 Infectious disease service Patient was personally seen and examined care discussed in detail with the resident physician documentation reviewed and agree, detailed discussion with the patient regarding importance of compression to get some of the swelling down she did agree to apply her home compression dressing I will continue patient on vancomycin while inpatient and if the culture remains to be negative will be tra nsition to oral antibiotic on discharge and close outpatient follow-up Dictation was produced using [employer] dictation software. please excuse any grammatical, word or spelling errors. Time with Patient: Less than 30
[2025-01-25 06:18] LABS: African American GFR (CKD) >90 (>60 ml/min/1.73 sqM); Anion Gap 6 mmol/L; Blood Urea Nitrogen 5 mg/dL (7-17); Calcium 9.0 mg/dL (8.4-10.2); Carbon Dioxide 26 mmol/L (22-30); Chloride 104 mmol/L (98-107); Glucose 101 mg/dL (74-99); Non-African American GFR(CKD) >90 (>60 ml/min/1.73 sqM); Potassium 3.9 mmol/L (3.5-5.1); Sodium 136 mmol/L (137-145)
[2025-01-25] MEDS: VANCOMYCIN TROUGH DUE 1 EACH MISC MISCELLANE ONE (06:58)
[2025-01-25 08:53] LABS: Basophils # (A) 0.08 X 10*3/uL (0.00-0.10); Basophils % (A) 1.0 %; Eosinophils # (A) 0.19 X 10*3/uL (0.04-0.35); Eosinophils % (A) 2.3 %; HCT 31.1 % (37.2-46.3); HGB 9.6 g/dL (12.0-15.0); Immature Grans, Automated 0.50 %; Lymphocytes # (A) 2.19 X 10*3/uL (0.90-5.00); Lymphocytes % (A) 26.0 %; MCH 29.6 pg (27.0-32.0); MCHC 30.9 g/dL (32.0-37.0); MCV 96.0 FL (80.0-97.0); Monocytes # (A) 1.00 X 10*3/uL (0.20-1.00); Monocytes % (A) 11.9 %; NRBC Per 100 WBC 0 X 10*3/uL (0.00-0.01); Neutrophils # (A) 4.92 X 10*3/uL (1.80-7.70); Neutrophils % (A) 58.3 %; Platelet Count 421 X 10*3/uL (140-440); RBC 3.24 X 10*6/uL (4.10-5.20); RDW 13.4 % (11.5-14.5); WBC 8.42 X 10*3/uL (4.50-10.00)
--- NOTE | 2025-01-25 10:32 | P.PN ---
Subjective Progress Note Date: 01/25/25 This is a 74-year-old female who is admitted for right lower extremity cellulitis. Patient is status post right total knee arthroplasty on 01/14/[address] Jd Modi. Patient is seen and evaluated at bedside today and states that her pain and swelling are improving since yesterday. Patient states that she ambulates to the bathroom and back and has been doing ankle pumps. Patient denies any new complaints today. Objective - Vital Signs Vital signs: Vital Signs Temp 98.0 F 01/25/25 07:21 Pulse 54 L 01/25/25 07:21 Resp 18 01/25/25 07:21 BP 127/66 01/25/25 07:21 Pulse Ox 96 01/25/25 08:26 FiO2 21 01/25/25 08:26 Intake & Output 01/24/25 01/25/25 01/25/25 18:59 06:59 18:59 Other: Voiding Method Toilet Toilet # Voids 2 3 - Exam Patient is in no acute distress and is alert and oriented 3. Dressing is clean, dry, and intact. Erythema to the right crawford with severe lower leg swelling. Quadriceps soft to compression. Hamstrings soft to compression. Calf is soft to compression. Calf is nontender to palpation. Patient has full foot and ankle motion without pain or difficulty. Negative Homans' sign. Sensation intact. Neurovascular status and circulatory status are intact. - Labs CBC & Chem 7: 01/25/25 05:47 01/25/25 05:47 Labs: Abnormal Lab Results - Last 24 Hours (Table) 01/25/25 01/25/25 Range/Units 05:47 05:47 RBC 3.24 L (4.10-5.20) X 10*6/uL Hgb 9.6 L (12.0-15.0) g/dL Hct 31.1 L (37.2-46.3) % MCHC 30.9 L (32.0-37.0) g/dL Sodium 136 L (137-145) mmol/L BUN 5 L (7-17) mg/dL Creatinine 0.44 L (0.52-1.04) mg/dL Glucose 101 H (74-99) mg/dL Assessment and Plan Assessment: Cellulitis of right leg Status post revision of total replacement of right knee Plan: 1. Continue routine postoperative care and pain control. Leave Optifoam dressing intact. 2. Continue IV antibiotics per internal medicine. 3. We will continue to follow closely.
--- NOTE | 2025-01-25 10:45 | P.PN ---
Subjective Progress Note Date: 01/25/25 Hospital course: Patient is a very pleasant 74-year-old female with a past medical history of hypertension, hyperlipidemia, hypothyroidism, previous DVT on anticoagulation with Eliquis, and asthma. Patient is recently status post right total knee arthroplasty revision completed on 01/14/2025. She presented to the hospital on 01/20/2025 secondary to increased pain, swelling, and redness to her right lower extremity. Venous Doppler ultrasound was completed 01/19/2025 negative for DVT previously demonstrated thrombus in the posterior tibial vein no longer identified. Upon arrival to our facility, patient underwent evaluation in the emergency department. Vital signs upon arrival show blood pressure 111/72, heart rate 102, respiratory rate 18, temp 98.2 F, and SpO2 of 91% on room air. EKG completed showing normal sinus rhythm at 87 bpm with diffuse T wave inversion. X-ray right tib-fib negative for acute fracture or dislocation. Labs completed and reviewed. CBC showing normocytic anemia with hemoglobin of 10.6. Coagulation profile showing elevated PTT of 31.3. BMP unremarkable. Blood glucose 118. Lactic acid 1.2. Liver profile unremarkable. Troponin negative at less than 0.012. proBNP 152. On broad-spectrum antibiotics and admitted under our services with consultation to infectious disease and orthopedic surgery team. Subjective This morning patient's cellulitis does appear to be improving. Swelling also appears to be coming down. Physical exam Vital signs reviewed and stable. General examination - Alert and Oriented 3 in NAD Heart - + S1S2 no murmurs Lungs - Clear to auscultation Abdomen soft NT ND +ve BS Extremities -right lower extremity swelling and erythema. 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 Infectious disease following Orthopedic surgery following Symptomatic care and pain management with Tylenol 650 mg every 6 hours as needed for mild pain/fever, [place] 7.5/325 mg tablets every 6 hours as needed for moderate pain, and Dilaudid 1 mg IVP every 3 hours as needed for severe pain -Patient reports cellulits is improivng. However still significantly swollen and erythematous. Macrocytic anemia Hemoglobin 9.6. No active bleeding noted. Will continue to monitor for improvement/resolution with repeat labs. Hypertension Monitor vital signs and continue daily medication regimen with lisinopril 10 mg nightly. Hypothyroidism Continue levothyroxine 75 mcg daily. Hyperlipidemia Continue rosuvastatin 20 mg nightly. History of DVT Continue Eliquis 5 mg twice daily. CODE STATUS: Full code DVT prophylaxis: Eliquis Anticipated discharge date: Pending clinical course Anticipated discharge place: Pending clinical course Objective - Vital Signs Vital signs: Vital Signs Temp 98.0 F 01/25/25 07:21 Pulse 54 L 01/25/25 07:21 Resp 18 01/25/25 07:21 BP 127/66 01/25/25 07:21 Pulse Ox 96 01/25/25 08:26 FiO2 21 01/25/25 08:26 Intake & Output 01/24/25 01/25/25 01/25/25 18:59 06:59 18:59 Other: Voiding Method Toilet Toilet Toilet # Voids 2 3 - Labs CBC & Chem 7: 01/25/25 05:47 01/25/25 05:47 Labs: Abnormal Lab Results - Last 24 Hours (Table) 01/25/25 01/25/25 Range/Units 05:47 05:47 RBC 3.24 L (4.10-5.20) X 10*6/uL Hgb 9.6 L (12.0-15.0) g/dL Hct 31.1 L (37.2-46.3) % MCHC 30.9 L (32.0-37.0) g/dL Sodium 136 L (137-145) mmol/L BUN 5 L (7-17) mg/dL Creatinine 0.44 L (0.52-1.04) mg/dL Glucose 101 H (74-99) mg/dL
[2025-01-25 12:07] VITALS: BMI 30.4
--- NOTE | 2025-01-25 15:56 | P.PN ---
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 She states that she had a revision surgery on her right knee last 01/14/2025 1 week ago, and discharged on 01/17/25. She subsequently return to hospital 2 days later days later came in for evaluation of swollen right leg distal to site of surgery. Venous doppler US was completed and was negative for acute dvt, and she was discharged. Yesterday evening she presented for continuous pain and swelling in her lower extremity and concern for infection. She was given Unasyn and Levaquin in the ER and has since begun Vancomycin which she states have improved the erythema and pain. She denies fevers, shortness of breath nausea, vomiting, abdominal pain, or dysuria. On today's evaluation that is 01/25/2025, the patient continues to be afebrile, the patient is on room air and breathing comfortably, the Pt denies having any chest pain or cough, the patient denies having any abdominal pain no vomiting or any diarrhea mention pain and swelling to the right knee has decreased in intensity. Patient white count is 8.4, creatinine 0.44 blood culture has been negative so far Objective - Vital Signs Vital signs: Vital Signs Temp 98.0 F 01/25/25 07:21 Pulse 54 L 01/25/25 07:21 Resp 18 01/25/25 07:21 BP 127/66 01/25/25 07:21 Pulse Ox 96 01/25/25 08:26 FiO2 21 01/25/25 08:26 Intake & Output 01/24/25 01/25/25 01/25/25 18:59 06:59 18:59 Other: Voiding Method Toilet Toilet Toilet # Voids 2 3 - Exam GENERAL DESCRIPTION: Elderly female lying in bed, no distress. No tachypnea or accessory muscle of respiration use. LUNGS: Unlabored breathing. Clear to auscultation anteriorly. No wheeze, no crackling HEART: S1, S2, regular rate and rhythm. No loud murmur ABDOMEN: Soft, nondistended, nontender EXTREMITIES: Right leg edema of leg below knee SKIN: Right lower extremity tenderness, improving erythema, no drainage. - Labs CBC & Chem 7: 01/25/25 05:47 01/25/25 05:47 Labs: Abnormal Lab Results - Last 24 Hours (Table) 01/25/25 01/25/25 Range/Units 05:47 05:47 RBC 3.24 L (4.10-5.20) X 10*6/uL Hgb 9.6 L (12.0-15.0) g/dL Hct 31.1 L (37.2-46.3) % MCHC 30.9 L (32.0-37.0) g/dL Sodium 136 L (137-145) mmol/L BUN 5 L (7-17) mg/dL Creatinine 0.44 L (0.52-1.04) mg/dL Glucose 101 H (74-99) mg/dL Assessment and Plan (1) Cellulitis of right leg Current Visit: Yes Status: Acute Code(s): L03.115 - CELLULITIS OF RIGHT LOWER LIMB SNOMED Code(s): 23584849959798738 (2) Status post revision of total replacement of right knee Current Visit: Yes Status: Acute Code(s): Z96.651 - PRESENCE OF RIGHT ARTIFICIAL KNEE JOINT SNOMED Code(s): 094068244606941 (3) Edema of right lower extremity Current Visit: Yes Status: Acute Code(s): R60.0 - LOCALIZED EDEMA SNOMED Code(s): 627195033 Plan: 1. Patient presents status post right knee revision surgery 1 week ago. She was seen in the ER earlier this week with findings of no acute DVT. She presents for worsening tenderness and erythema at surgical site. She was given Unasyn and Levaquin in ER. She is afebrile, on room air. Blood cultures no growth thus far, waiting to finalize. 2. Right knee arthroplasty with erythema extending to the knee area will need to cover for the gram-positive skin kendall to be the likely pathogen keeping in mind recent surgery we need to cover for more resistant gram positive such as MRSA. Findings most consistent with cellulitis, at postop surgical site. Patient has multiple antibiotic allergies and related to number of antibiotic safety use, we will continue vancomycin as dosed by pharmacy, as she is having improved clinical response. 3. Patient advised again for compression to keep the swelling down for now we will continue the patient on vancomycin while inpatient blood pressure has been negative plan is for oral Zyvox on discharge Dictation was produced using [employer] dictation software. please excuse any grammatical, word or spelling errors.
[2025-01-25] MEDS: VANCOMYCIN 1,250 MG in SODIUM CHLORIDE 0.9% 250 ML IVPB SCH (20:26)
[2025-01-26 08:55] LABS: Glucose 107 mg/dL (70-110)
[2025-01-26 08:56] LABS: Anion Gap 7.30 mmol/L (4.00-12.00); BUN/Creat Ratio 10.83 Ratio (12.00-20.00); Blood Urea Nitrogen 6.5 mg/dL (9.0-27.0); Calcium 8.2 mg/dL (8.7-10.3); Carbon Dioxide 23.7 mmol/L (21.6-31.8); Chloride 103 mmol/L (96-109); Potassium 3.6 mmol/L (3.5-5.5); Sodium 134 mmol/L (135-145)
--- NOTE | 2025-01-26 09:18 | P.PN ---
Subjective Progress Note Date: 01/26/25 This is a 74-year-old female who is admitted for right lower extremity cellulitis. Patient is status post right total knee arthroplasty on 01/14/[address] Jd Modi. Patient is seen and evaluated at bedside today and states that her pain and swelling are improving since yesterday. Patient states that she ambulates to the bathroom and back and has been doing ankle pumps. Patient denies any new complaints today. Objective - Vital Signs Vital signs: Vital Signs Temp 98.2 F 01/26/25 08:00 Pulse 76 01/26/25 08:00 Resp 18 01/26/25 08:00 BP 125/74 01/26/25 08:00 Pulse Ox 96 01/26/25 08:00 FiO2 21 01/25/25 08:26 Intake & Output 01/25/25 01/26/25 01/26/25 18:59 06:59 18:59 Intake Total 1620 Balance 1620 Weight 78.018 kg Intake: Oral 1620 Other: Voiding Method Toilet Toilet # Voids 3 2 - Exam Patient is in no acute distress and is alert and oriented 3. Dressing is clean, dry, and intact. Erythema to the right crawford with moderate lower leg swelling. At time of exam today patient had some of the right leg wrapped with Gutierrez bandage. Quadriceps soft to compression. Hamstrings soft to compression. Calf is soft to compression. Calf is nontender to palpation. Patient has full foot and ankle motion without pain or difficulty. Negative Homans' sign. Sensation intact. Neurovascular status and circulatory status are intact. - Labs CBC & Chem 7: 01/25/25 05:47 01/26/25 02:47 Labs: Abnormal Lab Results - Last 24 Hours (Table) 01/26/25 Range/Units 02:47 Sodium 134 L (135-145) mmol/L BUN 6.5 L (9.0-27.0) mg/dL BUN/Creatinine Ratio 10.83 L (12.00-20.00) Ratio Calcium 8.2 L (8.7-10.3) mg/dL Microbiology - Last 24 Hours (Table) 01/20/25 19:05 Blood Culture - Final Blood Assessment and Plan Assessment: Cellulitis of right leg Status post revision of total replacement of right knee Plan: 1. Continue routine postoperative care and pain control. Leave Optifoam dressing intact. 2. Continue IV antibiotics per internal medicine.
--- NOTE | 2025-01-26 11:42 | P.PN ---
Subjective Progress Note Date: 01/26/25 Hospital course: Patient is a very pleasant 74-year-old female with a past medical history of hypertension, hyperlipidemia, hypothyroidism, previous DVT on anticoagulation with Eliquis, and asthma. Patient is recently status post right total knee arthroplasty revision completed on 01/14/2025. She presented to the hospital on 01/20/2025 secondary to increased pain, swelling, and redness to her right lower extremity. Venous Doppler ultrasound was completed 01/19/2025 negative for DVT previously demonstrated thrombus in the posterior tibial vein no longer identified. Upon arrival to our facility, patient underwent evaluation in the emergency department. Vital signs upon arrival show blood pressure 111/72, heart rate 102, respiratory rate 18, temp 98.2 F, and SpO2 of 91% on room air. EKG completed showing normal sinus rhythm at 87 bpm with diffuse T wave inversion. X-ray right tib-fib negative for acute fracture or dislocation. Labs completed and reviewed. CBC showing normocytic anemia with hemoglobin of 10.6. Coagulation profile showing elevated PTT of 31.3. BMP unremarkable. Blood glucose 118. Lactic acid 1.2. Liver profile unremarkable. Troponin negative at less than 0.012. proBNP 152. On broad-spectrum antibiotics and admitted under our services with consultation to infectious disease and orthopedic surgery team. Subjectiv Patient seen this morning. She had bandages on her right lower extremity. She states that the bandages feel loose so believes that the swelling is coming down. Physical exam Vital signs reviewed and stable. General examination - Alert and Oriented 3 in NAD Heart - + S1S2 no murmurs Lungs - Clear to auscultation Abdomen soft NT ND +ve BS Extremities -right lower extremity swelling and erythema. 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 Infectious disease following Orthopedic surgery following Symptomatic care and pain management with Tylenol 650 mg every 6 hours as needed for mild pain/fever, [place] 7.5/325 mg tablets every 6 hours as needed for moderate pain, and Dilaudid 1 mg IVP every 3 hours as needed for severe pain -Blood cultures are negative -Infectious disease recommending Zyvox on discharge. - Improving Macrocytic anemia Stable Hypertension Monitor vital signs and continue daily medication regimen with lisinopril 10 mg nightly. Hypothyroidism Continue levothyroxine 75 mcg daily. Hyperlipidemia Continue rosuvastatin 20 mg nightly. History of DVT Continue Eliquis 5 mg twice daily. CODE STATUS: Full code DVT prophylaxis: Eliquis Anticipated discharge date: Anticipate patient be ready for discharge in the next [address]: Home Objective - Vital Signs Vital signs: Vital Signs Temp 98.2 F 01/26/25 08:00 Pulse 76 01/26/25 08:00 Resp 18 01/26/25 08:00 BP 125/74 01/26/25 08:00 Pulse Ox 96 01/26/25 08:00 FiO2 21 01/25/25 08:26 Intake & Output 01/25/25 01/26/25 01/26/25 18:59 06:59 18:59 Intake Total 1620 Balance 1620 Weight 78.018 kg Intake: Oral 1620 Other: Voiding Method Toilet Toilet # Voids 3 2 - Labs CBC & Chem 7: 01/25/25 05:47 01/26/25 02:47 Labs: Abnormal Lab Results - Last 24 Hours (Table) 01/26/25 Range/Units 02:47 Sodium 134 L (135-145) mmol/L BUN 6.5 L (9.0-27.0) mg/dL BUN/Creatinine Ratio 10.83 L (12.00-20.00) Ratio Calcium 8.2 L (8.7-10.3) mg/dL Microbiology - Last 24 Hours (Table) 01/20/25 19:05 Blood Culture - Final Blood
[2025-01-26] MEDS: HYDROmorphone 0.5 MG/0.5 ML SYRINGE IVP STA (14:58)
--- NOTE | 2025-01-26 16:17 | P.PN ---
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 She states that she had a revision surgery on her right knee last 01/14/2025 1 week ago, and discharged on 01/17/25. She subsequently return to hospital 2 days later days later came in for evaluation of swollen right leg distal to site of surgery. Venous doppler US was completed and was negative for acute dvt, and she was discharged. Yesterday evening she presented for continuous pain and swelling in her lower extremity and concern for infection. She was given Unasyn and Levaquin in the ER and has since begun Vancomycin which she states have improved the erythema and pain. She denies fevers, shortness of breath nausea, vomiting, abdominal pain, or dysuria. On today's evaluation that is 01/27/2024, patient did have a temperature of 98.5 F this afternoon and denies having any chills, patient is on room air and breathing comfortably no chest pain or cough, the patient did not have any nausea vomiting abdominal pain or any diarrhea right lower extremity swelling clinically decreased. Patient did have a creatinine 0.6 no CBC was done today blood culture has been negative Objective - Vital Signs Vital signs: Vital Signs Temp 98.5 F 01/26/25 14:00 Pulse 95 01/26/25 14:00 Resp 18 01/26/25 14:00 BP 129/73 01/26/25 14:00 Pulse Ox 95 01/26/25 14:00 FiO2 21 01/25/25 08:26 Intake & Output 01/25/25 01/26/25 01/26/25 18:59 06:59 18:59 Intake Total 1620 Balance 1620 Weight 78.018 kg Intake: Oral 1620 Other: Voiding Method Toilet Toilet # Voids 3 2 - Exam GENERAL DESCRIPTION: Elderly female lying in bed, no distress. No tachypnea or accessory muscle of respiration use. LUNGS: Unlabored breathing. Clear to auscultation anteriorly. No wheeze, no crackling HEART: S1, S2, regular rate and rhythm. No loud murmur ABDOMEN: Soft, nondistended, nontender EXTREMITIES: Right leg edema of leg below knee SKIN: Right lower extremity tenderness, improving erythema, no drainage. - Labs CBC & Chem 7: 01/25/25 05:47 01/26/25 02:47 Labs: Abnormal Lab Results - Last 24 Hours (Table) 01/26/25 Range/Units 02:47 Sodium 134 L (135-145) mmol/L BUN 6.5 L (9.0-27.0) mg/dL BUN/Creatinine Ratio 10.83 L (12.00-20.00) Ratio Calcium 8.2 L (8.7-10.3) mg/dL Microbiology - Last 24 Hours (Table) 01/20/25 19:05 Blood Culture - Final Blood Assessment and Plan (1) Cellulitis of right leg Current Visit: Yes Status: Acute Code(s): L03.115 - CELLULITIS OF RIGHT LOWER LIMB SNOMED Code(s): 90909995051418642 (2) Status post revision of total replacement of right knee Current Visit: Yes Status: Acute Code(s): Z96.651 - PRESENCE OF RIGHT ARTIFICIAL KNEE JOINT SNOMED Code(s): 998482950014387 (3) Edema of right lower extremity Current Visit: Yes Status: Acute Code(s): R60.0 - LOCALIZED EDEMA SNOMED Code(s): 536391637 Plan: 1. Patient presents status post right knee revision surgery 1 week ago. She was seen in the ER earlier this week with findings of no acute DVT. She presents for worsening tenderness and erythema at surgical site. She was given Unasyn and Levaquin in ER. She is afebrile, on room air. Blood cultures no growth thus far, waiting to finalize. 2. Right knee arthroplasty with erythema extending to the knee area will need to cover for the gram-positive skin kendall to be the likely pathogen keeping in mind recent surgery we need to cover for more resistant gram positive such as MRSA. Findings most consistent with cellulitis, at postop surgical site. Patient has multiple antibiotic allergies and related to number of antibiotic safety use,. 3patient did lost her IV antibiotic has been switched over to oral Zyvox and if continue to improve to continue with oral Zyvox for about 10 days on discharge this was discussed with the admitting physician Dictation was produced using [employer] dictation software. please excuse any grammatical, word or spelling errors. Time with Patient: Less than 30
[2025-01-26] MEDS: LINEZOLID 600 MG TAB PO SCH (20:41)
[2025-01-27] MEDS ORDERED: VANCOMYCIN TROUGH DUE 1 EACH MISC MISCELLANE ONE (08:00)
[2025-01-27 08:23] VITALS: RESP 18
--- NOTE | 2025-01-27 09:06 | P.PN ---
Subjective Progress Note Date: 01/27/25 This is a 74-year-old female who is admitted for right lower extremity cellulitis. Patient is status post right total knee arthroplasty on 01/14/[address] Jd Modi. Patient is seen and evaluated at bedside today and states that her pain and swelling are improving since yesterday. Patient states that she ambulates to the bathroom and back and has been doing ankle pumps. Patient denies any new complaints today. Objective - Vital Signs Vital signs: Vital Signs Temp 98.3 F 01/27/25 08:00 Pulse 92 01/27/25 08:00 Resp 18 01/27/25 08:00 BP 152/87 01/27/25 08:00 Pulse Ox 97 01/27/25 08:00 FiO2 21 01/25/25 08:26 Intake & Output 01/26/25 01/27/25 01/27/25 18:59 06:59 18:59 Intake Total 2190 Output Total 2 Balance -2 2190 Intake: Oral 2190 Output: Urine 2 Other: # Voids 4 # Bowel Movements 0 - Exam Patient is in no acute distress and is alert and oriented 3. Dressing is clean, dry, and intact. Erythema to the right crawford with moderate lower leg swelling, continues to appear improved. Quadriceps soft to compression. Hamstrings soft to compression. Calf is soft to compression. Calf is nontender to palpation. Patient has full foot and ankle motion without pain or difficulty. Negative Homans' sign. Sensation intact. Neurovascular status and circulatory status are intact. - Labs CBC & Chem 7: 01/25/25 05:47 01/26/25 02:47 Assessment and Plan Assessment: Cellulitis of right leg Status post revision of total replacement of right knee Plan: Continue routine postoperative care and pain control. Leave Optifoam dressing intact. Patient continues to improve. At this time she is cleared to discharge from orthopedic standpoint point and have close follow-up in our office. We appreciate internal medicine and infectious disease. Dictation was produced using [employer] dictation software, please excuse any grammatical, word or spelling errors.
[2025-01-27 10:36] LABS: Anion Gap 9.80 mmol/L (4.00-12.00); BUN/Creat Ratio 10.83 Ratio (12.00-20.00); Blood Urea Nitrogen 6.5 mg/dL (9.0-27.0); Calcium 8.3 mg/dL (8.7-10.3); Carbon Dioxide 24.2 mmol/L (21.6-31.8); Chloride 105 mmol/L (96-109); Glucose 111 mg/dL (70-110); Potassium 4.0 mmol/L (3.5-5.5); Sodium 139 mmol/L (135-145)
--- NOTE | 2025-01-27 10:41 | P.DS ---
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 Patient is recently status post right total knee arthroplasty revision completed on 01/14/2025. She presented to the hospital on 01/20/2025 secondary to increased pain, swelling, and redness to her right lower extremity. Venous Doppler ultrasound was completed 01/19/2025 negative for DVT previously demonstrated thrombus in the posterior tibial vein no longer identified. Upon arrival to our facility, patient underwent evaluation in the emergency department. Vital signs upon arrival show blood pressure 111/72, heart rate 102, respiratory rate 18, temp 98.2 F, and SpO2 of 91% on room air. EKG completed showing normal sinus rhythm at 87 bpm with diffuse T wave inversion. X-ray right tib-fib negative for acute fracture or dislocation. Labs completed and reviewed. CBC showing normocytic anemia with hemoglobin of 10.6. Coagulation profile showing elevated PTT of 31.3. BMP unremarkable. Blood glucose 118. Lactic acid 1.2. Liver profile unremarkable. Troponin negative at less than 0.012. proBNP 152. On broad-spectrum antibiotics and admitted under our services with consultation to infectious disease and orthopedic surgery team. Patient was started on IV vancomycin. Infectious disease was following the patient. Patient's blood cultures were negative. Patient showed gradual improvement of her cellulitis. At the time of significant improvement of her cellulitis. Infectious disease recommended 10 more days of Zyvox. Patient deemed stable for discharge. Patient seen and examined at bedside.[] Vital signs reviewed and stable. General examination - Alert and Oriented 3 in NAD Heart - + S1S2 no murmurs Lungs - Clear to auscultation Abdomen soft NT ND +ve BS Extremities -right lower extremity swelling and erythema. Bandage on the right knee that is intact and dry [employer] PILOT - Moving all 4 extremities spontaneously Psych - Calm and cooperative A total of [33] minutes of time were spent preparing this complex discharge summary . Patient discharged on [01/27/2025] Patient Condition at Discharge: Fair Plan - Discharge Summary Discharge Rx Participant: Yes New Discharge Prescriptions: New Linezolid [Zyvox] 600 mg PO Q12HR 10 Days #20 tab Continue Montelukast Sodium [Singulair] 10 mg PO HS lisinopriL [Zestril] 10 mg PO HS Lansoprazole [Prevacid] 30 mg PO HS Levothyroxine Sodium [Synthroid] 75 mcg PO DAILY Fluticasone/Vilanterol [Breo Ellipta 200-25 Mcg Inhaler] 1 puff INHALATION RT-DAILY Potassium Chloride ER [K-Dur 20] 20 meq PO BID Multivit with Calcium,Iron,Min [Women's Multivitamin] 1 tab PO HS HYDROcodone/APAP 7.5-325MG [[place] 7.5-325] 1 - 2 tab PO Q6H PRN #32 tab PRN Reason: Pain Sennosides [Senokot] 2 tab PO DAILY PRN #60 tablet PRN Reason: Constipation Ondansetron Odt [Zofran ODT] 1 tab PO Q8HR PRN #10 tab PRN Reason: Nausea Rosuvastatin [Crestor] 20 mg PO HS Apixaban [Eliquis] 5 mg PO BID Loratadine [Claritin] 10 mg PO HS Albuterol Sulfate [Ventolin HFA] 2 puff INHALATION RT-Q6H PRN PRN Reason: Shortness Of Breath [facility] 1 tab PO HS Magnesium Oxide [Mag-Ox] 400 mg PO DAILY Discharge Medication List Fluticasone/Vilanterol [Breo Ellipta 200-25 Mcg Inhaler] 1 puff INHALATION RT- DAILY 06/23/16 [History] Lansoprazole [Prevacid] 30 mg PO HS 06/23/16 [History] Levothyroxine Sodium [Synthroid] 75 mcg PO DAILY 06/23/16 [History] Montelukast Sodium [Singulair] 10 mg PO HS 06/23/16 [History] Potassium Chloride ER [K-Dur 20] 20 meq PO BID 06/23/16 [History] lisinopriL [Zestril] 10 mg PO HS 06/23/16 [History] Rosuvastatin [Crestor] 20 mg PO HS 10/07/22 [History] Apixaban [Eliquis] 5 mg PO BID 12/27/23 [History] Loratadine [Claritin] 10 mg PO HS 12/27/23 [History] Albuterol Sulfate [Ventolin HFA] 2 puff INHALATION RT-Q6H PRN 01/08/25 [History] [facility] 1 tab PO HS 01/08/25 [History] Multivit with Calcium,Iron,Min [Women's Multivitamin] 1 tab PO HS 01/08/25 [History] HYDROcodone/APAP 7.5-325MG [[place] 7.5-325] 1 - 2 tab PO Q6H PRN #32 tab 01/14/25 [Rx] Sennosides [Senokot] 2 tab PO DAILY PRN #60 tablet 01/14/25 [Rx] Ondansetron Odt [Zofran ODT] 1 tab PO Q8HR PRN #10 tab 01/17/25 [Rx] Magnesium Oxide [Mag-Ox] 400 mg PO DAILY 01/20/25 [History] Linezolid [Zyvox] 600 mg PO Q12HR 10 Days #20 tab 01/27/25 [Rx] Follow up Appointment(s)/Referral(s): Issa Gibson MD [STAFF PHYSICIAN] - 1-2 Days Jd Modi DO [Doctor of Osteopathic Medicine] - 3 Days Vik Mei MD [STAFF PHYSICIAN] - 1 Week Activity/Diet/Wound Care/Special Instructions: Weight-bear as tolerated on right lower extremity. Leave Optifoam dressing intact. Please contact our office [facility] with any questions concerning the dressing. Discharge Disposition: HOME WITH HOME HEALTH SERVICES
[2025-01-27 14:27] VITALS: BP 129/79; PULSE 70; TEMP 98.2
--- NOTE | 2025-01-27 15:38 | P.PN ---
Subjective Progress Note Date: 01/27/25 Principal diagnosis: Reason for follow-up is right lower extremity cellulitis Patient is a 74-year-old female with high blood pressure and history of venous thrombo embolism a year ago who presented to hospital with swollen tender right leg. She states that she had a revision surgery on her right knee last 01/14/2025 and discharged on 01/17/25. Patient subsequent with the hospital with right lower extremity cellulitis Doppler ultrasound was negative for DVT On today's evaluation that is 01/27/2025, Patient is afebrile patient is currently on room air and denies having any shortness of breath, the patient denies any chest pain or cough, the patient denies any nausea vomiting did not have any abdominal pain and no diarrhea pain and swelling to the right lower extremity has decreased in intensity. Patient did have a creatinine 0.6 no CBC was done today blood culture has been negative Objective - Vital Signs Vital signs: Vital Signs Temp 98.3 F 01/27/25 08:00 Pulse 92 01/27/25 08:00 Resp 18 01/27/25 08:00 BP 152/87 01/27/25 08:00 Pulse Ox 97 01/27/25 08:00 FiO2 21 01/25/25 08:26 Intake & Output 01/26/25 01/27/25 01/27/25 18:59 06:59 18:59 Intake Total 2190 Output Total 2 Balance -2 2190 Intake: Oral 2190 Output: Urine 2 Other: # Voids 4 # Bowel Movements 0 - Exam GENERAL DESCRIPTION: Elderly female lying in bed, no distress. No tachypnea or accessory muscle of respiration use. LUNGS: Unlabored breathing. Clear to auscultation anteriorly. No wheeze, no crackling HEART: S1, S2, regular rate and rhythm. No loud murmur ABDOMEN: Soft, nondistended, nontender EXTREMITIES: Right leg edema of leg below knee SKIN: Right lower extremity tenderness, improving erythema, no drainage. - Labs CBC & Chem 7: 01/25/25 05:47 01/27/25 02:57 Labs: Abnormal Lab Results - Last 24 Hours (Table) 01/27/25 Range/Units 02:57 BUN 6.5 L (9.0-27.0) mg/dL BUN/Creatinine Ratio 10.83 L (12.00-20.00) Ratio Glucose 111 H (70-110) mg/dL Calcium 8.3 L (8.7-10.3) mg/dL Assessment and Plan (1) Cellulitis of right leg Current Visit: Yes Status: Acute Code(s): L03.115 - CELLULITIS OF RIGHT LOWER LIMB SNOMED Code(s): 45135488412308403 (2) Status post revision of total replacement of right knee Current Visit: Yes Status: Acute Code(s): Z96.651 - PRESENCE OF RIGHT ARTIFICIAL KNEE JOINT SNOMED Code(s): 382868437943419 (3) Edema of right lower extremity Current Visit: Yes Status: Acute Code(s): R60.0 - LOCALIZED EDEMA SNOMED Code(s): 854767074 Plan: 1. Patient presents status post right knee revision surgery 1 week ago. She was seen in the ER earlier this week with findings of no acute DVT. She presents for worsening tenderness and erythema at surgical site. She was given Unasyn and Levaquin in ER. She is afebrile, on room air. Blood cultures no growth thus far, waiting to finalize. 2. Right knee arthroplasty with erythema extending to the knee area will need to cover for the gram-positive skin kendall to be the likely pathogen keeping in mind recent surgery we need to cover for more resistant gram positive such as MRSA. Findings most consistent with cellulitis, at postop surgical site. Patient has multiple antibiotic allergies and related to number of antibiotic safety use,. 3patient seem to be doing well with oral Zyvox while inpatient to continue for about 10 days on discharge along with compression and close outpatient follow-up discussion with the admitting physician working on discharge this morning Dictation was produced using [employer] dictation software. please excuse any grammatical, word or spelling errors.
== END 2025-01-27 17:18 | disposition home health service (06) | DRG 863 ==
LOC: EC 17:46 → 4SSUR 18:36
PROVIDERS: ADMIT Internal Medicine; ATTEND Internal Medicine
DX: T81.41XA Infection following a procedure, superficial incisional surgical site, initial encounter (principal); L03.115 Cellulitis of right lower limb; E03.9 Hypothyroidism, unspecified; E66.9 Obesity, unspecified; I10 Essential (primary) hypertension; J45.909 Unspecified asthma, uncomplicated; D53.9 Nutritional anemia, unspecified; R79.1 Abnormal coagulation profile; Z96.651 Presence of right artificial knee joint; H91.91 Unspecified hearing loss, right ear; Z79.01 Long term (current) use of anticoagulants; E78.5 Hyperlipidemia, unspecified; Z79.890 Hormone replacement therapy; Z79.899 Other long term (current) drug therapy; Z86.718 Personal history of other venous thrombosis and embolism; Z86.73 Personal history of transient ischemic attack (TIA), and cerebral infarction without residual deficits; Z95.5 Presence of coronary angioplasty implant and graft; I25.2 Old myocardial infarction; Z88.1 Allergy status to other antibiotic agents; Z88.0 Allergy status to penicillin; Z88.8 Allergy status to other drugs, medicaments and biological substances; Z91.141 Patient's other noncompliance with medication regimen due to financial hardship; Z91.81 History of falling
CPT/HCPCS: 71046; 80048; 80053; 80202; 81003; 82565; 83605; 83735; 83880; 84100; 84484; 85025; 85027; 85610; 85730; 87040; 93005; 94640; 94760; 96374; 96375; 99285

== ENCOUNTER 2025-02-01 12:11 | Inpatient (IN) | payer MEDICARE, BC ==
--- NOTE | 2025-02-01 12:22 | ED ---
General Adult HPI - General Source: patient Mode of arrival: wheelchair Limitations: no limitations <Paige Priest - Last Filed: 02/01/25 16:40> <Evans Friedman - Last Filed: 02/01/25 20:37> - General Chief complaint: Recheck/Abnormal Lab/Rx Stated complaint: Post op infection in right leg Time Seen by Provider: 02/01/25 12:14 - History of Present Illness Initial comments: 74-year-old female with hypertension, history of DVT (on anticoagulation with Eliquis), hyperlipidemia and hypothyroidism here for worsening right lower extremity swelling and pain. Patient was recently admitted from 705 to 01/27 for cellulitis to right lower extremity status post right total knee arthroplasty on 01/14. Since discharge, patient noted that she is having increased swelling and pain on the affected extremity. With associated chills but no fever and worsening erythema of the right lower extremity. She has also been immobile as she had her foot on a sling for recovery. She had an appointment with her and her PCP today and was advised to seek care in the ED due to her clinical presentation concerning for failure of outpatient antibiotics and DVT evaluation. She denied fever, nausea, vomiting, shortness of breath, abdominal pain, changes in sensation of affected extremity, intractable back pain, bruising, bleeding, recent trauma or fall. (Paige Priest) - Related Data Home Medications Medication Instructions Recorded Confirmed Fluticasone/Vilanterol [Breo 1 puff INHALATION RT-DAILY 06/23/16 02/01/25 Ellipta 200-25 Mcg Inhaler] Lansoprazole [Prevacid] 30 mg PO HS 06/23/16 02/01/25 Levothyroxine Sodium [Synthroid] 75 mcg PO DAILY 06/23/16 02/01/25 Montelukast Sodium [Singulair] 10 mg PO HS 06/23/16 02/01/25 Potassium Chloride ER [K-Dur 20] 20 meq PO BID 06/23/16 02/01/25 lisinopriL [Zestril] 10 mg PO HS 06/23/16 02/01/25 Rosuvastatin [Crestor] 20 mg PO HS 10/07/22 02/01/25 Apixaban [Eliquis] 5 mg PO BID 12/27/23 02/01/25 Loratadine [Claritin] 10 mg PO HS 12/27/23 02/01/25 Albuterol Sulfate [Ventolin HFA] 2 puff INHALATION RT-Q6H PRN 01/08/25 02/01/25 [facility] 1 tab PO HS 01/08/25 02/01/25 Multivit with Calcium,Iron,Min 1 tab PO HS 01/08/25 02/01/25 [Women's Multivitamin] Magnesium Oxide [Mag-Ox] 400 mg PO DAILY 01/20/25 02/01/25 Previous Rx's Medication Instructions Recorded HYDROcodone/APAP 7.5-325MG [[place] 1 - 2 tab PO Q6H PRN #32 tab 01/14/25 7.5-325] Sennosides [Senokot] 2 tab PO DAILY PRN #60 tablet 01/14/25 Ondansetron Odt [Zofran ODT] 1 tab PO Q8HR PRN #10 tab 01/17/25 Linezolid [Zyvox] 600 mg PO Q12HR 10 Days #20 tab 01/27/25 Allergies Allergy/AdvReac Type Severity Reaction Status Date / Time cefuroxime [From Ceftin] Allergy Unknown Verified 02/01/25 15:39 cinnamon Allergy Stuffed Up Verified 02/01/25 15:39 and Sleepy clindamycin Allergy swelling Verified 02/01/25 15:39 of mouth & eyes Fish Containing Products Allergy saltwater Verified 02/01/25 15:39 [Fish] fish only Milk Containing Products Allergy Unknown Verified 02/01/25 15:39 (Dairy) [Dairy] Penicillins Allergy Lips/Face Verified 02/01/25 15:39 Swelling shellfish derived [Shellfish] Allergy Unknown Verified 02/01/25 15:39 wheat Allergy Unknown Verified 02/01/25 15:39 bacitracin AdvReac Rash/Hives Verified 02/01/25 15:39 [From Neosporin ([id number])] polymyxin B AdvReac Rash/Hives Verified 02/01/25 15:39 [From Neosporin ([id number])] Metal Allergy Redness Uncoded 02/01/25 15:39 Review of Systems ROS Other: All systems not noted in ROS Statement are negative. <Paige Priest - Last Filed: 02/01/25 16:40> ROS Other: All systems not noted in ROS Statement are negative. <Evans Friedman - Last Filed: 02/01/25 20:37> ROS Statement: Those systems with pertinent positive or pertinent negative responses have been documented in the HPI. Past Medical History Past Medical History: Asthma, Hypertension Additional Past Medical History / Comment(s): Hx fall Jul 2023 - fractured right femur, resulted in right DVT. Hx ulcer due to taking Motrin. 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 Has kidney stone - no treatment required. Hx migraines - no longer gets them. Last Myocardial Infarction Date:: 2021 History of Any Multi-Drug Resistant Organisms: None Reported Past Surgical History: Adenoidectomy, Appendectomy, Breast Surgery, Hysterectomy, Joint Replacement, Orthopedic Surgery, Tonsillectomy Additional Past Surgical History / Comment(s): ear shoulder wrist. right rotator cuff repair. Past Anesthesia/Blood Transfusion Reactions: No Reported Reaction Additional Past Anesthesia/Blood Transfusion Reaction / Comment(s): Really cold after one procedure. States she's a shallow breather with Anesthesia. Past Psychological History: No Psychological Hx Reported Smoking Status: Never smoker Past Alcohol Use History: None Reported Past Drug Use History: None Reported - Past Family History Mother Family Medical History: No Reported History <Paige Priest - Last Filed: 02/01/25 16:40> General Exam Limitations: no limitations <Paige Priest - Last Filed: 02/01/25 16:40> - General Exam Comments Initial Comments: Physical examination: Vital signs reviewed General: non toxic, no distress, appears at stated age Head: atraumatic, normocephalic, symmetric Mouth: no lip lesion, mucus membranes moist Cardiovascular: S1S2 reg, no murmur Lungs: CTA bilateral, no rhonchi, no rales, no accessory muscle use Abdominal: soft, nondistended, nontender to palpation, no guarding Ext: muscle strength 5 out of 5 in all 4 extremities grossly, no gross muscle atrophy, no contractures, positive dorsalis pedis pulse bilateral, right lower extremity +2 pitting edema up to the thigh with erythema, noted vertical surgical site covered with dressing that is clean and dry with no discharge noted Neuro: no gross focal neuro deficits, sensation intact on the bilateral lower extremity Psych: Alert and oriented x3, appropriate affect and mood (Paige Priest) Course Vital Signs 02/01/25 02/01/25 02/01/25 12:14 12:18 13:18 Temperature 98.4 F Pulse Rate 99 104 H 97 Respiratory 18 20 20 Rate Blood Pressure 136/87 146/84 160/90 O2 Sat by Pulse 97 96 98 Oximetry 02/01/25 02/01/25 02/01/25 13:54 15:00 17:00 Temperature Pulse Rate 90 92 60 Respiratory 20 20 16 Rate Blood Pressure 162/97 163/80 145/92 O2 Sat by Pulse 93 L 96 98 Oximetry 02/01/25 18:08 Temperature Pulse Rate 65 Respiratory 16 Rate Blood Pressure 156/90 O2 Sat by Pulse 98 Oximetry Medical Decision Making - Lab Data Result diagrams: 02/01/25 12:41 02/01/25 12:41 <Paige Priest - Last Filed: 02/01/25 16:40> - Lab Data Result diagrams: 02/01/25 12:41 02/01/25 12:41 <Evans Friedman - Last Filed: 02/01/25 20:37> - Medical Decision Making Was pt. sent in by a medical professional or institution (, PA, DEDICATED DRIVER, urgent care, hospital, or [facility]...) When possible be specific @ -PCP Did you speak to anyone other than the patient for history (EMS, parent, family, police, friend...)? What history was obtained from this source @ -Daughter at bedside Did you review nursing and triage notes (agree or disagree)? Why? @ -I reviewed and agree with nursing and triage notes Were old charts reviewed (outside hosp., previous admission, EMS record, old EKG, old radiological studies, urgent care reports/EKG's, [facility] records)? Report findings @ -Old charts were reviewed Differential Diagnosis? @ -Differential lower extremity swelling: DVT, PE, cellulitis, thrombophlebitis, thyroid storm, adrenal crisis, cavernous sinus thrombosis, this is not meant to be an all-inclusive list. EKG interpreted by me (3pts min.). @ -none done X-rays interpreted by me (1pt min.). @ -None done CT interpreted by me (1pt min.). @ -None done U/S interpreted by me (1pt. min.). @ -None done What testing was considered but not performed or refused? (CT, X-rays, U/S, labs)? Why? @ -None What meds were considered but not given or refused? Why? @ -None Did you discuss the management of the patient with other professionals (professionals i.e. , PA, DEDICATED DRIVER, lab, RT, psych nurse, social services director, efficiency miner blasting, teacher, ambulance officer, patient case manager)? Give summary @ -Dr. Friedman, supervising physician Was smoking cessation discussed for >3mins.? @ -No Was critical care preformed (if so, how long)? @ -No Were there social determinants of health that impacted care today? How? (Homelessness, low income, unemployed, alcoholism, drug addiction, transportation, low edu. Level, literacy, decrease access to med. care, fdc, rehab)? @ -No Was there de-escalation of care discussed even if they declined (Discuss DNR or withdrawal of care, Hospice)? DNR status @ -No What co-morbidities impacted this encounter? (DM, HTN, Smoking, COPD, CAD, Cancer, CVA, ARF, Chemo, Hep., AIDS, mental health diagnosis, sleep apnea, morbid obesity)? @ -None Was patient admitted / discharged? Hospital course, mention meds given and route, prescriptions, significant lab abnormalities, going to OR and other pertinent info. @ -Admitted. PCP concerned with outpatient failure of antibiotics evaluation and new DVT. Venous doppler ultrasound negative for DVT. Blood cultures, UA ordered. Initiated on IV vancomycin. Spoke with Dr. Ralph for [facility] which has accepted the patient for admission Undiagnosed new problem with uncertain prognosis? @ -No Drug Therapy requiring intensive monitoring for toxicity (Heparin, Nitro, Insulin, Cardizem)? @ -No Were any procedures done? @ -No Diagnosis/symptom? @ -[default] Acute, or Chronic, or Acute on Chronic? @ -Acute Uncomplicated (without systemic symptoms) or Complicated (systemic symptoms)? @ -[default] Side effects of treatment? @ -No Exacerbation, Progression, or Severe Exacerbation? @ -Exacerbation Poses a threat to life or bodily function? How? (Chest pain, USA, MD, pneumonia, PE, COPD, DKA, ARF, appy, cholecystitis, CVA, Diverticulitis, Homicidal, Suicidal, threat to staff... and all critical care pts) @ -Yes. Worsening cellulitis (Paige Priest) I personally saw the patient and performed the critical portion of the service. I discussed the patient care with the resident. I directed management, care planning and final disposition of the patient. This includes, but not limited to, review of all lab work, radiological studies, EKG's, consultations, vital signs, and nursing notes. EKG interpreted by me (3pts min.) @As above X-Rays interpreted by me (1 pt min.) @None CT interpreted by me ( 1pt min.) @None U/S interpreted by me (1 pt min.) @None Critical care time of 0 minutes excluding separately billable procedures was spent in conjunction with critical care activities provided by the Resident and Attending simultaneously. I was present during no procedures for all critical portions of the procedure and as immediately available to furnish service during the entire procedure. (Evans Friedman) - Lab Data Lab Results 02/01/25 02/01/25 02/01/25 Range/Units 12:41 12:41 12:41 WBC 8.66 (4.50-10.00) 10*3/uL RBC 3.67 L (4.10-5.20) 10*6/uL Hgb 11.2 L (12.0-15.0) g/dL Hct 35.7 L (37.2-46.3) % MCV 97.3 H (80.0-97.0) fL MCH 30.5 (27.0-32.0) pg MCHC 31.4 L (32.0-37.0) g/dL Plt Count 420 (140-440) 10*3/uL MPV 9.5 (9.5-12.2) fL Immature Gran % (Auto) 0.2 % Neutrophils % 70.0 % Lymphocytes % 16.5 % Monocytes % 10.2 % Eosinophils % 2.1 % Basophils % 1.0 % Immature Gran # 0.02 (0.00-0.04) 10*3/uL Neutrophils # 6.06 (1.80-7.70) 10*3/uL Lymphocytes # 1.43 (0.90-5.00) 10*3/uL Monocytes # 0.88 (0.20-1.00) 10*3/uL Eosinophils # 0.18 (0.04-0.35) 10*3/uL Basophils # 0.09 (0.00-0.10) 10*3/uL PT 11.1 (10.0-12.5) sec INR 1.0 (<1.2) APTT 31.2 H (22.0-30.0) sec Sodium 138 (137-145) mmol/L Potassium 4.1 (3.5-5.1) mmol/L Chloride 104 (98-107) mmol/L Carbon Dioxide 27 (22-30) mmol/L Anion Gap 7 mmol/L BUN 10 (7-17) mg/dL Creatinine 0.61 (0.52-1.04) mg/dL Est GFR (CKD-EPI)AfAm >90 (>60 ml/min/1.73 sqM) Est GFR (CKD-EPI)NonAf 90 (>60 ml/min/1.73 sqM) Glucose 105 H (74-99) mg/dL Plasma Lactic Acid Darrell (0.7-2.0) mmol/L Calcium 9.4 (8.4-10.2) mg/dL Total Bilirubin 0.8 (0.2-1.3) mg/dL AST 25 (14-36) U/L ALT 12 (4-34) U/L Alkaline Phosphatase 141 H (38-126) U/L Creatine Kinase (30-135) U/L Total Protein 6.7 (6.3-8.2) g/dL Albumin 3.8 (3.5-5.0) g/dL 02/01/25 02/01/25 Range/Units 12:41 12:41 WBC (4.50-10.00) 10*3/uL RBC (4.10-5.20) 10*6/uL Hgb (12.0-15.0) g/dL Hct (37.2-46.3) % MCV (80.0-97.0) fL MCH (27.0-32.0) pg MCHC (32.0-37.0) g/dL Plt Count (140-440) 10*3/uL MPV (9.5-12.2) fL Immature Gran % (Auto) % Neutrophils % % Lymphocytes % % Monocytes % % Eosinophils % % Basophils % % Immature Gran # (0.00-0.04) 10*3/uL Neutrophils # (1.80-7.70) 10*3/uL Lymphocytes # (0.90-5.00) 10*3/uL Monocytes # (0.20-1.00) 10*3/uL Eosinophils # (0.04-0.35) 10*3/uL Basophils # (0.00-0.10) 10*3/uL PT (10.0-12.5) sec INR (<1.2) APTT (22.0-30.0) sec Sodium (137-145) mmol/L Potassium (3.5-5.1) mmol/L Chloride (98-107) mmol/L Carbon Dioxide (22-30) mmol/L Anion Gap mmol/L BUN (7-17) mg/dL Creatinine (0.52-1.04) mg/dL Est GFR (CKD-EPI)AfAm (>60 ml/min/1.73 sqM) Est GFR (CKD-EPI)NonAf (>60 ml/min/1.73 sqM) Glucose (74-99) mg/dL Plasma Lactic Acid Darrell 1.7 (0.7-2.0) mmol/L Calcium (8.4-10.2) mg/dL Total Bilirubin (0.2-1.3) mg/dL AST (14-36) U/L ALT (4-34) U/L Alkaline Phosphatase (38-126) U/L Creatine Kinase 26 L (30-135) U/L Total Protein (6.3-8.2) g/dL Albumin (3.5-5.0) g/dL Disposition Time of Disposition: 13:16 <Paige Priest - Last Filed: 02/01/25 16:40> <Evans Friedman - Last Filed: 02/01/25 20:37> Clinical Impression: Edema of right lower extremity, Cellulitis of right leg Disposition: ADMITTED IP TO THIS [facility] Condition: Serious
[2025-02-01 13:00] LABS: Basophils # (A) 0.09 10*3/uL (0.00-0.10); Basophils % (A) 1.0 %; Eosinophils # (A) 0.18 10*3/uL (0.04-0.35); Eosinophils % (A) 2.1 %; HCT 35.7 % (37.2-46.3); HGB 11.2 g/dL (12.0-15.0); Lymphocytes # (A) 1.43 10*3/uL (0.90-5.00); Lymphocytes % (A) 16.5 %; MCH 30.5 pg (27.0-32.0); MCHC 31.4 g/dL (32.0-37.0); MCV 97.3 fL (80.0-97.0); Monocytes # (A) 0.88 10*3/uL (0.20-1.00); Monocytes % (A) 10.2 %; Neutrophils # (A) 6.06 10*3/uL (1.80-7.70); Neutrophils % (A) 70.0 %; Platelet Count 420 10*3/uL (140-440); RBC 3.67 10*6/uL (4.10-5.20); RDW 13.5 % (11.5-14.5); WBC 8.66 10*3/uL (4.50-10.00)
[2025-02-01 13:16] LABS: ALT 12 U/L (4-34); AST 25 U/L (14-36); African American GFR (CKD) >90 (>60 ml/min/1.73 sqM); Albumin 3.8 g/dL (3.5-5.0); Alkaline Phosphatase 141 U/L (38-126); Anion Gap 7 mmol/L; Blood Urea Nitrogen 10 mg/dL (7-17); Calcium 9.4 mg/dL (8.4-10.2); Carbon Dioxide 27 mmol/L (22-30); Chloride 104 mmol/L (98-107); Glucose 105 mg/dL (74-99); Non-African American GFR(CKD) 90 (>60 ml/min/1.73 sqM); Potassium 4.1 mmol/L (3.5-5.1); Sodium 138 mmol/L (137-145); Total Protein 6.7 g/dL (6.3-8.2)
[2025-02-01 13:22] LABS: INR 1.0 (<1.2); Prothrombin Time 11.1 sec (10.0-12.5)
[2025-02-01 13:23] LABS: Partial Thromboplastin Time 31.2 sec (22.0-30.0)
--- NOTE | 2025-02-01 13:33 | US ---
EXAMINATION TYPE: US venous doppler duplex LE RT DATE OF EXAM: 02/01/2025 1:20 PM COMPARISON: NONE CLINICAL INDICATION: Female, 74 years old with history of worsening extremity swelling; hx of celluli tis; Post-op infection. Total knee rt knee 01/14/25, Hx PTV DVT right leg 2023, on Eliquis TECHNIQUE: The lower extremity deep venous system is examined utilizing real time linear array sonog carlos with graded compression, doppler sonography and color-flow sonography. Grayscale, color doppler , spectral doppler imaging performed of the deep veins of the lower extremities FINDINGS: SIDE PERFORMED: Right VESSELS IMAGED: Common Femoral Vein Deep Femoral Vein Greater Saphenous Vein * Femoral Vein Popliteal Vein Small Saphenous Vein * Proximal Calf Veins (* superficial vessels) Right Leg: Negative for DVT; There is normal flow, compressibility, vascular waveforms. Exam limited due to edema. Unable to obtain compression images of distal femoral vein. Non visualizat ion of calf veins. Significant edema and laminar fluid noted within subcutaneous layer IMPRESSION: No evidence for deep vein thrombosis. [facility], , 02/01/2025 1:31 PM
[2025-02-01] MEDS ORDERED: NALOXONE 0.4 MG/ML 1 ML VIAL IV PRN (13:49)
[2025-02-01] MEDS ORDERED: ACETAMINOPHEN TAB 325 MG TAB PO PRN (13:50)
[2025-02-01] MEDS: HYDROmorphone 0.5 MG/0.5 ML SYRINGE IVP STA (13:51)
[2025-02-01] MEDS ORDERED: VANCOMYCIN IV PER PHARMACY 1 EACH MISC MISCELLANE PRN (13:53)
[2025-02-01] MEDS: VANCOMYCIN 1,500 MG in SODIUM CHLORIDE 0.9% 500 ML 500 ML IVPB ONE (15:10)
[2025-02-01] MEDS ORDERED: HEPARIN SODIUM 1,000 UN/ML (10ML VL) IV PRN (15:37)
[2025-02-01 16:01] LABS: Creatine Kinase 26.0 U/L (30-135)
--- NOTE | 2025-02-01 16:12 | P.HPIM ---
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 Patient and family report that a couple days ago the patient woke up and had significantly worse swelling, redness, and pain to her right leg. She states that the pain and swelling was from her foot all the way up to her lower thigh. The patient reports that the pain is constant and is not worse with movement. When asked, she reports chills for the last couple days. Per chart review, the patient was admitted from 01/20/2025 until 01/27/2025 for her cellulitis and was treated with IV antibiotics. The patient had a right total knee revision arthroplasty on 01/14/2025. The patient mentions some slight numbness to her right foot but denies any other symptoms including chest pain, shortness of breath, or discharge from the surgical wound. She states the last time the dressing was changed is when she was discharged from the hospital. Review of Systems Negative except for as listed in HPI above Past Medical History Past Medical History: Asthma, Hypertension Additional Past Medical History / Comment(s): Hx fall Jul 2023 - fractured right femur, resulted in right DVT. Hx ulcer due to taking Motrin. 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 Has kidney stone - no treatment required. Hx migraines - no longer gets them. Last Myocardial Infarction Date:: 2021 History of Any Multi-Drug Resistant Organisms: None Reported Past Surgical History: Adenoidectomy, Appendectomy, Breast Surgery, Hysterectomy, Joint Replacement, Orthopedic Surgery, Tonsillectomy Additional Past Surgical History / Comment(s): ear shoulder wrist. right rotator cuff repair. Past Anesthesia/Blood Transfusion Reactions: No Reported Reaction Additional Past Anesthesia/Blood Transfusion Reaction / Comment(s): Really cold after one procedure. States she's a shallow breather with Anesthesia. Past Psychological History: No Psychological Hx Reported Smoking Status: Never smoker Past Alcohol Use History: None Reported Past Drug Use History: None Reported - Past Family History Mother Family Medical History: No Reported History Medications and Allergies Home Medications Medication Instructions Recorded Confirmed Type Fluticasone/Vilanterol [Breo 1 puff INHALATION RT-DAILY 06/23/16 02/01/25 History Ellipta 200-25 Mcg Inhaler] Lansoprazole [Prevacid] 30 mg PO HS 06/23/16 02/01/25 History Levothyroxine Sodium [Synthroid] 75 mcg PO DAILY 06/23/16 02/01/25 History Montelukast Sodium [Singulair] 10 mg PO HS 06/23/16 02/01/25 History Potassium Chloride ER [K-Dur 20] 20 meq PO BID 06/23/16 02/01/25 History lisinopriL [Zestril] 10 mg PO HS 06/23/16 02/01/25 History Rosuvastatin [Crestor] 20 mg PO HS 10/07/22 02/01/25 History Apixaban [Eliquis] 5 mg PO BID 12/27/23 02/01/25 History Loratadine [Claritin] 10 mg PO HS 12/27/23 02/01/25 History Albuterol Sulfate [Ventolin HFA] 2 puff INHALATION RT-Q6H PRN 01/08/25 02/01/25 History [facility] 1 tab PO HS 01/08/25 02/01/25 History Multivit with Calcium,Iron,Min 1 tab PO HS 01/08/25 02/01/25 History [Women's Multivitamin] HYDROcodone/APAP 7.5-325MG [[place] 1 - 2 tab PO Q6H PRN #32 tab 01/14/25 02/01/25 Rx 7.5-325] Sennosides [Senokot] 2 tab PO DAILY PRN #60 tablet 01/14/25 02/01/25 Rx Ondansetron Odt [Zofran ODT] 1 tab PO Q8HR PRN #10 tab 01/17/25 02/01/25 Rx Magnesium Oxide [Mag-Ox] 400 mg PO DAILY 01/20/25 02/01/25 History Linezolid [Zyvox] 600 mg PO Q12HR 10 Days #20 tab 01/27/25 02/01/25 Rx Allergies Allergy/AdvReac Type Severity Reaction Status Date / Time cefuroxime [From Ceftin] Allergy Unknown Verified 02/01/25 15:39 cinnamon Allergy Stuffed Up Verified 02/01/25 15:39 and Sleepy clindamycin Allergy swelling Verified 02/01/25 15:39 of mouth & eyes Fish Containing Products Allergy saltwater Verified 02/01/25 15:39 [Fish] fish only Milk Containing Products Allergy Unknown Verified 02/01/25 15:39 (Dairy) [Dairy] Penicillins Allergy Lips/Face Verified 02/01/25 15:39 Swelling shellfish derived [Shellfish] Allergy Unknown Verified 02/01/25 15:39 wheat Allergy Unknown Verified 02/01/25 15:39 bacitracin AdvReac Rash/Hives Verified 02/01/25 15:39 [From Neosporin ([id number])] polymyxin B AdvReac Rash/Hives Verified 02/01/25 15:39 [From Neosporin ([id number])] Metal Allergy Redness Uncoded 02/01/25 15:39 Physical Exam Vitals: Vital Signs Temp Pulse Resp BP Pulse Ox 02/01/25 12:18 104 H 20 146/84 96 02/01/25 12:14 98.4 F 99 18 136/87 97 Intake and Output 01/31/25 02/01/25 02/01/25 22:59 06:59 14:59 Other: Weight 78.018 kg Vital signs reviewed General: non toxic, no distress, appears at stated age, normal weight Derm: no unusual rashes/lesions, warm. Head: atraumatic, normocephalic, symmetric Eyes: EOMI, anicteric sclera, pupils equal round reactive to light ENT: Nose and ears atraumatic Cardiovascular: S1S2 reg, no murmur. Lungs: CTA bilateral, no rhonchi, no rales, no accessory muscle use Abdominal: soft, nontender to palpation, no guarding Ext: Erythema and warmth to right lower extremity, especially anterior crawford without visible open wounds. Ankle and entirety of right foot is slightly pale and cool to the touch. Dorsalis pedis pulse palpable, however PT pulse difficult to appreciate due to significant edema. Redness extends from top of ankle PT pulse auscultated with bedside Doppler. Significant pitting edema extends from foot to bottom of knee. Patient's right lower extremity is mildly tender to the touch diffusely. Patient is able to move ankle and knee. According to the patient her right foot feels slightly numb compared to her left foot. Neuro: CN II-XI grossly intact, no gross focal neuro deficits Psych: Alert, oriented to person, place, and time Results CBC & Chem 7: 02/01/25 12:41 02/01/25 12:41 Labs: Abnormal Lab Results - Last 24 Hours (Table) 02/01/25 02/01/25 02/01/25 Range/Units 12:41 12:41 12:41 RBC 3.67 L (4.10-5.20) 10*6/uL Hgb 11.2 L (12.0-15.0) g/dL Hct 35.7 L (37.2-46.3) % MCV 97.3 H (80.0-97.0) fL MCHC 31.4 L (32.0-37.0) g/dL APTT 31.2 H (22.0-30.0) sec Glucose 105 H (74-99) mg/dL Alkaline Phosphatase 141 H (38-126) U/L Assessment and Plan Assessment: Assessment/Plan: 1. Right lower extremity cellulitis # Ultrasound of right lower extremity negative for DVT, however exam was limited due to edema # Pallor of right foot concerning for vascular compromise however DP pulses palpable and PT pulse able to be auscultated with bedside Doppler - Arterial Doppler ordered - X-ray tib-fib fib and knee ordered - ID consult - Patient started on vancomycin in the ED per pharmacy dosing, monitor for renal toxicity 2. Macrocytic anemia - Iron levels drawn at her last admission and were normal - Ordered B12 and folate levels Chronic: 3. Hypertension - Continue home lisinopril 3. Hypothyroidism - Continue home levothyroxine 4. Hyperlipidemia - Continue home rosuvastatin 5. COPD - Continue home fluticasone/vilanterol and albuterol inhaler 6. History of DVT - Holding Eliquis for now until we can rule out need for surgical intervention DVT prophylaxis: Heparin drip CODE STATUS: Full code Armando Cage MD PGY-1 TY Dictation was produced using [employer] dictation software. please excuse any grammatical, word or spelling errors. I have seen and evaluated the patient today. Discussed with the resident and agree with the residents finding and plan as documented in the resident's note. Changes highlighted in blue font.
--- NOTE | 2025-02-01 16:25 | US ---
EXAMINATION TYPE: US arterial LE single level DATE OF EXAM: 02/01/2025 4:09 PM COMPARISONS: None. CLINICAL INDICATION: Female, 74 years old with history of edema; red, hot, swollen leg 3 days after t otal right knee TECHNIQUE: Systolic pressures were taken of the upper and lower extremity arteries with ankle-brachia l indices and toe brachial indices calculated bilaterally. History of: Smoker: n Hypertension: y Diabetic: n Hyperlipidemia: y TIA/CVA: n Previous Vascular Surgery: n CAD: n KS: y Vascular Ulcers: n Claudication: n Gangrene: n FINDINGS: Doppler Waveforms: Right: Multiphasic Left: Multiphasic Brachial Artery systolic pressure: Right: deferred Left: 158 Posterior Tibial artery systolic pressure: Right: pt could not tolerate pressure Dorsalis Pedis artery systolic pressure: Right: pt could not tolerate pressure Ankle-Brachial Indices: Right: XX Left: XX Toe Brachial Indices: Right: XX Left: XX IMPRESSION: Patient could not tolerate compression to determine ankle brachial indices. Normal multiphasic wavefo melissa bilaterally. [facility], , 02/01/2025 4:23 PM
--- NOTE | 2025-02-01 16:39 | XR ---
EXAMINATION TYPE: XR knee complete 3 views RT, XR tibia fibula 2 views RT DATE OF EXAM: 02/01/2025 4:27 PM COMPARISON: 01/20/2025 CLINICAL INDICATION: Female, 74 years old with history of cellulitis; PHH, pain FINDINGS: Knee: Ongoing generalized subcutaneous soft tissue swelling. Vascular calcifications are noted. Ther e is redemonstrated revision short stem total knee arthroplasty. Both femoral and tibial components o f the prosthesis appear well seated. Similar heterotopic ossification in the infrapatellar region. No sizable knee joint effusion seen. Background osteopenia. Tibia/fibula: Prominent generalized subcutaneous soft tissue swelling persists. Diffuse osteopenia. S mall posterior and plantar heel spurs. No periostitis or osteolysis. IMPRESSION: 1. Knee: Ongoing generalized soft tissue swelling. Short stemmed revision total knee arthroplasty carey ws a stable appearance without evident complication. 2. Tibia/fibula: Ongoing generalized subcutaneous soft tissue swelling. Diffuse osteopenia. No acute osseous abnormality seen. [facility], , 02/01/2025 4:36 PM
[2025-02-01] MEDS ORDERED: ALBUTEROL NEBULIZED 2.5 MG/3 ML INHALATION PRN (16:40)
[2025-02-01] MEDS: HEPARIN SOD,PORK IN 0.45% NACL 25,000 UNIT in 0.45% NACL 1 250ML.BAG IV SCH (16:51)
[2025-02-01] MEDS: HYDROmorphone 0.5 MG/0.5 ML SYRINGE IVP PRN (20:36)
[2025-02-01] MEDS: MONTELUKAST 10 MG TAB PO SCH (20:37)
[2025-02-01] MEDS: PANTOPRAZOLE 40 MG TABLET PO SCH (20:37)
[2025-02-01] MEDS: ATORVASTATIN 40 MG TAB PO SCH (20:37)
[2025-02-01] MEDS ORDERED: LINEZOLID 600 MG TAB PO SCH (21:00)
[2025-02-01 21:27] LABS: Vitamin B12 607.0 pg/mL (200.0-944.0)
--- NOTE | 2025-02-01 22:56 | P.CONS ---
History of Present Illness - Reason for Consult Consult date: 02/01/25 Right leg cellulitis Requesting physician: Armando Cage - Chief Complaint Right leg swelling and redness x 2 days - History of Present Illness Patient is a 74-year-old female with a past medical history significant for asthma hypertension history of chronic swelling to the right lower extremity after the patient did have a surgery for a fractured leg many years ago recently did have a right knee arthroplasty subsequently admitted to hospital with right lower extremity cellulitis patient responded to IV vancomycin and subsequent was discharged on oral Zyvox with the patient was taking for the last week or so patient mention she did have improvement initial ly however now presented back to the hospital with worsening swelling and redness to the right lower extremity that been getting worse over the last 2 days with increasing swelling and redness and pain describing it to be mostly sharp moderate intensity without radiation patient denies high-grade fever did have some chills with the symptoms the patient was evaluated on presentation to the hospital the patient was afebrile patient was not tachycardic hypotensive or hypoxic he did have a white count of 8.66 creatinine 0.61 electrolytes has been normal liver enzymes are normal patient did have lower extremity Doppler negative for DVT x-rays were negative knee x-ray ongoing generalized soft tissue swelling patient was started on vancomycin infectious disease was consulted for further management of antibiotic therapy Review of Systems Positive point and negatives has been mentioned in the HPI, complete review of systems was performed and all other systems are negative Past Medical History Past Medical History: Asthma, Hypertension Additional Past Medical History / Comment(s): Hx fall Jul 2023 - fractured right femur, resulted in right DVT. Hx ulcer due to taking Motrin. 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 Has kidney stone - no treatment required. Hx migraines - no longer gets them. Last Myocardial Infarction Date:: 2021 History of Any Multi-Drug Resistant Organisms: None Reported Past Surgical History: Adenoidectomy, Appendectomy, Breast Surgery, Hysterectomy, Joint Replacement, Orthopedic Surgery, Tonsillectomy Additional Past Surgical History / Comment(s): ear shoulder wrist. right rotator cuff repair. Past Anesthesia/Blood Transfusion Reactions: No Reported Reaction Additional Past Anesthesia/Blood Transfusion Reaction / Comm: Really cold after one procedure. States she's a shallow breather with Anesthesia. Past Psychological History: No Psychological Hx Reported Smoking Status: Never smoker Past Alcohol Use History: None Reported Past Drug Use History: None Reported - Past Family History Mother Family Medical History: No Reported History Medications and Allergies Home Medications Medication Instructions Recorded Confirmed Type Fluticasone/Vilanterol [Breo 1 puff INHALATION RT-DAILY 06/23/16 02/01/25 History Ellipta 200-25 Mcg Inhaler] Lansoprazole [Prevacid] 30 mg PO HS 06/23/16 02/01/25 History Levothyroxine Sodium [Synthroid] 75 mcg PO DAILY 06/23/16 02/01/25 History Montelukast Sodium [Singulair] 10 mg PO HS 06/23/16 02/01/25 History Potassium Chloride ER [K-Dur 20] 20 meq PO BID 06/23/16 02/01/25 History lisinopriL [Zestril] 10 mg PO HS 06/23/16 02/01/25 History Rosuvastatin [Crestor] 20 mg PO HS 10/07/22 02/01/25 History Apixaban [Eliquis] 5 mg PO BID 12/27/23 02/01/25 History Loratadine [Claritin] 10 mg PO HS 12/27/23 02/01/25 History Albuterol Sulfate [Ventolin HFA] 2 puff INHALATION RT-Q6H PRN 01/08/25 02/01/25 History [facility] 1 tab PO HS 01/08/25 02/01/25 History Multivit with Calcium,Iron,Min 1 tab PO HS 01/08/25 02/01/25 History [Women's Multivitamin] HYDROcodone/APAP 7.5-325MG [[place] 1 - 2 tab PO Q6H PRN #32 tab 01/14/25 02/01/25 Rx 7.5-325] Sennosides [Senokot] 2 tab PO DAILY PRN #60 tablet 01/14/25 02/01/25 Rx Ondansetron Odt [Zofran ODT] 1 tab PO Q8HR PRN #10 tab 01/17/25 02/01/25 Rx Magnesium Oxide [Mag-Ox] 400 mg PO DAILY 01/20/25 02/01/25 History Linezolid [Zyvox] 600 mg PO Q12HR 10 Days #20 tab 01/27/25 02/01/25 Rx Allergies Allergy/AdvReac Type Severity Reaction Status Date / Time cefuroxime [From Ceftin] Allergy Unknown Verified 02/01/25 15:39 cinnamon Allergy Stuffed Up Verified 02/01/25 15:39 and Sleepy clindamycin Allergy swelling Verified 02/01/25 15:39 of mouth & eyes Fish Containing Products Allergy saltwater Verified 02/01/25 15:39 [Fish] fish only Milk Containing Products Allergy Unknown Verified 02/01/25 15:39 (Dairy) [Dairy] Penicillins Allergy Lips/Face Verified 02/01/25 15:39 Swelling shellfish derived [Shellfish] Allergy Unknown Verified 02/01/25 15:39 wheat Allergy Unknown Verified 02/01/25 15:39 bacitracin AdvReac Rash/Hives Verified 02/01/25 15:39 [From Neosporin ([id number])] polymyxin B AdvReac Rash/Hives Verified 02/01/25 15:39 [From Neosporin ([id number])] Metal Allergy Redness Uncoded 02/01/25 15:39 Physical Exam Vitals: Vital Signs Temp Pulse Resp BP Pulse Ox 02/01/25 15:00 92 20 163/80 96 02/01/25 13:54 90 20 162/97 93 L 02/01/25 13:18 97 20 160/90 98 02/01/25 12:18 104 H 20 146/84 96 02/01/25 12:14 98.4 F 99 18 136/87 97 Intake and Output 02/01/25 02/01/25 02/01/25 06:59 14:59 22:59 Other: Weight 78.018 kg GENERAL DESCRIPTION: Elderly female lying in bed, no distress. No tachypnea or accessory muscle of respiration use. HEENT: Shows Pallor , no scleral icterus. Oral mucous membrane is dry. NECK: Trachea central, no thyromegaly. LUNGS: Unlabored breathing. Clear to auscultation anteriorly. No wheeze or crackle. HEART: S1, S2, regular rate and rhythm. No loud murmur ABDOMEN: Soft, no tenderness , guarding or rigidity, no organomegaly EXTREMITIES: Right lower extremity did have diffuse swelling and redness which is warm to touch SKIN: No rash, no masses palpable. NEUROLOGICAL: The patient is awake, alert, oriented x3, mood and affect normal. Results CBC & Chem 7: 02/01/25 12:41 02/01/25 12:41 Labs: Abnormal Lab Results - Last 24 Hours (Table) 02/01/25 02/01/25 02/01/25 Range/Units 12:41 12:41 12:41 RBC 3.67 L (4.10-5.20) 10*6/uL Hgb 11.2 L (12.0-15.0) g/dL Hct 35.7 L (37.2-46.3) % MCV 97.3 H (80.0-97.0) fL MCHC 31.4 L (32.0-37.0) g/dL APTT 31.2 H (22.0-30.0) sec Glucose 105 H (74-99) mg/dL Alkaline Phosphatase 141 H (38-126) U/L Creatine Kinase (30-135) U/L 02/01/25 Range/Units 12:41 RBC (4.10-5.20) 10*6/uL Hgb (12.0-15.0) g/dL Hct (37.2-46.3) % MCV (80.0-97.0) fL MCHC (32.0-37.0) g/dL APTT (22.0-30.0) sec Glucose (74-99) mg/dL Alkaline Phosphatase (38-126) U/L Creatine Kinase 26 L (30-135) U/L Assessment and Plan (1) Allergy to multiple antibiotics Current Visit: Yes Status: Acute Code(s): Z88.1 - ALLERGY STATUS TO OTHER ANTIBIOTIC AGENTS SNOMED Code(s): 537630768 (2) Failure of outpatient treatment Current Visit: Yes Status: Acute Code(s): Z78.9 - OTHER SPECIFIED HEALTH STATUS SNOMED Code(s): 661188249 (3) Cellulitis of right leg Current Visit: Yes Status: Acute Code(s): L03.115 - CELLULITIS OF RIGHT LOWER LIMB SNOMED Code(s): 25952297229937769 Plan: 1patient presents the hospital with increasing swelling redness to the right lower extremity in this patient recently did have right knee arthroplasty subsequently admission to the hospital with cellulitis that responded to the vancomycin however seem to have further worsening of the patient has been oral Zyvox for the last 5 days possibly concerning for failure of oral therapy. 2patient with multiple antibiotic ALLERGIES that would limit the number of antibiotic safe to use. 3vancomycin pharmacy to dose target trough of 15 while watching kidney function and Vanco trough closely and may need PICC line and outpatient antibiotic on discharge the patient did show improvement with the vancomycin 4patient also need either Gutierrez wrap or job stocking for compression to keep some of the swelling down We will follow on clinical condition and cultures to further adjust medication if needed Thank you for this consultation we will follow the patient along with you Dictation was produced using [employer] dictation software. please excuse any grammatical, word or spelling errors. Time with Patient: Greater than 30
[2025-02-01 22:58] LABS: Bacteria,Urine Rare /hpf; Bilirubin,Urine Negative (Negative); Blood,Urine Negative (Negative); Color,Urine Colorless; Glucose,Urine (UA) Negative (Negative); Ketones,Urine Trace (Negative); Leukocyte Esterase,Urine Trace (Negative); Mucus,Urine Rare /hpf; Nitrite,Urine Negative (Negative); PH, Urine 5.5 (5.0-8.0); Protein,Urine Negative (Negative); RBC,Urine 1 /hpf (0-5); Specific Gravity,Urine 1.015 (1.001-1.035); Squamous Epithelial Cell,Urine <1 /hpf (0-4); Urobilinogen,Urine <2.0 mg/dL (<2.0); WBC,Urine 14 /hpf (0-5)
[2025-02-02] MEDS: VANCOMYCIN 1,250 MG in SODIUM CHLORIDE 0.9% 250 ML IVPB SCH (02:51)
[2025-02-02] MEDS: LEVOTHYROXINE 75 MCG TAB PO SCH (05:32)
[2025-02-02] MEDS: SYMBICORT 160-4.5 MCG INHALER INHALATION SCH (07:38)
[2025-02-02 08:55] LABS: Basophils # (A) 0.10 X 10*3/uL (0.00-0.10); Basophils % (A) 1.7 %; Eosinophils # (A) 0.20 X 10*3/uL (0.04-0.35); Eosinophils % (A) 3.3 %; HCT 29.5 % (37.2-46.3); HGB 8.8 g/dL (12.0-15.0); Immature Grans, Automated 0.20 %; Lymphocytes # (A) 1.56 X 10*3/uL (0.90-5.00); Lymphocytes % (A) 25.9 %; MCH 29.3 pg (27.0-32.0); MCHC 29.8 g/dL (32.0-37.0); MCV 98.3 FL (80.0-97.0); Monocytes # (A) 0.85 X 10*3/uL (0.20-1.00); Monocytes % (A) 14.1 %; NRBC Per 100 WBC 0 X 10*3/uL (0.00-0.01); Neutrophils # (A) 3.30 X 10*3/uL (1.80-7.70); Neutrophils % (A) 54.8 %; Platelet Count 357 X 10*3/uL (140-440); RBC 3.00 X 10*6/uL (4.10-5.20); RDW 13.6 % (11.5-14.5); WBC 6.02 X 10*3/uL (4.50-10.00)
[2025-02-02 09:06] LABS: Anion Gap 9.90 mmol/L (4.00-12.00); BUN/Creat Ratio 15.60 Ratio (12.00-20.00); Blood Urea Nitrogen 7.8 mg/dL (9.0-27.0); Calcium 8.2 mg/dL (8.7-10.3); Carbon Dioxide 22.1 mmol/L (21.6-31.8); Chloride 104 mmol/L (96-109); Glucose 88 mg/dL (70-110); Potassium 3.8 mmol/L (3.5-5.5); Sodium 136 mmol/L (135-145)
[2025-02-02] MEDS: APIXABAN 5 MG TAB PO SCH (10:02)
[2025-02-02] MEDS: HYDROcodone/APAP 7.5-325MG 1 EACH TAB PO PRN (10:04)
--- NOTE | 2025-02-02 11:50 | P.PN ---
Subjective Progress Note Date: 02/02/25 Patient reports that her pain is slightly improved today, feels that her swelling is improved as well. Has been up to use the restroom a couple times. Mentions an episode of urinary urgency but denies any dysuria. Objective - Vital Signs Vital signs: Vital Signs Temp 98.5 F 02/02/25 06:42 Pulse 78 02/02/25 06:42 Resp 16 02/02/25 06:42 BP 108/66 02/02/25 06:42 Pulse Ox 94 L 02/02/25 07:38 FiO2 21 02/02/25 07:38 Intake & Output 02/01/25 02/02/25 02/02/25 18:59 06:59 18:59 Intake Total 480 240 Balance 480 240 Weight 78.018 kg 78.018 kg Intake: Oral 240 Other 480 Other: Voiding Method Toilet Toilet # Voids 1 - Exam Vital signs reviewed General: non toxic, no distress, appears at stated age, normal weight Derm: no unusual rashes/lesions, warm. Head: atraumatic, normocephalic, symmetric Eyes: EOMI, anicteric sclera, pupils equal round reactive to light ENT: Nose and ears atraumatic Cardiovascular: S1S2 reg, no murmur. Lungs: CTA bilateral, no rhonchi, no rales, no accessory muscle use Abdominal: soft, nontender to palpation, no guarding Ext: Erythema and warmth to right lower extremity, especially anterior crawford without visible open wounds. Surgical wound looks clean, dry and intact. Ankle and entirety of right foot is still slightly pale but warm to the touch. Significant pitting edema extends from foot to bottom of knee. Patient's right lower extremity is still mildly tender to the touch diffusely. Patient is able to move ankle and knee. Neuro: CN II-XI grossly intact, no gross focal neuro deficits Psych: Alert, oriented to person, place, and time - Labs CBC & Chem 7: 02/02/25 04:29 02/02/25 04:29 Labs: Abnormal Lab Results - Last 24 Hours (Table) 02/01/25 02/01/25 02/01/25 Range/Units 12:41 12:41 12:41 RBC 3.67 L (4.10-5.20) 10*6/uL Hgb 11.2 L (12.0-15.0) g/dL Hct 35.7 L (37.2-46.3) % MCV 97.3 H (80.0-97.0) fL MCHC 31.4 L (32.0-37.0) g/dL APTT 31.2 H (22.0-30.0) sec BUN (9.0-27.0) mg/dL Creatinine (0.6-1.5) mg/dL Glucose 105 H (74-99) mg/dL Calcium (8.7-10.3) mg/dL Alkaline Phosphatase 141 H (38-126) U/L Creatine Kinase (30-135) U/L Urine Ketones (Negative) Ur Leukocyte Esterase (Negative) Urine WBC (0-5) /hpf Urine Bacteria (None) /hpf Urine Mucus (None) /hpf 02/01/25 02/01/25 02/01/25 Range/Units 12:41 21:46 22:45 RBC (4.10-5.20) 10*6/uL Hgb (12.0-15.0) g/dL Hct (37.2-46.3) % MCV (80.0-97.0) fL MCHC (32.0-37.0) g/dL APTT 51.5 H (22.0-30.0) sec BUN (9.0-27.0) mg/dL Creatinine (0.6-1.5) mg/dL Glucose (74-99) mg/dL Calcium (8.7-10.3) mg/dL Alkaline Phosphatase (38-126) U/L Creatine Kinase 26 L (30-135) U/L Urine Ketones Trace H (Negative) Ur Leukocyte Esterase Trace H (Negative) Urine WBC 14 H (0-5) /hpf Urine Bacteria Rare H (None) /hpf Urine Mucus Rare H (None) /hpf 02/02/25 02/02/25 02/02/25 Range/Units 04:29 04:29 04:29 RBC 3.00 L (4.10-5.20) 10*6/uL Hgb 8.8 L (12.0-15.0) g/dL Hct 29.5 L (37.2-46.3) % MCV 98.3 H (80.0-97.0) fL MCHC 29.8 L (32.0-37.0) g/dL APTT 66.6 H (22.0-30.0) sec BUN 7.8 L (9.0-27.0) mg/dL Creatinine 0.5 L (0.6-1.5) mg/dL Glucose (74-99) mg/dL Calcium 8.2 L (8.7-10.3) mg/dL Alkaline Phosphatase (38-126) U/L Creatine Kinase (30-135) U/L Urine Ketones (Negative) Ur Leukocyte Esterase (Negative) Urine WBC (0-5) /hpf Urine Bacteria (None) /hpf Urine Mucus (None) /hpf Assessment and Plan Assessment: Relevant laboratory results: WBC: 6.02, Hgb: 8.8, MCV: 98.3, NA: 136, K: 3.8, creatinine: 0.5, calcium: 8.2 Assessment/Plan: 1. Right lower extremity cellulitis # Ultrasound of right lower extremity negative for DVT, however exam was limited due to edema # Arterial Doppler demonstrated waveforms bilaterally, however patient was unable to tolerate ROBYN due to pain # X-ray of knee and tibia/fibula shows ongoing soft tissue swelling and diffuse osteopenia without evidence of acute osseous abnormality. Total knee arthroplasty hardware shows stable appearance. - Per ID, continue IV vancomycin per pharmacy dosing. Patient may need a PICC line and outpatient IV antibiotics. This was discussed with the patient and she understands. - Continue Dilaudid 0.5 mg every 4 hours as needed for severe pain and [place] 7.53.25 every 6 hours as needed for moderate pain - Ortho following, recommending conservative management with antibiotics 2. Macrocytic anemia - Iron levels drawn at her last admission and were normal - B12: 607.0, folate levels ordered - Continue to monitor while inpatient Chronic: 3. Hypertension - Continue home lisinopril 3. Hypothyroidism - Continue home levothyroxine 4. Hyperlipidemia - Continue home rosuvastatin 5. COPD - Continue home fluticasone/vilanterol and albuterol inhaler 6. History of DVT - Continue home Eliquis 5 mg twice daily given no indication for urgent surgical intervention at this time DVT prophylaxis: Elliquis CODE STATUS: Full code Armando Cage MD PGY-1 TY Dictation was produced using [employer] software. please excuse any grammatical, word or spelling errors. I have seen and evaluated the patient today. Discussed with the resident and agree with the residents finding and plan as documented in the resident's note. Changes highlighted in blue font.
--- NOTE | 2025-02-02 12:02 | P.CNOR ---
History of Present Illness - [facility] Consult date: 02/02/25 Requesting physician: Armando Cage Consult reason: other (Right lower extremity cellulitis; status post total knee arthroplasty) History of present illness: Patient is a very pleasant 74-year-old female who is status post revision right total knee arthroplasty performed by Dr. Jd Modi on 01/14/2025. She was discharged home on 01/17/2025. She was experiencing pain and swelling in her right lower extremity. She presented to emergency department for further evaluation on 01/19/2025. Doppler imaging was negative for DVT. She was discharged home. Her symptoms continue to worsen. She presented back to the emergency department for further evaluation on 01/20/2025. She was admitted for right lower extremity cellulitis. She was seen and evaluated by infectious disease. She improved on IV antibiotics. She was discharged home on oral antibiotics. Since that time her symptoms have been worsening and her right lower extremity cellulitis and swelling and warmth has worsened. She presented back to the emergency department yesterday, 02/01/2025 for further evaluation. She has been restarted on IV antibiotics. She was seen by infectious disease who may be planning for PICC line placement at the time of discharge. Patient will remain in the hospital least over the weekend. Currently, she feels her symptoms have been improving since starting antibiotic medication. Lower extremity erythema has improved since starting back on IV antibiotics. She does have significant swelling and warmth. Ultrasound Doppler of the right lower extremity was negative for DVT. Her hardware remains intact at her right knee. Her surgical incision site is clean, dry, and intact. Past Medical History Past Medical History: Asthma, Hypertension Additional Past Medical History / Comment(s): Hx fall Jul 2023 - fractured right femur, resulted in right DVT. Hx ulcer due to taking Motrin. 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 Has kidney stone - no treatment required. Hx migraines - no longer gets them. Last Myocardial Infarction Date:: 2021 History of Any Multi-Drug Resistant Organisms: None Reported Past Surgical History: Adenoidectomy, Appendectomy, Breast Surgery, Hysterectomy, Joint Replacement, Orthopedic Surgery, Tonsillectomy Additional Past Surgical History / Comment(s): ear shoulder wrist. right rotator cuff repair. Past Anesthesia/Blood Transfusion Reactions: No Reported Reaction Additional Past Anesthesia/Blood Transfusion Reaction / Comm: Really cold after one procedure. States she's a shallow breather with Anesthesia. Past Psychological History: No Psychological Hx Reported Smoking Status: Never smoker Past Alcohol Use History: None Reported Past Drug Use History: None Reported - Past Family History Mother Family Medical History: No Reported History Medications and Allergies Home Medications Medication Instructions Recorded Confirmed Type Fluticasone/Vilanterol [Breo 1 puff INHALATION RT-DAILY 06/23/16 02/01/25 Histo ry Ellipta 200-25 Mcg Inhaler] Lansoprazole [Prevacid] 30 mg PO HS 06/23/16 02/01/25 History Levothyroxine Sodium [Synthroid] 75 mcg PO DAILY 06/23/16 02/01/25 History Montelukast Sodium [Singulair] 10 mg PO HS 06/23/16 02/01/25 History Potassium Chloride ER [K-Dur 20] 20 meq PO BID 06/23/16 02/01/25 History lisinopriL [Zestril] 10 mg PO HS 06/23/16 02/01/25 History Rosuvastatin [Crestor] 20 mg PO HS 10/07/22 02/01/25 History Apixaban [Eliquis] 5 mg PO BID 12/27/23 02/01/25 History Loratadine [Claritin] 10 mg PO HS 12/27/23 02/01/25 History Albuterol Sulfate [Ventolin HFA] 2 puff INHALATION RT-Q6H PRN 01/08/25 02/01/25 History [facility] 1 tab PO HS 01/08/25 02/01/25 History Multivit with Calcium,Iron,Min 1 tab PO HS 01/08/25 02/01/25 History [Women's Multivitamin] HYDROcodone/APAP 7.5-325MG [[place] 1 - 2 tab PO Q6H PRN #32 tab 01/14/25 02/01/25 Rx 7.5-325] Sennosides [Senokot] 2 tab PO DAILY PRN #60 tablet 01/14/25 02/01/25 Rx Ondansetron Odt [Zofran ODT] 1 tab PO Q8HR PRN #10 tab 01/17/25 02/01/25 Rx Magnesium Oxide [Mag-Ox] 400 mg PO DAILY 01/20/25 02/01/25 History Linezolid [Zyvox] 600 mg PO Q12HR 10 Days #20 tab 01/27/25 02/01/25 Rx Allergies Allergy/AdvReac Type Severity Reaction Status Date / Time cefuroxime [From Ceftin] Allergy Unknown Verified 02/01/25 15:39 cinnamon Allergy Stuffed Up Verified 02/01/25 15:39 and Sleepy clindamycin Allergy swelling Verified 02/01/25 15:39 of mouth & eyes Fish Containing Products Allergy saltwater Verified 02/01/25 15:39 [Fish] fish only Milk Containing Products Allergy Unknown Verified 02/01/25 15:39 (Dairy) [Dairy] Penicillins Allergy Lips/Face Verified 02/01/25 15:39 Swelling shellfish derived [Shellfish] Allergy Unknown Verified 02/01/25 15:39 wheat Allergy Unknown Verified 02/01/25 15:39 bacitracin AdvReac Rash/Hives Verified 02/01/25 15:39 [From Neosporin ([id number])] polymyxin B AdvReac Rash/Hives Verified 02/01/25 15:39 [From Neosporin ([id number])] Metal Allergy Redness Uncoded 02/01/25 15:39 egg AdvReac Unknown Uncoded 02/02/25 08:35 Physical Examination Physical Exam Total Knee Arthroplasty: Status post surgical day number 19 Patient is awake, alert, and oriented 3 Vital signs stable Good chest excursion with deep inspiration and expiration Significant swelling, erythema, and warmth of the right lower extremity from the knee extending through the foot starting at the inferior aspect of the incision site Some medial bruising at the right heel 2+ pitting edema at the right foot and right lower extremity below the knee Surgical incision site at the right knee is clean, dry, and intact No drainage from the surgical site at the right knee Patient has full foot and ankle motion without difficulty bilateral lower extremities Dorsiflexion, plantar flexion, and extensor hallucis longus positive sustained on the right Purple pen ju from the emergency department at the right lower extremity for indication lines of her cellulitis Results Pertinent studies: Right lower extremity venous ultrasound Doppler taken on 02/01/2025: No evidence of DVT X-rays of the right knee, tibia-fibula taken on 02/01/2025: Evidence of total knee arthroplasty which appears to be in good alignment good position; no fracture or dislocation at the right knee or right ankle; swelling X-rays of the right lower extremity tibia/fibula x-rays taken on 01/20/2025: E vidence of total knee arthroplasty which appears to be in good alignment good position; no fracture or dislocation at the right knee or right ankle - Labs Labs: Abnormal Lab Results - Last 24 Hours (Table) 02/01/25 02/01/25 02/01/25 Range/Units 12:41 12:41 12:41 RBC 3.67 L (4.10-5.20) 10*6/uL Hgb 11.2 L (12.0-15.0) g/dL Hct 35.7 L (37.2-46.3) % MCV 97.3 H (80.0-97.0) fL MCHC 31.4 L (32.0-37.0) g/dL APTT 31.2 H (22.0-30.0) sec BUN (9.0-27.0) mg/dL Creatinine (0.6-1.5) mg/dL Glucose 105 H (74-99) mg/dL Calcium (8.7-10.3) mg/dL Alkaline Phosphatase 141 H (38-126) U/L Creatine Kinase (30-135) U/L Urine Ketones (Negative) Ur Leukocyte Esterase (Negative) Urine WBC (0-5) /hpf Urine Bacteria (None) /hpf Urine Mucus (None) /hpf 02/01/25 02/01/25 02/01/25 Range/Units 12:41 21:46 22:45 RBC (4.10-5.20) 10*6/uL Hgb (12.0-15.0) g/dL Hct (37.2-46.3) % MCV (80.0-97.0) fL MCHC (32.0-37.0) g/dL APTT 51.5 H (22.0-30.0) sec BUN (9.0-27.0) mg/dL Creatinine (0.6-1.5) mg/dL Glucose (74-99) mg/dL Calcium (8.7-10.3) mg/dL Alkaline Phosphatase (38-126) U/L Creatine Kinase 26 L (30-135) U/L Urine Ketones Trace H (Negative) Ur Leukocyte Esterase Trace H (Negative) Urine WBC 14 H (0-5) /hpf Urine Bacteria Rare H (None) /hpf Urine Mucus Rare H (None) /hpf 02/02/25 02/02/25 02/02/25 Range/Units 04:29 04:29 04:29 RBC 3.00 L (4.10-5.20) 10*6/uL Hgb 8.8 L (12.0-15.0) g/dL Hct 29.5 L (37.2-46.3) % MCV 98.3 H (80.0-97.0) fL MCHC 29.8 L (32.0-37.0) g/dL APTT 66.6 H (22.0-30.0) sec BUN 7.8 L (9.0-27.0) mg/dL Creatinine 0.5 L (0.6-1.5) mg/dL Glucose (74-99) mg/dL Calcium 8.2 L (8.7-10.3) mg/dL Alkaline Phosphatase (38-126) U/L Creatine Kinase (30-135) U/L Urine Ketones (Negative) Ur Leukocyte Esterase (Negative) Urine WBC (0-5) /hpf Urine Bacteria (None) /hpf Urine Mucus (None) /hpf H & H 02/01/25 02/02/25 Range/Units 12:41 04:29 Hgb 11.2 L 8.8 L (12.0-15.0) g/dL Hct 35.7 L 29.5 L (37.2-46.3) % Coagulation 02/01/25 Range/Units 12:41 INR 1.0 (<1.2) Result Diagrams: 02/02/25 04:29 02/02/25 04:29 Assessment and Plan Assessment: Assessment: Right knee pain Right lower extremity swelling and cellulitis History of revision right total knee arthroplasty 01/14/2025 Anticoagulation use with Eliquis Hypertension Plan: Plan: 1. Patient is status post right total knee arthroplasty performed on 01/14/2025. Postoperatively she has developed pain and swelling with erythema in her right lower extremity. She presented to emergency department for further evaluation on 01/19/2025. Doppler imaging was negative for DVT. She was discharged home. Her symptoms continue to worsen. She presented back to the emergency department for further evaluation on 01/20/2025. She was admitted for right lower extremity cellulitis. She was seen and evaluated by infectious disease. She improved on IV antibiotics. She was discharged home on oral antibiotics. Since that time her symptoms have been worsening and her right lower extremity cellulitis and swelling and warmth has worsened. She presented back to the emergency department yesterday, 02/01/2025 for further evaluation. She has been restarted on IV antibiotics. She was seen by infectious disease who may be planning for PICC line placement at the time of discharge. Patient will remain in the hospital least over the weekend. Currently, she feels her symptoms have been improving since starting antibiotic medication. Lower extremity erythema has improved since starting back on IV antibiotics. She does have significant swelling and warmth. Ultrasound Doppler of the right lower extremity was negative for DVT. Her hardware remains intact at her right knee. Her surgical incision site is clean, dry, and intact. We are not currently planning for further surgical intervention at this time in her right knee. Would recommend continued conservative treat with antibiotics with Unasyn and vancomycin per medicine. This may be adjusted by infectious disease. She may weight-bear as tolerated on her right lower extremity. 2. Patient will continue be seen exam by multiple medical providers including medicine and infectious disease Time with Patient: Greater than 30 (Including obtaining history, physical examination, reviewing of imaging, and dictation.)
--- NOTE | 2025-02-02 14:49 | P.PN ---
Subjective Progress Note Date: 02/02/25 Principal diagnosis: Reason for follow-up is right leg cellulitis Patient is a 74-year-old female with a past medical history significant for asthma hypertension history of chronic swelling to the right lower extremity after the patient did have a surgery for a fractured leg many years ago recently did have a right knee arthroplasty subsequently admitted to hospital with right lower extremity cellulitis responded to the vancomycin now presented back with worsening swelling redness on oral Zyvox. On today's evaluation that is 02/02/2025, patient did have a temperature of 98 F this morning and denies having any chills, patient is on room air and breathing comfortably no chest pain or cough, the patient did not have any nausea vomiting abdominal pain or any diarrhea right lower extremity swelling redness slight decrease in intensity. Patient white count 6.02, creatinine 0.5 Objective - Vital Signs Vital signs: Vital Signs Temp 98.6 F 02/02/25 11:57 Pulse 83 02/02/25 11:57 Resp 16 02/02/25 11:57 BP 117/72 02/02/25 11:57 Pulse Ox 96 02/02/25 11:57 FiO2 21 02/02/25 07:38 Intake & Output 02/01/25 02/02/25 02/02/25 18:59 06:59 18:59 Intake Total 480 360 Balance 480 360 Weight 78.018 kg 78.018 kg Intake: Oral 360 Other 480 Other: Voiding Method Toilet Toilet # Voids 1 - Exam GENERAL DESCRIPTION: An elderly male lying in bed in no distress RESPIRATORY SYSTEM: Unlabored breathing , decreased breath sounds at bases HEART: S1 S2 regular rate and rhythm , ABDOMEN: Soft , no tenderness EXTREMITIES: Right leg swelling redness slightly decreased - Labs CBC & Chem 7: 02/02/25 04:29 02/02/25 04:29 Labs: Abnormal Lab Results - Last 24 Hours (Table) 02/01/25 02/01/25 02/01/25 Range/Units 12:41 21:46 22:45 RBC (4.10-5.20) X 10*6/uL Hgb (12.0-15.0) g/dL Hct (37.2-46.3) % MCV (80.0-97.0) [place] MCHC (32.0-37.0) g/dL APTT 51.5 H (22.0-30.0) sec BUN (9.0-27.0) mg/dL Creatinine (0.6-1.5) mg/dL Calcium (8.7-10.3) mg/dL Creatine Kinase 26 L (30-135) U/L Urine Ketones Trace H (Negative) Ur Leukocyte Esterase Trace H (Negative) Urine WBC 14 H (0-5) /hpf Urine Bacteria Rare H (None) /hpf Urine Mucus Rare H (None) /hpf 02/02/25 02/02/25 02/02/25 Range/Units 04:29 04:29 04:29 RBC 3.00 L (4.10-5.20) X 10*6/uL Hgb 8.8 L (12.0-15.0) g/dL Hct 29.5 L (37.2-46.3) % MCV 98.3 H (80.0-97.0) FL MCHC 29.8 L (32.0-37.0) g/dL APTT 66.6 H (22.0-30.0) sec BUN 7.8 L (9.0-27.0) mg/dL Creatinine 0.5 L (0.6-1.5) mg/dL Calcium 8.2 L (8.7-10.3) mg/dL Creatine Kinase (30-135) U/L Urine Ketones (Negative) Ur Leukocyte Esterase (Negative) Urine WBC (0-5) /hpf Urine Bacteria (None) /hpf Urine Mucus (None) /hpf Assessment and Plan (1) Allergy to multiple antibiotics Current Visit: Yes Status: Acute Code(s): Z88.1 - ALLERGY STATUS TO OTHER ANTIBIOTIC AGENTS SNOMED Code(s): 304866620 (2) Failure of outpatient treatment Current Visit: Yes Status: Acute Code(s): Z78.9 - OTHER SPECIFIED HEALTH STATUS SNOMED Code(s): 970678435 (3) Cellulitis of right leg Current Visit: Yes Status: Acute Code(s): L03.115 - CELLULITIS OF RIGHT LOWER LIMB SNOMED Code(s): 19148257723090089 Plan: 1patient presents the hospital with increasing swelling redness to the right lower extremity in this patient recently did have right knee arthroplasty subsequently admission to the hospital with cellulitis that responded to the vancomycin however seem to have further worsening of the patient has been oral Zyvox for the last 5 days possibly concerning for failure of oral therapy. 2patient with multiple antibiotic ALLERGIES that would limit the number of antibiotic safe to use. 3patient main issue is to be swelling and possible venous stasis D discussed with the patient and the nursing staff to apply compression dressing to keep some of the swelling down 4for now continue with the vancomycin while waiting for the culture to finalize Dictation was produced using [employer] dictation software. please excuse any grammatical, word or spelling errors. Time with Patient: Less than 30
[2025-02-03 04:47] LABS: Basophils # (A) 0.08 10*3/uL (0.00-0.10); Basophils % (A) 1.8 %; Eosinophils # (A) 0.18 10*3/uL (0.04-0.35); Eosinophils % (A) 4.0 %; HCT 28.0 % (37.2-46.3); Lymphocytes # (A) 1.60 10*3/uL (0.90-5.00); Lymphocytes % (A) 35.7 %; MCH 30.9 pg (27.0-32.0); MCHC 32.1 g/dL (32.0-37.0); MCV 96.2 fL (80.0-97.0); Monocytes # (A) 0.76 10*3/uL (0.20-1.00); Monocytes % (A) 17.0 %; Neutrophils # (A) 1.85 10*3/uL (1.80-7.70); Neutrophils % (A) 41.3 %; Platelet Count 319 10*3/uL (140-440); RBC 2.91 10*6/uL (4.10-5.20); RDW 13.7 % (11.5-14.5); WBC 4.48 10*3/uL (4.50-10.00)
[2025-02-03 04:49] LABS: HGB 9.0 g/dL (12.0-15.0)
[2025-02-03 05:01] LABS: African American GFR (CKD) >90 (>60 ml/min/1.73 sqM); Anion Gap 4 mmol/L; Blood Urea Nitrogen 6 mg/dL (7-17); Calcium 8.8 mg/dL (8.4-10.2); Carbon Dioxide 27 mmol/L (22-30); Chloride 106 mmol/L (98-107); Glucose 90 mg/dL (74-99); Non-African American GFR(CKD) >90 (>60 ml/min/1.73 sqM); Potassium 3.8 mmol/L (3.5-5.1); Sodium 137 mmol/L (137-145)
[2025-02-03 05:12] LABS: INR 1.1 (<1.2); Partial Thromboplastin Time 29.0 sec (22.0-30.0); Prothrombin Time 12.1 sec (10.0-12.5)
--- NOTE | 2025-02-03 11:01 | P.PN ---
Progress Note - Text Orthopedics: History of present illness: Patient is a very pleasant 74-year-old female who is status post revision right total knee arthroplasty performed by Dr. Jd Modi on 01/14/2025. She was discharged home on 01/17/2025. She was experiencing pain and swelling in her right lower extremity. She presented to emergency department for further evaluation on 01/19/2025. Doppler imaging was negative for DVT. She was discharged home. Her symptoms continue to worsen. She presented back to the emergency department for further evaluation on 01/20/2025. She was admitted for right lower extremity cellulitis. She was seen and evaluated by infectious disease. She improved on IV antibiotics. She was discharged home on oral antibiotics. Since that time her symptoms have been worsening and her right lower extremity cellulitis and swelling and warmth has worsened. She presented back to the emergency department yesterday, 02/01/2025 for further evaluation. She has been restarted on IV antibiotics. She was seen by infectious disease who may be planning for PICC line placement at the time of discharge. Patient will remain in the hospital least over the weekend. Since being seen and examined yesterday, she continues to feel her symptoms have significantly improved since resuming IV antibiotic medication. She was seen by infectious disease today. Her leg was just wrapped by nursing for some compression. She has had some improvement of her swelling. Her hardware remains intact at her right knee. Her surgical incision site is clean, dry, and intact. Physical Exam Total Knee Arthroplasty: Status post surgical day number 19 Patient is awake, alert, and oriented 3 Vital signs stable Good chest excursion with deep inspiration and expiration Significant swelling, erythema, and warmth of the right lower extremity from the knee extending through the foot starting at the inferior aspect of the incision site with some improvement in swelling Some medial bruising at the right heel 2+ pitting edema at the right foot and right lower extremity below the knee Surgical incision site at the right knee is clean, dry, and intact No drainage from the surgical site at the right knee Patient has full foot and ankle motion without difficulty bilateral lower ext remities Dorsiflexion, plantar flexion, and extensor hallucis longus positive sustained on the right Pertinent studies: Right lower extremity venous ultrasound Doppler taken on 02/01/2025: No evidence of DVT X-rays of the right knee, tibia-fibula taken on 02/01/2025: Evidence of total knee arthroplasty which appears to be in good alignment good position; no fracture or dislocation at the right knee or right ankle; swelling X-rays of the right lower extremity tibia/fibula x-rays taken on 01/20/2025: Evidence of total knee arthroplasty which appears to be in good alignment good position; no fracture or dislocation at the right knee or right ankle Assessment: Right knee pain Right lower extremity swelling and cellulitis History of revision right total knee arthroplasty 01/14/2025 Anticoagulation use with Eliquis Hypertension Plan: 1. We will continue with our plan as set forth yesterday. Patient is status post right total knee arthroplasty performed on 01/14/2025. Postoperatively she has developed pain and swelling with erythema in her right lower extremity. She presented to emergency department for further evaluation on 01/19/2025. Doppler imaging was negative for DVT. She was discharged home. Her symptoms continue to worsen. She presented back to the emergency department for further evaluation on 01/20/2025. She was admitted for right lower extremity cellulitis. She was seen and evaluated by infectious disease. She improved on IV antibiotics. She was discharged home on oral antibiotics. Since that time her symptoms have been worsening and her right lower extremity cellulitis and swelling and warmth has worsened. She presented back to the emergency department yesterday, 02/01/2025 for further evaluation. She has been restarted on IV antibiotics. She was seen by infectious disease who may be planning for PICC line placement at the time of discharge. Patient will remain in the hospital least over the weekend. Currently, she feels her symptoms have continued to improve since starting antibiotic medication. Lower extremity erythema has improved since starting back on IV antibiotics and her swelling has improved as compared to yesterday. She does continue to have some swelling and warmth. Gutierrez bandage has been placed on her right lower extremity for some compression. Ultrasound Doppler of the right lower extremity was negative for DVT. Her hardware remains intact at her right knee. Her surgical incision site is clean, dry, and intact. We are not currently planning for further surgical intervention at this time in her right knee. Would recommend continued conservative treat with antibiotics with Vancomycin per medicine. This may be adjusted by infectious disease.
--- NOTE | 2025-02-03 11:18 | P.PN ---
Subjective Progress Note Date: 02/03/25 Patient seen and examined at bedside. No acute events overnight. Pertinent positives and negatives as discussed above, a complete review of systems was performed and all other systems are negative. Vitals: Signs Reviewed Physical Exam: General: nontoxic, no distress, appears at stated age Derm: no unusual rashes/lesions, warm. Head: atraumatic, normocephalic, symmetric Eyes: EOMI, anicteric sclera Mouth: no lip lesion, mucus membranes moist Cardiovascular: S1 S2 reg, no murmur, rubs, or gallops Lungs: CTA bilateral, no rhonchi, no rales, no accessory muscle use Abdominal: soft, non-tender to palpation, no appreciable organomegaly Extremities: no gross muscle atrophy, no edema, no contractures, Right lower limb - mild erythema and warmth, edema up to the ankle, dorsalis pedis pulse palpable, slightly tender to touch, swelling and redness has improved. Neuro: Alert, Oriented, CNII-XII grossly intact, gait normal Psych: well appearing, appropriate affect Data Received Today: Pertinent Labs: WBC4.48, Hgb9.0, MCV-96.2, Na-137, Ca- 8.8, Cr-0.5 Assessment and Plan: #Right lower extremity cellulitis *Ultrasound of right lower extremity negative for DVT, Right lower limb exam revealed, mild erythema and warmth, edema up to the ankle, slightly tender to touch. *Arterial Doppler demonstrated waveforms bilaterally, however patient was unable to tolerate ROBYN due to pain *X-ray of knee and tibia/fibula shows ongoing soft tissue swelling and diffuse osteopenia without evidence of acute osseous abnormality. Total knee arthroplasty hardware shows stable appearance. -Per ID, continue IV vancomycin per pharmacy dosing, Monitor for renal toxicity -Continue Dilaudid 0.5 mg every 4 hours as needed for severe pain and Bryant 7.5325mg every 6 hours as needed for moderate pain -Ortho following, recommending conservative management with antibiotics #Macrocytic anemia *Iron levels drawn at her last admission and were normal *B12 - 607.0, folate levels ordered -Continue to monitor while inpatient Chronic: #Hypertension -Continue home lisinopril #Hypothyroidism -Continue home levothyroxine #Hyperlipidemia -Continue home rosuvastatin #COPD -Continue home fluticasone/vilanterol and albuterol inhaler #History of DVT -Continue home Eliquis 5 mg twice daily given no indication for urgent surgical intervention at this time DVT ppx: Eliquis p.o. 5 mg twice daily Code status: Full code Anticipated discharge place: Pending clinical course Anticipated discharge time: Pending clinical course Nikko Damon MD PGY-1 FM Dictation was produced using [employer] dictation software. please excuse any grammatical, word or spelling errors. I have seen and evaluated the patient today. Discussed with the resident and agree with the residents finding and plan as documented in the resident's note. Changes highlighted in blue font. Objective - Vital Signs Vital signs: Vital Signs Temp 98.8 F 02/03/25 07:10 Pulse 78 02/03/25 07:10 Resp 16 02/03/25 07:10 BP 131/74 02/03/25 07:10 Pulse Ox 95 02/03/25 07:55 FiO2 21 02/03/25 07:55 Intake & Output 02/02/25 02/03/25 02/03/25 18:59 06:59 18:59 Intake Total 2100 600 480 Balance 2100 600 480 Intake: Oral 600 480 Blood Product 1500 Other 600 Other: Voiding Method Toilet # Voids 5 1 # Bowel Movements 2 - Labs CBC & Chem 7: 02/03/25 04:15 02/03/25 04:15 Labs: Abnormal Lab Results - Last 24 Hours (Table) 02/03/25 02/03/25 Range/Units 04:15 04:15 WBC 4.48 L (4.50-10.00) 10*3/uL RBC 2.91 L (4.10-5.20) 10*6/uL Hgb 9.0 L D (12.0-15.0) g/dL Hct 28.0 L (37.2-46.3) % MPV 9.2 L (9.5-12.2) fL BUN 6 L (7-17) mg/dL Creatinine 0.50 L (0.52-1.04) mg/dL Microbiology - Last 24 Hours (Table) 02/01/25 22:45 Urine Culture - Final Urine,Voided 02/01/25 13:43 Blood Culture - Preliminary Blood 02/01/25 12:41 Blood Culture - Preliminary Blood
[2025-02-03] MEDS: VANCOMYCIN TROUGH DUE 1 EACH MISC MISCELLANE ONE (14:54)
--- NOTE | 2025-02-03 18:10 | P.PN ---
Subjective Progress Note Date: 02/03/25 Principal diagnosis: Reason for follow-up is right leg cellulitis Patient is a 74-year-old female with a past medical history significant for asthma hypertension history of chronic swelling to the right lower extremity after the patient did have a surgery for a fractured leg many years ago recently did have a right knee arthroplasty subsequently admitted to hospital with right lower extremity cellulitis responded to the vancomycin now presented back with worsening swelling redness on oral Zyvox. On today's evaluation that is 02/03/2025, Patient is afebrile patient is currently on room air and denies having any shortness of breath, the patient denies any chest pain or cough, the patient denies any nausea vomiting did not have any abdominal pain and no diarrhea, swelling and pain to the right leg Decrease in intensity. Patient white count is 4.48 creatinine 0.60 Vanco trough is 13.9 blood cultures currently pending Objective - Vital Signs Vital signs: Vital Signs Temp 98.8 F 02/03/25 07:10 Pulse 78 02/03/25 08:00 Resp 16 02/03/25 08:00 BP 131/74 02/03/25 07:10 Pulse Ox 95 02/03/25 07:55 FiO2 21 02/03/25 07:55 Intake & Output 02/02/25 02/03/25 02/03/25 18:59 06:59 18:59 Intake Total 2100 600 480 Balance 2100 600 480 Intake: Oral 600 480 Blood Product 1500 Other 600 Other: Voiding Method Toilet Toilet # Voids 5 1 # Bowel Movements 2 - Exam GENERAL DESCRIPTION: An elderly male lying in bed in no distress RESPIRATORY SYSTEM: Unlabored breathing , decreased breath sounds at bases HEART: S1 S2 regular rate and rhythm , ABDOMEN: Soft , no tenderness EXTREMITIES: Right leg swelling redness slightly decreased - Labs CBC & Chem 7: 02/03/25 04:15 02/03/25 04:15 Labs: Abnormal Lab Results - Last 24 Hours (Table) 02/03/25 02/03/25 Range/Units 04:15 04:15 WBC 4.48 L (4.50-10.00) 10*3/uL RBC 2.91 L (4.10-5.20) 10*6/uL Hgb 9.0 L D (12.0-15.0) g/dL Hct 28.0 L (37.2-46.3) % MPV 9.2 L (9.5-12.2) fL BUN 6 L (7-17) mg/dL Creatinine 0.50 L (0.52-1.04) mg/dL Microbiology - Last 24 Hours (Table) 02/01/25 22:45 Urine Culture - Final Urine,Voided 02/01/25 13:43 Blood Culture - Preliminary Blood 02/01/25 12:41 Blood Culture - Preliminary Blood Assessment and Plan (1) Allergy to multiple antibiotics Current Visit: Yes Status: Acute Code(s): Z88.1 - ALLERGY STATUS TO OTHER ANTIBIOTIC AGENTS SNOMED Code(s): 761934588 (2) Failure of outpatient treatment Current Visit: Yes Status: Acute Code(s): Z78.9 - OTHER SPECIFIED HEALTH STATUS SNOMED Code(s): 275928220 (3) Cellulitis of right leg Current Visit: Yes Status: Acute Code(s): L03.115 - CELLULITIS OF RIGHT LOWER LIMB SNOMED Code(s): 08110380295688067 Plan: 1patient presents the hospital with increasing swelling redness to the right lower extremity in this patient recently did have right knee arthroplasty subsequently admission to the hospital with cellulitis that responded to the vancomycin however seem to have further worsening of the patient has been oral Zyvox for the last 5 days possibly concerning for failure of oral therapy. 2patient with multiple antibiotic ALLERGIES that would limit the number of antibiotic safe to use. 3patient main issue is to be swelling and possible venous stasis patient did have the nursing staff apply Gutierrez wrap for compression and did have improvement in the swelling as well as redness,for now continue with the vancomycin hopefully will transition to oral antibiotic on discharge Dictation was produced using [employer] dictation software. please excuse any grammatical, word or spelling errors. Time with Patient: Less than 30
[2025-02-04 07:41] VITALS: RESP 17
[2025-02-04 07:49] LABS: Basophils # (A) 0.08 X 10*3/uL (0.00-0.10); Basophils % (A) 1.4 %; Eosinophils # (A) 0.26 X 10*3/uL (0.04-0.35); Eosinophils % (A) 4.5 %; HCT 28.5 % (37.2-46.3); HGB 8.7 g/dL (12.0-15.0); Immature Grans, Automated 0.20 %; Lymphocytes # (A) 2.16 X 10*3/uL (0.90-5.00); Lymphocytes % (A) 37.6 %; MCH 29.9 pg (27.0-32.0); MCHC 30.5 g/dL (32.0-37.0); MCV 97.9 FL (80.0-97.0); Monocytes # (A) 0.92 X 10*3/uL (0.20-1.00); Monocytes % (A) 16.0 %; NRBC Per 100 WBC 0 X 10*3/uL (0.00-0.01); Neutrophils # (A) 2.32 X 10*3/uL (1.80-7.70); Neutrophils % (A) 40.3 %; Platelet Count 314 X 10*3/uL (140-440); RBC 2.91 X 10*6/uL (4.10-5.20); RDW 13.9 % (11.5-14.5); WBC 5.75 X 10*3/uL (4.50-10.00)
[2025-02-04 08:03] LABS: Anion Gap 10.60 mmol/L (4.00-12.00); BUN/Creat Ratio 11.50 Ratio (12.00-20.00); Blood Urea Nitrogen 6.9 mg/dL (9.0-27.0); Calcium 8.4 mg/dL (8.7-10.3); Carbon Dioxide 23.4 mmol/L (21.6-31.8); Chloride 109 mmol/L (96-109); Glucose 100 mg/dL (70-110); Potassium 3.7 mmol/L (3.5-5.5); Sodium 143 mmol/L (135-145)
--- NOTE | 2025-02-04 12:13 | P.PN ---
Subjective Progress Note Date: 02/04/25 This is a 74 year-old female who is admitted for cellulitis. Orthopedics is following due to recent right total knee arthroplasty on 01/14/2025. Patient is seen and evaluated at bedside today and reports improvement in swelling of the right lower extremity. Patient states that she has outpatient physical therapy scheduled for later this week and was able to attend one session before being admitted to the hospital. Patient denies any fever/chills, numbness, weakness, tingling, abdominal pain, or shortness of breath. Objective - Vital Signs Vital signs: Vital Signs Temp 98.1 F 02/04/25 07:05 Pulse 71 02/04/25 07:05 Resp 17 02/04/25 07:05 BP 112/66 02/04/25 07:05 Pulse Ox 95 02/04/25 07:05 FiO2 21 02/03/25 07:55 Intake & Output 02/03/25 02/04/25 02/04/25 18:59 06:59 18:59 Intake Total 1750 Balance 1750 Intake: Intake, IV Titration 250 Amount Vancomycin 1,250 mg In 250 Sodium Chloride 0.9% 250 ml @ 125 mls/hr IVPB Q12H [facility] Rx#:[id number] Oral 1500 Other: Voiding Method Toilet Toilet Toilet # Voids 5 2 - Exam On exam patient is resting comfortably in bed in no acute distress. Patient is alert and oriented 3. Right lower extremity: Surgical incision is healing well without any surrounding erythema, drainage or warmth. Patient has flexion of the right knee to approximately 75 degrees. Patient lacks approximately 5 degrees of extension. Calf is soft and nontender to palpation. Patient has good motion of the right foot and ankle. Capillary refill is normal at less than 2 seconds. Right lower extremity is warm and well-perfused. Sensation intact. Neurovascular status and circulatory status are intact. - Labs CBC & Chem 7: 02/04/25 04:29 02/04/25 04:29 Labs: Abnormal Lab Results - Last 24 Hours (Table) 02/04/25 02/04/25 Range/Units 04:29 04:29 RBC 2.91 L (4.10-5.20) X 10*6/uL Hgb 8.7 L (12.0-15.0) g/dL Hct 28.5 L (37.2-46.3) % MCV 97.9 H (80.0-97.0) FL MCHC 30.5 L (32.0-37.0) g/dL BUN 6.9 L (9.0-27.0) mg/dL BUN/Creatinine Ratio 11.50 L (12.00-20.00) Ratio Calcium 8.4 L (8.7-10.3) mg/dL Microbiology - Last 24 Hours (Table) 02/01/25 13:43 Blood Culture - Preliminary Blood 02/01/25 12:41 Blood Culture - Preliminary Blood Assessment and Plan (1) Cellulitis of right leg Current Visit: Yes Status: Acute Code(s): L03.115 - CELLULITIS OF RIGHT LOWER LIMB SNOMED Code(s): 33587814708991582 (2) Status post total right knee replacement Current Visit: No Status: Acute Code(s): Z96.651 - PRESENCE OF RIGHT ARTIFICIAL KNEE JOINT SNOMED Code(s): 1796641292420 Plan: 1. Continue antibiotics per infectious disease. 2. Patient is to work on range of motion of the right knee as tolerated. Rest and elevate for swelling. 3. Patient reports improvement in her symptoms. Patient is afebrile and white blood cell count is within normal limits. No surgical intervention planned. Will continue to follow.
[2025-02-04 12:54] VITALS: BP 139/75; PULSE 67; TEMP 98
--- NOTE | 2025-02-04 13:14 | P.DS ---
Providers Date of admission: 02/01/25 13:52 Expected date of discharge: 02/04/25 Attending physician: Jose Romo Consults: 02/01/25 14:48 Consult Physician Urgent Consulting Provider: Vik Mei Consult Reason/Comments: Right lower extremity worsening infection Do you want consulting provider notified?: Yes 02/02/25 11:21 Consult Physician Urgent Consulting Provider: Jd Modi Consult Reason/Comments: Right lower extremity cellulitis status post R revision TKA Do you want consulting provider notified?: Yes Primary care physician: Issa Gibson MD Hospital Course: Discharge Diagnosis: Right lower extremity cellulitis Recent knee revision Macrocytic anemia Chronic: Hypertension Hypothyroidism Hyperlipidemia COPD History of DVT Hospital Course: The patient is a 74-year-old female with a history of DVT (on Eliquis), hypertension, hyperlipidemia, and hypothyroidism who was advised to come to the ER by her PCP due to worsening right lower extremity swelling and pain that began a couple days ago. Patient and family report that a couple days ago the patient woke up and had significantly worse swelling, redness, and pain to her right leg. She states that the pain and swelling was from her foot all the way up to her lower thigh. The patient reports that the pain is constant and is not worse with movement. When asked, she reports chills for the last couple days. Per chart review, the patient was admitted from 01/20/2025 until 01/27/2025 for her cellulitis and was treated with IV antibiotics. The patient had a right total knee revision arthroplasty on 01/14/2025. The patient mentions some slight numbness to her right foot but denies any other symptoms including chest pain, shortness of breath, or discharge from the surgical wound. She states the last time the dressing was changed is when she was discharged from the hospital. In the ED, labs were unremarkable except for a slight macrocytic anemia and the patient was started on vancomycin. Patient was admitted and x-rays of the tibia, fibula, and knee were obtained as well as lower extremity venous Doppler ultrasound. X-rays demonstrated ongoing generalized soft tissue swelling and diffuse osteopenia but showed stable appearance of total knee arthroplasty hardware without any evidence of osseous abnormality. Lower extremity venous Doppler was negative for DVT. Arterial Doppler was obtained which showed waveforms bilaterally, however ABIs were unable to be obtained due to pain. The patient was seen by infectious disease who ordered an Gutierrez wrap which improved the soft tissue swelling significantly. Per chart review the patient tolerated cefazolin when she had her knee operation. After consulting with ID the decision was made to give the patient a dose of cefazolin in the hospital which she tolerated well and discharged her on oral Keflex for 10 days. She is recommended to follow-up with her PCP and infectious disease. Patient seen and examined at bedside. Vital signs reviewed and stable. Physical examination: General: nontoxic, no distress, appears at stated age Derm: no unusual rashes/lesions, warm. Head: atraumatic, normocephalic, symmetric Eyes: EOMI, anicteric sclera Mouth: no lip lesion, mucus membranes moist Cardiovascular: S1 S2 reg, no murmur, rubs, or gallops Lungs: CTA bilateral, no rhonchi, no rales, no accessory muscle use Abdominal: soft, non-tender to palpation, no appreciable organomegaly Extremities: no gross muscle atrophy, no edema, no contractures, Right lower limb - mild erythema and warmth, edema has significantly improved, dorsalis pedis pulse palpable, slightly tender to touch, swelling and redness has improved significantly since admission. Neuro: Alert, Oriented, CNII-XII grossly intact, gait normal Psych: well appearing, appropriate affect A total of greater than 30 minutes of time were spent preparing this complex discharge summary. Patient was discharged on 02/04/2025. Armando Cage MD PGY-1 TY Dictation was produced using [email or web address] dictation software. please excuse any grammatical, word or spelling errors. I have seen and evaluated the patient today. Discussed with the resident and agree with the residents finding and plan as documented in the resident's note. Changes highlighted in blue font. Patient Condition at Discharge: Stable Plan - Discharge Summary Discharge Rx Participant: No New Discharge Prescriptions: New Cephalexin [Keflex] 500 mg PO Q6HR 1 Days #40 cap Continue Montelukast Sodium [Singulair] 10 mg PO HS lisinopriL [Zestril] 10 mg PO HS Lansoprazole [Prevacid] 30 mg PO HS Levothyroxine Sodium [Synthroid] 75 mcg PO DAILY Fluticasone/Vilanterol [Breo Ellipta 200-25 Mcg Inhaler] 1 puff INHALATION RT-DAILY Potassium Chloride ER [K-Dur 20] 20 meq PO BID Multivit with Calcium,Iron,Min [Women's Multivitamin] 1 tab PO HS HYDROcodone/APAP 7.5-325MG [[place] 7.5-325] 1 - 2 tab PO Q6H PRN #32 tab PRN Reason: Pain Sennosides [Senokot] 2 tab PO DAILY PRN #60 tablet PRN Reason: Constipation Ondansetron Odt [Zofran ODT] 1 tab PO Q8HR PRN #10 tab PRN Reason: Nausea Rosuvastatin [Crestor] 20 mg PO HS Apixaban [Eliquis] 5 mg PO BID Loratadine [Claritin] 10 mg PO HS Albuterol Sulfate [Ventolin HFA] 2 puff INHALATION RT-Q6H PRN PRN Reason: Shortness Of Breath [facility] 1 tab PO HS Magnesium Oxide [Mag-Ox] 400 mg PO DAILY Discontinued Linezolid [Zyvox] 600 mg PO Q12HR 10 Days #20 tab Discharge Medication List Fluticasone/Vilanterol [Breo Ellipta 200-25 Mcg Inhaler] 1 puff INHALATION RT- DAILY 06/23/16 [History] Lansoprazole [Prevacid] 30 mg PO HS 06/23/16 [History] Levothyroxine Sodium [Synthroid] 75 mcg PO DAILY 06/23/16 [History] Montelukast Sodium [Singulair] 10 mg PO HS 06/23/16 [History] Potassium Chloride ER [K-Dur 20] 20 meq PO BID 06/23/16 [History] lisinopriL [Zestril] 10 mg PO HS 06/23/16 [History] Rosuvastatin [Crestor] 20 mg PO HS 10/07/22 [History] Apixaban [Eliquis] 5 mg PO BID 12/27/23 [History] Loratadine [Claritin] 10 mg PO HS 12/27/23 [History] Albuterol Sulfate [Ventolin HFA] 2 puff INHALATION RT-Q6H PRN 01/08/25 [History] [facility] 1 tab PO HS 01/08/25 [History] Multivit with Calcium,Iron,Min [Women's Multivitamin] 1 tab PO HS 01/08/25 [History] HYDROcodone/APAP 7.5-325MG [[place] 7.5-325] 1 - 2 tab PO Q6H PRN #32 tab 01/14/25 [Rx] Sennosides [Senokot] 2 tab PO DAILY PRN #60 tablet 01/14/25 [Rx] Ondansetron Odt [Zofran ODT] 1 tab PO Q8HR PRN #10 tab 01/17/25 [Rx] Magnesium Oxide [Mag-Ox] 400 mg PO DAILY 01/20/25 [History] Cephalexin [Keflex] 500 mg PO Q6HR 1 Days #40 cap 02/04/25 [Rx] Follow up Appointment(s)/Referral(s): Issa Gibson MD [Primary Care Provider] - 02/11/25 1:00 pm Jd Modi DO [Doctor of Osteopathic Medicine] - 02/08/25 10:50 am (Patient may follow-up with Xiomara Grajeda PA-C or Dr. Jd Modi at [facility] in 2-3 weeks following discharge. ) Vik Mei MD [STAFF PHYSICIAN] - 02/06/25 2:00 pm Patient Instructions/Handouts: Cellulitis (GEN) Activity/Diet/Wound Care/Special Instructions: 1. Weight-bear as tolerated on the right lower extremity 2. May shower without a dressing intact over the incision site of the right anterior knee 3. Take medications as prescribed Please follow up with PCP and surgeon. Discharge Disposition: HOME SELF-CARE
--- NOTE | 2025-02-05 14:01 | P.PN ---
Subjective Progress Note Date: 02/04/25 Principal diagnosis: Reason for follow-up is right leg cellulitis Patient is a 74-year-old female with a past medical history significant for asthma hypertension history of chronic swelling to the right lower extremity after the patient did have a surgery for a fractured leg many years ago recently did have a right knee arthroplasty subsequently admitted to hospital with right lower extremity cellulitis responded to the vancomycin now presented back with worsening swelling redness on oral Zyvox. On today's evaluation that is 02/04/2025, patient has been afebrile, patient is breathing comfortably and is currently on room air, patient denies having any chest pain and cough, patient denies nausea vomiting or diarrhea and no abdominal pain, pain swelling to the right lower extremity has decreased in intensity. Patient white count is 5.75, creatinine 0.6 blood culture remains to be negative Objective - Vital Signs Vital signs: Vital Signs Temp 98.1 F 02/04/25 07:05 Pulse 71 02/04/25 07:05 Resp 17 02/04/25 07:05 BP 112/66 02/04/25 07:05 Pulse Ox 95 02/04/25 07:05 FiO2 21 02/03/25 07:55 Intake & Output 02/03/25 02/04/25 02/04/25 18:59 06:59 18:59 Intake Total 1750 Balance 1750 Intake: Intake, IV Titration 250 Amount Vancomycin 1,250 mg In 250 Sodium Chloride 0.9% 250 ml @ 125 mls/hr IVPB Q12H [facility] Rx#:[id number] Oral 1500 Other: Voiding Method Toilet Toilet Toilet # Voids 5 2 1 - Exam GENERAL DESCRIPTION: An elderly male lying in bed in no distress RESPIRATORY SYSTEM: Unlabored breathing , decreased breath sounds at bases HEART: S1 S2 regular rate and rhythm , ABDOMEN: Soft , no tenderness EXTREMITIES: Right leg swelling redness slightly decreased - Labs CBC & Chem 7: 02/04/25 04:29 02/04/25 04:29 Labs: Abnormal Lab Results - Last 24 Hours (Table) 02/04/25 02/04/25 Range/Units 04:29 04:29 RBC 2.91 L (4.10-5.20) X 10*6/uL Hgb 8.7 L (12.0-15.0) g/dL Hct 28.5 L (37.2-46.3) % MCV 97.9 H (80.0-97.0) FL MCHC 30.5 L (32.0-37.0) g/dL BUN 6.9 L (9.0-27.0) mg/dL BUN/Creatinine Ratio 11.50 L (12.00-20.00) Ratio Calcium 8.4 L (8.7-10.3) mg/dL Microbiology - Last 24 Hours (Table) 02/01/25 13:43 Blood Culture - Preliminary Blood 02/01/25 12:41 Blood Culture - Preliminary Blood Assessment and Plan (1) Allergy to multiple antibiotics Status: Acute Code(s): Z88.1 - ALLERGY STATUS TO OTHER ANTIBIOTIC AGENTS SNOMED Code(s): 141720067 (2) Failure of outpatient treatment Status: Acute Code(s): Z78.9 - OTHER SPECIFIED HEALTH STATUS SNOMED Code(s): 967838195 (3) Cellulitis of right leg Status: Acute Code(s): L03.115 - CELLULITIS OF RIGHT LOWER LIMB SNOMED Code(s): 69289306731638006 Plan: 1patient presents the hospital with increasing swelling redness to the right lower extremity in this patient recently did have right knee arthroplasty subsequently admission to the hospital with cellulitis that responded to the vancomycin however seem to have further worsening of the patient has been oral Zyvox for the last 5 days possibly concerning for failure of oral therapy. 2patient with multiple antibiotic ALLERGIES that would limit the number of antibiotic safe to use. 3patient patient apparently has tolerated cefazolin perioperatively she will be given a dose of cefazolin 2 g and if tolerates will be able to go home on oral Keflex 500 mg every 6 hours for 10 days this were discussed with the resident physician Dictation was produced using [employer] dictation software. please excuse any grammatical, word or spelling errors. Time with Patient: Less than 30
== END 2025-02-04 16:21 | disposition home or self-care (01) | DRG 603 ==
LOC: EC 12:11 → 5NMEDONC 13:52
PROVIDERS: ADMIT Student in an Organized Health Care Education/Training Program; ATTEND Student in an Organized Health Care Education/Training Program
DX: L03.115 Cellulitis of right lower limb (principal); D53.9 Nutritional anemia, unspecified; J44.9 Chronic obstructive pulmonary disease, unspecified; E03.9 Hypothyroidism, unspecified; I10 Essential (primary) hypertension; M85.861 Other specified disorders of bone density and structure, right lower leg; R23.1 Pallor; E78.5 Hyperlipidemia, unspecified; I25.2 Old myocardial infarction; Z86.718 Personal history of other venous thrombosis and embolism; Z79.890 Hormone replacement therapy; Z79.01 Long term (current) use of anticoagulants; Z79.899 Other long term (current) drug therapy; Z79.51 Long term (current) use of inhaled steroids; Z88.1 Allergy status to other antibiotic agents; Z96.651 Presence of right artificial knee joint
CPT/HCPCS: 36415; 80048; 80053; 80202; 81001; 82550; 82607; 82747; 83605; 85025; 85610; 85652; 85730; 86140; 87040; 87086; 93005; 93922; 94640; 94760; 96365; 96366; 96375; 99285